=== PATIENT | female | born 1945 | race Caucasian/White ===

== ENCOUNTER → 2016-11-20 | Outpatient (CLI) | payer OTHER, BC ==
[~2016-11-20] MED LIST: ALLO100T PO; ATOR10TA88 PO; CARB25TA12 PO; CLC100 PO; FURO-85 PO; GABA800T PO; HYDR12.55 PO; LISI-725 PO; LORA-741 PO; LOVENOX INJ; MULT-506 PO; QUET400T PO; TRAM-10 PO; WARF4TAB8 PO
--- NOTE | 2016-11-20 10:08 | DIAGNOSTIC IMAGING REPORT ---
CT SCAN OF THE CHEST WITHOUT IV CONTRAST CLINICAL HISTORY: Pulmonary nodule follow-up. COMPARISON STUDY: Chest CT scans dated 07/18/2016 and 05/18/2016. TECHNIQUE: CT scan of the thorax was performed from the thoracic inlet to the upper abdomen. Images are reviewed in the axial, sagittal, and coronal planes. IV contrast was not administered for this examination. CT DOSE: 854.78 mGy.cm FINDINGS: Thyroid: Imaged portions of the thyroid gland are normal in size and attenuation. A 2.5 cm heterogeneous nodule is again noted in the right lobe. Thoracic aorta: There is mild atherosclerotic calcification of the thoracic aorta, which is normal in caliber and demonstrates standard 3-vessel arch anatomy. Heart: The heart is normal in size and without pericardial effusion. There are coronary artery calcifications. Lungs and pleural spaces: There is no lobar consolidation or pleural effusion. The trachea and central airways are clear. There are numerous pulmonary cysts measuring up to 3.8 cm. These are similar previous. Numerous pulmonary opacities are unchanged to slightly increased in size as compared to studies dating back to 05/18/2016. There is a 2.5 cm right middle lobe opacity with a stranding groundglass halo seen on image #150. At least 2 similar-appearing lesions are present at the left lung base and measure up to 2.8 cm, and a similar-appearing lesion in the left upper lobe is similar image #127 measuring 2.9 cm. Smaller groundglass lesions are present in the right upper lobe on images #101, and the right middle lobe on image #120, and in the right lower lobe on image #100. Mediastinum: There are scattered subcentimeter mediastinal lymph nodes. These are not pathologically enlarged by size criteria. Keena: Not well assessed without IV contrast. Axillae: There is no axillary lymphadenopathy. Upper abdomen: There is a large hiatal hernia with the majority of the stomach located in the thoracic cavity. Calcified gallstones are partially visualized. The liver is steatotic. The spleen is mildly enlarged measuring 13.6 cm in length. Cortical atrophy is noted in the partially visualized left kidney. Parapelvic cysts are noted. There is mild nodularity of the adrenal glands. Skeletal structures: The Skeletal structures are osteopenic. Degenerative change and mild hyperkyphosis is seen in the thoracic spine. No lytic or blastic bony lesions are seen. IMPRESSION: 1. There is no lobar consolidation or pleural effusion. 2. There are numerous bilateral pulmonary opacities with a groundglass configuration. These are similar in appearance to slightly increased in size as compared to studies dating back to 05/18/2016. An infectious/inflammatory process should have resolved or changed over this time period. Neoplasm is the diagnosis of exclusion. If not already performed, bronchoscopy is recommended for further assessment. 3. There is no mediastinal lymphadenopathy. 4. There is a 2.5 cm right sided thyroid nodule. Follow-up with a nonemergent thyroid ultrasound is recommended for further assessment. 6. Hepatic steatosis. 7. Large hiatal hernia. 8. Additional findings as above. Electronically signed by: Lenny Ramirez M.D. 11/20/2016 10:07 AM Dictated Date/Time: 11/20/2016 9:54 AM
== END | disposition home or self-care (01) ==
LOC: C.CTS 09:40
PROVIDERS: ATTEND Surgery
DX: R91.8 Other nonspecific abnormal finding of lung field (principal)

== ENCOUNTER → 2016-12-11 | Outpatient (CLI) | payer OTHER, BC ==
--- NOTE | 2016-12-15 12:31 | CODING QUERY MEDICAL NECESSITY ---
SUPPORTING DIAGNOSIS NEEDED A supporting diagnosis is required for the test/procedure performed on this patient in order for us to be reimbursed by the patient's insurance. Please provide a supporting diagnosis for the following test/procedure listed below next to the test name along with your signature. *If there is no additional diagnosis for this patient that would support the following test/procedure please document that below next to the test/procedure. Test(s)/Procedure(s) that require a supporting diagnosis: DOS 12/11 * Vitamin D DIAGNOSIS: Provider Signature: Date: Thank you Ingrid Aguilar Health Information Management Once completed, please kindly fax back to [phone] For questions please call [phone]
== END | disposition home or self-care (01) ==
LOC: C.LAB 15:16
PROVIDERS: ATTEND Psychiatry & Neurology Psychiatry
DX: F31.9 Bipolar disorder, unspecified (principal)

== ENCOUNTER → 2016-12-29 | Outpatient (CLI) | payer OTHER, BC ==
--- NOTE | 2016-12-29 12:48 | DIAGNOSTIC IMAGING REPORT ---
RIGHT LOWER EXTREMITY VENOUS DOPPLER HISTORY: RT LEG Swelling, r/o DVT Right COMPARISON STUDY: None. FINDINGS: There is normal compressibility, flow, and augmentation within the right lower extremity deep venous system. IMPRESSION: No DVT within the right lower extremity Electronically signed by: Rao Roper M.D. 12/29/2016 12:47 PM Dictated Date/Time: 12/29/2016 12:47 PM
== END | disposition home or self-care (01) ==
LOC: C.ULTRBC 12:02
PROVIDERS: ATTEND Internal Medicine
DX: M79.89 Other specified soft tissue disorders (principal); M79.604 Pain in right leg

== ENCOUNTER → 2017-05-07 | Outpatient (CLI) | payer OTHER, BC ==
[2017-05-07 09:36] LABS: BASO % 0.8 %; BASO ABS # 0.04 K/uL (0-0.2); COMPLETE YES; EOS % 4.3 %; HEMATOCRIT 41.5 % (37-47); LYMPH ABS # 1.31 K/uL (1.2-3.4); MEAN CELL VOLUME 87.4 fL (80-100); MEAN CORPUSCULAR HEMOGLOBIN 27.8 pg (25-34); MEAN CORPUSCULAR HGB CONC 31.8 g/dl (32-36); MEAN PLATELET VOLUME 9.1 fL (7.4-10.4); MONO % 11.1 %; NEUT % 56.8 %; PLATELET COUNT 257 K/uL (130-400); RED BLOOD COUNT 4.75 M/uL (4.2-5.4); WHITE BLOOD COUNT 4.85 K/uL (4.8-10.8)
[2017-05-07 10:17] LABS: CHOLESTEROL/HDL RATIO 3.6; THYROID STIMULATING HORMONE 1.5 uIu/ml (0.300-4.500)
--- NOTE | 2017-05-11 09:59 | CODING QUERY MEDICAL NECESSITY ---
CQSUPPORTING DIAGNOSIS NEEDED A supporting diagnosis is required for the test/procedure performed on this patient in order for us to be reimbursed by the patient's insurance. Please provide a supporting diagnosis for the following test/procedure listed below next to the test name along with your signature. *If there is no additional diagnosis for this patient that would support the following test/procedure please document that below next to the test/procedure. Test(s)/Procedure(s) that require a supporting diagnosis: DOS 05/07/17 BLOOD GLUCOSE TEST VITAMIN D TEST Provider Signature: Date: Thank you Mandie Mojica Health Information Management Once completed, please kindly fax back to [phone] For questions please call [phone]
== END | disposition home or self-care (01) ==
LOC: C.LAB 08:44
PROVIDERS: ATTEND Psychiatry & Neurology Psychiatry
DX: F31.9 Bipolar disorder, unspecified (principal); E55.9 Vitamin D deficiency, unspecified

== ENCOUNTER → 2017-06-04 | Outpatient (CLI) | payer OTHER, BC ==
--- NOTE | 2017-06-04 11:39 | DIAGNOSTIC IMAGING REPORT ---
(CHEST) THORAX WITHOUT CLINICAL HISTORY: 71 years-old Female presenting with multiple lung nodules, follow-up. TECHNIQUE: Multidetector CT imaging of the chest was performed without the use of intravenous contrast. IV contrast: None. A dose lowering technique was used consistent with the principles of ALARA (as low as reasonably achievable). COMPARISON: 11/20/2016. CT DOSE (mGy.cm): The estimated cumulative dose is 733.78 mGy.cm. FINDINGS: Crusher Feeder topogram: Unremarkable. On soft tissue windows, prominent heterogeneously hypodense nodule in the right lobe of the thyroid measures approximately 1.5 x 1.8 cm, grossly similar to prior. Numerous subcentimeter mediastinal lymph nodes similar in appearance to prior exam, the largest in the subcarinal region measuring 7 mm in the short axis. Atherosclerosis of aortic arch. Normal heart size. Coronary artery and aortic valve calcification. No pericardial or pleural effusion. Postsurgical changes of possible Annabelle procedure, although the gastroesophageal junction is above the diaphragm. Borderline hepatic steatosis. Calcification of the gallbladder fundus, which may demonstrate gallbladder wall thickening. On lung windows, multiple pulmonary cysts noted bilaterally of varying sizes measuring up to 4.9 cm on the right. Previously noted partially groundglass, partially solid nodule in the right middle lobe along the major fissure now measures approximately 2.7 cm in diameter, previously 2.5 cm. The solid component is not significantly changed from prior. Minimal groundglass opacity also noted more superiorly in the right middle lobe as on prior exam. More anterior right middle lobe partially groundglass and partially solid lobular consolidation is new from prior (series 4 image 149). Round predominantly groundglass nodule at the left lower lobe now measures 2.8 cm in diameter, previously 2.8 cm (series 4 image 23). Additional groundglass surrounds a pulmonary cyst slightly superior to this, unchanged from prior. Somewhat spiculated partially groundglass, partially solid region in the lingula is difficult to measure due to its irregular shape but is approximately unchanged in size from prior. Small nodularity along the right aspect of the upper trachea (series 4 image 29), similar to prior exam. On bone windows, degenerative changes of the thoracic spine. IMPRESSION: 1. Similar appearance of bilateral cystic lung disease. This appearance could be indicative of lymphocytic interstitial pneumonitis (LIP), which would be compatible with additional multifocal nodules and prominent mediastinal lymph nodes. This can be associated with autoimmune diseases, HIV AIDS, and immunodeficiency among other etiologies. 2. Multifocal pulmonary nodules may with extensive groundglass change. These could also be compatible with LIP. However, continued follow-up to confirm stability is warranted given the overlapping appearance with adenocarcinoma in situ. Follow-up per Fleischner Society 2017 recommendations below. 3. Prominent right thyroid nodule. Further assessment with ultrasound could be considered as clinically warranted. 4. Apparent gallbladder wall thickening associated with gallbladder wall calcification. Further assessment with ultrasound to be considered given the concern for porcelain gallbladder. 5. Hepatic steatosis. 6. Postsurgical changes of the gastroesophageal junction suggestive of a Annabelle procedure, although the gastroesophageal junction is above the diaphragm. Please refer to below summary of Fleischner Society 2017 recommendations for follow-up of incidental CT nodules (Kelvin Martinez et al. Guidelines for management of incidental pulmonary nodules detected on CT images: From the Fleischner Society 2017. Radiology 2017; 284: 228-243.) SOLID NODULES Single nodule; size <6 mm * Low risk patients: No routine follow-up * High risk patients: Optional CT at 12 months Single nodule; size 6-8 mm * Low risk patients: CT at 6-12 months, then consider CT at 18-24 months * High risk patients: CT at 6-12 months, then at 18-24 months Single nodule; size >8 mm * Either low or high risk patients: Considered CT at 3 months, PET/CT, or tissue sampling Multiple nodules; size <6 mm * Low risk patients: No routine follow up * High risk patients: Optional CT at 12 months Multiple nodules; size 6-8 mm * Low risk patients: CT at 3-6 months, then consider CT at 18-24 months * High risk patients: CT at 3-6 months, then at 18-24 months Multiple nodules; size >8 mm * Low risk patients: CT at 3-6 months, then consider at 18-24 months * High risk patients: CT at 3-6 months, then at 18-24 months Note: These guidelines apply to incidental nodules. These guidelines did not apply to patients younger than 35 years, immunocompromised patients, or patients with cancer. * Low risk patients: Minimal or absent history of smoking and/or other known risk factors * High risk patients: History of smoking, exposure to other carcinogens, emphysema, fibrosis, upper lobe location, family history of lung cancer, etc. * If a nodule up to 8 mm is partly solid or is ground glass further follow-up is required after 24 months to exclude possible slow growing adenocarcinoma SUBSOLID NODULES Single ground-glass nodule * Nodule size < 6 mm: No routine follow-up * Nodule size > or = 6 mm: CT at 6-12 months to confirm persistence, then CT every 2 years until 5 years Single part-solid nodule * Nodule size < 6 mm: No routine follow-up * Nodules size > or = 6 mm: CT at 3-6 months to confirm persistence. If unchanged and solid component remains < 6 mm, annual CT should be performed for 5 years Multiple nodules * Nodule size < 6 mm: CT at 3-6 months. If stable, consider CT at 2 and 4 years. * Nodules size > or = 6 mm: CT at 3-6 months. Subsequent management based on the most suspicious nodule(s) Electronically signed by: Raji Dsouza M.D. 06/04/2017 11:37 AM Dictated Date/Time: 06/04/2017 11:23 AM
== END | disposition home or self-care (01) ==
LOC: C.CTS 11:01
PROVIDERS: ATTEND Internal Medicine Pulmonary Disease
DX: R91.8 Other nonspecific abnormal finding of lung field (principal); E04.1 Nontoxic single thyroid nodule; K76.0 Fatty (change of) liver, not elsewhere classified

== ENCOUNTER 2017-07-11 05:28 | Inpatient (IN) | payer OTHER, BC ==
[2017-06-20 15:22] VITALS: BMI 36.0
--- NOTE | 2017-06-20 16:06 | PAT Medication Instructions ---
Service Date Jun 20, 2017. Current Home Medication List Allopurinol (Zyloprim), 100 MG PO QAM Atorvastatin (Lipitor), 10 MG PO QAM Carbidopa/Levodopa (Sinemet 25MG/100MG), 1 TABLET PO TID Furosemide (Lasix), 20 MG PO QAM Gabapentin (Neurontin), 800 MG PO TID Lisinopril (Zestril), 20 MG PO BID Lorazepam (Ativan), 0.5 MG PO HS PRN for Insomnia Multivitamin (Multivitamin), 1 TAB PO QAM Quetiapine Fumarate (Seroquel), 1 TAB PO HS Medication Instructions For Your Scheduled Surgery - Hold the following medications 24 hours prior to surgery: Lisinopril (Zestril), 20 MG PO BID - Hold the following medications the morning of surgery: Multivitamin (Multivitamin), 1 TAB PO QAM Furosemide (Lasix), 20 MG PO QAM - Take the following medications the morning of surgery with a sip of water: Gabapentin (Neurontin), 800 MG PO TID Carbidopa/Levodopa (Sinemet 25MG/100MG), 1 TABLET PO TID Allopurinol (Zyloprim), 100 MG PO QAM Atorvastatin (Lipitor), 10 MG PO QAM - Take the following medications as scheduled the night before surgery: Quetiapine Fumarate (Seroquel), 1 TAB PO HS (if needed) Lorazepam (Ativan), 0.5 MG PO HS PRN for Insomnia (if needed) Gabapentin (Neurontin), 800 MG PO TID Carbidopa/Levodopa (Sinemet 25MG/100MG), 1 TABLET PO TID If you have any questions please call us at [phone] or [phone] or [phone]
[2017-06-20 16:28] LABS: BASO % 0.6 %; BASO ABS # 0.03 K/uL (0-0.2); COMPLETE YES; EOS % 2.5 %; IG% 0.2 %; LYMPH % 17.4 %; LYMPH ABS # 0.89 K/uL (1.2-3.4); MEAN CELL VOLUME 92.2 fL (80-100); MEAN CORPUSCULAR HGB CONC 31.5 g/dl (32-36); MONO % 8.4 %; NEUT % 70.9 %; PLATELET COUNT 290 K/uL (130-400); RED BLOOD COUNT 4.34 M/uL (4.2-5.4); WHITE BLOOD COUNT 5.11 K/uL (4.8-10.8)
[2017-06-20 16:36] LABS: BUN/CREATININE RATIO 24.2 (10-20); CALCIUM 9.5 mg/dl (8.5-10.1); CREATININE 1.1 mg/dl (0.60-1.20); POTASSIUM 3.5 mmol/L (3.5-5.1)
[~2017-07-11] VITALS: Ht 165.1 cm; Wt 99.8 kg
[2017-07-11] VITALS (10 sets, daily range): BP systolic 113–146; BP diastolic 66–99; PULSE 76–103; TEMP 35.7–36.8; O2SAT 88–96; Ht 165.1 cm; Wt 99.8 kg
[~2017-07-11 05:28] MED LIST changes: -CLC100 PO; -HYDR12.55 PO; -LOVENOX INJ; -TRAM-10 PO; -WARF4TAB8 PO
[2017-07-11] MEDS: LACTATED RINGER'S 1000ML 1,000 ML IV SCH ×2 (06:34→11:29)
[2017-07-11] MEDS ORDERED: BUPIVACAINE LIPOSOME 1/3% 266 MG/20 ML VIAL INFIL ONE (07:00)
[2017-07-11] MEDS ORDERED: SODIUM CHLORIDE 0.9% PF 50 ML VIAL ONE (07:00)
[2017-07-11] MEDS ORDERED: MIDAZOLAM HCL 1 MG/ML 2ML VIAL ONE (07:08)
[2017-07-11] MEDS ORDERED: KETAMINE HCL INJ 50 MG/ML 10 ML VIAL ONE (07:08)
[2017-07-11] MEDS ORDERED: FENTANYL CITRATE INJ 50 MCG/1 ML 2 ML VIAL ONE ×2 (07:08→10:35)
--- NOTE | 2017-07-11 07:15 | History & Physical Bridge Note ---
H&P Re-Evaluation Bridge Note: I have examined the patient, reviewed the History & Physical and in the interval since the performance of the History & Physical I have noted the following changes of clinical significance: No changes noted
[2017-07-11] MEDS ORDERED: ONDANSETRON INJ 2 MG/ML 2 ML VIAL ONE (08:32)
[2017-07-11] MEDS ORDERED: EpHEDrine SULFATE 50MG/5ML SYR ONE (08:32)
[2017-07-11] MEDS ORDERED: PHENYLEPHRINE 100MCG/ML 5ML SYR ONE (08:32)
[2017-07-11] MEDS ORDERED: CISATRACURIUM BESYLATE IV SOLN 2 MG/ML 10 ML VIAL ONE (09:23)
[2017-07-11] MEDS ORDERED: DEXAMETHASONE SOD INJ 4 MG/ML VIAL ONE (09:23)
[2017-07-11] MEDS ORDERED: PHENYLEPHRINE HCL INJ 10 MG/ML VIAL ONE (09:24)
[2017-07-11] MEDS ORDERED: SODIUM CHLORIDE 0.9% INJ 10 ML VIAL ONE (09:28)
[2017-07-11] MEDS ORDERED: VASOPRESSIN 20 UNIT/ML VIAL ONE (09:39)
[2017-07-11] MEDS ORDERED: CEFAZOLIN SOD 1 GM VIAL ONE (10:31)
[2017-07-11] MEDS ORDERED: LARYING-O-JET KIT (LTA) ONE ×2 (10:31)
[2017-07-11] MEDS ORDERED: NEOSTIGMINE METHYLSULFATE 5 MG/5 ML SYR ONE (10:34)
[2017-07-11] MEDS ORDERED: GLYCOPYRROLATE INJ 0.2 MG/ML VIAL ONE (10:34)
[2017-07-11] MEDS ORDERED: ONDANSETRON INJ 2 MG/ML 2 ML VIAL IV PRN ×2 (10:45→11:30)
[2017-07-11] MEDS ORDERED: MoRPHine SULFATE 2 MG/ML CARP IV PRN ×2 (10:45→13:45)
[2017-07-11] MEDS ORDERED: LORAZEPAM 0.5 MG TAB PO PRN (10:45)
--- NOTE | 2017-07-11 11:13 | DIAGNOSTIC IMAGING REPORT ---
CHEST ONE VIEW PORTABLE CLINICAL HISTORY: right wedge resection COMPARISON STUDY: 09/06/2016 FINDINGS: Postsurgical changes are present on the right. There is a right-sided chest tube the tip of which projects over the right fifth posterior rib. There is right hilar enlargement. There are nonspecific bilateral pulmonary airspace opacities left greater than right. There is persistent blunting of the left lateral costophrenic angle.[ IMPRESSION: 1. No evidence of significant pneumothorax status post right lung wedge resection. A right-sided chest tube is visualized 2. Nonspecific bilateral pulmonary airspace opacities left greater than right Electronically signed by: Ubaldo Boone M.D. 07/11/2017 11:11 AM Dictated Date/Time: 07/11/2017 11:10 AM
[2017-07-11] MEDS ORDERED: ATROPINE SULFATE 0.1 MG/ML 5ML SYR IV PRN (11:30)
[2017-07-11] MEDS ORDERED: EpHEDrine SULFATE INJ 50 MG/ML AMP IV PRN (11:30)
[2017-07-11] MEDS ORDERED: HYDROmorphone INJ 1 MG/ML SYR IV PRN (11:30)
[2017-07-11] MEDS ORDERED: NALOXONE HCL 0.4 MG/1 ML VIAL/CARP IV PRN (11:30)
[2017-07-11] MEDS ORDERED: LABETALOL HCL IV 5 MG/ML 20ML IV PRN (11:30)
[2017-07-11] MEDS ORDERED: FLUMAZENIL 0.1 MG/1 ML 10 ML VIAL IV PRN (11:30)
[2017-07-11] MEDS ORDERED: PROMETHAZINE HCL INJ 12.5 MG in SODIUM CHLORIDE 0.9% 50ML 50 ML IV PRN (11:30)
[2017-07-11] MEDS ORDERED: HYDROmorphone INJ 1 MG/ML SYR ONE (11:32)
--- NOTE | 2017-07-11 12:19 | Anesthesiology Progress Note ---
Anesthesia Post Op Note Date & Time Jul 11, 2017 at 12:18 Vital Signs Pain Intensity: 4 Vital Signs Past 12 Hours Date Time Temp Pulse Resp B/P (MAP) Pulse Ox O2 Delivery O2 Flow Rate FiO2 07/11/17 11:45 36.4 76 16 125/71 94 Oxymask 4 07/11/17 11:35 72 16 133/73 94 Oxymask 10 07/11/17 11:25 36.4 72 12 132/69 92 Oxymask 10 07/11/17 11:15 65 12 128/77 92 Oxymask 10 07/11/17 11:05 82 12 142/77 93 Oxymask 10 07/11/17 10:55 58 12 125/71 92 Oxymask 15 07/11/17 10:49 36.2 61 12 130/67 92 Oxymask 15 07/11/17 06:03 36.8 97 18 127/99 92 Room Air Notes Mental Status: alert / awake / arousable, participated in evaluation Pt Amnestic to Procedure: Yes Nausea / Vomiting: adequately controlled Pain: adequately controlled Airway Patency, RR, SpO2: stable & adequate BP & HR: stable & adequate Hydration State: stable & adequate Anesthetic Complications: no major complications apparent
--- NOTE | 2017-07-11 13:10 | OPERATIVE REPORT ---
DISCHARGE DIAGNOSES: Cystic infiltrative lesions bilateral lungs. POSTOPERATIVE DIAGNOSIS: Same. PROCEDURE: 1. Robot-assisted thoracoscopic surgery with takedown of extensive adhesions. 2. Wedge resection of middle lobe and lower lobe masses. 3. Lymph node biopsy. SURGEON: Dr. Duvall. FLUORESCENT LIGHTING MODEL MAKER: Lenny Andino PA-C. ANESTHESIA: General anesthesia endotracheal intubation using a single lumen tube. SPECIFICS OF PROCEDURE: Ms. Graves is a very nice 71-year-old female that I have known for a long period of time who has had cystic lesions in both of her lungs. They are odd in appearance. They do not appear to be bullae. She has some that are completely intraparenchymal. She also has some infiltrated lesions, 1 in particular in the lateral aspect of the middle lobe. The patient has no real symptoms. On her last CT, it appeared that some of these lesions had grown. For this reason, she came back to the office and we set her up for a robot-assisted thoracoscopic wedge resections. On 07/11/2017 the patient underwent a robotic assisted thoracoscopic surgery. Upon placing the first 8 mm trocar it could be seen there were marked adhesions. I then placed the other ones and we were able to finally get a Harmonic scalpel in and then began taking down adhesions and took down all the adhesions including off the diaphragm. After doing this, we then could see the cystic mass in the medial aspect of the lower lobe which we wedged out as well as the lateral aspect. The second one was a small biopsy. Also, wedged out an area of the lower lobe. I biopsied a level 12 node in the interlobar fissure off the artery. She tolerated it well, had a very tiny air leak postoperatively. We lost very little in the way of blood. PROCEDURE: The patient brought to the operating room and laid in supine position. General anesthesia induced and endotracheal intubation performed with a single lumen tube as we were using CO2 insufflation. A 8 mm port was placed about an interspace below the scapula tip, a bit anterior and upon placing this and insufflating CO2 it could be seen that we were actually caught up in some adhesions. I then made another port more anteriorly 1 interspace above and upon entering it could be seen there was a lack of adhesions superiorly. I had to enlarge this port a bit and then placed a Harmonic scalpel and took down the adhesions until we could get another port in posteriorly. We then put a assistance port in and with all of these we were able to get many of the adhesions down. We then docked the robot. Using the bipolar dissector, we took down the rest of the adhesions of the lower lobe and middle lobe and was able to develop the fissure quite nicely, which was almost complete. We then dissected the medial aspect of the middle lobe off of the mediastinal area and there was a large cyst which was noted on CT scan. I was able to dissect this out completely and then put Endo-DANIEL stapler and fired this twice and was able to remove this in its entirety with a bag. Attention was then turned towards the medial aspect of as I was dissecting out the fissure came upon the artery with a acanthotic node which I dissected out in its entirety. This level 12 node was sent off. I then biopsied the area of infiltrate and it did appear to be abnormal lung in the lateral aspect of the middle lobe. It should also be noted that this was a very small biopsy specimen that we sent for frozen. While waiting for this we then took out another abnormality in the middle of the lower lobe on the right. A 266 mg of Exparel were mixed in 60 mL total of normal saline and injected from the 2nd to 11th rib. She did well with this. We then checked her for leakage and she had very little in the way of an air leak. A 24-Syriac chest tube was placed through the anterior thoracostomy port and directed towards the apex and sutured in place with heavy silk suture. All the ports were removed and the patient was undocked. 0 Vicryl was used to close the muscle layers of all the ports and then 4-0 Monocryl was used in running subcuticular fashion to approximate wound edges. She had very slow air leak in her chest tube which was intermittent at the completion of the case. She tolerated it well and was extubated and transported back to the post-anesthesia care unit in stable condition.
[2017-07-11 14:20] LABS: PROTHROMBIN TIME (PATIENT) 10.7 SECONDS (9.0-12.0)
[2017-07-11] MEDS: ACETAMINOPHEN IV 1,000 MG in EMPTY BAG 0 ML IV SCH ×2 (14:20→22:05)
[2017-07-11] MEDS: D5W AND 1/2NSS 1,000 ML IV SCH ×2 (14:21→22:06)
[2017-07-11] MEDS: METOCLOPRAMIDE HCL INJ 5 MG/ML 2 ML VIAL IV. SCH ×2 (14:23→22:05)
[2017-07-11] MEDS: GABAPENTIN 800 MG TAB PO SCH ×2 (14:23→20:47)
[2017-07-11] MEDS: CARBIDOPA/LEVODOPA 25/100MG TAB PO SCH ×2 (14:23→20:47)
[2017-07-11] MEDS: CEFAZOLIN IV 2,000 MG in DEXTROSE 5% 50ML 100 ML IV SCH (16:44)
[2017-07-11] MEDS: OXYCODONE HCL IR 5 MG TAB (IMMEDIATE RELEASE) PO PRN (18:22)
[2017-07-11] MEDS: DOCUSATE SODIUM 100 MG CAP PO SCH (20:47)
[2017-07-11] MEDS: LISINOPRIL 20 MG TAB PO SCH (20:48)
[2017-07-11] MEDS ORDERED: QUETIAPINE FUMARATE 200 MG TAB PO SCH (21:00)
[2017-07-12 00:09] VITALS: BP 104/60; PULSE 102; TEMP 36.3; O2SAT 92
[2017-07-12] MEDS: CEFAZOLIN IV 2,000 MG in DEXTROSE 5% 50ML 100 ML IV SCH (00:11)
[2017-07-12 04:05] VITALS: BP 109/67; PULSE 90; TEMP 36.6; O2SAT 95
[2017-07-12] MEDS: ACETAMINOPHEN IV 1,000 MG in EMPTY BAG 0 ML IV SCH (05:30)
[2017-07-12] MEDS: METOCLOPRAMIDE HCL INJ 5 MG/ML 2 ML VIAL IV. SCH (05:30)
[2017-07-12 05:45] VITALS: O2SAT 93
[2017-07-12 07:50] VITALS: BP 104/68; PULSE 94; TEMP 36.6; O2SAT 92
--- NOTE | 2017-07-12 07:56 | Discharge Instructions ---
Discharge Instructions Date of Service Jul 12, 2017. Admission Reason for Admission: Cystic-Bullous Disease Of Lung, Multiple Lung Nodu Discharge Discharge Diagnosis / Problem: Cystic-Bullous Disease Of Lung, Multiple Lung Nodules Discharge Goals Goal(s): Learn about illness Activity Recommendations Activity Limitations: as noted below Lifting Limitations: none . Instructions / Follow-Up Instructions / Follow-Up 1. You may remove dressings in 3 days and shower thereafter. No tub baths. 2. Office appointment with Dr. Duvall in 1 week. Office will call you with date and time of appointment. Go to hospital 1 hour before appointment to have chest x-ray taken. Current Hospital Diet Patient's current hospital diet: Regular Diet Discharge Diet Recommended Diet: Regular Diet Procedures Procedures Performed: Robotic assisted right thoracoscopy with wedge resection Pending Studies Studies pending at discharge: no Laboratory Results Lipid Panel Test 05/07/17 08:52 Range/Units Triglycerides Level 181 H 0-150 mg/dl Cholesterol Level 158 0-200 mg/dl HDL Cholesterol 44 mg/dl Cholesterol/HDL Ratio 3.6 LDL Cholesterol, Calculated 78 mg/dl Medical Emergencies . Who to Call and When: Medical Emergencies: If at any time you feel your situation is an emergency, please call 911 immediately. . Non-Emergent Contact Non-Emergency issues call your: Surgeon Call Non-Emergent contact if: you have a fever, your pain is not controlled, wound has increased drainage . "Provider Documentation" section prepared by Philip Andino. . VTE Core Measure Inpt VTE Proph given/why not?: Enoxaparin (Lovenox)SQ, SCD's
--- NOTE | 2017-07-12 07:58 | DIAGNOSTIC IMAGING REPORT ---
CHEST ONE VIEW PORTABLE CLINICAL HISTORY: 71 years-old Female presenting with right wedge resection . TECHNIQUE: Portable upright AP view of the chest was obtained. COMPARISON: 07/11/2017. FINDINGS: A large bore right pleural drain projects over the right mid to upper lung. Atherosclerosis of aortic arch. Cardiac silhouette normal in size. Significant interval decrease and right basilar and multifocal left lung opacities. Normal lung aeration. A trace right apical pneumothorax may be present. No large effusion. Osseous structures normal. Upper abdomen normal. IMPRESSION: 1. Possible trace right apical pneumothorax. Right pleural drain remains in good position. Improved aeration of the lungs. Electronically signed by: Raji Dsouza M.D. 07/12/2017 7:57 AM Dictated Date/Time: 07/12/2017 7:55 AM
[2017-07-12] MEDS ORDERED: TRAM-10 PO (08:11)
[2017-07-12] MEDS ORDERED: CLC100 PO (08:11)
--- NOTE | 2017-07-12 08:30 | DIAGNOSTIC IMAGING REPORT ---
CHEST ONE VIEW PORTABLE HISTORY: 71 years-old Female chest tube removal status post right wedge resection. Prior chest tube removal. COMPARISON: Portable chest radiograph 07/12/2017 TECHNIQUE: Portable upright AP view of the chest. FINDINGS: Cardiac silhouette is within normal limits. Is unchanged right hemidiaphragmatic elevation. There is atherosclerosis of the aorta. No pneumothorax. Patchy bibasilar opacities are unchanged suggesting atelectasis. There has been interval removal of the right-sided chest tube. Previously questioned small right apical pneumothorax is not identified. Bones appear grossly intact. IMPRESSION: 1. Status post right-sided chest tube removal without definite pneumothorax identified. 2. Hazy bibasilar opacities suggest atelectasis. The above report was generated using voice recognition software. It may contain grammatical, syntax or spelling errors. Electronically signed by: Miko Patel M.D. 07/12/2017 8:29 AM Dictated Date/Time: 07/12/2017 8:26 AM
[2017-07-12] MEDS: LISINOPRIL 20 MG TAB PO SCH (08:56)
[2017-07-12] MEDS: GABAPENTIN 800 MG TAB PO SCH (08:56)
[2017-07-12] MEDS: DOCUSATE SODIUM 100 MG CAP PO SCH (08:59)
[2017-07-12] MEDS: CARBIDOPA/LEVODOPA 25/100MG TAB PO SCH (08:59)
[2017-07-12] MEDS ORDERED: MULTIVITAMIN TAB PO SCH (09:00)
[2017-07-12] MEDS ORDERED: ENOXAPARIN 40 MG/0.4 ML SYR SQ SCH (09:00)
[2017-07-12] MEDS ORDERED: ATORVASTATIN 10 MG TAB PO SCH (09:00)
[2017-07-12] MEDS ORDERED: ALLOPURINOL 100 MG TAB PO SCH (09:00)
--- NOTE | 2017-07-12 09:01 | Clinical Documentation Query ---
STEVE Cano : CLINICAL DOCUMENTATION QUERY Patient is a 71 year old female who on 07/11 underwent robot-assisted thoracoscopic surgery with takedown of extensive adhesions, wedge resection of middle lobe and lower lobe masses, lymph node biopsy. Chest radiograph 07/12 demonstrated possible trace right apical pneumthorax. As appropriate, consider documentation thereof in order to capture accurate DRG assignment. Thank you. In your clinical opinion is this patient being managed for: ( ) Right apical pneumothorax, expected s/p thoracoscopy, treated with closed chest drainage (X ) Not Agree ( ) Other explanation of clinical findings (Please Explain) ( ) Unable to determine (Please Define) ( ) Need to Discuss This patient did not have a pneumothorax. Over read by radiology. The medical record reflects the following clinical findings, treatment, and risk factors. Clinical Indicators: As above Treatment: Closed chest drainage Risk Factors: Aforementioned procedures. Please clarify and document your clinical opinion in the progress notes and discharge summary. Terms such as "probable", "suspected", "likely", "questionable", "possible", or "still to be ruled out" are acceptable. IF IN AGREEMENT, YOU MUST DOCUMENT ABOVE DIAGNOSTIC STATEMENT IN DAILY PROGRESS NOTES AND DISCHARGE SUMMARY. This document is not part of the patient's record.
--- NOTE | 2017-07-12 09:24 | DISCHARGE SUMMARY ---
DISCHARGE DIAGNOSIS: Bilateral cystic infiltrative masses. HOSPITAL COURSE: Katie Graves is massively delightful 71-year-old female who was noted to have cystic lesions in both lungs for a long period of time. It appeared to have gotten a bit larger. Dr. Vargas Escobar asked me if I would evaluate her for a possible surgical biopsy. We did do a navigational bronchoscopy in the past and did not get any answer. On 07/11/2017, the patient underwent an uncomplicated robotic-assisted right thoracoscopy. She had marked adhesions and I spent a good deal of time lysing these. We then freed it up so we were able to see a nice large cystic lesion in the medial middle lobe and I wedged this out with a cyst intact. I also wedged out an infiltrative area with another cyst laterally on the middle lobe. This was a very small biopsy and I also biopsied the suspicious looking area on the lower lobe. We also removed the lymph node. The patient tolerated it very well with negligible blood loss. She really had no air leak after surgery. We put her on the floor and she did very well. She was ambulating several hours after surgery. She was on room air and tolerating a regular diet. She got up by herself and went to the bathroom and took her tube in place. I removed her chest tube on postop day #1, and her chest x-ray looked quite good. She was discharged home. We will see her back to go over pathology results in the next week or so. I told the patient I want to see the patient back within several days to go over the pathology revealed; however, the patient is being taken to [place] by her family. I have given them my cell number and told him to call me should any problems arise. She will be down there for a week or so before coming back to the office. Her incisions looked clean. Her labs look good. Frozen section was done by Dr. Raji Velasquez from pathology and it was a bit bland in appearance. He did send it for flow cytometry as sometimes lymphoma can present like this.
[2017-07-12 09:46] VITALS: BP 104/68; PULSE 94; TEMP 36.6; O2SAT 92
[2017-07-12] MEDS: OXYCODONE HCL IR 5 MG TAB (IMMEDIATE RELEASE) PO PRN (10:42)
[2017-07-12] MEDS ORDERED: ACETAMINOPHEN 325 MG TAB PO SCH (13:30)
[2017-07-16 09:38] LABS: NEO MISC SEE FLOW REPORT
[2017-07-16 09:39] LABS: NEO MISC SEE FLOW REPORT
== END 2017-07-12 10:58 | disposition home or self-care (01) | DRG 165 ==
LOC: C.ACU 05:28 → C.3E 07:00 → ENRESERV 11:39
PROVIDERS: ADMIT Surgery; ATTEND Surgery
PROC: 0BBD4ZX Excision of Right Middle Lung Lobe, Percutaneous Endoscopic Approach, Diagnostic (ICD-10-PCS; principal; 2017-07-11 07:30)
PROC: 0BNK4ZZ Release Right Lung, Percutaneous Endoscopic Approach (ICD-10-PCS; principal; 2017-07-11 07:30)
PROC: 07T74ZZ Resection of Thorax Lymphatic, Percutaneous Endoscopic Approach (ICD-10-PCS; principal; 2017-07-11 07:30)
PROC: 0BBF4ZX Excision of Right Lower Lung Lobe, Percutaneous Endoscopic Approach, Diagnostic (ICD-10-PCS; principal; 2017-07-11 07:30)
DX: R91.8 Other nonspecific abnormal finding of lung field (principal); J98.4 Other disorders of lung; K66.0 Peritoneal adhesions (postprocedural) (postinfection); Z79.899 Other long term (current) drug therapy

== ENCOUNTER → 2017-07-26 | Outpatient (CLI) | payer OTHER, BC ==
[~2017-07-26] MED LIST changes: +CLC100 PO; +TRAM-10 PO
--- NOTE | 2017-07-26 09:47 | DIAGNOSTIC IMAGING REPORT ---
CHEST 2 VIEWS ROUTINE HISTORY: R91.8 Multiple lung nodules on [id number] COMPARISON: Chest 07/12/2017. Chest CT 06/04/2017. FINDINGS: No pneumothorax. Mild diffuse interstitial thickening, unchanged. Mild elevation of the right hemidiaphragm, unchanged. Small to moderate hiatus hernia. The heart is normal in size. Bibasilar linear densities persist. Scattered cysts/blebs are noted within the lungs. The groundglass nodules seen on the prior study are not well visualized by this modality. IMPRESSION: No significant change compared to the prior study. Bibasilar linear densities are nonspecific but favor subsegmental atelectasis. The groundglass nodules seen on the prior chest CT are not well evaluated by this modality. Electronically signed by: Rao Roper M.D. 07/26/2017 9:45 AM Dictated Date/Time: 07/26/2017 9:43 AM
== END | disposition home or self-care (01) ==
LOC: C.RAD 09:14
PROVIDERS: ATTEND Surgery
DX: J98.4 Other disorders of lung (principal); R91.8 Other nonspecific abnormal finding of lung field

== ENCOUNTER 2018-06-04 16:22 | Inpatient (IN) | payer OTHER, BC ==
[~2018-06-04] VITALS: Ht 165.1 cm; Wt 110.5 kg
[~2018-06-04 16:22] MED LIST changes: +ATOR10TA82 PO; -ATOR10TA88 PO; -CARB25TA12 PO; -LORA-741 PO; -TRAM-10 PO
[2018-06-04] MEDS ORDERED: SODIUM CHLORIDE 0.9% 1000ML 1,000 ML IV STA ×2 (16:46)
--- NOTE | 2018-06-04 17:05 | DIAGNOSTIC IMAGING REPORT ---
SINGLE VIEW CHEST CLINICAL HISTORY: Generalized weakness. FINDINGS: An AP, portable, upright chest radiograph is compared to study dated 07/26/2017 and correlated with chest CT dated 06/04/2017. The examination is significantly degraded by portable technique and patient rotation. The heart is top normal for projection and there is atherosclerotic calcification of the thoracic aorta. The pulmonary vasculature is noncongested. There are bibasilar airspace opacities. No large pleural effusion or Pneumothorax is seen. The skeletal structures are osteopenic. The bony thorax is grossly intact. IMPRESSION: There are nonspecific bibasilar airspace opacities. This could represent atelectasis versus a mild infectious/inflammatory pneumonitis. Clinical correlation will be required. Electronically signed by: Lenny Ramirez M.D. 06/04/2018 5:04 PM Dictated Date/Time: 06/04/2018 5:02 PM
[2018-06-04 17:07] LABS: ISTAT CREATININE 1.9 mg/dl (0.6-1.3); ISTAT IONIZED CALCIUM 1.14 mmol/l (1.12-1.32); ISTAT POTASSIUM 4.1 mEq/L (3.3-5.0)
[2018-06-04 17:32] LABS: BASO % 0.2 %; BASO ABS # 0.01 K/uL (0-0.2); EOS % 3.2 %; EOS ABS # 0.17 K/uL (0-0.5); HEMATOCRIT 39.6 % (37-47); HEMOGLOBIN 12.5 g/dL (12.0-16.0); IG# 0.01 K/uL (0.00-0.02); LYMPH ABS # 0.85 K/uL (1.2-3.4); MEAN CELL VOLUME 85.9 fL (80-100); MEAN CORPUSCULAR HEMOGLOBIN 27.1 pg (25-34); MEAN CORPUSCULAR HGB CONC 31.6 g/dl (32-36); MEAN PLATELET VOLUME 9.4 fL (7.4-10.4); MONO % 7.7 %; MONO ABS # 0.41 K/uL (0.11-0.59); NEUT % 72.7 %; NEUT ABS # 3.86 K/uL (1.4-6.5); PLATELET COUNT 236 K/uL (130-400); RED CELL DISTRIBUTION WIDTH CV 18.5 % (11.5-14.5); WHITE BLOOD COUNT 5.31 K/uL (4.8-10.8)
[2018-06-04 17:41] LABS: PTT PATIENT 24.2 SECONDS (21.0-31.0)
[2018-06-04] MEDS ORDERED: QUET1TAB34 PO (17:45)
[2018-06-04] MEDS ORDERED: PRENTAB26 PO (17:45)
[2018-06-04] MEDS ORDERED: QUET1TAB10 PO (17:45)
[2018-06-04] MEDS ORDERED: POLY335019 PO (17:45)
[2018-06-04] MEDS ORDERED: MICO2POW TOP (17:47)
[2018-06-04 18:08] LABS: ALBUMIN 3.5 gm/dl (3.4-5.0); ALKALINE PHOSPHATASE 104 U/L (45-117); ALT/SGPT < 6 U/L (12-78); AST/SGOT 10 U/L (15-37); BLOOD UREA NITROGEN 42 mg/dl (7-18); CALCIUM 9.2 mg/dl (8.5-10.1); CARBON DIOXIDE 27 mmol/L (21-32); CREATININE 2.06 mg/dl (0.60-1.20); GLUCOSE 155 mg/dl (70-99); LIPASE 145 U/L (73-393); POTASSIUM 4.1 mmol/L (3.5-5.1); SODIUM 139 mmol/L (136-145)
[2018-06-04 19:03] LABS: CALCIUM 8.4 mg/dl (8.5-10.1); CREATININE 1.92 mg/dl (0.60-1.20); POTASSIUM 4.4 mmol/L (3.5-5.1)
[2018-06-04] MEDS ORDERED: LORA-741 PO (20:03)
[2018-06-04 20:14] VITALS: Ht 165.1 cm; Wt 110.5 kg
[2018-06-04] MEDS ORDERED: ONDANSETRON INJ 2 MG/ML 2 ML VIAL IV PRN (20:30)
[2018-06-04] MEDS ORDERED: ACETAMINOPHEN 325 MG TAB PO PRN (20:30)
--- NOTE | 2018-06-04 20:39 | History and Physical ---
History & Physical Date & Time of Service: Jun 04, 2018 at 20:39 Chief Complaint: Syncope Primary Care Physician: Gertrudis Johnson M.D. History of Present Illness Source: patient, family (daughter at bedside), clinic records, hospital records Patient is a 72-year-old female past medical history of Parkinson's disease, bipolar disorder, history of PE, HTN and CKD III who presents after a syncopal episode at home. Patient reports being in normal state of health earlier today , running errands and driving grandchildren around town. Was at home on her couch when 13-year-old grandson notes that patient's "eyes rolled back" and she became unresponsive for a few minutes before waking up. Patient denies any preceding lightheadedness, visual changes, chest pain, palpitations or shortness of breath. No head trauma or fall. Denies having syncopal events in the past and does not have any history of known arrhythmias. Admits that she has not been drinking enough water recently. Has been taking medication regularly, including 20 mg Lasix daily. Currently patient feels generally weak but otherwise asymptomatic. No headache, lightheadedness, near syncope, visual changes, chest pain, shortness of breath, abdominal pain, nausea, vomiting, dysuria, constipation or diarrhea. No lower extremity swelling. Has a history of a PE a few years ago after a prolonged hospital stay. Was initially found to be hypotensive with systolic blood pressure in the upper 60s. Was hypoxic on room air 86% (is not on home oxygen). Blood pressure improved with administration of fluids and oxygen saturation increased to 98% on 2 L nasal cannula. Past Medical/Surgical History Medical Problems: (1) ARF (acute renal failure) Status: Resolved (2) Bipolar disorder Status: Chronic (3) Gout Status: Chronic (4) History of pulmonary embolism Status: Resolved (5) HTN (hypertension) Status: Chronic (6) Idiopathic peripheral neuropathy Status: Chronic (7) Parkinsons disease Status: Chronic (8) RLS (restless legs syndrome) Status: Chronic Surgical Problems: (1) History of hernia repair Status: Chronic (2) History of partial hysterectomy Status: Chronic (3) History of uterine suspension procedure Status: Chronic (4) Status post repair of paraesophageal diaphragmatic hernia Status: Chronic Family History No pertinent family history Social History Smoking Status: Never Smoker Alcohol Use: none Drug Use: other Marital Status: Housing status: lives alone Immunizations History of Influenza Vaccine: Yes Influenza Vaccine Date: Jan 10, 2016 History of Tetanus Vaccine?: Yes History of Pneumococcal: Yes Pneumococcal Date: Jan 10, 2016 History of Hepatitis B Vaccine: No Allergies Coded Allergies: Indomethacin (Verified Allergy, Intermediate, RASH, 07/11/17) Erythromycin (Verified Allergy, Unknown, UNKNOWN, 07/11/17) Levofloxacin (Verified Adverse Reaction, Intermediate, Causes psychosis., 07/11/17) Source [facility]/PT Home Medications Scheduled Allopurinol (Zyloprim), 100 MG PO QAM Atorvastatin (Lipitor), 10 MG PO QAM Carbidopa/Levodopa (Sinemet 25MG/100MG), 1 TABLET PO TID Furosemide (Lasix), 20 MG PO QAM Gabapentin (Neurontin), 800 MG PO TID Lisinopril (Zestril), 20 MG PO BID Miconazole Nitrate (Topical) ([facility] Anti-Fungal Powder), 1 APPLN TOP PRN Multivit/Min/Iron/Fol Ac/Pren ( Vitamin), 1 TAB PO DAILY Quetiapine Fumarate (Seroquel), 200 MG PO HS Quetiapine Fumarate (Seroquel), 100 MG PO BID UD Scheduled PRN Lorazepam (Ativan), 0.5 MG PO HS PRN for Insomnia Polyethylene Glycol 3350 (Miralax), 17 GM PO DAILY PRN for Constipation Review of Systems Ten systems reviewed and negative except as noted in the HPI. Physical Exam Vital Signs Date Time Temp Pulse Resp B/P (MAP) Pulse Ox O2 Delivery O2 Flow Rate FiO2 06/04/18 20:15 78 18 98 06/04/18 20:14 Nasal Cannula 06/04/18 20:02 149/110 06/04/18 20:00 83 15 06/04/18 19:45 81 19 06/04/18 19:31 157/140 06/04/18 19:30 79 19 06/04/18 19:15 78 16 06/04/18 19:00 79 17 06/04/18 18:32 79 22 06/04/18 18:22 89 16 151/128 06/04/18 18:12 81 13 99 06/04/18 18:11 130/72 06/04/18 18:02 78 15 98 8/21/18 18:01 121/76 06/04/18 17:52 78 16 98 06/04/18 17:51 118/72 06/04/18 17:42 79 19 98 06/04/18 17:41 111/63 06/04/18 17:40 104/66 06/04/18 17:32 82 18 99 06/04/18 17:31 100/61 06/04/18 17:22 82 20 96 06/04/18 17:21 97/49 06/04/18 17:14 85/43 06/04/18 17:12 84 20 97 06/04/18 17:11 62/37 06/04/18 17:09 36.6 89 22 78/48 86 Room Air 06/04/18 17:04 90 Nasal Cannula 2.0 06/04/18 17:04 86 Room Air 06/04/18 17:02 87 22 96 06/04/18 17:01 72/44 06/04/18 16:56 90 06/04/18 16:52 90 20 92 06/04/18 16:47 86/47 06/04/18 16:46 /45 06/04/18 16:42 87 24 92 06/04/18 16:41 78/50 06/04/18 16:40 68/47 General Appearance: WD/WN, no apparent distress, + obese Head: normocephalic, atraumatic Eyes: normal inspection, PERRL, sclerae normal ENT: normal ENT inspection, hearing grossly normal, pharynx normal (dry mucous membranes ) Neck: supple, thyroid normal, trachea midline Respiratory/Chest: chest non-tender, lungs clear, normal breath sounds, no respiratory distress, no accessory muscle use Cardiovascular: regular rate, rhythm, no murmur, normal peripheral pulses Abdomen/GI: non tender, soft, no organomegaly Back: normal inspection Extremities/Musculoskelatal: normal inspection, no calf tenderness, non-tender , + pertinent finding (LLE > RLE (chronic from childhood polio) ) Neurologic/Psych: no motor/sensory deficits, alert, normal mood/affect, oriented x 3 Skin: normal color, warm/dry, no rash Diagnostics Laboratory Results Results Past 24 Hours Test 06/04/18 16:41 06/04/18 16:52 06/04/18 16:57 8/21/18 18:27 Range/Units White Blood Count 5.31 4.8-10.8 K/uL Red Blood Count 4.61 4.2-5.4 M/uL Hemoglobin 12.5 12.0-16.0 g/dL Hematocrit 39.6 37-47 % Mean Corpuscular Volume 85.9 80-100 fL Mean Corpuscular Hemoglobin 27.1 25-34 pg Mean Corpuscular Hemoglobin Concent 31.6 32-36 g/dl Platelet Count 236 130-400 K/uL Mean Platelet Volume 9.4 7.4-10.4 fL Neutrophils (%) (Auto) 72.7 % Lymphocytes (%) (Auto) 16.0 % Monocytes (%) (Auto) 7.7 % Eosinophils (%) (Auto) 3.2 % Basophils (%) (Auto) 0.2 % Neutrophils # (Auto) 3.86 1.4-6.5 K/uL Lymphocytes # (Auto) 0.85 1.2-3.4 K/uL Monocytes # (Auto) 0.41 0.11-0.59 K/uL Eosinophils # (Auto) 0.17 0-0.5 K/uL Basophils # (Auto) 0.01 0-0.2 K/uL RDW Standard Deviation 58.0 36.4-46.3 fL RDW Coefficient of Variation 18.5 11.5-14.5 % Immature Granulocyte % (Auto) 0.2 % Immature Granulocyte # (Auto) 0.01 0.00-0.02 K/uL Prothrombin Time 10.9 9.0-12.0 SECONDS Prothromb Time International Ratio 1.0 0.9-1.1 Activated Partial Thromboplast Time 24.2 21.0-31.0 SECONDS Partial Thromboplastin Ratio 0.9 Sodium Level 139 136-145 mmol/L Potassium Level 4.1 3.5-5.1 mmol/L Chloride Level 103 98-107 mmol/L Carbon Dioxide Level 27 21-32 mmol/L Anion Gap 10.0 17.0 16-25 mmol/L Blood Urea Nitrogen 42 7-18 mg/dl Creatinine 2.06 0.60-1.20 mg/dl Est Creatinine Clear Calc Drug Dose 30.7 ml/min Estimated GFR () 27.2 Estimated GFR (Non- 23.5 BUN/Creatinine Ratio 20.3 10-20 Random Glucose 155 70-99 mg/dl Calcium Level 9.2 8.5-10.1 mg/dl Magnesium Level 2.4 1.8-2.4 mg/dl Total Bilirubin 0.4 0.2-1 mg/dl Direct Bilirubin 0.2 0-0.2 mg/dl Aspartate Amino Transf (AST/SGOT) 10 15-37 U/L Alanine Aminotransferase (ALT/SGPT) < 6 12-78 U/L Alkaline Phosphatase 104 45-117 U/L Troponin I < 0.015 0-0.045 ng/ml Total Protein 9.0 6.4-8.2 gm/dl Albumin 3.5 3.4-5.0 gm/dl Lipase 145 73-393 U/L Thyroid Stimulating Hormone (TSH) 0.921 0.300-4.500 uIu/ml Bedside Hemoglobin 13.3 12.0-16.0 g/dl Bedside Hematocrit 39 37-47 % Bedside Sodium 142 135-144 mEq/L Bedside Potassium 4.1 3.3-5.0 mEq/L Bedside Chloride 102 101-112 mEq/L Bedside Total CO2 29 24-31 mEq/l Bedside Blood Urea Nitrogen 40 7-18 mg/dl Bedside Creatinine 1.9 0.6-1.3 mg/dl Bedside Glucose (other) 161 70-99 mg/dl Bedside Ionized Calcium ([place]) 1.14 1.12-1.32 mmol/l Bedside Lactic Acid Venous 2.83 0.90-1.70 mmol/L Urine Color YELLOW Urine Appearance CLEAR CLEAR Urine pH 6.0 4.5-7.5 Urine Specific [place] 1.013 1.000-1.030 Urine Protein TRACE NEG Urine Glucose (UA) NEG NEG Urine Ketones NEG NEG Urine Occult Blood NEG NEG Urine Nitrite NEG NEG Urine Bilirubin NEG NEG Urine Urobilinogen NEG NEG Urine Leukocyte Esterase NEG NEG Urine WBC (Auto) 1-5 0-5 /hpf Urine RBC (Auto) 0-4 0-4 /hpf Urine Hyaline Casts (Auto) 5-10 0-5 /lpf Urine Epithelial Cells (Auto) 10-20 0-5 /lpf Urine Bacteria (Auto) NEG NEG Test 06/04/18 18:30 06/04/18 20:35 Range/Units Sodium Level 141 136-145 mmol/L Potassium Level 4.4 3.5-5.1 mmol/L Chloride Level 108 98-107 mmol/L Carbon Dioxide Level 27 21-32 mmol/L Anion Gap 6.0 3-11 mmol/L Blood Urea Nitrogen 42 7-18 mg/dl Creatinine 1.92 0.60-1.20 mg/dl Est Creatinine Clear Calc Drug Dose 33.0 ml/min Estimated GFR () 29.6 Estimated GFR (Non- 25.6 BUN/Creatinine Ratio 21.8 10-20 Random Glucose 116 70-99 mg/dl Calcium Level 8.4 8.5-10.1 mg/dl Microbiology Results 06/04/18 Urine Culture, Received Pending Diagnostic Radiology CXR: IMPRESSION: There are nonspecific bibasilar airspace opacities. This could represent atelectasis versus a mild infectious/inflammatory pneumonitis. Clinical correlation will be required. EKG Normal sinus rhythm at 84 bpm. Possible Left atrial enlargement. Nonspecific ST abnormality No change from prior EKG Impression Assessment and Plan Patient is a 72-year-old female past medical history of Parkinson's disease, bipolar disorder, history of PE, HTN and CKD III who presents after a syncopal episode at home. Syncopal episode -No history of syncope, likely 2/2 dehydration -Hypotensive initially, elevated Cr and BUN -EKG without abnormalities -Resting echo and cardiac consult to evaluate for cardiac etiology -Trend troponin -Gentle fluids -Telemetry Acute hypoxic respiratory failure Concern for PE -Initially 86% on room air, improved to 98% on 2L NC -Does not require home O2 -History of PE -D-dimer elevated to >14,150 -Bilateral lower extremity ultrasounds pending -VQ scan ordered -IV heparin initiated -In setting of REMBERTO, will hold off on CT chest for now Acute kidney injury in setting of CKD III -Cr elevated to 2 initially, GFR of 25 -Baseline Cr ~ 1, GFR ~60 -Likely pre-renal 2/2 dehydration -Continue gentle fluids and hold Lasix -Hold lisinopril -Monitor BMP Parkinson's disease -Continue Sinemet Bipolar disorder -Continue Seroquel, Ativan PRN HTN -Holding Lisinopril and Lasix in setting of REMBERTO -Clonidine PRN for SBP >160 Gout -Continue allopurinol DVT Ppx: IV heparin Code status: FULL PCP: Main[facility] Dispo: Admitted to telemetry. Plan to return home once medically stable. Patient seen in collaboration with Dr. Bah. Please see addendum. Agree with above H and P. Briefly 72F presents with syncopal episode. Patient says she took her grandchild to hockey play and came home and resting on couch when suddenly she passed out. Grand kid nearby gave her CPR but within few moments patient woke up.[place] dizzy on going to bathroom and was brought to Er. In the Er initially SBP was in 60's which improved with fluids. Oxygen sats 86% on room air. Says not drinking much water lately. Denies chest pain. No fevers or cough. No headaches. Currently resting comfortably and hemodynamically stable. p/e Ge not in distress Cvs s1 and s2 heard no murmurs Rs cta b/l no added sounds Abd benign B Operator non focal Ext no edema a/p Syncope d dimer elevated hypotensive and hypoxic on presentation lower ext Doppler negative hx of PE after prolonged hospital stay start on iv heparin f/u echo and v/q scan monitor in tele may get ct chest after renal function improves cardio consult REMBERTO holding Lasix and lisinopril supposed to take Lasix as needed but taking daily Advanced Directives Existing Living Will: Yes Existing Power of Senior Qualitative Researcher: Yes Resuscitation Status VTE Prophylaxis Will order VTE Prophylaxis: Yes
[2018-06-04] MEDS ORDERED: CLONIDINE HCL 0.1 MG TAB PO PRN (20:45)
[2018-06-04] MEDS ORDERED: MICONAZOLE NITRATE POWDER 43 GM EXT PRN (20:45)
[2018-06-04] MEDS ORDERED: POLYETHYLENE (MIRALAX) 17 GM PACK PO PRN (21:00)
[2018-06-04 21:20] VITALS: O2SAT 98
--- NOTE | 2018-06-04 21:23 | DIAGNOSTIC IMAGING REPORT ---
ULTRASOUND BILATERAL LOWER EXTREMITY VENOUS CLINICAL HISTORY: Hypotension. History of pulmonary embolus. COMPARISON STUDY: Bilateral lower extremity venous ultrasound dated 05/17/2016. TECHNIQUE: Real-time, grayscale, and color Doppler sonography of the deep veins of the right and left lower extremity was performed from the inguinal crease to the calf. Compression and augmentation were utilized. FINDINGS: There is no sonographic evidence of deep venous thrombosis identified in the right or left lower extremity. The common femoral, superficial femoral, and popliteal veins are patent and normally compressible bilaterally. The greater saphenous vein and the profunda femoris vein at the junction with the common femoral vein are clear in both legs. The visualized calf veins are patent bilaterally. IMPRESSION: There is no sonographic evidence of deep venous thrombosis identified in the right or left lower extremity. Electronically signed by: Lenny Ramirez M.D. 06/04/2018 9:21 PM Dictated Date/Time: 06/04/2018 9:21 PM
[2018-06-04] MEDS ORDERED: CARB25TA12 PO (21:38)
[2018-06-04 21:46] VITALS: BP 153/92; PULSE 82; TEMP 36.7; O2SAT 98
[2018-06-04] MEDS ORDERED: SODIUM CHLORIDE 0.9% 1000ML 1,000 ML IV SCH (22:00)
[2018-06-04] MEDS ORDERED: HEPARIN 25,000 UNIT/500ML D5W 500 ML IV SCH (22:00)
[2018-06-04] MEDS ORDERED: HEPARIN IV BOLUS 6,000 UNIT in SYRINGE 0 ML IV ONE (22:15)
[2018-06-04 22:29] LABS: BASO % 0.3 %; BASO ABS # 0.02 K/uL (0-0.2); EOS % 0.7 %; EOS ABS # 0.05 K/uL (0-0.5); HEMATOCRIT 37.8 % (37-47); HEMOGLOBIN 12.2 g/dL (12.0-16.0); IG# 0.01 K/uL (0.00-0.02); LYMPH % 8.8 %; LYMPH ABS # 0.62 K/uL (1.2-3.4); MEAN CELL VOLUME 85.5 fL (80-100); MEAN CORPUSCULAR HEMOGLOBIN 27.6 pg (25-34); MEAN PLATELET VOLUME 9.3 fL (7.4-10.4); MONO % 5.6 %; MONO ABS # 0.39 K/uL (0.11-0.59); NEUT % 84.5 %; NEUT ABS # 5.92 K/uL (1.4-6.5); PLATELET COUNT 227 K/uL (130-400); RED CELL DISTRIBUTION WIDTH CV 18.5 % (11.5-14.5); RED CELL DISTRIBUTION WIDTH SD 58.8 fL (36.4-46.3); WHITE BLOOD COUNT 7.01 K/uL (4.8-10.8)
--- NOTE | 2018-06-04 22:29 | EMERGENCY ROOM VISIT NOTE ---
History Report prepared by Ramesh: Krupa Mosley Under the Supervision of: Dr. Leon Claudio M.D. 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 She reports she drove her granddaughter to field hockey today and when she got back home, 20 minutes later she suddenly became very dizzy and passed out. She is accompanied by her daughter who notes her son heard the patient snort when she suddenly passed out. Her daughter reports her son did not know if he pt was breathing, so he performed CPR and she woke up. Her daughter notes her son took the patient to the bathroom after her episode where she threw up once, so he called EMS and the patient was brought to the ED via EMS. Pt denies headache, fevers, chills, diaphoresis, visual changes, neck pain, chest pain, breathing difficulties, nausea, abdominal pain, back pain, melena, hematochezia, urinary symptoms, numbness, weakness, lymphadenopathy, rash, or other complaints. Source of History: patient Onset: around 1 hour seating captain Position: head, other (upper and lower extremities) Quality: other (syncope) Timing: other (sudden) Associated Symptoms: + vomiting (once) Note: Positive dizziness Review of Systems See HPI for pertinent positives and negatives. A total of ten systems were reviewed and were otherwise negative. Past Medical & Surgical Medical Problems: (1) ARF (acute renal failure) (2) Bipolar disorder (3) Gout (4) History of pulmonary embolism (5) HTN (hypertension) (6) Idiopathic peripheral neuropathy (7) Parkinsons disease (8) RLS (restless legs syndrome) Surgical Problems: (1) History of hernia repair (2) History of partial hysterectomy (3) History of uterine suspension procedure (4) Status post repair of paraesophageal diaphragmatic hernia Family History No pertinent family history Social History Smoking Status: Never Smoker Drug Use: other Housing Status: lives alone Occupation Status: retired Current/Historical Medications Scheduled Allopurinol (Zyloprim), 100 MG PO QAM Atorvastatin (Lipitor), 10 MG PO QAM Carbidopa/Levodopa (Sinemet 25MG/100MG), 1 TABLET PO TID Furosemide (Lasix), 20 MG PO QAM Gabapentin (Neurontin), 800 MG PO TID Lisinopril (Zestril), 20 MG PO BID Miconazole Nitrate (Topical) ([facility] Anti-Fungal Powder), 1 APPLN TOP PRN Multivit/Min/Iron/Fol Ac/Pren ( Vitamin), 1 TAB PO DAILY Quetiapine Fumarate (Seroquel), 200 MG PO HS Quetiapine Fumarate (Seroquel), 100 MG PO BID UD Scheduled PRN Lorazepam (Ativan), 0.5 MG PO HS PRN for Insomnia Polyethylene Glycol 3350 (Miralax), 17 GM PO DAILY PRN for Constipation Allergies Coded Allergies: Indomethacin (Verified Allergy, Intermediate, RASH, 07/11/17) Erythromycin (Verified Allergy, Unknown, UNKNOWN, 07/11/17) Levofloxacin (Verified Adverse Reaction, Intermediate, Causes psychosis., 07/11/17) Source [facility]/PT Physical Exam Vital Signs Date Time Temp Pulse Resp B/P (MAP) Pulse Ox O2 Delivery O2 Flow Rate FiO2 06/04/18 20:15 78 18 98 06/04/18 20:14 Nasal Cannula 06/04/18 20:02 149/110 06/04/18 20:00 83 15 06/04/18 19:45 81 19 06/04/18 19:31 157/140 06/04/18 19:30 79 19 06/04/18 19:15 78 16 06/04/18 19:00 79 17 06/04/18 18:32 79 22 06/04/18 18:22 89 16 151/128 06/04/18 18:12 81 13 99 06/04/18 18:11 130/72 06/04/18 18:02 78 15 98 06/04/18 18:01 121/76 06/04/18 17:52 78 16 98 06/04/18 17:51 118/72 06/04/18 17:42 79 19 98 06/04/18 17:41 111/63 06/04/18 17:40 104/66 06/04/18 17:32 82 18 99 06/04/18 17:31 100/61 06/04/18 17:22 82 20 96 06/04/18 17:21 97/49 06/04/18 17:14 85/43 06/04/18 17:12 84 20 97 06/04/18 17:11 62/37 06/04/18 17:09 36.6 89 22 78/48 86 Room Air 06/04/18 17:04 90 Nasal Cannula 2.0 06/04/18 17:04 86 Room Air 06/04/18 17:02 87 22 96 06/04/18 17:01 72/44 06/04/18 16:56 90 06/04/18 16:52 90 20 92 06/04/18 16:47 86/47 06/04/18 16:46 /45 06/04/18 16:42 87 24 92 06/04/18 16:41 78/50 06/04/18 16:40 68/47 Physical Exam GENERAL: Awake, alert, tired-appearing, in no distress HENT: Normocephalic, atraumatic. Oropharynx unremarkable. EYES: Normal conjunctiva. Sclera non-icteric. NECK: Supple. No nuchal rigidity. FROM. No masses. RESPIRATORY: Clear to auscultation. No wheezes. No rales. Normal respiratory effort. CARDIAC: Normal rate. Normal rhythm. No murmurs. No rubs. Extremities warm and well perfused. Pulses equal. No JVD. GI: Soft, non-distended. No tenderness to palpation. No rebound or guarding. No masses. RECTAL: Deferred. MUSCULOSKELETAL: Atraumatic. Chest examination reveals no tenderness. The back is symmetrical on inspection without obvious abnormality. There is no CVA tenderness to palpation. No joint edema. LOWER EXTREMITIES: Left calf is larger than the right but nontender. No edema. No discoloration. NEURO: Normal sensorium. No sensory or motor deficits noted. SKIN: No rash or jaundice noted. Medical Decision & Procedures ER Provider Diagnostic Interpretation: Radiology results as stated below per my review and radiologist interpretation: SINGLE VIEW CHEST CLINICAL HISTORY: Generalized weakness. FINDINGS: An AP, portable, upright chest radiograph is compared to study dated 07/26/2017 and correlated with chest CT dated 06/04/2017. The examination is significantly degraded by portable technique and patient rotation. The heart is top normal for projection and there is atherosclerotic calcification of the thoracic aorta. The pulmonary vasculature is noncongested. There are bibasilar airspace opacities. No large pleural effusion or Pneumothorax is seen. The skeletal structures are osteopenic. The bony thorax is grossly intact. IMPRESSION: There are nonspecific bibasilar airspace opacities. This could represent atelectasis versus a mild infectious/inflammatory pneumonitis. Clinical correlation will be required. Electronically signed by: Lenny Ramirez M.D. 06/04/2018 5:04 PM ULTRASOUND BILATERAL LOWER EXTREMITY VENOUS CLINICAL HISTORY: Hypotension. History of pulmonary embolus. COMPARISON STUDY: Bilateral lower extremity venous ultrasound dated 05/17/2016. TECHNIQUE: Real-time, grayscale, and color Doppler sonography of the deep veins of the right and left lower extremity was performed from the inguinal crease to the calf. Compression and augmentation were utilized. FINDINGS: There is no sonographic evidence of deep venous thrombosis identified in the right or left lower extremity. The common femoral, superficial femoral, and popliteal veins are patent and normally compressible bilaterally. The greater saphenous vein and the profunda femoris vein at the junction with the common femoral vein are clear in both legs. The visualized calf veins are patent bilaterally. IMPRESSION: There is no sonographic evidence of deep venous thrombosis identified in the right or left lower extremity. Electronically signed by: Lenny Ramirez M.D. 06/04/2018 9:21 PM Laboratory Results 06/04/18 18:30 Test 06/04/18 16:41 06/04/18 16:52 06/04/18 16:57 06/04/18 18:27 RDW Standard Deviation 58.0 fL (36.4-46.3) RDW Coefficient of Variation 18.5 % (11.5-14.5) White Blood Count 5.31 K/uL (4.8-10.8) Red Blood Count 4.61 M/uL (4.2-5.4) Hemoglobin 12.5 g/dL (12.0-16.0) Hematocrit 39.6 % (37-47) Mean Corpuscular Volume 85.9 fL (80-100) Mean Corpuscular Hemoglobin 27.1 pg (25-34) Mean Corpuscular Hemoglobin Concent 31.6 g/dl (32-36) Platelet Count 236 K/uL (130-400) Mean Platelet Volume 9.4 fL (7.4-10.4) Neutrophils (%) (Auto) 72.7 % Lymphocytes (%) (Auto) 16.0 % Monocytes (%) (Auto) 7.7 % Eosinophils (%) (Auto) 3.2 % Basophils (%) (Auto) 0.2 % Neutrophils # (Auto) 3.86 K/uL (1.4-6.5) Lymphocytes # (Auto) 0.85 K/uL (1.2-3.4) Monocytes # (Auto) 0.41 K/uL (0.11-0.59) Eosinophils # (Auto) 0.17 K/uL (0-0.5) Basophils # (Auto) 0.01 K/uL (0-0.2) Immature Granulocyte % (Auto) 0.2 % Immature Granulocyte # (Auto) 0.01 K/uL (0.00-0.02) D-Dimer 63119 ug/L FEU (0-500) Magnesium Level 2.4 mg/dl (1.8-2.4) Total Bilirubin 0.4 mg/dl (0.2-1) Direct Bilirubin 0.2 mg/dl (0-0.2) Aspartate Amino Transf (AST/SGOT) 10 U/L (15-37) Alanine Aminotransferase (ALT/SGPT) < 6 U/L (12-78) Alkaline Phosphatase 104 U/L (45-117) Troponin I < 0.015 ng/ml (0-0.045) Total Protein 9.0 gm/dl (6.4-8.2) Albumin 3.5 gm/dl (3.4-5.0) Lipase 145 U/L (73-393) Thyroid Stimulating Hormone (TSH) 0.921 uIu/ml (0.300-4.500) Bedside Hemoglobin 13.3 g/dl (12.0-16.0) Bedside Hematocrit 39 % (37-47) Bedside Sodium 142 mEq/L (135-144) Bedside Potassium 4.1 mEq/L (3.3-5.0) Bedside Chloride 102 mEq/L (101-112) Bedside Total CO2 29 mEq/l (24-31) Bedside Blood Urea Nitrogen 40 mg/dl (7-18) Bedside Creatinine 1.9 mg/dl (0.6-1.3) Bedside Glucose (other) 161 mg/dl (70-99) Bedside Ionized Calcium ([place]) 1.14 mmol/l (1.12-1.32) Bedside Lactic Acid Venous 2.83 mmol/L (0.90-1.70) Urine Color YELLOW Urine Appearance CLEAR (CLEAR) Urine pH 6.0 (4.5-7.5) Urine Specific [place] 1.013 (1.000-1.030) Urine Protein TRACE (NEG) Urine Glucose (UA) NEG (NEG) Urine Ketones NEG (NEG) Urine Occult Blood NEG (NEG) Urine Nitrite NEG (NEG) Urine Bilirubin NEG (NEG) Urine Urobilinogen NEG (NEG) Urine Leukocyte Esterase NEG (NEG) Urine WBC (Auto) 1-5 /hpf (0-5) Urine RBC (Auto) 0-4 /hpf (0-4) Urine Hyaline Casts (Auto) 5-10 /lpf (0-5) Urine Epithelial Cells (Auto) 10-20 /lpf (0-5) Urine Bacteria (Auto) NEG (NEG) Test 06/04/18 18:30 Anion Gap 6.0 mmol/L (3-11) Est Creatinine Clear Calc Drug Dose 33.0 ml/min Estimated GFR () 29.6 Estimated GFR (Non- 25.6 BUN/Creatinine Ratio 21.8 (10-20) Calcium Level 8.4 mg/dl (8.5-10.1) Laboratory results reviewed by me Medications Administered Medications (Trade) Dose Ordered Sig/Evelyn Route Start Time Stop Time Status Last Admin Dose Admin Sodium Chloride 1,000 ml @ 125 mls/hr Q8H STAT IV 06/04/18 16:46 06/04/18 20:36 DC 06/04/18 16:46 125 MLS/HR Sodium Chloride 1,000 ml @ 999 mls/hr Q1H1M STAT IV 06/04/18 16:46 06/04/18 17:46 DC 06/04/18 16:46 999 MLS/HR ECG Per My Interpretation Indication: syncope Rate (beats per minute): 84 Rhythm: normal sinus Findings: other (nonspecific ST, no PACs, no PVCs, no ST elevation or depression) Comparison ECG Date: pre hospital EKG Change: Pre hospital EKG shows sinus rhythm with a rate of 97, poor R wave progression, no PVCs or PACs ED Course 163: The patient was evaluated in room A3. A complete history and physical exam was performed. 1645: Ordered Sodium Chloride 1000 ml @ 999 mls/hr IV, Sodium Chloride 1000 ml @ 125 mls/hr IV 1739: I reevaluated the patient at this time. She is feeling better. 1728: I spoke to Dr. Ramirez, Radiology at this time. We discussed the patient' s imaging at this time. 1943: Discussed the patient's case with JUANIS Anaya Hospitalist. The patient will be evaluated for further treatment and disposition. Medical Decision Triage Nursing notes reviewed. The patient's presentation and history were concerning for syncope. Etiologies such as vasovagal event, infection, hypoglycemia, electrolyte abnormalities, PE , cardiac sources, intracerebral event, toxicologic, neurologic, as well as others were entertained. The patient was evaluated. She was hypotensive. She was requiring supplemental oxygen. She was given a fluid bolus. 2 IVs were established. ECG did not reveal any acute findings. History is very concerning as it sounds like her grandson did CPR for a very short time and then she started breathing again. The patient does have a history of pulmonary embolism. She is currently not feeling any chest pain or difficulty breathing. She chronically has leg swelling and asymmetry. Blood work was obtained. She had no leukocytosis. Cardiac markers negative. The patient had an unremarkable urinalysis. Her lactate was elevated slightly. Given the circumstances not unexpected. She had a chemistry panel that revealed a change in her baseline creatinine. She had previously a normal creatinine and today it was elevated at 1.9. She had a recheck of her creatinine after hydration and still elevated. The patient underwent ultrasound imaging of her bilateral lower extremities. A d-dimer was performed and this was abnormal. Given the fact that her creatinine was elevated further management for possible pulmonary embolism diagnosis would be necessary. I did discuss her case with radiology and then consulted with internal medicine. The patient was evaluated in the emergency department for further treatment. The patient had a VQ scan ordered and heparin by internal medicine. Medication Reconcilliation Current Medication List: was personally reviewed by me Blood Pressure Screening Patient's blood pressure: Elevated blood pressure Referred to Hospitalist Consults Time Called: 1940 Consulting Physician: JUANIS Anaya Hospitalist Returned Call: 1943 Discussed the patient's case with JUANIS Anayaist. The patient will be evaluated for further treatment and disposition. Impression Primary Impression: Hypotension Additional Impressions: Syncope Hypoxia Critical Care I have personally spent greater than 40 minutes of critical care time in the direct management of this patient. This includes bedside care, interpretation of diagnostic studies, and testing, discussion with consultants, patient, and family members, and other required patient management activities. This 40 minutes is in excess of all separately billable procedures. Scribe Attestation The scribe's documentation has been prepared under my direction and personally reviewed by me in its entirety. I confirm that the note above accurately reflects all work, treatment, procedures, and medical decision making performed by me. Departure Information Dispostion Being Evaluated By Hospitalist (Dr. Cory PA-C [facility] Hospitalist) Referrals Edda Manzo D.O. (PCP) Patient Instructions My [facility] Problem Qualifiers
[2018-06-04 22:31] LABS: MEAN CORPUSCULAR HGB CONC 32.3 g/dl (32-36)
[2018-06-04 22:37] LABS: PTT PATIENT 25.9 SECONDS (21.0-31.0)
[2018-06-04] MEDS: GABAPENTIN 800 MG TAB PO SCH (22:43)
[2018-06-04] MEDS: LORAZEPAM 0.5 MG TAB PO PRN (22:43)
[2018-06-04] MEDS: CARBIDOPA/LEVODOPA 25/100MG TAB PO SCH (22:44)
[2018-06-04] MEDS: QUETIAPINE FUMARATE 200 MG TAB PO SCH (22:44)
[2018-06-04 23:28] VITALS: BP 149/84; PULSE 80; TEMP 36.4; O2SAT 96
[2018-06-05] VITALS (7 sets, daily range): BP systolic 127–148; BP diastolic 74–88; PULSE 77–97; TEMP 36.5–36.9; O2SAT 90–96
[2018-06-05 04:56] LABS: HEMOGLOBIN 11.7 g/dL (12.0-16.0); MEAN CELL VOLUME 85.1 fL (80-100); MEAN CORPUSCULAR HEMOGLOBIN 27.7 pg (25-34); MEAN CORPUSCULAR HGB CONC 32.5 g/dl (32-36); MEAN PLATELET VOLUME 8.8 fL (7.4-10.4); PLATELET COUNT 188 K/uL (130-400); RED CELL DISTRIBUTION WIDTH CV 18.4 % (11.5-14.5); RED CELL DISTRIBUTION WIDTH SD 57.4 fL (36.4-46.3); WHITE BLOOD COUNT 6.18 K/uL (4.8-10.8)
[2018-06-05 05:39] LABS: BLOOD UREA NITROGEN 38 mg/dl (7-18); CALCIUM 8.3 mg/dl (8.5-10.1); CARBON DIOXIDE 26 mmol/L (21-32); CREATININE 1.51 mg/dl (0.60-1.20); GLUCOSE 92 mg/dl (70-99); POTASSIUM 3.7 mmol/L (3.5-5.1); SODIUM 143 mmol/L (136-145)
[2018-06-05] MEDS: QUETIAPINE FUMARATE 100 MG TAB PO SCH ×2 (07:32→11:53)
[2018-06-05] MEDS: CARBIDOPA/LEVODOPA 25/100MG TAB PO SCH ×3 (07:32→20:52)
[2018-06-05] MEDS: ATORVASTATIN 10 MG TAB PO SCH (07:32)
[2018-06-05] MEDS: ALLOPURINOL 100 MG TAB PO SCH (07:32)
[2018-06-05] MEDS: GABAPENTIN 800 MG TAB PO SCH ×3 (07:32→20:52)
[2018-06-05] MEDS: PRENATAL VITAMIN TAB PO SCH (07:32)
--- NOTE | 2018-06-05 08:03 | Clinical Documentation Query ---
CLINICAL DOCUMENTATION QUERY Dr. COX, BMI: A significantly high (>40) or significantly low (<19) BMI will impact the severity of illness and risk of mortality of your patient. However, the physician must document a correlating diagnosis in the medical record. In your clinical opinion does this patient have: ( x) Morbid obesity ( ) Not Agree ( ) Other explanation of clinical findings (No explanation is considered a No Response) ( ) Unable to determine ( ) Need to Discuss (Phone CDS or qliq) (No discussion is considered a No Response) Please clarify and document your clinical opinion in the progress notes and discharge summary. Terms such as "probable", "suspected", "likely", "questionable", "possible", or "still to be ruled out" are acceptable. IF IN AGREEMENT, YOU MUST DOCUMENT ABOVE DIAGNOSTIC STATEMENT IN DAILY PROGRESS NOTES AND DISCHARGE SUMMARY. This document is not part of the patient's record. Thank You, Darling Wynn RN [phone]
[2018-06-05] MEDS ORDERED: PERFLUTREN LIPID MICROSPHERE (DEFINITY) IV ONE (08:15)
--- NOTE | 2018-06-05 08:35 | ECHOCARDIOGRAM REPORT ---
*NOTICE TO RECEIVING REPUBLICAN AGENCY This information is strictly Confidential and protected under [place] law. [place] law prohibits you from making any further disclosure of this information unless further disclosure is expressly permitted by the written consent of the person to whom it pertains or is authorized by law. A general authorization for the release of medical or other information is not sufficient for this purpose. Hospital accepts no responsibility if the information is made available to any other person, INCLUDING THE PATIENT. Interpretation Summary * Name: PABLO COOPER Study Date: 06/05/2018 06:33 AM BP: 144/79 mmHg * Patient Location: C.2T\S\E216\S\1 HR: 87 * : 1945 (M/d/yyy) Gender: Female Height: 65 in * Age: 72 yrs Ethnicity: CA Weight: 246 lb * Ordering Physician: Hannah Ray * Referring Physician: Self, Referred * Performed By: Michael Casillas RCS * * Reason For Study: Syncope * BSA: 2.2 m2 * -- Conclusions -- * Normal LV chamber size with mild concentric LVH. * Normal LV systolic function, EF 60-65%. * No segmental left ventricular wall motion abnormalities are noted. * Grade I diastolic dysfunction. * Aortic valve sclerosis mild, without significant aortic valvular stenosis. Procedure Details * A complete two-dimensional transthoracic echocardiogram was performed (2D, M-mode, Doppler and color flow Doppler). * There were technical limitations due to patient'sbody habitus * Patient supine for imagining * A contrast injection of Definity was performed to improve assessment of LV function. * Contrast was injected into an intravenous site in the left arm. * One vial of Definity ultrasound contrast was diluted in normal saline to a total volume of 10 ml. A total of '1' ml of solution was administered during imaging. * Lot # [id number] of Definity utilized for procedure. * Expiration date . * The attending nurse who injected the contrast agent was Jennifer Kirkpatrick RN. Left Ventricle * The left ventricle is normal in size. * There is mild concentric left ventricular hypertrophy. * Ejection Fraction = 60-65%. * Left ventricular systolic function is normal. * No segmental left ventricular wall motion abnormalities are noted. * The left ventricular wall motion is normal. Right Ventricle * The right ventricular cavity size is normal (basal dimension <4.2 cm in right ventricular apical 4-chamber view). * The right ventricular systolic function is normal as assessed by tricuspid annular plane systolic excursion (TAPSE) (normal >1.5 cm). Atria * The left atrial size is normal. * Right atrial size is normal. * No ASD detected; PFO is not assessed. Mitral Valve * The mitral valve is normal in structure and function. Tricuspid Valve * The tricuspid valve is normal in structure and function. Aortic Valve * The aortic valve is trileaflet. * Aortic valve sclerosis mild, without significant aortic valvular stenosis. * There is no significant aortic regurgitation. Pulmonic Valve * The pulmonary valve is not well seen, but the Doppler examination is normal without significant regurgitation or stenosis. Great Vessels * The aortic root and proximal ascending aorta are normal sized. Pericardium/Pleural * There is no pericardial effusion. Left Ventricular Diastolic Function * Grade I diastolic dysfunction, (abnormal relaxation pattern). MMode 2D Measurements and Calculations IVSd 1.1 cm IVSs 1.3 cm LVIDd 5.4 cm LVIDs 3.4 cm LVPWd 1.1 cm LVPWs 1.3 cm IVS/LVPW 1.0 FS 36.5 % EDV(Teich) 140.7 ml ESV(Teich) 48.2 ml EF(Teich) 65.7 % EDV(cubed) 156.6 ml ESV(cubed) 40.1 ml EF(cubed) 74.4 % % IVS thick 16.2 % % LVPW thick 21.7 % LV mass(C)d 232.3 grams LV mass(C)dI 107.6 grams/m\S\2 LV mass(C)s 149.1 grams LV mass(C)sI 69.0 grams/m\S\2 SV(Teich) 92.5 ml SI(Teich) 42.8 ml/m\S\2 SV(cubed) 116.5 ml SI(cubed) 54.0 ml/m\S\2 Ao root diam 3.5 cm Ao root area 9.7 cm\S\2 ACS 1.7 cm LA dimension 3.7 cm asc Aorta Diam 3.1 cm LA/Ao 1.1 EDV(MOD-sp4) 98.0 ml ESV(MOD-sp4) 37.3 ml EF(MOD-sp4) 61.9 % EDV(MOD-sp2) 75.9 ml ESV(MOD-sp2) 26.3 ml EF(MOD-sp2) 65.4 % SV(MOD-sp4) 60.7 ml SI(MOD-sp4) 28.1 ml/m\S\2 SV(MOD-sp2) 49.6 ml SI(MOD-sp2) 23.0 ml/m\S\2 Doppler Measurements and Calculations MV E max dar 52.4 cm/sec MV A max dar 64.5 cm/sec MV E/A 0.81 MV P1/2t max dar 91.1 cm/sec MV P1/2t 84.7 msec MVA(P1/2t) 2.6 cm\S\2 MV dec slope 315.1 cm/sec\S\2 MV dec time 0.19 sec Ao V2 max 156.0 cm/sec Ao max PG 9.7 mmHg Ao max PG (full) 6.5 mmHg LV V1 max PG 3.2 mmHg LV V1 max 89.7 cm/sec PA V2 max 102.7 cm/sec PA max PG 4.2 mmHg PI max dar 179.8 cm/sec PI max PG 12.9 mmHg PI dec slope 180.9 cm/sec\S\2 PI P1/2t 291.1 msec TR max dar 243.7 cm/sec
--- NOTE | 2018-06-05 10:39 | Cardiology Consultation ---
Cardiology Consultation Date of Consultation: Jun 05, 2018 Requesting Physician: Hannah Ray PA-C/Margarito Bah MD Attending Transportation Maintenance Worker: Syncope (Fuentes Baird PA-C) History of Present Illness Ms. Graves is a very pleasant 72 year old female who is being seen at the request of . Hannah Ray PA-C/Margarito Bah MD. Reason for consultation syncope. Ms. Graves describes being at her daughter's house having just taken her granddaughter to field hockey. Upon her return she felt sick with dizziness and nausea. Her grandson Haroon witnessed the syncope event, patient describing her eyes rolling back in her head. CPR was performed for a brief period of time. No overt seizure type activity observed. No tongue biting. No bowel or bladder incontinence. After the event she was was escorted by her grandson Haroon to the bathroom where she vomited. EMS was then summoned and she was transported to the [facility] Emergency Room. Blood pressure on presentation was 68/47. She was mildly hypoxic. IV fluids were administered along with supplemental oxygen with improvement in blood pressure, oxygenation, and presenting symptoms. EKG on presentation revealed normal sinus rhythm at 84 bpm with possible left atrial enlargement nonspecific ST abnormality. QTc was 465 ms. Serum creatinine on presentation was 2.06 mg/dl. An elevated d-dimer and her history of PE led to initiation of IV heparin. Venous duplex showed no evidence of DVT. Contrast-enhanced CT scan was not performed due to renal dysfunction. VQ scan is pending. Lisinopril (20 mg BID ) and furosemide (20 mg/day) have been held . The patient has been admitted to telemetry where she has been maintained on continuous telemetry monitoring since admission. This morning, the patient is feeling considerably better. Her blood pressure was last obtained at 7:39 AM and was 148/88, previously 144/79 at 04:08. She denies prior cardiac history. She specifically denies history of CAD, [place], CHF, arrhythmias, heart murmur, rheumatic fever, or scarlet fever. (Fuentes Baird PA-C) Past Medical/Surgical History Problem List: History of DVT/PE Hypertension Stage III chronic kidney disease Bipolar disorder, followed by Dr. Navarrete. Mixed tremor, Parkinson's History of polio at age 5 Idiopathic peripheral polyneuropathy Restless legs syndrome Urinary stress incontinence Kidney stones Gout Hyperparathyroidism, status post parathyroidectomy History of anemia required previous transfusion of packed red blood cells attributed to chronic reflux and gastric ulcerations, status post paraesophageal diaphragmatic hernia repair Suspension of the uterus Partial hysterectomy Abdominal hernia repair Open breast biopsy 2, benign. (Fuentes Baird PA-C) Family History Father with stomach cancer at age 73. Mother following a stroke, age 80. One brother passed of unknown causes. She has one sister with bipolar disorder, without cardiac issues. (Fuentes Baird PA-C) No pertinent family history (Simon Phoenix D.Fernando.) Social History Lifelong non-smoker. No significant alcohol consumption. No illegal drug use. . Lives alone. Daughter lives 4-5 miles away. 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 She has a daughter Kim in [place] who was a general surgery PA 17 years and now working in cardiology. (Fuentes Baird PA-C) Review Of Systems General: No fevers chills or night sweats. HEENT: Glasses. Developing cataracts. No amaurosis fugax. No headache. No head trauma. Cardiovascular: No exertional chest pain. Stable exertional dyspnea. No palpitations. No orthopnea or PND. Pulmonary: No hemoptysis. Gastrointestinal: See above. Currently with loose stools. No melena or hematochezia. Skin: No rash. Musculoskeletal: Arthritic pain Neurological: No history of TIA or CVA. No history of seizure. Complete review of system is otherwise as stated above, negative, noncontributory. (Fuentes Baird PA-C) Allergies Coded Allergies: Indomethacin (Verified Allergy, Intermediate, RASH, 07/11/17) Erythromycin (Verified Allergy, Unknown, UNKNOWN, 07/11/17) Levofloxacin (Verified Adverse Reaction, Intermediate, Causes psychosis., 07/11/17) Source [facility]/PT Medications Reported Home Medications Medications Dose Route/Sig Max Daily Dose Days Date Category Dose Instructions [facility] Anti-Fungal Powder (Miconazole Nitrate (Topical)) 2 % Pow 1 Appln TOP PRN 06/04/18 Reported Miralax (Polyethylene Glycol 3350) 1 Pow Pow 17 Gm PO DAILY PRN 06/04/18 Reported Seroquel (Quetiapine Fumarate) 100 Mg Tab 100 Mg PO BID UD 06/04/18 Reported TAKE AM & LUNCH Seroquel (Quetiapine Fumarate) 200 Mg Tab 200 Mg PO HS 06/04/18 Reported Vitamin (Prenat Multivit/Analytical Engineer/Iron/Folic Ac) Tab 1 Tab PO DAILY 06/04/18 Reported Lipitor (Atorvastatin Calcium) 10 Mg Tab 10 Mg PO QAM 06/20/17 Reported Zyloprim (Allopurinol) 100 Mg Tab 100 Mg PO QAM 06/20/17 Reported Lasix (Furosemide) 20 Mg Tab 20 Mg PO QAM 06/20/17 Reported Zestril (Lisinopril) 20 Mg Tab 20 Mg PO BID 06/20/17 Reported Ativan (Lorazepam) 0.5 Mg Tab 0.5 Mg PO HS PRN 05/05/16 Reported may repeat up to three times Sinemet 25MG/100MG (Carbidopa/Levodopa) Tab 1 Tablet PO TID 02/17/13 Reported Neurontin (Gabapentin) 800 Mg Tab 800 Mg PO TID 02/17/13 Reported (Fuentes Baird PA-C) Physical Exam Vital Signs (Last 8hrs): Last 8 Hrs Date Time Temp Pulse Resp B/P (MAP) Pulse Ox O2 Delivery O2 Flow Rate FiO2 06/05/18 08:00 Room Air 2.0 Nasal Cannula 06/05/18 07:39 36.9 80 20 148/88 (108) 96 Nasal Cannula 2.0 06/05/18 04:08 36.7 87 20 144/79 (100) 90 Room Air General: Alert and Oriented x3. NAD. HEENT: Normocephalic Atraumatic. PER, EOMI, conjunctiva and sclera clear Neck: Surgical scar from what appears to be a prior parathyroidectomy. Supple. No carotid bruits. No overt jugular venous distention. Respiratory: Diminished. Decreased. No abnormal breath sounds auscultated. Cardiovascular: Regular rate and rhythm, 84 bpm. No murmur. No rub. No gallop. Abdomen: Positive bowel sounds. Soft. Nontender. No masses. No organomegaly. Extremities: No significant edema. No clubbing. No cyanosis. Stasis changes. Distal pulses 2/4 bilaterally. Neuro: No focal deficits. Psychiatric: Flat affect. (Fuentes Baird PA-C) Data Last 24 Hours Test 06/04/18 16:41 06/04/18 16:52 06/04/18 16:57 06/04/18 18:27 White Blood Count 5.31 K/uL Red Blood Count 4.61 M/uL Hemoglobin 12.5 g/dL Hematocrit 39.6 % Mean Corpuscular Volume 85.9 fL Mean Corpuscular Hemoglobin 27.1 pg Mean Corpuscular Hemoglobin Concent 31.6 g/dl Platelet Count 236 K/uL Mean Platelet Volume 9.4 fL Neutrophils (%) (Auto) 72.7 % Lymphocytes (%) (Auto) 16.0 % Monocytes (%) (Auto) 7.7 % Eosinophils (%) (Auto) 3.2 % Basophils (%) (Auto) 0.2 % Neutrophils # (Auto) 3.86 K/uL Lymphocytes # (Auto) 0.85 K/uL Monocytes # (Auto) 0.41 K/uL Eosinophils # (Auto) 0.17 K/uL Basophils # (Auto) 0.01 K/uL RDW Standard Deviation 58.0 fL RDW Coefficient of Variation 18.5 % Immature Granulocyte % (Auto) 0.2 % Immature Granulocyte # (Auto) 0.01 K/uL Prothrombin Time 10.9 SECONDS Prothromb Time International Ratio 1.0 Activated Partial Thromboplast Time 24.2 SECONDS Partial Thromboplastin Ratio 0.9 D-Dimer 14889 ug/L FEU Sodium Level 139 mmol/L Potassium Level 4.1 mmol/L Chloride Level 103 mmol/L Carbon Dioxide Level 27 mmol/L Anion Gap 10.0 mmol/L 17.0 mmol/L Blood Urea Nitrogen 42 mg/dl Creatinine 2.06 mg/dl Est Creatinine Clear Calc Drug Dose 30.7 ml/min Estimated GFR () 27.2 Estimated GFR (Non- 23.5 BUN/Creatinine Ratio 20.3 Random Glucose 155 mg/dl Calcium Level 9.2 mg/dl Magnesium Level 2.4 mg/dl Total Bilirubin 0.4 mg/dl Direct Bilirubin 0.2 mg/dl Aspartate Amino Transf (AST/SGOT) 10 U/L Alanine Aminotransferase (ALT/SGPT) < 6 U/L Alkaline Phosphatase 104 U/L Troponin I < 0.015 ng/ml Total Protein 9.0 gm/dl Albumin 3.5 gm/dl Lipase 145 U/L Thyroid Stimulating Hormone (TSH) 0.921 uIu/ml Bedside Hemoglobin 13.3 g/dl Bedside Hematocrit 39 % Bedside Sodium 142 mEq/L Bedside Potassium 4.1 mEq/L Bedside Chloride 102 mEq/L Bedside Total CO2 29 mEq/l Bedside Blood Urea Nitrogen 40 mg/dl Bedside Creatinine 1.9 mg/dl Bedside Glucose (other) 161 mg/dl Bedside Ionized Calcium ([place]) 1.14 mmol/l Bedside Lactic Acid Venous 2.83 mmol/L Urine Color YELLOW Urine Appearance CLEAR Urine pH 6.0 Urine Specific [place] 1.013 Urine Protein TRACE Urine Glucose (UA) NEG Urine Ketones NEG Urine Occult Blood NEG Urine Nitrite NEG Urine Bilirubin NEG Urine Urobilinogen NEG Urine Leukocyte Esterase NEG Urine WBC (Auto) 1-5 /hpf Urine RBC (Auto) 0-4 /hpf Urine Hyaline Casts (Auto) 5-10 /lpf Urine Epithelial Cells (Auto) 10-20 /lpf Urine Bacteria (Auto) NEG Test 06/04/18 18:30 06/04/18 19:44 06/04/18 21:03 06/04/18 22:14 Sodium Level 141 mmol/L Potassium Level 4.4 mmol/L Chloride Level 108 mmol/L Carbon Dioxide Level 27 mmol/L Anion Gap 6.0 mmol/L Blood Urea Nitrogen 42 mg/dl Creatinine 1.92 mg/dl Est Creatinine Clear Calc Drug Dose 33.0 ml/min Estimated GFR () 29.6 Estimated GFR (Non- 25.6 BUN/Creatinine Ratio 21.8 Random Glucose 116 mg/dl Calcium Level 8.4 mg/dl Bedside D-Dimer > 450 ng/mlFEU Lactic Acid Level 1.1 mmol/L White Blood Count 7.01 K/uL Red Blood Count 4.42 M/uL Hemoglobin 12.2 g/dL Hematocrit 37.8 % Mean Corpuscular Volume 85.5 fL Mean Corpuscular Hemoglobin 27.6 pg Mean Corpuscular Hemoglobin Concent 32.3 g/dl Platelet Count 227 K/uL Mean Platelet Volume 9.3 fL Neutrophils (%) (Auto) 84.5 % Lymphocytes (%) (Auto) 8.8 % Monocytes (%) (Auto) 5.6 % Eosinophils (%) (Auto) 0.7 % Basophils (%) (Auto) 0.3 % Neutrophils # (Auto) 5.92 K/uL Lymphocytes # (Auto) 0.62 K/uL Monocytes # (Auto) 0.39 K/uL Eosinophils # (Auto) 0.05 K/uL Basophils # (Auto) 0.02 K/uL RDW Standard Deviation 58.8 fL RDW Coefficient of Variation 18.5 % Immature Granulocyte % (Auto) 0.1 % Immature Granulocyte # (Auto) 0.01 K/uL Prothrombin Time 11.0 SECONDS Prothromb Time International Ratio 1.0 Activated Partial Thromboplast Time 25.9 SECONDS Partial Thromboplastin Ratio 1.0 Troponin I < 0.015 ng/ml Test 06/05/18 04:49 White Blood Count 6.18 K/uL Red Blood Count 4.23 M/uL Hemoglobin 11.7 g/dL Hematocrit 36.0 % Mean Corpuscular Volume 85.1 fL Mean Corpuscular Hemoglobin 27.7 pg Mean Corpuscular Hemoglobin Concent 32.5 g/dl RDW Standard Deviation 57.4 fL RDW Coefficient of Variation 18.4 % Platelet Count 188 K/uL Mean Platelet Volume 8.8 fL Activated Partial Thromboplast Time 71.0 SECONDS Partial Thromboplastin Ratio 2.7 Sodium Level 143 mmol/L Potassium Level 3.7 mmol/L Chloride Level 110 mmol/L Carbon Dioxide Level 26 mmol/L Anion Gap 7.0 mmol/L Blood Urea Nitrogen 38 mg/dl Creatinine 1.51 mg/dl Est Creatinine Clear Calc Drug Dose 41.5 ml/min Estimated GFR () 39.6 Estimated GFR (Non- 34.2 BUN/Creatinine Ratio 25.2 Random Glucose 92 mg/dl Calcium Level 8.3 mg/dl Troponin I < 0.015 ng/ml Chest x-ray on presentation, per radiological interpretation, revealed nonspecific bibasilar airspace opacities felt to either represent atelectasis versus mild infectious/inflammatory pneumonitis. Bilateral venous duplex showed no sonographic evidence of deep venous thrombosis in either the left or right lower extremity. Admission EKG is described above. EKG this morning is currently pending. June 05, 2018 TTE Interpretation Summary ([facility], Dr. Mckinney): Normal LV chamber size with mild concentric LVH. Normal LV systolic function, EF 60-65. No segmental left ventricular wall motion abnormalities are noted. Grade I diastolic dysfunction. Aortic valve sclerosis mild, without significant aortic valvular stenosis. Continuous telemetry monitoring reveals sinus/sinus tachycardia. No atrial or ventricular arrhythmias observed. (Fuentes Baird PA-C) Assessment & Plan 72-year-old female, without prior cardiac history, admitted following an episode of syncope described above. Workup reveals acute on chronic renal dysfunction appearing to be secondary to intravascular volume depletion, dehydration, hypotension. EKG, continuous telemetry monitoring, resting echocardiography, and cardiac enzymes are benign. Blood pressure has improved considerably following IV fluid resuscitation as well as discontinuation of both lisinopril and furosemide. Workup for possible PE continues with a VQ scan planned this morning. RECOMMENDATIONS/PLAN: Continue telemetry without interruption. Hold lisinopril and furosemide. Add Carvedilol 3.125 mg twice a day. Outpatient Zio monitor x 14 days. Further recommendations pending the above, evaluation by Dr. Phoenix, and her ongoing hospitalization. (Fuentes Baird PA-C) Cardiology attending: Pt seen and examined, agree with findings and assessment as per Fuentes Mendieta. Event likely due to hypovolemia. Will hold lisinopril and lasix. Cont to monitor on tele to r/o arrhythmias. (Simon Phoenix D.O.)
--- NOTE | 2018-06-05 11:20 | DIAGNOSTIC IMAGING REPORT ---
NUCLEAR MEDICINE PULMONARY VENTILATION AND PERFUSION STUDY CLINICAL HISTORY: Positive d-dimer, hypotension, history of pulmonary embolism. Syncope COMPARISON STUDY: Chest x-ray dated 06/04/2018 FINDINGS: The patient was ventilated utilizing 30.2 mCi of technetium 99m DTPA aerosol. The patient was perfused utilizing 6.1 mCi of technetium 99m MAA. There is minor heterogeneity in the perfusion pattern. There are no moderate or large VQ mismatches. This study is of low probability for pulmonary embolism. IMPRESSION: Low probability of pulmonary embolism. Electronically signed by: Ubaldo Boone M.D. 06/05/2018 11:19 AM Dictated Date/Time: 06/05/2018 11:17 AM
[2018-06-05 11:59] LABS: PTT PATIENT 48.8 SECONDS (21.0-31.0)
--- NOTE | 2018-06-05 14:09 | DIAGNOSTIC IMAGING REPORT ---
CT OF THE ABDOMEN AND PELVIS WITHOUT CONTRAST CLINICAL HISTORY: Acute renal failure. Evaluate for stone or hydronephrosis. COMPARISON STUDY: CT of the abdomen and pelvis May 01, 2016. TECHNIQUE: Axial images of the abdomen and pelvis were obtained without IV contrast. Images were reviewed in the axial, sagittal, and coronal planes. A dose lowering technique was utilized adhering to the principles of ALARA. FINDINGS: Visualized portions of the lower chest demonstrate multifocal groundglass opacities. A round 2.9 cm groundglass opacity within the left lower lobe shown on image 17 of 94 is similar to chest CT of June 04, 2017. A 2.8 cm right middle lobe opacity is noted. Solid component appears diminished compared to prior exams. The postoperative findings within the right middle lobe. A large hiatal hernia is noted. No pneumatosis, free air or portal venous gas is present. A few small right renal calculi measure up to 3 mm. There are no ureteral catheter. No hydronephrosis or hydroureter is noted. A few hypodense bilateral renal lesions may reflect hyperdense cysts. These are unchanged. Calcific density within the gallbladder is again noted. There is no evidence for acute cholecystitis. Unenhanced images of liver, spleen, adrenal glands and pancreas are unremarkable. There is no evidence for a bowel obstruction. There is colonic diverticulosis. There is mild wall thickening and mild pericolonic infiltration of the descending colon. This represents a nonspecific colitis. No suspicious osseous lesions are noted. There is no lymphadenopathy. IMPRESSION: 1. Mild wall thickening of the descending colon with mild pericolonic infiltration which represents a nonspecific colitis. 2. No ureteral calculi or hydronephrosis. Small right renal calculi. Moderate bilateral renal atrophy. 3. Redemonstration of several groundglass opacities within the lower lungs. These remain indeterminate. A few have slightly improved since chest CT of June 04, 2017 while others are unchanged. These may reflect a chronic infectious/inflammatory process however a neoplastic process such as adenocarcinoma is within the differential. 4. Apparent gallbladder wall calcification. This may reflect a porcelain gallbladder. No evidence for acute cholecystitis. Electronically signed by: Kenroy Alejandro M.D. 06/05/2018 2:08 PM Dictated Date/Time: 06/05/2018 1:51 PM
[2018-06-05] MEDS ORDERED: SODIUM CHLORIDE 0.9% 1000ML 1,000 ML IV SCH (14:15)
[2018-06-05] MEDS: NORMOSOL R 1,000 ML IV SCH (17:16)
--- NOTE | 2018-06-05 17:36 | Nephrology Consultation ---
Nephrology Consultation Date of Consultation: Jun 05, 2018. Attending Physician: Dr El Requesting Physician: Dr El Reason for Consultation: REMBERTO History of Present Illness 72 year old female whom I'm asked to evaluate for REMBERTO after she was admitted yesterday to evaluate syncope. She drove a grandchild to a sports scrimmage yesterday, returned home, and after about an hour at home felt poorly in a transient way then lost consciousness in her chair for a few seconds; her eyes reportedly rolled back in her head per her report of what her grandson saw. He helped her up to the bathroom and she had diarrhea, vomiting in bathroom. No GI concerns before/after this. No light headedness or feeling faint. No limb shaking. No missed meals or med changes. Her systolic blood pressure was in the 60s on presentation about 24 hrs ago; she improved to 110s after about an hour of fluids and is maintaining at about 120-130 systolic. her presenting creatinine was 2.1; she has improved to 1.5 this am. She takes lasix and lisinopril as an outpt. She was started initially on heparin GTT d/t past PE hx and some presenting labs. however dopplers BLE were negative for DVT and VQ scan w/ low probability and TTE w/o findings worrisome for HF. Cardiology is following. No arrhythmias on monitor. Pt states she feels fine now. Past Medical/Surgical History -idiopathic tremor/Parkinson's -CKD3, baseline creatinine about 1 -gout -HTN on lasix and lisinopril -DVT/PE in past -bipolar disorder -idiopathic peripheral polyneuropathy -kidney stones -HPTH, s/p parathyroidectomy -s/p abdominal hernia repair, uterine surgical suspension, partial hysterectomy Family History No pertinent family history no FH of CKD/ESRD Social History Smoking Status: Never Smoker Alcohol Use: occasionally Drug Use: none Marital Status: Housing Status: lives alone Occupation Status: retired Allergies Coded Allergies: Indomethacin (Verified Allergy, Intermediate, RASH, 07/11/17) Erythromycin (Verified Allergy, Unknown, UNKNOWN, 07/11/17) Levofloxacin (Verified Adverse Reaction, Intermediate, Causes psychosis., 07/11/17) Source [facility]/PT Medications Current Inpatient Medications Medications (Trade) Dose Ordered Sig/Evelyn Route Start Time Stop Time Status Last Admin Dose Admin Acetaminophen (Tylenol Tab) 650 mg Q4H PRN PO 06/04/18 20:30 07/04/18 20:29 Ondansetron HCl (Zofran Inj) 4 mg Q6H PRN IV 06/04/18 20:30 07/04/18 20:29 Clonidine HCl (Catapres Tab) 0.1 mg Q6 PRN PO 06/04/18 20:45 07/04/18 20:44 Allopurinol (Zyloprim Tab) 100 mg QAM PO 06/05/18 09:00 07/05/18 08:59 06/05/18 07:32 100 MG Atorvastatin Calcium (Lipitor Tab) 10 mg QAM PO 06/05/18 09:00 07/05/18 08:59 06/05/18 07:32 10 MG Carbidopa/Levodopa (Sinemet 25/ 100MG Tab) 1 tab TID PO 06/04/18 21:00 07/04/18 20:59 06/05/18 13:53 1 TAB Gabapentin (Neurontin Tab) 800 mg TID PO 06/04/18 21:00 07/04/18 20:59 06/05/18 13:53 800 MG Lorazepam (Ativan Tab) 0.5 mg HS PRN PO 06/04/18 20:45 07/04/18 20:44 06/04/18 22:43 0.5 MG Miconazole Nitrate (Desenex Powder) 1 appln DAILY PRN EXT 06/04/18 20:45 07/04/18 20:44 Prenat Multivit/ [place]/Iron/Folic Ac ( Vitamin Tab) 1 tab DAILY PO 06/05/18 09:00 07/05/18 08:59 06/05/18 07:32 1 TAB Quetiapine Fumarate (seroQUEL TAB) 100 mg 0800,1200 PO 06/05/18 08:00 07/05/18 07:59 06/05/18 11:53 100 MG Quetiapine Fumarate (seroQUEL TAB) 200 mg HS PO 06/04/18 21:00 07/04/18 20:59 06/04/18 22:44 200 MG Polyethylene (Miralax Powder Packet) 17 gm DAILY PRN PO 06/04/18 21:00 07/04/18 20:59 Carvedilol (Coreg Tab) 3.125 mg BID PO 06/05/18 21:00 07/05/18 20:59 Sodium Chloride 1,000 ml @ 100 mls/hr Q10H IV 06/05/18 14:15 07/05/18 14:14 06/05/18 14:29 100 MLS/HR Home Meds and Scripts Medications Dose Route/Sig Max Daily Dose Days Date Category Dose Instructions [facility] Anti-Fungal Powder (Miconazole Nitrate (Topical)) 2 % Pow 1 Appln TOP PRN 06/04/18 Reported Miralax (Polyethylene Glycol 3350) 1 Pow Pow 17 Gm PO DAILY PRN 06/04/18 Reported Seroquel (Quetiapine Fumarate) 100 Mg Tab 100 Mg PO BID UD 06/04/18 Reported TAKE AM & LUNCH Seroquel (Quetiapine Fumarate) 200 Mg Tab 200 Mg PO HS 06/04/18 Reported Vitamin (Prenat Multivit/Fabrication Inspector/Iron/Folic Ac) Tab 1 Tab PO DAILY 06/04/18 Reported Lipitor (Atorvastatin Calcium) 10 Mg Tab 10 Mg PO QAM 06/20/17 Reported Zyloprim (Allopurinol) 100 Mg Tab 100 Mg PO QAM 06/20/17 Reported Lasix (Furosemide) 20 Mg Tab 20 Mg PO QAM 06/20/17 Reported Zestril (Lisinopril) 20 Mg Tab 20 Mg PO BID 06/20/17 Reported Ativan (Lorazepam) 0.5 Mg Tab 0.5 Mg PO HS PRN 05/05/16 Reported may repeat up to three times Sinemet 25MG/100MG (Carbidopa/Levodopa) Tab 1 Tablet PO TID 02/17/13 Reported Neurontin (Gabapentin) 800 Mg Tab 800 Mg PO TID 02/17/13 Reported Review of Systems Constitutional: No fever, No chills, No weight loss, No weakness ENT: No see HPI, No hearing loss Respiratory: No cough, No shortness of breath Cardiac: No chest pain, No edema, No palpitations Abdomen: + see HPI, No pain, No nausea, No vomiting, No diarrhea Musculoskeletal: No joint pain, No muscle pain Female : No dysuria, No urinary frequency, No hematuria Neuro: + see HPI, No memory loss, No weakness, No balance problems Psych: No depression symptoms, No anxiety Heme: No abnormal bleeding/bruising Endo: + fatigue Skin: No rash, No itch, No new/changing skin lesions Physical Exam Date Time Temp Pulse Resp B/P (MAP) Pulse Ox O2 Delivery O2 Flow Rate FiO2 06/05/18 16:20 36.8 90 16 134/74 (94) 93 Room Air 06/05/18 11:17 36.5 77 18 127/75 (92) 95 Room Air 06/05/18 08:00 Room Air 2.0 Nasal Cannula 06/05/18 07:39 36.9 80 20 148/88 (108) 96 Nasal Cannula 2.0 06/05/18 04:08 36.7 87 20 144/79 (100) 90 Room Air 06/04/18 23:59 Room Air 06/04/18 23:28 36.4 80 20 149/84 (105) 96 Room Air 06/04/18 22:22 Room Air 06/04/18 21:46 36.7 82 18 153/92 (112) 98 Room Air 06/04/18 21:20 36.6 78 18 149/110 98 06/04/18 20:15 78 18 98 06/04/18 20:14 Nasal Cannula 06/04/18 20:02 149/110 06/04/18 20:00 83 15 06/04/18 19:45 81 19 06/04/18 19:31 157/140 06/04/18 19:30 79 19 06/04/18 19:15 78 16 06/04/18 19:00 79 17 06/04/18 18:32 79 22 06/04/18 18:22 89 16 151/128 06/04/18 18:12 81 13 99 06/04/18 18:11 130/72 06/04/18 18:02 78 15 98 06/04/18 18:01 121/76 06/04/18 17:52 78 16 98 06/04/18 17:51 118/72 06/04/18 17:42 79 19 98 06/04/18 17:41 111/63 06/04/18 17:40 104/66 06/04/18 17:32 82 18 99 06/04/18 17:31 100/61 06/04/18 17:22 82 20 96 06/04/18 17:21 97/49 06/04/18 17:14 85/43 06/04/18 17:12 84 20 97 06/04/18 17:11 62/37 06/04/18 17:09 36.6 89 22 78/48 86 Room Air 06/04/18 17:04 90 Nasal Cannula 2.0 06/04/18 17:04 86 Room Air 06/04/18 17:02 87 22 96 06/04/18 17:01 72/44 06/04/18 16:56 90 06/04/18 16:52 90 20 92 06/04/18 16:47 86/47 06/04/18 16:46 /45 06/04/18 16:42 87 24 92 06/04/18 16:41 78/50 06/04/18 16:40 68/47 24-Hour Column 06/06/18 08:00 Intake Total 500 ml Output Total 200 ml Balance 300 ml General Appearance: WD/WN, no apparent distress, + obese, + pertinent finding ( up in chair eating supper on RA) Eyes: EOMI ENT: hearing grossly normal Neck: supple Respiratory/Chest: lungs clear, normal breath sounds, no respiratory distress Cardiovascular: regular rate, rhythm, no edema Abdomen: normal bowel sounds, non tender, soft, + pertinent finding (no gallego) Extremities: no pedal edema, + pertinent finding (R leg slightly atrophied relative to L) Neurologic/Psych: no motor/sensory deficits, alert, normal mood/affect, oriented x 3 Skin: no jaundice, warm/dry, no rash Diagnostics Last 24 Hours Test 06/04/18 16:41 06/04/18 16:52 06/04/18 16:57 06/04/18 18:27 White Blood Count 5.31 K/uL Red Blood Count 4.61 M/uL Hemoglobin 12.5 g/dL Hematocrit 39.6 % Mean Corpuscular Volume 85.9 fL Mean Corpuscular Hemoglobin 27.1 pg Mean Corpuscular Hemoglobin Concent 31.6 g/dl Platelet Count 236 K/uL Mean Platelet Volume 9.4 fL Neutrophils (%) (Auto) 72.7 % Lymphocytes (%) (Auto) 16.0 % Monocytes (%) (Auto) 7.7 % Eosinophils (%) (Auto) 3.2 % Basophils (%) (Auto) 0.2 % Neutrophils # (Auto) 3.86 K/uL Lymphocytes # (Auto) 0.85 K/uL Monocytes # (Auto) 0.41 K/uL Eosinophils # (Auto) 0.17 K/uL Basophils # (Auto) 0.01 K/uL RDW Standard Deviation 58.0 fL RDW Coefficient of Variation 18.5 % Immature Granulocyte % (Auto) 0.2 % Immature Granulocyte # (Auto) 0.01 K/uL Prothrombin Time 10.9 SECONDS Prothromb Time International Ratio 1.0 Activated Partial Thromboplast Time 24.2 SECONDS Partial Thromboplastin Ratio 0.9 D-Dimer 39894 ug/L FEU Sodium Level 139 mmol/L Potassium Level 4.1 mmol/L Chloride Level 103 mmol/L Carbon Dioxide Level 27 mmol/L Anion Gap 10.0 mmol/L 17.0 mmol/L Blood Urea Nitrogen 42 mg/dl Creatinine 2.06 mg/dl Est Creatinine Clear Calc Drug Dose 30.7 ml/min Estimated GFR () 27.2 Estimated GFR (Non- 23.5 BUN/Creatinine Ratio 20.3 Random Glucose 155 mg/dl Calcium Level 9.2 mg/dl Magnesium Level 2.4 mg/dl Total Bilirubin 0.4 mg/dl Direct Bilirubin 0.2 mg/dl Aspartate Amino Transf (AST/SGOT) 10 U/L Alanine Aminotransferase (ALT/SGPT) < 6 U/L Alkaline Phosphatase 104 U/L Troponin I < 0.015 ng/ml Total Protein 9.0 gm/dl Albumin 3.5 gm/dl Lipase 145 U/L Thyroid Stimulating Hormone (TSH) 0.921 uIu/ml Bedside Hemoglobin 13.3 g/dl Bedside Hematocrit 39 % Bedside Sodium 142 mEq/L Bedside Potassium 4.1 mEq/L Bedside Chloride 102 mEq/L Bedside Total CO2 29 mEq/l Bedside Blood Urea Nitrogen 40 mg/dl Bedside Creatinine 1.9 mg/dl Bedside Glucose (other) 161 mg/dl Bedside Ionized Calcium ([place]) 1.14 mmol/l Bedside Lactic Acid Venous 2.83 mmol/L Urine Color YELLOW Urine Appearance CLEAR Urine pH 6.0 Urine Specific [place] 1.013 Urine Protein TRACE Urine Glucose (UA) NEG Urine Ketones NEG Urine Occult Blood NEG Urine Nitrite NEG Urine Bilirubin NEG Urine Urobilinogen NEG Urine Leukocyte Esterase NEG Urine WBC (Auto) 1-5 /hpf Urine RBC (Auto) 0-4 /hpf Urine Hyaline Casts (Auto) 5-10 /lpf Urine Epithelial Cells (Auto) 10-20 /lpf Urine Bacteria (Auto) NEG Test 06/04/18 18:30 06/04/18 19:44 06/04/18 21:03 06/04/18 22:14 Sodium Level 141 mmol/L Potassium Level 4.4 mmol/L Chloride Level 108 mmol/L Carbon Dioxide Level 27 mmol/L Anion Gap 6.0 mmol/L Blood Urea Nitrogen 42 mg/dl Creatinine 1.92 mg/dl Est Creatinine Clear Calc Drug Dose 33.0 ml/min Estimated GFR () 29.6 Estimated GFR (Non- 25.6 BUN/Creatinine Ratio 21.8 Random Glucose 116 mg/dl Calcium Level 8.4 mg/dl Bedside D-Dimer > 450 ng/mlFEU Lactic Acid Level 1.1 mmol/L White Blood Count 7.01 K/uL Red Blood Count 4.42 M/uL Hemoglobin 12.2 g/dL Hematocrit 37.8 % Mean Corpuscular Volume 85.5 fL Mean Corpuscular Hemoglobin 27.6 pg Mean Corpuscular Hemoglobin Concent 32.3 g/dl Platelet Count 227 K/uL Mean Platelet Volume 9.3 fL Neutrophils (%) (Auto) 84.5 % Lymphocytes (%) (Auto) 8.8 % Monocytes (%) (Auto) 5.6 % Eosinophils (%) (Auto) 0.7 % Basophils (%) (Auto) 0.3 % Neutrophils # (Auto) 5.92 K/uL Lymphocytes # (Auto) 0.62 K/uL Monocytes # (Auto) 0.39 K/uL Eosinophils # (Auto) 0.05 K/uL Basophils # (Auto) 0.02 K/uL RDW Standard Deviation 58.8 fL RDW Coefficient of Variation 18.5 % Immature Granulocyte % (Auto) 0.1 % Immature Granulocyte # (Auto) 0.01 K/uL Prothrombin Time 11.0 SECONDS Prothromb Time International Ratio 1.0 Activated Partial Thromboplast Time 25.9 SECONDS Partial Thromboplastin Ratio 1.0 Troponin I < 0.015 ng/ml Test 06/05/18 04:49 06/05/18 11:22 White Blood Count 6.18 K/uL Red Blood Count 4.23 M/uL Hemoglobin 11.7 g/dL Hematocrit 36.0 % Mean Corpuscular Volume 85.1 fL Mean Corpuscular Hemoglobin 27.7 pg Mean Corpuscular Hemoglobin Concent 32.5 g/dl RDW Standard Deviation 57.4 fL RDW Coefficient of Variation 18.4 % Platelet Count 188 K/uL Mean Platelet Volume 8.8 fL Activated Partial Thromboplast Time 71.0 SECONDS 48.8 SECONDS Partial Thromboplastin Ratio 2.7 1.9 Sodium Level 143 mmol/L Potassium Level 3.7 mmol/L Chloride Level 110 mmol/L Carbon Dioxide Level 26 mmol/L Anion Gap 7.0 mmol/L Blood Urea Nitrogen 38 mg/dl Creatinine 1.51 mg/dl Est Creatinine Clear Calc Drug Dose 41.5 ml/min Estimated GFR () 39.6 Estimated GFR (Non- 34.2 BUN/Creatinine Ratio 25.2 Random Glucose 92 mg/dl Calcium Level 8.3 mg/dl Troponin I < 0.015 ng/ml Diagnostic Radiology: ke Med Scan Low PE probability CT ab/pelv non con 1. Mild wall thickening of the descending colon with mild pericolonic infiltration which represents a nonspecific colitis. 2. No ureteral calculi or hydronephrosis. Small right renal calculi. Moderate bilateral renal atrophy. 3. Redemonstration of several groundglass opacities within the lower lungs.These remain indeterminate. A few have slightly improved since chest CT of June 04, 2017 while others are unchanged. These may reflect a chronic infectious/inflammatory process however a neoplastic process such as adenocarcinoma is within the differential. 4. Apparent gallbladder wall calcification. This may reflect a porcelain gallbladder. No evidence for acute cholecystitis. Venous dopplers > no dvt either legt CXR There are nonspecific bibasilar airspace opacities. This could represent atelectasis versus a mild infectious/inflammatory pneumonitis. TTE 06/04 * Normal LV chamber size with mild concentric LVH. * Normal LV systolic function, EF 60-65%. * No segmental left ventricular wall motion abnormalities are noted. * Grade I diastolic dysfunction. * Aortic valve sclerosis mild, without significant aortic valvular stenosis. Assessment & Plan 72 y/o F w/ ckd 3 (baseline creatinine 1.1-1.2) admitted 06/04 for evaluation of syncope after passing out at field hockey game and w/ SBP in 60-70s on presentation. her presenting creatinine was 1.9; has improved to 1.5 today. Her chemistries are acceptable except for mild hyperchloremia. Her volume status and hgb are acceptable. Her blood pressure/HR since presentation have been ok since she received initial resuscitation >> now on very low dose coreg. She has not had need for ongoing 02 therapy. her admission urine sediment had trace dipstick proteinuria. renal imaging unremarkable except for R nonobstructing stones. PE is unlikely Prerenal REMBERTO on CKD3, improving in the wake of normalized bp/ tx for presenting hypotension -monitor for oliguria -changed NS to Normosol at 100 mL /hr -ordered prot/creat for completeness -cont to hold ACEI and diuretic -cont daily bmp -no indication for acute dialysis -f/u cardiology recommendations for heart rhythm monitoring -? if head CT is warranted given presenting story Appreciate consult; will follow with you.
[2018-06-05] MEDS: CARVEDILOL 3.125 MG TAB PO SCH (20:49)
[2018-06-05] MEDS: QUETIAPINE FUMARATE 200 MG TAB PO SCH (20:52)
[2018-06-05] MEDS: LORAZEPAM 0.5 MG TAB PO PRN (20:54)
[2018-06-05] MEDS ORDERED: LORAZEPAM 1 MG TAB PO ONE (22:30)
--- NOTE | 2018-06-05 23:08 | Progress Note ---
Internal Med Progress Note Date of Service: Jun 05, 2018. Provider Documentation: SUBJECTIVE: Patient is sitting on chair, finishing dinner Denies of any dizzy spell or lightheadedness, no palpitation, no shortness of breath or chest heaviness Vitals remained stable, no arrhythmia noted on telemetry Patient is she feels fine, wondering when she can return home OBJECTIVE: Vital Signs-as noted below Exam: General-very pleasant elderly female, no apparent distress Eyes-sclera nonicteric, relatively equal reactive light extraocular muscles intact ENT-moist oral mucosa Neck-neck supple, no JVD, no thyromegaly, trachea midline Lungs-clear to auscultate, no wheezes rales or rhonchi Heart-regular S1-S2 Abdomen-soft nontender, no organomegaly, bowel sounds active Extremities-no lower extremity edema, no rash or deformed Neuro-alert awake oriented 3, no focal neurological deficit Lab data as noted below. ASSESSMENT & PLAN: SYNCOPE Presented with episode of syncope/unresponsiveness, With spontaneous recovery, no focal neurological deficit, no seizure activity - possible vasovagal syncopal episode in the setting of dehydration Further episode since hospitalization No arrhythmia noted on telemetry -Check orthostatic vitals Appreciate input from cardiology ECHO: June 05, 2018 : Normal LV chamber size with mild concentric LVH. Normal LV systolic function, EF 60-65. No segmental left ventricular wall motion abnormalities are noted. Grade I diastolic dysfunction. Aortic valve sclerosis mild, without significant aortic valvular stenosis. Cardiology recommendation : continue telemetry monitoring Hold lisinopril and furosemide Added Coreg 3.125 mg twice daily for BP control Outpatient Zio monitor for 14 days ACUTE HYPOXEMIC RESPIRATORY FAILURE Presented with syncope, hypoxic 86% in room air, improved to 90% with 2 L via nasal cannula Patient is not on home O2 Prior history of PE, not on any anticoagulation at present D-dimer is markedly elevated> 14, 150 Lower extremity Doppler, shows no evidence of bilateral lower extremity DVT CTA chest was not ordered secondary to acute kidney injury VQ scan shows low probability of PE IV heparin discontinued ACUTE KIDNEY INJURY IN SETTING OF CKD STAGE III Outpatient lab work 01/01/2018: Creatinine 1/GFR 59.8 Presented with creatinine 2.05/GFR 23.5 Possible combination of poor p.o. intake/dehydration patient reports of one episode of diarrhea/continue taking of diuretics Lasix and BEV inhibitor Creatinine improved 2.06-> 1.92-> 1.51 with IV fluids Diuretics: Lasix and inhibitor discontinued (Patient was instructed to take Lasix 20 mg daily as needed for lower extremity swelling, weight gain-she has been taking it every day) Denies of any NSAID use CT abdomen pelvis without contrast ordered to assess for any hydro- ureteronephrosis/renal stone causing obstruction leading to acute renal failure Follow BMP closely Nephrology evaluation requested PARKINSON'S DISEASE Patient is continued with Sinemet Order for PT OT evaluation BIPOLAR DISORDER Continue Seroquel, Ativan as needed HYPERTENSION Lisinopril Lasix discontinued in setting of AK I -Added Coreg 3.125 mg BID by cardiology -Monitor blood pressure HISTORY OF GOUT -No evidence of acute flare Continue allopurinol MORBID OBESITY : -BMI 40.5/weight 110.5 kg -Patient is counseled for exercise, lifestyle changes, diet modification -We will continue to follow-up with family physician at outpatient for further management CODE STATUS: Full code DVT PROPHYLAXIS Subcu heparin DISPOSITION Was living at home was independent in her ADLs PT OT evaluation requested Social service consulted for discharge planning Medicine follow-up with Dr. Gertrudis Johnson at [facility] Vital Signs: Date Time Temp Pulse Resp B/P (MAP) Pulse Ox O2 Delivery O2 Flow Rate FiO2 06/06/18 07:07 36.7 84 20 144/84 (104) 92 Nasal Cannula 2.0 06/06/18 04:23 36.4 87 20 152/83 (106) 92 Nasal Cannula 2.0 06/05/18 22:32 36.5 97 18 133/75 (94) 94 Room Air 06/05/18 20:49 Room Air 06/05/18 20:16 36.9 91 18 131/78 (95) 94 Room Air 06/05/18 16:20 36.8 90 16 134/74 (94) 93 Room Air 06/05/18 11:17 36.5 77 18 127/75 (92) 95 Room Air Lab Results: Results Past 24 Hours Test 06/05/18 11:22 06/05/18 20:57 06/06/18 05:59 Range/Units Activated Partial Thromboplast Time 48.8 21.0-31.0 SECONDS Partial Thromboplastin Ratio 1.9 Urine Random Creatinine 131.0 mg/dl Urine Random Total Protein 14.9 0-11.9 mg/dl Urine Protein/Creatinine Ratio 0.1 0-0.2 Sodium Level 140 136-145 mmol/L Potassium Level 3.7 3.5-5.1 mmol/L Chloride Level 108 98-107 mmol/L Carbon Dioxide Level 25 21-32 mmol/L Anion Gap 7.0 3-11 mmol/L Blood Urea Nitrogen 27 7-18 mg/dl Creatinine 1.25 0.60-1.20 mg/dl Est Creatinine Clear Calc Drug Dose 50.3 ml/min Estimated GFR () 49.8 Estimated GFR (Non- 42.9 BUN/Creatinine Ratio 21.7 10-20 Random Glucose 83 70-99 mg/dl Calcium Level 7.9 8.5-10.1 mg/dl
[2018-06-06] VITALS (9 sets, daily range): BP systolic 126–168; BP diastolic 76–97; PULSE 82–87; TEMP 36.3–36.8; O2SAT 92–95
[2018-06-06] MEDS: NORMOSOL R 1,000 ML IV SCH (03:01)
[2018-06-06 06:53] LABS: CALCIUM 7.9 mg/dl (8.5-10.1); CREATININE 1.25 mg/dl (0.60-1.20); POTASSIUM 3.7 mmol/L (3.5-5.1)
--- NOTE | 2018-06-06 08:27 | Nephrology Progress Note ---
Nephrology Progress Note Date of Service: Jun 06, 2018. Subjective resting in bed, ate full breakfast; no c/o of dypsnea, pain, orthostatic sx, N, pain, irwin, vision changes, anxious for d/c Objective Date Time Temp Pulse Resp B/P (MAP) Pulse Ox O2 Delivery O2 Flow Rate FiO2 06/06/18 07:07 36.7 84 20 144/84 (104) 92 Nasal Cannula 2.0 06/06/18 04:23 36.4 87 20 152/83 (106) 92 Nasal Cannula 2.0 06/05/18 22:32 36.5 97 18 133/75 (94) 94 Room Air 06/05/18 20:49 Room Air 06/05/18 20:16 36.9 91 18 131/78 (95) 94 Room Air 06/05/18 16:20 36.8 90 16 134/74 (94) 93 Room Air 06/05/18 11:17 36.5 77 18 127/75 (92) 95 Room Air 06/05/18 08:00 Room Air 2.0 Nasal Cannula Physical Exam: General Appearance: WD/WN, no apparent distress, + obese, + pertinent finding ( up in bed on RA) Eyes: EOMI ENT: hearing grossly normal Neck: supple Respiratory/Chest: lungs clear, normal breath sounds, no respiratory distress Cardiovascular: regular rate, rhythm, no edema Abdomen: normal bowel sounds, non tender, soft, + pertinent finding (no gallego) Extremities: no pedal edema, + pertinent finding (R leg slightly atrophied relative to L) Neurologic/Psych: no motor/sensory deficits, alert, normal mood/affect, oriented x 3 Skin: no jaundice, warm/dry, no rash Current Inpatient Medications Medications (Trade) Dose Ordered Sig/Evelyn Route Start Time Stop Time Status Last Admin Dose Admin Acetaminophen (Tylenol Tab) 650 mg Q4H PRN PO 06/04/18 20:30 07/04/18 20:29 Ondansetron HCl (Zofran Inj) 4 mg Q6H PRN IV 06/04/18 20:30 07/04/18 20:29 Clonidine HCl (Catapres Tab) 0.1 mg Q6 PRN PO 06/04/18 20:45 07/04/18 20:44 Allopurinol (Zyloprim Tab) 100 mg QAM PO 06/05/18 09:00 07/05/18 08:59 06/05/18 07:32 100 MG Atorvastatin Calcium (Lipitor Tab) 10 mg QAM PO 06/05/18 09:00 07/05/18 08:59 06/05/18 07:32 10 MG Carbidopa/Levodopa (Sinemet 25/ 100MG Tab) 1 tab TID PO 06/04/18 21:00 07/04/18 20:59 06/05/18 20:52 1 TAB Gabapentin (Neurontin Tab) 800 mg TID PO 06/04/18 21:00 07/04/18 20:59 06/05/18 20:52 800 MG Lorazepam (Ativan Tab) 0.5 mg HS PRN PO 06/04/18 20:45 07/04/18 20:44 06/05/18 20:54 0.5 MG Miconazole Nitrate (Desenex Powder) 1 appln DAILY PRN EXT 06/04/18 20:45 07/04/18 20:44 Prenat Multivit/ [place]/Iron/Folic Ac ( Vitamin Tab) 1 tab DAILY PO 06/05/18 09:00 07/05/18 08:59 06/05/18 07:32 1 TAB Quetiapine Fumarate (seroQUEL TAB) 100 mg 0800,1200 PO 06/05/18 08:00 07/05/18 07:59 06/05/18 11:53 100 MG Quetiapine Fumarate (seroQUEL TAB) 200 mg HS PO 06/04/18 21:00 07/04/18 20:59 06/05/18 20:52 200 MG Polyethylene (Miralax Powder Packet) 17 gm DAILY PRN PO 06/04/18 21:00 07/04/18 20:59 Carvedilol (Coreg Tab) 3.125 mg BID PO 06/05/18 21:00 07/05/18 20:59 06/05/18 20:49 3.125 MG Parenteral Electrolyte Solution 1,000 ml @ 100 mls/hr Q10H IV 06/05/18 17:00 07/05/18 16:59 06/06/18 03:01 100 MLS/HR Last 24 Hours Test 06/05/18 11:22 06/05/18 20:57 06/06/18 05:59 Activated Partial Thromboplast Time 48.8 SECONDS Partial Thromboplastin Ratio 1.9 Urine Random Creatinine 131.0 mg/dl Urine Random Total Protein 14.9 mg/dl Urine Protein/Creatinine Ratio 0.1 Sodium Level 140 mmol/L Potassium Level 3.7 mmol/L Chloride Level 108 mmol/L Carbon Dioxide Level 25 mmol/L Anion Gap 7.0 mmol/L Blood Urea Nitrogen 27 mg/dl Creatinine 1.25 mg/dl Est Creatinine Clear Calc Drug Dose 50.3 ml/min Estimated GFR () 49.8 Estimated GFR (Non- 42.9 BUN/Creatinine Ratio 21.7 Random Glucose 83 mg/dl Calcium Level 7.9 mg/dl Assessment & Plan 72 y/o F w/ ckd 3 (baseline creatinine 1.1-1.2) admitted 06/04 for evaluation of syncope after passing out at home briefly in her chair and w/ SBP in 60-70s on presentation to ER. her presenting creatinine was 1.9; has improved to 1.5 then today to 1.2. Her chemistries are acceptable except for mild hyperchloremia which is today slightly improved. Her volume status and hgb are acceptable. Her blood pressure/HR since presentation have been controlled since she received initial resuscitation >> now on very low dose coreg. She has not had need for ongoing 02 therapy until this AM. her admission urine sediment had trace dipstick proteinuria but not clinically significant on formal quantitation. renal imaging unremarkable except for R nonobstructing stones. PE is unlikely Prerenal REMBERTO on CKD3, resolving in the wake of normalized bp/ tx for presenting hypotension -?borderline oliguria -will stop normosol now >>recommend checking orthostatic vital signs prior to d/c off of ivf >>would d/c if for d/c today w/o acei, diuretic and on current coreg dose >>would recheck bmp and bp/orthostatics in one week >> pt states does not follow w/ pcp; defer to primary service if she should est at d/c w/ cardiology, w/ pcp, w/ nephro -cont daily bmp while in house -f/u cardiology recommendations for heart rhythm monitoring -? if head CT is warranted given presenting story for completeness Appreciate consult; will follow with you. Will coordinate care w/ Dr El
[2018-06-06] MEDS: GABAPENTIN 800 MG TAB PO SCH ×3 (09:06→19:52)
[2018-06-06] MEDS: ALLOPURINOL 100 MG TAB PO SCH (09:07)
[2018-06-06] MEDS: QUETIAPINE FUMARATE 100 MG TAB PO SCH ×2 (09:07→12:21)
[2018-06-06] MEDS: CARBIDOPA/LEVODOPA 25/100MG TAB PO SCH ×3 (09:07→19:52)
[2018-06-06] MEDS: ATORVASTATIN 10 MG TAB PO SCH (09:07)
[2018-06-06] MEDS: PRENATAL VITAMIN TAB PO SCH (09:07)
[2018-06-06] MEDS: CARVEDILOL 3.125 MG TAB PO SCH ×2 (09:08→19:52)
--- NOTE | 2018-06-06 09:14 | Progress Note ---
Progress Note Date of Service Jun 06, 2018. Progress Note ATTENDING ADDENDUM Report of CT abdomen pelvis without contrast 06/05/2018 evaluated: -Shows several ground glass opacities within the lower lung. These remains indeterminate. -A few have slightly improved since CT chest of June 04, 2017 while other are unchanged. -May reflect a chronic infectious/inflammatory process however a neoplastic process such as adenocarcinoma is within the differential Patient presented with hypoxic episode, with elevated d-dimer of more than 14 K Pulmonology evaluation requested Order for CT chest without contrast for better evaluation of lung parenchyma
--- NOTE | 2018-06-06 09:15 | Cardiology Follow-Up ---
Subjective General Date of Service: Jun 06, 2018. Chief Complaint: Syncope Pt evaluation today including: conversation w/ patient, conversation w/ family (Kim on 06/05/2018), physical exam, chart review, lab review, review of studies , review of inpatient medication list History of Present Illness Patient seen and examined. Notes trouble sleep initially last night, "my legs just kept jumping." No chest pain, palpitations, increased dyspnea, cough, orthopnea, PND, or edema. Anxious for discharge. EKG this morning reveals normal sinus rhythm at 80 bpm. QTc 452 ms. Telemetry: Sinus/sinus tachycardia. Currently sinus at 82 bpm. Extremely rare ectopy (3) in singles since admission. No bradycardia or pauses. Allergies Coded Allergies: Indomethacin (Verified Allergy, Intermediate, RASH, 07/11/17) Erythromycin (Verified Allergy, Unknown, UNKNOWN, 07/11/17) Levofloxacin (Verified Adverse Reaction, Intermediate, Causes psychosis., 07/11/17) Source [facility]/PT Social History Smoking Status: Never Smoker Hx Tobacco Use In Past Year?: No Hx Alcohol Use - Type And Amou: No Hx Substance Use - Type And Am: No Problem List Medical Problems: (1) Hypotension Status: Acute (2) Hypotension Status: Acute (3) Hypoxia Status: Acute (4) Syncope Status: Acute Physical Exam Vital Signs Last Vital Signs Documentation Date Time Temp Pulse Resp B/P (MAP) Pulse Ox O2 Delivery O2 Flow Rate FiO2 06/06/18 07:07 36.7 84 20 144/84 (104) 92 Nasal Cannula 2.0 Physical Exam Constitutional: Level of Distress: NAD Psychiatric: Mental Status: active & alert Orientation: to time, to place, to person Memory: recent memory normal, remote memory normal Head: normocephalic, atraumatic Eyes: Pupils: PERRLA Neck: pertinent finding (No overt JVD) Lungs: Respiratory effort: no dyspnea Auscultation: breath sounds normal, no wheezing, no rales/crackles, no rhonchi Cardiovascular: Heart Auscultation: RRR, normal S1, normal S2, no rubs, II/ SHARA Peripheral Pulses: Dorsalis Pedis Pulse: decreased on the left, decreased on the right Abdomen: Bowel Sounds: normal Extremities: no cyanosis, no edema, no clubbing Neurologic: Cranial Nerves: grossly intact Assessment and Plan Assessment and Plan 72-year-old female admitted following an witnessed episode of syncope as described in the cardiology consultation note dated 06/06/2018. Workup has revealed prerenal acute kidney injury, intravascular volume depletion, dehydration. Marked hypotension noted on presentation. EKG's, continuous telemetry monitoring, resting echocardiography, and cardiac enzymes have all been benign. Blood pressure has normalized. RECOMMENDATIONS/PLAN: No lisinopril No furosemide. Continue Carvedilol 3.125 mg twice a day. Outpatient Zio monitor x 14 days (office aware) Outpatient cardiology follow-up post Zio monitoring. Please call if any questions or concerns. Cardiology attending: Pt seen and examined, agree with findings and assessment by Fuentes Baird PA-C. Hypotension has resolved. Lisinopril and lasix will not be restarted at this time. Zio patch and follow up as an outpatient. Ok to d/c to home or to med surg from cardiac standpoint. Laboratory Results Last 24 Hours Test 06/05/18 11:22 06/05/18 20:57 06/06/18 05:59 Activated Partial Thromboplast Time 48.8 SECONDS Partial Thromboplastin Ratio 1.9 Urine Random Creatinine 131.0 mg/dl Urine Random Total Protein 14.9 mg/dl Urine Protein/Creatinine Ratio 0.1 Sodium Level 140 mmol/L Potassium Level 3.7 mmol/L Chloride Level 108 mmol/L Carbon Dioxide Level 25 mmol/L Anion Gap 7.0 mmol/L Blood Urea Nitrogen 27 mg/dl Creatinine 1.25 mg/dl Est Creatinine Clear Calc Drug Dose 50.3 ml/min Estimated GFR () 49.8 Estimated GFR (Non- 42.9 BUN/Creatinine Ratio 21.7 Random Glucose 83 mg/dl Calcium Level 7.9 mg/dl
--- NOTE | 2018-06-06 09:58 | DIAGNOSTIC IMAGING REPORT ---
CT SCAN OF THE BRAIN WITHOUT IV CONTRAST CLINICAL HISTORY: Syncope. COMPARISON STUDY: CT of the brain dated 11/02/2007. TECHNIQUE: Unenhanced axial CT scan of the brain is performed from the vertex to the skull base. A dose lowering technique was utilized adhering to the principles of ALARA. CT DOSE: 1685.98 mGy.cm FINDINGS: Brain parenchyma: There are age-related involutional changes noting mild subcortical and periventricular microangiopathic change. There is no hemorrhage, mass effect, or evidence of acute territorial ischemia by CT criteria. [place]-white matter is preserved. No extra-axial fluid collection is seen. Ventricles, sulci, cisterns: Prominent secondary to involutional change. Intracranial vasculature: There is atherosclerotic calcification of the cavernous carotid arteries. Calvarium: The skeletal structures are osteopenic. No depressed calvarial fracture is seen. Sinuses and mastoids: The visualized paranasal sinuses are clear. The mastoid air cells are well pneumatized. Orbits: The bony orbits are grossly intact. IMPRESSION: There is no hemorrhage, mass effect, or evidence of acute territorial ischemia by CT criteria. Electronically signed by: Lenny Ramirez M.D. 06/06/2018 9:56 AM Dictated Date/Time: 06/06/2018 9:54 AM
--- NOTE | 2018-06-06 10:14 | DIAGNOSTIC IMAGING REPORT ---
CT SCAN OF THE CHEST WITHOUT IV CONTRAST CLINICAL HISTORY: Syncope. Pulmonary nodule. COMPARISON STUDY: Chest CT scans dated 06/04/2017 and 05/18/2016. TECHNIQUE: CT scan of the thorax was performed from the thoracic inlet to the upper abdomen. Images are reviewed in the axial, sagittal, and coronal planes. IV contrast was not administered for this examination as per the referring clinician. A dose lowering protocol was utilized adhering to the principles of ALARA. FINDINGS: Thyroid: The right thyroid lobe appears enlarged and heterogeneous. Thoracic aorta: There is mild atherosclerotic calcification of the thoracic aorta, which is normal in caliber and demonstrates standard 3-vessel arch anatomy. Heart: The heart is top normal in size and without pericardial effusion. There are coronary artery calcifications. Lungs and pleural spaces: There is no lobar consolidation or pleural effusion. The trachea and central airways are clear. There are numerous pulmonary cysts measuring up to 4 cm. These are similar previous. Postoperative change is seen in the medial right middle lobe. Numerous groundglass pulmonary opacities are again identified. These have been present on studies dating back to 05/18/2016. A 3.3 x 2.8 cm lesion is seen in the right middle lobe on image #138. A lesion at the left lung base on image #193 measures 3.2 x 3.0 cm, a second lesion in the left lower lobe on image #182 measure 2.1 cm, and a lesion in the left upper lobe on image #102 measures 2.6 cm. Additional smaller foci of groundglass nodularity are seen in the right upper lobe on image #108, the right lower lobe on images #158 and #194, the left lower lobe in image #162. A small focal pulmonary herniation is seen at the right posterior lung base on image #189 between the 8th and 9th ribs. Mediastinum: There are scattered subcentimeter mediastinal lymph nodes. These are not pathologically enlarged by size criteria. Keena: Not well assessed without IV contrast. Axillae: There is no axillary lymphadenopathy. Upper abdomen: There is a large hiatal hernia with the majority of the stomach located in the thoracic cavity. Calcified gallstones are noted. The liver is steatotic. The spleen is enlarged measuring over 14 cm in length. Cortical atrophy is noted in the partially imaged kidneys. Parapelvic cysts are noted on the left. There is mild nodularity of the adrenal glands. Skeletal structures: The skeletal structures are osteopenic. Degenerative change and mild hyperkyphosis is seen in the thoracic spine. No lytic or blastic bony lesions are seen. IMPRESSION: 1. There is no lobar consolidation or pleural effusion. 2. There are numerous bilateral groundglass pulmonary opacities as detailed above which have been present dating back to 05/18/2016. Some of these have increased in size from 05/18/2016 and some have decreased in size. This may resent a chronic infectious/inflammatory process. Multifocal pulmonary neoplasm is not excluded. 3. There is no mediastinal lymphadenopathy. 4. Cholelithiasis. 5. Large hiatal hernia. 6. Hepatic steatosis. 7. A small focal pulmonary herniation at the right lung base is new from 06/04/2017. 8. Additional findings as above. Electronically signed by: Lenny Ramirez M.D. 06/06/2018 10:12 AM Dictated Date/Time: 06/06/2018 9:57 AM
--- NOTE | 2018-06-06 18:54 | Pulmonary Consultation ---
History General Date of Service: Jun 06, 2018. Stated Complaint: Syncope HPI The patient is a 72 year old female who presents to [facility] with complaints of Syncope. The patient's primary care provider is Gertrudis Johnson M.D.. We are consulted for transient hypoxia on arrival in the emergency department last evening. Patient was seen at bedside and examination was performed. Patient sitting comfortably with no distress. She is on room air and oxygenating in the mid 90s with SaO2. She denies any shortness of breath or cough. No chest pain or tightness. No hemoptysis. All labs and imaging were reviewed. CT scan with multiple lung nodules as well as cystic bullous disease of the lung consistent with previous imaging. The only new finding on CT scan was a small pulmonary herniation on the posterior aspect of the right lung at about rib #8. Physical examination revealed no evidence of herniation but there was evidence of previous invasive procedure with healed scars. The scars are from recent right lung biopsy by Dr. Duvall. At this point the patient has no pulmonary complaints. She is oxygenating well on room air. She was able to ambulate in the hallway with no dyspnea with exertion and no hypoxia with exertion. She denies fever, chills, sweats, rigors. She has no nausea or vomiting. She denies back pain. She has no acute pulmonary complaints. It should be noted that on 07/11/2017 the patient underwent an uncomplicated robotic assisted right thoracoscopy. A large cystic lesion in the medial middle lobe was wedged out. There was also a suspicious looking area in the lower lobe which was biopsied. The patient had marked adhesions at that time which were lysed. The procedure was performed by Dr. Duvall. Pathology from those samples showed no evidence of malignancy or monoclonal B-cell population. Please refer to the pathology report from 07/24/2017 as dictated by Raji Velasquez MD Historian: patient, other (Review of chart) Review of Systems A total of 12 systems was reviewed and is negative other than as listed above in the HPI All Other Symptoms All Other Systems: Reviewed and Negative Past Medical History Past Medical History: Medical Problems: (1) ARF (acute renal failure) (2) Bipolar disorder (3) Gout (4) History of pulmonary embolism (5) HTN (hypertension) (6) Idiopathic peripheral neuropathy (7) Parkinsons disease (8) RLS (restless legs syndrome) Surgical Problems: (1) History of hernia repair (2) History of partial hysterectomy (3) History of uterine suspension procedure (4) Status post repair of paraesophageal diaphragmatic hernia (5) uncomplicated robotic assisted thorascopic procedure 07/11/[address] Duvall Family History No pertinent family history Social History Hx Tobacco Use In Past Year?: No Smoking Status: Never Smoker Marital status: Occupational Status: retired Immunizations History of Influenza Vaccine: Yes Influenza Vaccine Date: Jan 10, 2016 History of Tetanus Vaccine?: Yes History of Pneumococcal: Yes Pneumococcal Date: Jan 10, 2016 History of Hepatitis B Vaccine: No History of MDRO History of MDRO: No Allergies Coded Allergies: Indomethacin (Verified Allergy, Intermediate, RASH, 07/11/17) Erythromycin (Verified Allergy, Unknown, UNKNOWN, 07/11/17) Levofloxacin (Verified Adverse Reaction, Intermediate, Causes psychosis., 07/11/17) Source [facility]/PT Current Medications Reported Home Medications Medications Dose Route/Sig Max Daily Dose Days Date Category Dose Instructions [facility] Anti-Fungal Powder (Miconazole Nitrate (Topical)) 2 % Pow 1 Appln TOP PRN 06/04/18 Reported Miralax (Polyethylene Glycol 3350) 1 Pow Pow 17 Gm PO DAILY PRN 06/04/18 Reported Seroquel (Quetiapine Fumarate) 100 Mg Tab 100 Mg PO BID UD 06/04/18 Reported TAKE AM & LUNCH Seroquel (Quetiapine Fumarate) 200 Mg Tab 200 Mg PO HS 06/04/18 Reported Vitamin (Prenat Multivit/Vance/Iron/Folic Ac) Tab 1 Tab PO DAILY 06/04/18 Reported Lipitor (Atorvastatin Calcium) 10 Mg Tab 10 Mg PO QAM 06/20/17 Reported Zyloprim (Allopurinol) 100 Mg Tab 100 Mg PO QAM 06/20/17 Reported Lasix (Furosemide) 20 Mg Tab 20 Mg PO QAM 06/20/17 Reported Zestril (Lisinopril) 20 Mg Tab 20 Mg PO BID 06/20/17 Reported Ativan (Lorazepam) 0.5 Mg Tab 0.5 Mg PO HS PRN 05/05/16 Reported may repeat up to three times Sinemet 25MG/100MG (Carbidopa/Levodopa) Tab 1 Tablet PO TID 02/17/13 Reported Neurontin (Gabapentin) 800 Mg Tab 800 Mg PO TID 02/17/13 Reported Physical Physical Exam Vital Signs: Date Time Temp Pulse Resp B/P (MAP) Pulse Ox O2 Delivery O2 Flow Rate FiO2 06/06/18 15:09 36.6 82 18 136/86 (103) 93 Room Air 06/06/18 13:04 84 138/84 (102) 06/06/18 13:02 84 144/85 (104) 06/06/18 13:00 36.3 85 18 126/76 (93) 92 Room Air 06/06/18 08:00 Nasal Cannula 06/06/18 07:07 36.7 84 20 144/84 (104) 92 Nasal Cannula 2.0 06/06/18 04:23 36.4 87 20 152/83 (106) 92 Nasal Cannula 2.0 06/05/18 22:32 36.5 97 18 133/75 (94) 94 Room Air 06/05/18 20:49 Room Air 06/05/18 20:16 36.9 91 18 131/78 (95) 94 Room Air Weight in Kilograms: 110.5 GENERAL : No acute distress. Pleasant 72-year-old female EYES: No icterus, gaze conjugate NOSE: No evidence of epistaxis. Patient on room air MOUTH: No lesions or candidiasis NECK: Supple. No stridor LUNGS: CTA B/L, no wheezes, rales or rhonchi. Breath sounds are clear to the bases and equal. Chest wall was examined with no evidence of pulmonary herniation is palpable. Patient has significant subcutaneous tissue but I was able to feel and differentiate intercostally from rib 6 to rib 10 around the site of the thorascopic surgery with no evidence of palpable herniation HEART: Regular, rate controlled ABDOMEN: Soft, NT, ND, BS Present EXTREMITIES: No LE edema, pedal pulses intact NEURO: [facility] Labs Results Past 24 Hours Test 06/05/18 20:57 06/06/18 05:59 Range/Units Urine Random Creatinine 131.0 mg/dl Urine Random Total Protein 14.9 0-11.9 mg/dl Urine Protein/Creatinine Ratio 0.1 0-0.2 Sodium Level 140 136-145 mmol/L Potassium Level 3.7 3.5-5.1 mmol/L Chloride Level 108 98-107 mmol/L Carbon Dioxide Level 25 21-32 mmol/L Anion Gap 7.0 3-11 mmol/L Blood Urea Nitrogen 27 7-18 mg/dl Creatinine 1.25 0.60-1.20 mg/dl Est Creatinine Clear Calc Drug Dose 50.3 ml/min Estimated GFR () 49.8 Estimated GFR (Non- 42.9 BUN/Creatinine Ratio 21.7 10-20 Random Glucose 83 70-99 mg/dl Calcium Level 7.9 8.5-10.1 mg/dl Diagnostic Radiology CT SCAN OF THE CHEST WITHOUT IV CONTRAST CLINICAL HISTORY: Syncope. Pulmonary nodule. COMPARISON STUDY: Chest CT scans dated 06/04/2017 and 05/18/2016. TECHNIQUE: CT scan of the thorax was performed from the thoracic inlet to the upper abdomen. Images are reviewed in the axial, sagittal, and coronal planes. IV contrast was not administered for this examination as per the referring clinician. A dose lowering protocol was utilized adhering to the principles of ALARA. FINDINGS: Thyroid: The right thyroid lobe appears enlarged and heterogeneous. Thoracic aorta: There is mild atherosclerotic calcification of the thoracic aorta, which is normal in caliber and demonstrates standard 3-vessel arch anatomy. Heart: The heart is top normal in size and without pericardial effusion. There are coronary artery calcifications. Lungs and pleural spaces: There is no lobar consolidation or pleural effusion. The trachea and central airways are clear. There are numerous pulmonary cysts measuring up to 4 cm. These are similar previous. Postoperative change is seen in the medial right middle lobe. Numerous groundglass pulmonary opacities are again identified. These have been present on studies dating back to 05/18/2016. A 3.3 x 2.8 cm lesion is seen in the right middle lobe on image #138. A lesion at the left lung base on image #193 measures 3.2 x 3.0 cm, a second lesion in the left lower lobe on image #182 measure 2.1 cm, and a lesion in the left upper lobe on image #102 measures 2.6 cm. Additional smaller foci of groundglass nodularity are seen in the right upper lobe on image #108, the right lower lobe on images #158 and #194, the left lower lobe in image #162. A small focal pulmonary herniation is seen at the right posterior lung base on image #189 between the 8th and 9th ribs. Mediastinum: There are scattered subcentimeter mediastinal lymph nodes. These are not pathologically enlarged by size criteria. Keena: Not well assessed without IV contrast. Axillae: There is no axillary lymphadenopathy. Upper abdomen: There is a large hiatal hernia with the majority of the stomach located in the thoracic cavity. Calcified gallstones are noted. The liver is steatotic. The spleen is enlarged measuring over 14 cm in length. Cortical atrophy is noted in the partially imaged kidneys. Parapelvic cysts are noted on the left. There is mild nodularity of the adrenal glands. Skeletal structures: The skeletal structures are osteopenic. Degenerative change and mild hyperkyphosis is seen in the thoracic spine. No lytic or blastic bony lesions are seen. IMPRESSION: 1. There is no lobar consolidation or pleural effusion. 2. There are numerous bilateral groundglass pulmonary opacities as detailed above which have been present dating back to 05/18/2016. Some of these have increased in size from 05/18/2016 and some have decreased in size. This may resent a chronic infectious/inflammatory process. Multifocal pulmonary neoplasm is not excluded. 3. There is no mediastinal lymphadenopathy. 4. Cholelithiasis. 5. Large hiatal hernia. 6. Hepatic steatosis. 7. A small focal pulmonary herniation at the right lung base is new from 06/04/2017. 8. Additional findings as above. Electronically signed by: Lenny Ramirez M.D. 06/06/2018 10:12 AM Impression Assessment and Plan TRANSIENT HYPOXIA * Patient presented with syncope and on arrival in the ED was found to have 2 separate readings of SaO2 at 86%. * Patient has been on room air since that time and is oxygenating in the mid 90s. * CT scan of the chest revealed chronic cystic disease as well as multiple lung nodules. * The only new finding on CT of the chest is a small pulmonary hematoma at the right lung base. This is nonpalpable on exam and is most likely related to wedge resection performed on 06/2017. I will ask Dr. Duvall to review the image as he was the performing surgeon at that time. * Patient follows with Dr. chavis in the outpatient office * At this time based on examination no additional intervention is required. We will continue with usual plan per Dr. chavis * Follow-up in the outpatient office with all scheduled appointments. RIGHT LOWER LOBE POSTERIOR PULMONARY HERNIATION * This is a new finding since previous CT scan May 2017. It is most likely related to the patient's thorascopic surgery performed 07/11/2017. At this point the herniation is nonpalpable on physical examination and should just be monitored. I will talk to Dr. Duvall tomorrow and have him review the CT scan but typically these are only observed casually and pose little risk for pneumothorax. No further intervention or treatment is recommended. CYSTIC DISEASE OF BILATERAL LUNGS * Old findings. Biopsy performed in 06/2017. Negative for malignancy or monoclonal B distribution * Continue outpatient following MULTIPLE PULMONARY NODULES * Chronic and unchanged from prior CT * Follow with outpatient pulmonology ELEVATED D-DIMER * VQ scan with low probability of pulmonary embolus * CTA was not performed secondary to poor renal function * Bilateral lower extremity duplex was negative for DVT bilaterally DVT PROPHYLAXIS * Lower extremity duplex of the legs was negative for DVT bilaterally * VQ scan of lungs was negative * Ambulate as tolerated * Consider chemical prophylaxis Thank you for including us in the care of this patient. At this time pulmonary service will sign off. Please feel free to reconsult with any newfound pulmonary issues or recurrent hypoxia. Please refer to Dr. Encarnacion's addendum for further recommendations.
[2018-06-06] MEDS ORDERED: CRG3125 PO ×2 (19:51→20:36)
[2018-06-06] MEDS: QUETIAPINE FUMARATE 200 MG TAB PO SCH (19:53)
--- NOTE | 2018-06-06 19:53 | Discharge Instructions ---
Discharge Instructions Date of Service Jun 06, 2018. Admission Reason for Admission: Syncope Discharge Discharge Diagnosis / Problem: SYNCOPE/ACUTE RENAL FAILIURE Discharge Goals Goal(s): Decrease discomfort, Improve function, Increase independence, Improve disease control, Diagnostic testing Activity Recommendations Activity Limitations: resume your previous activity . Instructions / Follow-Up Instructions / Follow-Up HOSPITAL FOLLOW UP : 06/11/2018 @ 1:[address] Gertrudis Johnson MD General Internal Medicine [facility] LAB WORK : BASIC METABOLIC PANEL ON 06/11/18 YOU WILL BE SCHEDULED TO HAVE 14 DAYS CARDIAC MONITORING WITH [facility] OFFICE WILL CALL WITH APPOINTMENT CARDIOLOGY FOLLOW UP WITH DR NEAL /SOUMYA HERNDON PA-C 4-6 WEEKS TO DISCUSS RESULT OF [facility] CARDIO MONITORING NEPHROLOGY FOLLOW UP WITH DR JM ARCE ON 4 MONTHS , OFFICE WILL CALL WITH APPOINTMENT DO NOT TAKE MOTRIN, ALEVE , ADVIL, NAPROXEN , IBUPROFEN WILL CAUSE WORSENING OF YOUR RENAL FUNCTION Current Hospital Diet Patient's current hospital diet: AHA Diet (Heart Healthy) Discharge Diet Recommended Diet: AHA Diet (Heart Healthy), Low Sodium Diet (2gm Na) Pending Studies Studies pending at discharge: no Medical Emergencies . Who to Call and When: Medical Emergencies: If at any time you feel your situation is an emergency, please call 911 immediately. . Non-Emergent Contact Non-Emergency issues call your: Primary Care Provider . . "Provider Documentation" section prepared by Roz El. .
--- NOTE | 2018-06-06 20:07 | Discharge Summary ---
Discharge Summary Date of Service Jun 06, 2018. Discharge Summary Admission Date: Jun 04, 2018 at 20:19 Discharge Date: Jun 06, 2018 Discharge Disposition: Home Principal Diagnosis: SYNCOPE/ACUTE RENAL FAILURE Procedures: ECHO * Normal LV chamber size with mild concentric LVH. * Normal LV systolic function, EF 60-65%. * No segmental left ventricular wall motion abnormalities are noted. * Grade I diastolic dysfunction. * Aortic valve sclerosis mild, without significant aortic valvular stenosis. CT CHEST WITHOUT CONTRAST IMPRESSION: 1. There is no lobar consolidation or pleural effusion. 2. There are numerous bilateral groundglass pulmonary opacities as detailed above which have been present dating back to 05/18/2016. Some of these have increased in size from 05/18/2016 and some have decreased in size. This may resent a chronic infectious/inflammatory process. Multifocal pulmonary neoplasm is not excluded. 3. There is no mediastinal lymphadenopathy. 4. Cholelithiasis. 5. Large hiatal hernia. 6. Hepatic steatosis. 7. A small focal pulmonary herniation at the right lung base is new from 06/04/2017. CT ABDOMEN PELVIS WITHOUT CONTRAST 1. Mild wall thickening of the descending colon with mild pericolonic infiltration which represents a nonspecific colitis. 2. No ureteral calculi or hydronephrosis. Small right renal calculi. Moderate bilateral renal atrophy. 3. Re demonstration of several ground glass opacities within the lower lungs. These remain indeterminate. A few have slightly improved since chest CT of June 04, 2017 while others are unchanged. These may reflect a chronic infectious/inflammatory process however a neoplastic process such as adenocarcinoma is within the differential. 4. Apparent gallbladder wall calcification. This may reflect a porcelain gallbladder. No evidence for acute cholecystitis. CT HEAD WITHOUT CONTRAST IMPRESSION: There is no hemorrhage, mass effect, or evidence of acute territorial ischemia by CT criteria. Consultations: PULMONOLOGY CARDIOLOGY NEPHROLOGY Medication Reconciliation New Medications: Carvedilol (Carvedilol) 3.125 Mg Tab 1 TAB PO BID for 30 Days, #60 TAB 3 Refills Continued Medications: Allopurinol (Zyloprim) 100 Mg Tab 100 MG PO QAM, TAB Atorvastatin (Lipitor) 10 Mg Tab 10 MG PO QAM, TAB Carbidopa/Levodopa (Sinemet 25MG/100MG) Tab 1 TABLET PO TID, TAB Gabapentin (Neurontin) 800 Mg Tab 800 MG PO TID, TAB Lorazepam (Ativan) 0.5 Mg Tab 0.5 MG PO HS PRN for Insomnia, TAB may repeat up to three times Miconazole Nitrate (Topical) ([facility] Anti-Fungal Powder) 2 % Pow 1 APPLN TOP PRN for UNDER BREAST/FOLDS Multivit/Min/Iron/Fol Ac/Pren ( Vitamin) Tab 1 TAB PO DAILY, TAB Polyethylene Glycol 3350 (Miralax) 1 Pow Pow 17 GM PO DAILY PRN for Constipation, #255 GM Quetiapine Fumarate (Seroquel) 200 Mg Tab 200 MG PO HS, TAB Quetiapine Fumarate (Seroquel) 100 Mg Tab 100 MG PO BID UD, TAB TAKE AM & LUNCH Discontinued Medications: Furosemide (Lasix) 20 Mg Tab 20 MG PO QAM, TAB Lisinopril (Zestril) 20 Mg Tab 20 MG PO BID, TAB Referrals At Discharge Follow up Referrals: Biomedical Service Engineer Referral - Within 6 Weeks with Simon Neal D.O. Process Artist Referral - Within 6 Months with Amparo Arce MD Physician Referral - 06/11/18 with Gertrudis Johnson M.D. Admission Information HPI (per Admitting provider): Patient is a 72-year-old female past medical history of Parkinson's disease, bipolar disorder, history of PE, HTN and CKD III who presents after a syncopal episode at home. Patient reports being in normal state of health earlier today , running errands and driving grandchildren around town. Was at home on her couch when 13-year-old grandson notes that patient's "eyes rolled back" and she became unresponsive for a few minutes before waking up. Patient denies any preceding lightheadedness, visual changes, chest pain, palpitations or shortness of breath. No head trauma or fall. Denies having syncopal events in the past and does not have any history of known arrhythmias. Admits that she has not been drinking enough water recently. Has been taking medication regularly, including 20 mg Lasix daily. Currently patient feels generally weak but otherwise asymptomatic. No headache, lightheadedness, near syncope, visual changes, chest pain, shortness of breath, abdominal pain, nausea, vomiting, dysuria, constipation or diarrhea. No lower extremity swelling. Has a history of a PE a few years ago after a prolonged hospital stay. Was initially found to be hypotensive with systolic blood pressure in the upper 60s. Was hypoxic on room air 86% (is not on home oxygen). Blood pressure improved with administration of fluids and oxygen saturation increased to 98% on 2 L nasal cannula. Physical Exam (per Admitting): General Appearance: WD/WN, no apparent distress, + obese Head: normocephalic, atraumatic Eyes: normal inspection, PERRL, sclerae normal ENT: normal ENT inspection, hearing grossly normal, pharynx normal (dry mucous membranes ) Neck: supple, thyroid normal, trachea midline Respiratory/Chest: chest non-tender, lungs clear, normal breath sounds, no respiratory distress, no accessory muscle use Cardiovascular: regular rate, rhythm, no murmur, normal peripheral pulses Abdomen/GI: non tender, soft, no organomegaly Back: normal inspection Extremities/Musculoskelatal: normal inspection, no calf tenderness, non- tender, + pertinent finding (LLE > RLE (chronic from childhood polio) ) Neurologic/Psych: no motor/sensory deficits, alert, normal mood/affect, oriented x 3 Skin: normal color, warm/dry, no rash Hospital Course No complaint of shortness of breath, Denies of any chest pain, no cough Feels fine Blood pressure been stable, no further syncopal episode Eager to be discharged home today PHYSICAL EXAM General-very pleasant elderly female, no apparent distress Eyes-sclera nonicteric, relatively equal reactive light extraocular muscles intact ENT-moist oral mucosa Neck-neck supple, no JVD, no thyromegaly, trachea midline Lungs-clear to auscultate, no wheezes rales or rhonchi Heart-regular S1-S2 Abdomen-soft nontender, no organomegaly, bowel sounds active Extremities-no lower extremity edema, no rash or deformed Neuro-alert awake oriented 3, no focal neurological deficit Date Time Temp Pulse Resp B/P (MAP) Pulse Ox O2 Delivery O2 Flow Rate FiO2 06/06/18 19:45 36.8 84 18 95 Nasal Cannula 06/06/18 19:41 36.8 84 18 168/97 (120) 95 Room Air ASSESSMENT AND PLAN ELEVATED D-DIMER * VQ scan with low probability of pulmonary embolus * CTA was not performed secondary to poor renal function * Bilateral lower extremity duplex was negative for DVT bilaterally SYNCOPE Presented with episode of syncope/unresponsiveness, With spontaneous recovery, no focal neurological deficit, no seizure activity - possible vasovagal syncopal episode in the setting of dehydration Further episode since hospitalization No arrhythmia noted on telemetry - orthostatic vitals no change Appreciate input from cardiology ECHO: June 05, 2018 : Normal LV chamber size with mild concentric LVH. Normal LV systolic function, EF 60-65. No segmental left ventricular wall motion abnormalities are noted. Grade I diastolic dysfunction. Aortic valve sclerosis mild, without significant aortic valvular stenosis. Diuretics: Lisinopril and Lasix discontinued Added Coreg 3.125 mg twice daily for BP control Outpatient Zio monitor for 14 days ACUTE HYPOXEMIC RESPIRATORY FAILURE Presented with syncope, hypoxic 86% in room air, improved to 90% with 2 L via nasal cannula Patient is not on home O2 Symptom resolved, adequate oxygenation in room air Prior history of PE, not on any anticoagulation at present D-dimer is markedly elevated> 14, 150 Lower extremity Doppler, shows no evidence of bilateral lower extremity DVT VQ scan shows low probability of PE IV heparin discontinued -Pulmonology consulted, appreciate input * Patient presented with syncope and on arrival in the ED was found to have 2 separate readings of SaO2 at 86%. * Patient has been on room air since that time and is oxygenating in the mid 90s. * CT scan of the chest revealed chronic cystic disease as well as multiple lung nodules. * The only new finding on CT of the chest is a small pulmonary hematoma at the right lung base. This is nonpalpable on exam and is most likely related to wedge resection performed on 06/2017. * Multiple pulmonary nodules, chronic and unchanged from prior CT * Patient follows with Dr. chavis in the outpatient office * Follow-up in the outpatient office with all scheduled appointments. ACUTE KIDNEY INJURY IN SETTING OF CKD STAGE III Outpatient lab work 01/01/2018: Creatinine 1/GFR 59.8 Presented with creatinine 2.05/GFR 23.5 Possible combination of poor p.o. intake/dehydration patient reports of one episode of diarrhea/continue taking of diuretics Lasix and BEV inhibitor Creatinine improved 2.06-> 1.92-> 1.51 -> 1.2 with IV fluids Diuretics: Lasix and inhibitor discontinued (Patient was instructed to take Lasix 20 mg daily as needed for lower extremity swelling, weight gain-she has been taking it every day) Denies of any NSAID use CT abdomen pelvis without contrast : Shows no evidence of renal stone, no obstruction no hydroureter nephrosis Follow BMP closely Nephrology evaluation requested, patient input Acute renal failure secondary to dehydration, while taking diuretics Renal function improved with IV hydration only Nephrology suggest patient should be off lisinopril and Lasix Repeat BMP as an outpatient Outpatient follow-up at the CKD clinic with Dr. Amparo Vences in 4 months PARKINSON'S DISEASE Patient is continued with Sinemet Order for PT OT evaluation Appreciate input, Patient is at her baseline functional status BIPOLAR DISORDER Continue Seroquel, Ativan as needed HYPERTENSION Lisinopril Lasix discontinued in setting of AK I -Added Coreg 3.125 mg BID by cardiology HISTORY OF GOUT -No evidence of acute flare Continue allopurinol MORBID OBESITY : -BMI 40.5/weight 110.5 kg -Patient is counseled for exercise, lifestyle changes, diet modification -will continue to follow-up with family physician at outpatient for further management CODE STATUS: Full code DVT PROPHYLAXIS Subcu heparin DISPOSITION Lives at home, daughter. Provides care and support Stable to be discharged home today Total time spent on discharge = 40 mins This includes examination of the patient, discharge planning, medication reconciliation, and communication with other providers. Discharge Instructions Discharge Instructions Date of Service Jun 06, 2018. Admission Reason for Admission: Syncope Discharge Discharge Diagnosis / Problem: SYNCOPE/ACUTE RENAL FAILIURE Discharge Goals Goal(s): Decrease discomfort, Improve function, Increase independence, Improve disease control, Diagnostic testing Activity Recommendations Activity Limitations: resume your previous activity . Instructions / Follow-Up Instructions / Follow-Up HOSPITAL FOLLOW UP : 06/11/2018 @ 1:[address] Gertrudis Johnson MD General Internal Medicine [facility] LAB WORK : BASIC METABOLIC PANEL ON 06/11/18 YOU WILL BE SCHEDULED TO HAVE 14 DAYS CARDIAC MONITORING WITH [facility] OFFICE WILL CALL WITH APPOINTMENT CARDIOLOGY FOLLOW UP WITH DR NEAL /SOUMYA HERNDON PA-C 4-6 WEEKS TO DISCUSS RESULT OF [facility] CARDIO MONITORING NEPHROLOGY FOLLOW UP WITH DR JM ARCE ON 4 MONTHS , OFFICE WILL CALL WITH APPOINTMENT DO NOT TAKE MOTRIN, ALEVE , ADVIL, NAPROXEN , IBUPROFEN WILL CAUSE WORSENING OF YOUR RENAL FUNCTION Current Hospital Diet Patient's current hospital diet: AHA Diet (Heart Healthy) Discharge Diet Recommended Diet: AHA Diet (Heart Healthy), Low Sodium Diet (2gm Na) Pending Studies Studies pending at discharge: no Medical Emergencies . Who to Call and When: Medical Emergencies: If at any time you feel your situation is an emergency, please call 911 immediately. . Non-Emergent Contact Non-Emergency issues call your: Primary Care Provider . . "Provider Documentation" section prepared by Roz El. .
== END 2018-06-06 20:32 | disposition home or self-care (01) | DRG 682 ==
LOC: EDBD 16:22 → C.EDA 16:23 → C.2T 20:19 → ENRESERV 20:27 → C.4E 06-06 19:26
PROVIDERS: ADMIT Internal Medicine; ATTEND Hospitalist
DX: N17.9 Acute kidney failure, unspecified (principal); J96.01 Acute respiratory failure with hypoxia; E66.01 Morbid (severe) obesity due to excess calories; Z68.41 Body mass index [BMI] 40.0-44.9, adult; R55 Syncope and collapse; M10.9 Gout, unspecified; I12.9 Hypertensive chronic kidney disease with stage 1 through stage 4 chronic kidney disease, or unspecified chronic kidney disease; N18.3 Chronic kidney disease, stage 3 (moderate); F31.9 Bipolar disorder, unspecified; G60.9 Hereditary and idiopathic neuropathy, unspecified; G20 Parkinson's disease; I95.9 Hypotension, unspecified; E86.0 Dehydration; R79.1 Abnormal coagulation profile; J98.4 Other disorders of lung; G25.81 Restless legs syndrome; Z79.899 Other long term (current) drug therapy; Z86.711 Personal history of pulmonary embolism; Z88.1 Allergy status to other antibiotic agents

== ENCOUNTER 2019-10-21 09:28 | Inpatient (IN) ==
[2019-10-21] MEDS ORDERED: QUETIAPINE FUMARATE 100 MG TABLET PO SCH ×2 (10:30→21:00)
[2019-10-21 10:56] LABS: Appearance Urine Cloudy (Clear); Bilirubin Urine Negative (Negative); Blood Urine Negative (Negative); Color Urine Yellow; Epithelial Cell Urine Auto >30 /lpf (0-5); Glucose Urine UA Negative (Negative); Ketones Urine Negative (Negative); Leukocyte Esterase Urine 1+ (Negative); Nitrite Urine Positive (Negative); Protein Urine Negative (Negative); RBC Urine Automated 0-4 /hpf (0-4); Specific Gravity Urine 1.015 (1.000-1.030); Urobilinogen Urine Negative (Negative)
[2019-10-21 11:08] LABS: Bacteria Urine Automated 2+ (Negative)
[2019-10-21 11:16] LABS: Basophils # (auto) 0.01 K/uL (0-0.2); Basophils % (auto) 0.2 %; Eosinophils # (auto) 0.18 K/uL (0-0.5); Eosinophils % (auto) 3.7 %; Hematocrit (blood only) 36.5 % (37-47); Hemoglobin 11.8 g/dL (12.0-16.0); Immature Granulocytes # (auto) 0.01 K/uL (0.00-0.02); Immature Granulocytes % (auto) 0.2 %; Lymphocytes # (auto) 0.51 K/uL (1.2-3.4); Lymphocytes % (auto) 10.6 %; Mean Corpuscular Hemoglobin 28.2 pg (25-34); Mean Corpuscular Hgb Conc 32.3 g/dL (32-36); Mean Corpuscular Volume 87.3 fL (80-100); Mean Platelet Volume 8.6 fL (7.4-10.4); Monocytes # (auto) 0.52 K/uL (0.11-0.59); Monocytes % (auto) 10.8 %; Neutrophils # (auto) 3.58 K/uL (1.4-6.5); Neutrophils % (auto) 74.5 %; Platelet Count 279 K/uL (130-400); RDW Coefficient of Variation 16.5 % (11.5-14.5); RDW Standard Deviation 52.9 fL (36.4-46.3); Red Blood Count 4.18 M/uL (4.2-5.4); White Blood Count 4.81 K/uL (4.8-10.8)
[2019-10-21 11:32] LABS: Amphetamines+Metham, Urine Neg (Neg); Barbiturates, Urine Neg (Neg); Benzodiazepine, Urine Neg (Neg); Cocaine, Urine Neg (Neg); MDMA (Ecstacy), Urine Neg (Neg); Methadone, Urine Neg (Neg); Opiate, Urine Neg (Neg); Phencyclidine, Urine Neg (Neg)
[2019-10-21 11:36] LABS: Alanine Aminotransferase 9 U/L (12-78); Albumin Level 3.4 gm/dl (3.4-5.0); Aspartate Aminotransferase 21 U/L (15-37); BUN Creatinine Ratio 17.7 (10-20); Blood Urea Nitrogen 23 mg/dl (7-18); Calcium 9.3 mg/dl (8.5-10.1); Carbon Dioxide 28 mmol/L (21-32); Chloride 102 mmol/L (98-107); Est GFR (African American) 46.8; Est GFR (Non-African American) 40.4; Glucose 81 mg/dl (70-99); Potassium 3.5 mmol/L (3.5-5.1); Sodium 136 mmol/L (136-145)
[2019-10-21] MEDS ORDERED: cephALEXin 250 MG CAP PO ONE (11:42)
[2019-10-21 11:46] LABS: Albumin Globulin Ratio 0.6 (0.9-2); Alkaline Phosphatase 94 U/L (45-117); Bilirubin,Total 0.6 mg/dl (0.2-1); Globulin 5.5 gm/dl (2.5-4.0); Total Protein 8.9 gm/dl (6.4-8.2)
[2019-10-21] MEDS: CARBIDOPA/LEVODOPA 25/100MG TAB PO SCH ×3 (11:50→21:47)
[2019-10-21] MEDS ORDERED: LORazepam 1 MG TAB SL STA ×2 (12:33→17:48)
--- NOTE | 2019-10-21 13:54 | Emergency Department Note ---
Entered by Farrah Cruz acting as a scribe for History of Present Illness General Chief complaint: Mental Health Evaluation Time Seen by Provider: 10/21/19 09:37 Source: other (psychiatric bilingual patient support caseworker) History of Present Illness Onset (ago): day(s) 4 Location: head (Lori) Severity: similar to prior episodes Pain Consistency: + other (persistent) Quality: + other (Lori) Exacerbated By: + other (not taking normal medications) Associated symptoms: + confusion and + other (Hallucinating, lori, flailing arms) The patient is a 74 year old female presenting to the Emergency Room complaining of persistent lori starting 4 days ago. The patients psychiatric bilingual patient support caseworker reports that the patient was sent from [facility] for being manic. She states that the patient hasnt been able to sit still and isnt acting like her normal self. She explains that the patient has been involuntarily flailing her hands around and that she has Parkinsons disease but that this flailing is new since she fell on 10/16/19. She notes that the patient has been confused and hallucinating, talking to people and animals that are not actually present. She adds that the patient has experienced these symptoms before as she has a history of bipolar disorder. The patients psychiatric bilingual patient support caseworker reports that the patient hasnt been taking all of her normal medications since her fall and that this could be contributing to some of her symptoms. The HPI and ROS are limited due to AMS. Home Medications Home Medications Medication Instructions Recorded Confirmed Type allopurinol 100 mg PO QAM 09/08/18 10/21/19 History atorvastatin 10 mg PO QAM 09/08/18 10/21/19 History carbidopa-levodopa 1 tab PO TID 09/08/18 10/21/19 History lorazepam 0.5 mg PO HS PRN 09/08/18 10/21/19 History quetiapine 100 mg PO BID 09/08/18 10/21/19 History quetiapine 200 mg PO HS 09/08/18 10/21/19 History furosemide 20 mg PO QAM 10/16/19 10/21/19 History gabapentin 300 mg PO TID 10/16/19 10/21/19 History potassium chloride 10 meq PO QAM 10/16/19 10/21/19 History docusate sodium 100 mg PO BID 10/21/19 10/21/19 History enoxaparin 40 mg SUBCUT HS 10/21/19 10/21/19 History gentamicin 0.3 % OPHTHALMIC (EYE) TID 10/21/19 10/21/19 History Allergies Allergy/AdvReac Type Severity Reaction Status Date / Time indomethacin Allergy Intermediate RASH Verified 10/21/19 13:44 erythromycin base Allergy Unknown UNKNOWN Verified 10/21/19 13:44 levofloxacin AdvReac Intermediate Causes Verified 10/21/19 13:44 psychosis. Past Med/Surg History Medical History Acute renal failure superimposed on chronic kidney disease (Acute) Acute respiratory failure with hypoxia (Acute) Bipolar disorder (Chronic) Chronic kidney disease Gout (Chronic) History of pulmonary embolism (Resolved) HTN (hypertension) (Chronic) Idiopathic peripheral neuropathy (Chronic) Parkinsons disease (Chronic) RLS (restless legs syndrome) (Chronic) Surgical History History of hernia repair (Chronic) History of partial hysterectomy (Chronic) History of uterine suspension procedure (Chronic) Status post repair of paraesophageal diaphragmatic hernia (Chronic) Family History Other No pertinent family history Social History Preferred Language: Czech Beliefs That Will Affect Care: None Feels Safe at Home: Yes Smoking Status: Unknown if ever smoked Review of Systems The HPI and ROS are limited due to AMS. Physical Exam Vital Signs Vital Signs - 24 hr 10/21/19 09:41 10/21/19 13:05 Temperature 36.7 C Temperature Source Oral Pulse Rate 90 Pulse Rate [Right Finger] 84 Respiratory Rate 16 26 H Respiratory Effort / Characteristics Non-Labored Spontaneous Non-Labored Respiratory Depth Normal Blood Pressure 161/86 H Blood Pressure [Right Arm] 149/93 H Blood Pressure Mean 111 Blood Pressure Mean [Right Arm] 111 Blood Pressure Position Lying Pulse Oximetry 91 94 Oxygen Delivery Method Room Air Room Air Sepsis New/Unexplained Change in Mental Status No Sepsis Action Taken by Nursing No Action Required GENERAL: Awake, alert, well-appearing, in no distress HENT: Normocephalic, atraumatic. Oropharynx unremarkable. EYES: Normal conjunctiva. Sclera non-icteric. NECK: Supple. No nuchal rigidity. FROM. No JVD. RESPIRATORY: CTAB. CARDIAC: Regular rate, normal rhythm. Extremities warm and well perfused. Pulses equal. ABDOMEN: Soft, non-distended. No tenderness to palpation. No rebound or guarding. No masses. RECTAL: Deferred. MUSCULOSKELETAL: Chest examination reveals no tenderness. The back is symmetrical on inspection without obvious abnormality. There is no CVA tenderness to palpation. No joint edema. LOWER EXTREMITIES: Calves are equal size bilaterally and non-tender. No edema. No discoloration. NEURO: Normal sensorium. No sensory or motor deficits noted. PSYCH: Patient is pleasantly confused. Flight of ideas. Pressure speech. Labile affect with agressive outburst then clam, "[place]" SKIN: No rash or jaundice noted. Course Course 1013: The patient was evaluated in room A8, and a complete history and physical examination were performed. 1314: The patients nurse reports that the patients daughter s bedside and reported that the patient recently got a head CT on 10/16/2019 and has not fallen since this scan. 1351: The psychiatric bilingual patient support caseworker reported that the patient was referred to [address] at this time. 1630: The patient was accepted to [address] [place] [address] at this time. They will be evaluate the patient for further management. Administered Medications Carbidopa/Levodopa (Sinemet 25/100 Mg) 1 tab PO TID [facility] Stop: 11/20/19 10:29 Last Admin: 10/21/19 21:47 Dose: 1 tab Documented by: [id number] Admin: 10/21/19 15:40 Dose: 1 tab Documented by: [id number] Admin: 10/21/19 11:50 Dose: 1 tab Documented by: [id number] Docusate Sodium (Colace) 100 mg PO BID [facility] Stop: 11/20/19 20:59 Last Admin: 10/21/19 21:47 Dose: Not Given Documented by: [id number] Gabapentin (Neurontin) 300 mg PO TID [facility] Stop: 11/20/19 20:59 Last Admin: 10/21/19 21:13 Dose: 300 mg Documented by: [id number] Gentamicin Sulfate (Gentak 0.3%) 1 appln OP TID [facility] Stop: 10/31/19 20:59 Last Admin: 10/21/19 21:45 Dose: Not Given Documented by: [id number] Lorazepam (Ativan) 0.5 mg PO HS PRN PRN Reason: agitation/insomnia Stop: 11/20/19 16:56 Last Admin: 10/21/19 21:17 Dose: 0.5 mg Documented by: [id number] Quetiapine Fumarate (Seroquel) 200 mg PO HS [facility] Stop: 11/20/19 20:59 Last Admin: 10/21/19 21:14 Dose: 200 mg Documented by: [id number] Discontinued Medications Cephalexin HCl (Keflex) 500 mg PO NOW ONE Stop: 10/21/19 11:43 Last Admin: 10/21/19 12:18 Dose: 500 mg Documented by: [id number] Lorazepam (Ativan) 1 mg SL NOW STA Stop: 10/21/19 12:34 Last Admin: 10/21/19 13:04 Dose: 1 mg Documented by: [id number] Lorazepam (Ativan) 1 mg SL NOW STA Stop: 10/21/19 17:49 Last Admin: 10/21/19 18:01 Dose: 1 mg Documented by: [id number] Olanzapine (Zyprexa Zydis Od) 10 mg PO NOW STA Stop: 10/21/19 15:02 Last Admin: 10/21/19 15:41 Dose: 10 mg Documented by: [id number] Olanzapine (Zyprexa Zydis Od) 5 mg PO NOW STA Stop: 10/21/19 17:49 Last Admin: 10/21/19 18:09 Dose: 5 mg Documented by: [id number] Quetiapine Fumarate (Seroquel) 100 mg PO BID [facility] Stop: 11/20/19 10:29 Last Admin: 10/21/19 11:49 Dose: 100 mg Documented by: [id number] Medical Decision Making Differential Diagnosis Differential Diagnosis includes but is not limited to dehydration, stroke, ane moses, hypoglycemia, hyponatremia, hypernatremia, urinary tract infection, pneumonia, bronchitis, sepsis, gastroenteritis, additional abdominal pathology, metabolic abnormalities and infections. Medical Records Attestation: I reviewed the patient's medical records. Home Medications Current Medication List: was personally reviewed by me Laboratory Data Attestation: I reviewed the patient's lab results. Result diagrams: 10/21/19 10:55 10/21/19 10:55 Lab Results 01/07/20 01/07/20 01/07/20 Range/Units 10:25 10:25 10:55 WBC 4.81 (4.8-10.8) K/uL RBC 4.18 L (4.2-5.4) M/uL Hgb 11.8 L (12.0-16.0) g/dL Hct 36.5 L (37-47) % MCV 87.3 (80-100) fL MCH 28.2 (25-34) pg MCHC 32.3 (32-36) g/dL RDW Std Deviation 52.9 H (36.4-46.3) fL RDW Coeff of Alex 16.5 H (11.5-14.5) % Plt Count 279 (130-400) K/uL MPV 8.6 (7.4-10.4) fL Immature Gran % (Auto) 0.2 % Neut % (Auto) 74.5 % Lymph % (Auto) 10.6 % Berrien % (Auto) 10.8 % Eos % (Auto) 3.7 % Baso % (Auto) 0.2 % Immature Gran # (Auto) 0.01 (0.00-0.02) K/uL Neut # (Auto) 3.58 (1.4-6.5) K/uL Lymph # (Auto) 0.51 L (1.2-3.4) K/uL Berrien # (Auto) 0.52 (0.11-0.59) K/uL Eos # (Auto) 0.18 (0-0.5) K/uL Baso # (Auto) 0.01 (0-0.2) K/uL Sodium (136-145) mmol/L Potassium (3.5-5.1) mmol/L Chloride (98-107) mmol/L Carbon Dioxide (21-32) mmol/L Anion Gap (3-11) BUN (7-18) mg/dl Creatinine (0.6-1.2) mg/dl Est Cr Clr Drug Dosing Est GFR ( Amer) Est GFR (Non-Af Amer) BUN/Creatinine Ratio (10-20) Glucose (70-99) mg/dl Calcium (8.5-10.1) mg/dl Total Bilirubin (0.2-1) mg/dl AST (15-37) U/L ALT (12-78) U/L Alkaline Phosphatase (45-117) U/L Total Protein (6.4-8.2) gm/dl Albumin (3.4-5.0) gm/dl Globulin (2.5-4.0) gm/dl Albumin/Globulin Ratio (0.9-2) TSH (0.300-4.500) uIu/ml Urine Color Yellow Urine Appearance Cloudy A (Clear) Urine pH 5.0 (4.5-7.5) Ur Specific Pratt 1.015 (1.000-1.030) Urine Protein Negative (Negative) Urine Glucose (UA) Negative (Negative) Urine Ketones Negative (Negative) Urine Blood Negative (Negative) Urine Nitrite Positive A (Negative) Urine Bilirubin Negative (Negative) Urine Urobilinogen Negative (Negative) Ur Leukocyte Esterase 1+ H (Negative) Urine WBC (Auto) 10-30 H (0-5) /hpf Urine RBC (Auto) 0-4 (0-4) /hpf U Hyaline Cast (Auto) 5-10 H (0-5) /lpf U Epithel Cells (Auto) >30 H (0-5) /lpf Urine Bacteria (Auto) 2+ H (Negative) Urine Yeast Not Reportable Urine Opiates Screen Neg (Neg) Ur Methadone, Qual Neg (Neg) Urine Barbiturates Neg (Neg) Ur Phencyclidine (PCP) Neg (Neg) U Amphetamin/Meth Scrn Neg (Neg) MDMA (Ecstasy) Screen Neg (Neg) U Benzodiazepines Scrn Neg (Neg) Ur Cocaine Metabolite Neg (Neg) U Marijuana (THC) Screen Neg (Neg) Ethyl Alcohol mg/dL (0-3) mg/dl 10/21/19 10/21/19 Range/Units 10:55 10:55 WBC (4.8-10.8) K/uL RBC (4.2-5.4) M/uL Hgb (12.0-16.0) g/dL Hct (37-47) % MCV (80-100) fL MCH (25-34) pg MCHC (32-36) g/dL RDW Std Deviation (36.4-46.3) fL RDW Coeff of Alex (11.5-14.5) % Plt Count (130-400) K/uL MPV (7.4-10.4) fL Immature Gran % (Auto) % Neut % (Auto) % Lymph % (Auto) % Berrien % (Auto) % Eos % (Auto) % Baso % (Auto) % Immature Gran # (Auto) (0.00-0.02) K/uL Neut # (Auto) (1.4-6.5) K/uL Lymph # (Auto) (1.2-3.4) K/uL Berrien # (Auto) (0.11-0.59) K/uL Eos # (Auto) (0-0.5) K/uL Baso # (Auto) (0-0.2) K/uL Sodium 136 (136-145) mmol/L Potassium 3.5 (3.5-5.1) mmol/L Chloride 102 (98-107) mmol/L Carbon Dioxide 28 (21-32) mmol/L Anion Gap 6.0 (3-11) BUN 23 H (7-18) mg/dl Creatinine 1.30 H (0.6-1.2) mg/dl Est Cr Clr Drug Dosing Not Reportable Est GFR ( Amer) 46.8 Est GFR (Non-Af Amer) 40.4 BUN/Creatinine Ratio 17.7 (10-20) Glucose 81 (70-99) mg/dl Calcium 9.3 (8.5-10.1) mg/dl Total Bilirubin 0.6 (0.2-1) mg/dl AST 21 (15-37) U/L ALT 9 L (12-78) U/L Alkaline Phosphatase 94 (45-117) U/L Total Protein 8.9 H (6.4-8.2) gm/dl Albumin 3.4 (3.4-5.0) gm/dl Globulin 5.5 H (2.5-4.0) gm/dl Albumin/Globulin Ratio 0.6 L (0.9-2) TSH 1.120 (0.300-4.500) uIu/ml Urine Color Urine Appearance (Clear) Urine pH (4.5-7.5) Ur Specific Pratt (1.000-1.030) Urine Protein (Negative) Urine Glucose (UA) (Negative) Urine Ketones (Negative) Urine Blood (Negative) Urine Nitrite (Negative) Urine Bilirubin (Negative) Urine Urobilinogen (Negative) Ur Leukocyte Esterase (Negative) Urine WBC (Auto) (0-5) /hpf Urine RBC (Auto) (0-4) /hpf U Hyaline Cast (Auto) (0-5) /lpf U Epithel Cells (Auto) (0-5) /lpf Urine Bacteria (Auto) (Negative) Urine Yeast Urine Opiates Screen (Neg) Ur Methadone, Qual (Neg) Urine Barbiturates (Neg) Ur Phencyclidine (PCP) (Neg) U Amphetamin/Meth Scrn (Neg) MDMA (Ecstasy) Screen (Neg) U Benzodiazepines Scrn (Neg) Ur Cocaine Metabolite (Neg) U Marijuana (THC) Screen (Neg) Ethyl Alcohol mg/dL < 3.0 (0-3) mg/dl ECG Data Attestation: I personally reviewed and interpreted this ECG as follows: Indication: + altered mental status Rate (beats per minute): 91 Rhythm: + normal sinus ECG ST segments: no ST depression and no ST elevation ECG Findings: + Other (Nonspecific ST abnormality. QT-c 464. ); no PACs and no PVCs Blood Pressure Blood Pressure Findings: Elevated blood pressure Blood Pressure Disposition: further management by hospitalist MI Evans The patient is a pleasant 74-year-old woman with a past medical history of bipolar disorder who presents emergency department from [facility], acute rehab where she has been after being admitted there on 10/16 after being seen in the emergency department for a fall with prolonged downtime with subsequent generalized weakness prescribed. The patient had a x-ray and CT imaging that were unremarkable. The patient presents for worsening mental status with lori and psychosis. On arrival the patient is in no acute distress, afebrile stable vital signs. The patient has a labile affect ranging from pleasant and colorful to agitated and aggressive. She will be redirectable. She is moving all extremities equally. Reflexes are normal. EKG unremarkable without acute ischemia. WBC and platelets within normal limits. H/H 11.8/36.5 decreased from prior ED visit but within prior range of values. Chemistry without acidosis. Creatinine 1.3 within prior range of values. Electrolytes and LFTs otherwise unremarkable. UA with positive nitrites, WBCs and 2+ bacteria, albeit with epithelial cells. However given the patient's change in mental status reasonable to treat for UTI. Patient was started on Keflex. Patient was initially ordered for a CT scan of her head however patient's daughter requested that this be deferred as she had a CT scan of her head on her last visit. Patient was medically cleared. Patient was ordered for her prescribed Sinemet and Quetiapine., Given the patient's persistent waxing and waning confusion and agitation she was given 1 mg of Ativan and 10 mg of Zyprexa with good effect. Referral was made to [facility] evaluate the patient however at this time the patient was having some recurrence of her agitation and therefore it was recommended by [facility]. to trial additional 5 mg of Zyprexa and 1 mg Ativan which was provided with good effect and subsequently admitted to [facility]. [id number] signed given patient's lori/psychosis without decision making capacity. Impression & Plan Bipolar disorder, manic, Acute UTI Discharge Plan Visit Data *Final* Discharge Date/Time: 10/21/19 19:51 Chief Complaint: Mental Health Evaluation ED Provider: Catrachito Ruelas Discharge Problem: Bipolar disorder, manic, Acute UTI Patient Disposition: Still a Patient Discharge Instructions Interventions: ED Discharge Assessment Last Done: 10/21/19 19:51 Discharge Problem: Bipolar disorder, manic Qualifiers: Current episode severity: unspecified Qualified Code(s): F31.10 - Bipolar disorder, current episode manic without psychotic features, unspecified The scribe's documentation has been prepared under my direction and personally reviewed by me in its entirety. I confirm that the note above accurately reflects all work, treatment, procedures, and medical decision making performed by me.
--- NOTE | 2019-10-21 13:59 | Electrocardiogram Report ---
Test Reason : Blood Pressure : / mmHG Vent. Rate : 091 BPM Atrial Rate : 091 BPM P-R Int : 162 ms QRS Dur : 102 ms QT Int : 378 ms P-R-T Axes : 052 047 039 degrees QTc Int : 464 ms Normal sinus rhythm Possible Left atrial enlargement Nonspecific ST abnormality Abnormal ECG When compared with ECG of 16-OCT-2019 11:38, No significant change was found Confirmed by Catrachito Dominguez ([id number]) on 10/21/2019 1:59:16 PM Referred By: [facility] Confirmed By:Catrachito Dominguez
[2019-10-21] MEDS ORDERED: OLANZAPINE ZYDIS 10 MG ORALLY DIS. TAB PO STA (15:01)
[2019-10-21] MEDS ORDERED: MAGNESIUM HYDROXIDE SUSP 30 ML UDC PO PRN (16:52)
[2019-10-21] MEDS ORDERED: SODIUM CHLORIDE 0.65% NA SOLN 45 ML (OCEAN) PRN (16:52)
[2019-10-21] MEDS ORDERED: ALUMINUM/MAGNESIUM SUSP 30 ML UDC PO PRN (16:52)
[2019-10-21] MEDS ORDERED: ACETAMINOPHEN 325 MG TAB PO PRN (16:52)
[2019-10-21] MEDS ORDERED: OLANZAPINE ZYDIS 5 MG ORALLY DIS. TAB PO STA (17:48)
[2019-10-21] MEDS ORDERED: CARBIDOPA/LEVODOPA 25/100MG TAB PO SCH (21:00)
[2019-10-21] MEDS: GABAPENTIN 300 MG CAP PO SCH (21:13)
[2019-10-21] MEDS: DOCUSATE SODIUM 100 MG CAP PO SCH ×2 (21:13→21:47)
[2019-10-21] MEDS: QUETIAPINE FUMARATE 200 MG TAB PO SCH (21:14)
[2019-10-21] MEDS: LORazepam 0.5 MG TAB PO PRN (21:17)
[2019-10-21] MEDS: GENTAMICIN SULFATE 0.3% OP OINT 3.5 GM TUBE OP SCH (21:45)
[2019-10-22] MEDS: POTASSIUM CHLORIDE 10 MEQ TABCR PO SCH (07:20)
[2019-10-22] MEDS: FUROSEMIDE 20 MG TAB PO SCH (07:20)
[2019-10-22] MEDS: ATORVASTATIN 10 MG TAB PO SCH (07:20)
[2019-10-22] MEDS: DOCUSATE SODIUM 100 MG CAP PO SCH ×2 (07:21→21:14)
[2019-10-22] MEDS: GABAPENTIN 300 MG CAP PO SCH ×3 (07:21→21:17)
[2019-10-22] MEDS: ENOXAPARIN INJ 40 MG/0.4 ML SYR SQ SCH ×2 (07:21→07:50)
[2019-10-22] MEDS: allopurinoL 100 MG TAB PO SCH (07:22)
[2019-10-22] MEDS: CARBIDOPA/LEVODOPA 25/100MG TAB PO SCH ×3 (07:22→21:15)
[2019-10-22] MEDS: QUETIAPINE FUMARATE 100 MG TABLET PO SCH ×2 (07:22→14:43)
[2019-10-22] MEDS: GENTAMICIN SULFATE 0.3% OP OINT 3.5 GM TUBE OP SCH ×3 (07:24→21:22)
[2019-10-22 07:28] LABS: INR 1.1 (0.9-1.1); Prothrombin Time 10.9 Seconds (9.0-12.0)
[2019-10-22] MEDS ORDERED: cephALEXin 500 MG CAP PO STA (07:32)
[2019-10-22] MEDS: cephALEXin 500 MG CAP PO SCH ×2 (09:47→21:15)
--- NOTE | 2019-10-22 11:20 | History & Physical ---
Date of Service October 22, 2019 Impression / Recommendations Impression 74-year-old female with a history of multiple medical problems and bipolar disorder type I who presented with confusion, hallucinations, and agitation worsening over the past few days at [facility], where she was referred 5 days ago after presenting to the ER status post a fall at home with inability to get up for many hours. She was diagnosed with a UTI in the ER as well, and started on Keflex. She is delirious, and has had similar episodes in the past. She was last on our unit 4 years ago, and was on similar medications for her bipolar disorder at that time. We will continue her medications for now, coordinate with her outpatient psychiatrist, and involve her daughter for collateral and support. She will need close monitoring of her multiple medical conditions, and when she is able to participate, we will get a physical therapy evaluation to determine if she needs to return to rehab. Inpatient treatment is medically necessary due to the severity of her symptoms and inability to provide for her own basic needs without the care and assistance of others. She is on a 302 commitment as she lacked capacity to sign in voluntarily, and we will continue to gather information toward the need for ongoing involuntary treatment. (1) Bipolar disorder: 10/22 -likely also an element of delirium, with recent fall, inpatient rehab and [facility], and acute on chronic kidney dysfunction. Per review of records, this presentation is consistent with past presentations under similar circumstances. -Continue inpatient treatment on an involuntary commitment, and assess the need for extension of involuntary commitment. -Continue medically necessary private room due to recent agitation/confusion. -Get collateral information from daughter Juana who was present in the ER. -Coordinate care with outpatient psychiatrist, Dr. Navarrete. -Continue quetiapine 100 mg twice daily at 0900 and 1300, and 200 mg at bedtime. It appears likely that her recent symptoms are due to the change in her routine (admitted to [facility] Status post fall) and medical decompensation with UTI and kidney dysfunction. -Monitoring on an atypical antipsychotic: FLP from 06/2019 was within normal limits. Hemoglobin A1c was 5.7%, with estimated average glucose of 117. Fasting glucose 95. Active/Remission status: currently active Current bipolar episode type: manic Current episode severity: severe Psychotic features: with psychotic features Qualified Code(s): F31.2 - Bipolar disorder, current episode manic severe with psychotic features Present on Admission?: Yes (2) Acute UTI: 10/22 -continue Keflex as started in the ER, and follow-up on sensitivities when completed. Present on Admission?: Yes (3) Fall: Fall 5 days ago at home, sent to [facility] for physical rehab. Get PT consult once she is able to participate, and assess needs for ongoing PT. -One-to-one in the interim due to high fall risk and need for staff support when ambulating. Encounter type: initial encounter Qualified Code(s): W19.XXXA - Unspecified fall, initial encounter Present on Admission?: Yes (4) Parkinson's disease: 10/22 -continue home dose of Sinemet and monitor abnormal movements. Consider neurology consult if these do not improve. Present on Admission?: Yes (5) HTN (hypertension): 10/22 -continue home dose of furosemide. BP was elevated in the ER, but has now normalized. -Ensure follow-up with PCP. Present on Admission?: Yes (6) Idiopathic peripheral neuropathy: 10/22 -continue home dose of gabapentin 300 mg 3 times daily. Present on Admission?: Yes (7) History of pulmonary embolism: Continue Lovenox. Present on Admission?: Yes (8) RLS (restless legs syndrome): 10/22 -continue home dose of lorazepam 0.5 mg at bedtime as needed. Present on Admission?: Yes (9) Gout: Continue home dose of allopurinol. Present on Admission?: Yes Inventory Assets Strengths: Supportive family, able to live alone when stable Needs: Treatment of comorbid medical conditions, mood stabilization. Risk Factors Assessment Male: No : Yes Do You Have Access To A Gun?: No Health Problems: Yes Mental Health Diagnoses: Yes Substance Use Disorders: No Previous Psychiatric Hospitalization: Yes Smoker: No Protective Factors Assessment [employer] Beliefs: Yes : No Responsible for Young Children: No Employed: No Stable Relationships: Yes Supportive Family: Yes Good Rapport with Provider: Yes Psychiatric History Identifying Data PABLO COOPER is a 74-year-old F who currently lives in [place], has a history of bipolar disorder, Parkinson's disease, chronic kidney disease, hypertension, peripheral neuropathy, and restless leg syndrome and was admitted on 10/21/19 16:52 on a 302 involuntary commitment for lori. Chief Complaint "I take a lot of pills in the morning". History of Present Illness Patient presented to the ER yesterday, 10/21/2019, on referral from [facility] where she had been for inpatient PT after a fall 5 days prior. She was seen in the ER 10/16/2019 after falling at home, was unable to get up and was lying on the floor for 13 hours before she could call for help. She reported losing her balance while coming out of her bathroom, and landing on her hip. She had a hip x-ray which was negative for fracture or dislocation, and a head CT which showed no acute intracranial abnormalities but patchy white matter hypodensities suggesting chronic bibasilar vascular disease, cerebral vascular calcifications, and mild encephalomalacia of the periventricular left frontal lobe. Chest x-ray showed cardiomegaly, hiatal hernia, and calcified plaque in the thoracic aortic arch. She reported a history of polio primarily affecting the right side which limited her abilities to compensate. She was referred for inpatient physical therapy/rehabilitation for strengthening prior to returning home. Her daughter and outpatient field case manager were present in the ER, and reported that for the past 4 days the patient had been unable to sit still, flailing her hands and arms, confused, hallucinating, talking to people and animals that are not present. They also stated she had not been taking her normal medications since her fall, although it was not specified what had been changed or held. EKG was normal sinus rhythm, rate 91, QTc 464. Admission labs notable for RBC 4.18, hemoglobin 11.8, hematocrit 36.5%, and RDW 52.9. PT and INR were normal. CMP notable for BUN 23 and creatinine 1.30 (improved from 1.48 on 10/16/2019). TSH 1.120, toxicology screen negative. UA was cloudy, + nitrite, 1+ leukocyte esterase, 10-20 WBCs, > 30 epithelial cells, and 2+ bacteria. Culture preliminary results: E. coli, sensitivities pending. She was started on cephalexin 500 mg twice daily. She was labile and confused in the ER, unable to give informed consent for inpatient psychiatric treatment. She became agitated and aggressive to the extent that she required lorazepam 1 mg x2 and olanzapine 10 mg and then 5 mg. She was admitted on a 302 involuntary commitment. Per records, she was progressing well physically at [facility], was walking without difficulty, and the night prior to presentation she became restless, anxious, and was hallucinating. Her symptoms worsened and she became agitated, was yelling at staff, and could not be redirected. She was confused and nonsensical. In the ER, she had moments of lucidity, but quickly became confused again, was experiencing visual hallucinations and stating that a cat named Ronnie was in the bed with her. Her daughter stated that she does not typically have the jerking motions of her extremities and that her Parkinson's has been well managed, that she has had these types of movements in the past when manic. She stated that the patient lives independently in an apartment in [place], and manages well on her own. 2 of her daughters live in [place] and see her daily. On my assessment, she was seen in her room, where she is seated by the window, shuffling a stack of newspaper ads. She is a very limited historian, answers most questions with unrelated information. She cannot recount the events that led up to her hospitalization, stating "it was my fault," "you know what a med minder is?" "Trying not to confuse you." She believes she came to the hospital from home, and cannot describe the events of the past week, does not seem to recall that she was at a rehab facility. When asked why she was hospitalized, she says "I don't have enough to get to the bathroom... I still don't have a problem." She is oriented to herself and the season, but not to the year, month, date, date, or place. Although initially alert, as interview progressed, she quickly became somnolent. Past Psychiatric History Current Psychiatric Diagnosis: Bipolar Disorder type I Outpatient Services: Psychiatrist: Dr. Navarrete Previous Psych Admissions: [facility] 2016 -had been admitted medically for work- up of bloody stool and weakness, and was transferred to the [facility] for psychosis and confusion, diagnosed with bipolar disorder type I mixed with psychosis, rule out delirium due to multiple etiologies. She was on quetiapine and Lorazepam at the time. She was on an involuntary commitment, and had to be transferred back to the hospitalist service for IV hydration. She was then transferred back to the [facility] for several more days before she was discharged. Remote history of hospitalization in [place]. Do You Have Access To A Gun?: No History of Previous Suicide Attempt: No (No history of suicide attempt per records) Past Medication Trials: Include but not limited to: Lamotrigine Depakote Allergies Allergy/AdvReac Type Severity Reaction Status Date / Time indomethacin Allergy Intermediate RASH Verified 10/21/19 13:44 erythromycin base Allergy Unknown UNKNOWN Verified 10/21/19 13:44 levofloxacin AdvReac Intermediate Causes Verified 10/21/19 13:44 psychosis. Home Medications Home Medications Medication Instructions Recorded Confirmed Type allopurinol 100 mg PO QAM 09/08/18 10/21/19 History atorvastatin 10 mg PO QAM 09/08/18 10/21/19 History carbidopa-levodopa 1 tab PO TID 09/08/18 10/21/19 History lorazepam 0.5 mg PO HS PRN 09/08/18 10/21/19 History quetiapine 100 mg PO BID 09/08/18 10/21/19 History quetiapine 200 mg PO HS 09/08/18 10/21/19 History furosemide 20 mg PO QAM 10/16/19 10/21/19 History gabapentin 300 mg PO TID 10/16/19 10/21/19 History potassium chloride 10 meq PO QAM 10/16/19 10/21/19 History docusate sodium 100 mg PO BID 10/21/19 10/21/19 History enoxaparin 40 mg SUBCUT HS 10/21/19 10/21/19 History gentamicin 0.3 % OPHTHALMIC (EYE) TID 10/21/19 10/21/19 History Family History Family Mental Health History Comment: Per records, grandfather attempted suicide x 2. Alcohol History Hx of Alcohol Use Over the Past 12 Months: No Smoking Use Have You Smoked or Used Tobacco Products in the Last 30 Days: No Smoking Status: Unknown if ever smoked Substance History Hx of Prescription Med Misuse Over the Past 12 Months: No Hx of Over the Counter Med Misuse Over the Past 12 Months: No Hx of Inhalent Misuse Over the Past 12 Months: No Hx of Organic Substance Use Over the Past 12 Months: No Hx of Illegal Substances/Street Drug Use Over Past 12 Months: No Problems as a Result of Past Substance Use: None Identified No history of substance abuse per records. Personal History Living Arrangements: Apartment Living Arrangements Comments: Alone in [place]. 2 adult daughters live locally and see her daily. 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) Marital Status: Number Of Children: 4 Beliefs That Will Affect Care: None Current Legal Problems: No Hx Legal Problems: No Hx Traumatic Life Events: No Patient History Medical History Acute renal failure superimposed on chronic kidney disease (Acute) Acute respiratory failure with hypoxia (Acute) Bipolar disorder (Chronic) Chronic kidney disease Gout (Chronic) History of pulmonary embolism (Resolved) HTN (hypertension) (Chronic) Idiopathic peripheral neuropathy (Chronic) Parkinsons disease (Chronic) RLS (restless legs syndrome) (Chronic) Surgical History History of hernia repair (Chronic) History of partial hysterectomy (Chronic) History of uterine suspension procedure (Chronic) Status post repair of paraesophageal diaphragmatic hernia (Chronic) Family History Other No pertinent family history Social History Preferred Language: Luxembourgish Beliefs That Will Affect Care: None Feels Safe at Home: Yes Smoking Status: Unknown if ever smoked Review of Systems Review of Systems: Unobtainable due to reduced consciousness Physical Exam Vital Signs (Past 24 Hours): Last Vital Signs Temp 35.9 C L 10/22/19 07:04 Pulse 97 H 10/22/19 07:05 Resp 20 10/22/19 07:04 BP 113/78 10/22/19 07:05 Pulse Ox 97 10/21/19 19:51 Exam Statement: A physical exam was performed in the ER prior to admission to the unit by Dr. Adam doty. I accept that physical as correct/medical clearance for the inpatient physical exam. Results & Data Laboratory Results Laboratory Results - last 24 hr 10/21/19 10/21/19 10/21/19 10:25 10:25 10:55 WBC 4.81 RBC 4.18 L Hgb 11.8 L Hct 36.5 L MCV 87.3 MCH 28.2 MCHC 32.3 RDW Std Deviation 52.9 H RDW Coeff of Alex 16.5 H Plt Count 279 MPV 8.6 Immature Gran % (Auto) 0.2 Neut % (Auto) 74.5 Lymph % (Auto) 10.6 [place] % (Auto) 10.8 Eos % (Auto) 3.7 Baso % (Auto) 0.2 Immature Gran # (Auto) 0.01 Neut # (Auto) 3.58 Lymph # (Auto) 0.51 L [place] # (Auto) 0.52 Eos # (Auto) 0.18 Baso # (Auto) 0.01 PT INR Sodium Potassium Chloride Carbon Dioxide Anion Gap BUN Creatinine Est Cr Clr Drug Dosing Est GFR ( Amer) Est GFR (Non-Af Amer) BUN/Creatinine Ratio Glucose Calcium Total Bilirubin AST ALT Alkaline Phosphatase Total Protein Albumin Globulin Albumin/Globulin Ratio TSH Urine Color Yellow Urine Appearance Cloudy A Urine pH 5.0 Ur Specific [place] 1.015 Urine Protein Negative Urine Glucose (UA) Negative Urine Ketones Negative Urine Blood Negative Urine Nitrite Positive A Urine Bilirubin Negative Urine Urobilinogen Negative Ur Leukocyte Esterase 1+ H Urine WBC (Auto) 10-30 H Urine RBC (Auto) 0-4 U Hyaline Cast (Auto) 5-10 H U Epithel Cells (Auto) >30 H Urine Bacteria (Auto) 2+ H Urine Yeast Not Reportable Urine Opiates Screen Neg Ur Methadone, Qual Neg Urine Barbiturates Neg Ur Phencyclidine (PCP) Neg U Amphetamin/Meth Scrn Neg MDMA (Ecstasy) Screen Neg U Benzodiazepines Scrn Neg Ur Cocaine Metabolite Neg U Marijuana (THC) Screen Neg Ethyl Alcohol mg/dL 10/21/19 10/21/19 10/22/19 10:55 10:55 07:08 WBC RBC Hgb Hct MCV MCH MCHC RDW Std Deviation RDW Coeff of Alex Plt Count MPV Immature Gran % (Auto) Neut % (Auto) Lymph % (Auto) [place] % (Auto) Eos % (Auto) Baso % (Auto) Immature Gran # (Auto) Neut # (Auto) Lymph # (Auto) [place] # (Auto) Eos # (Auto) Baso # (Auto) PT 10.9 INR 1.1 Sodium 136 Potassium 3.5 Chloride 102 Carbon Dioxide 28 Anion Gap 6.0 BUN 23 H Creatinine 1.30 H Est Cr Clr Drug Dosing Not Reportable Est GFR ( Amer) 46.8 Est GFR (Non-Af Amer) 40.4 BUN/Creatinine Ratio 17.7 Glucose 81 Calcium 9.3 Total Bilirubin 0.6 AST 21 ALT 9 L Alkaline Phosphatase 94 Total Protein 8.9 H Albumin 3.4 Globulin 5.5 H Albumin/Globulin Ratio 0.6 L TSH 1.120 Urine Color Urine Appearance Urine pH Ur Specific [place] Urine Protein Urine Glucose (UA) Urine Ketones Urine Blood Urine Nitrite Urine Bilirubin Urine Urobilinogen Ur Leukocyte Esterase Urine WBC (Auto) Urine RBC (Auto) U Hyaline Cast (Auto) U Epithel Cells (Auto) Urine Bacteria (Auto) Urine Yeast Urine Opiates Screen Ur Methadone, Qual Urine Barbiturates Ur Phencyclidine (PCP) U Amphetamin/Meth Scrn MDMA (Ecstasy) Screen U Benzodiazepines Scrn Ur Cocaine Metabolite U Marijuana (THC) Screen Ethyl Alcohol mg/dL < 3.0 Current Inpatient Medications Current Inpatient Medications: Current Inpatient Medications Acetaminophen (Tylenol) 650 mg PO Q4H PRN PRN Reason: Headache or Minor Fever Stop: 11/20/19 16:51 Al Hydrox/Mg Hydrox/Simethicone (Maalox) 30 ml PO Q4H PRN PRN Reason: GI Upset Stop: 11/20/19 16:51 Allopurinol ([facility]yloprim) [facility] [place] Stop: 11/21/19 08:59 Last Admin: 10/22/19 07:22 Dose: 100 mg Documented by: Atorvastatin Calcium (Lipitor) 10 mg PO QAM [facility] Stop: 11/21/19 08:59 Last Admin: 10/22/19 07:20 Dose: 10 mg Documented by: Carbidopa/Levodopa (Sinemet 25/100 Mg) 1 tab PO TID [facility] Stop: 11/20/19 10:29 Last Admin: 10/22/19 07:22 Dose: 1 tab Documented by: Cephalexin HCl (Keflex) 500 mg PO BID [facility]; Protocol Stop: 10/27/19 09:59 Last Admin: 10/22/19 09:47 Dose: Not Given Documented by: Docusate Sodium (Colace) 100 mg PO BID [facility] Stop: 11/20/19 20:59 Last Admin: 10/22/19 07:21 Dose: 100 mg Documented by: Enoxaparin Sodium (Lovenox) 40 mg SQ DAILY [facility] Stop: 11/21/19 08:59 Last Admin: 10/22/19 07:50 Dose: 40 mg Documented by: Furosemide (Lasix) 20 mg PO QAM [facility] Stop: 11/21/19 08:59 Last Admin: 10/22/19 07:20 Dose: 20 mg Documented by: Gabapentin (Neurontin) 300 mg PO TID [facility] Stop: 11/20/19 20:59 Last Admin: 10/22/19 07:21 Dose: 300 mg Documented by: Gentamicin Sulfate (Gentak 0.3%) 1 appln OP TID [facility] Stop: 10/31/19 20:59 Last Admin: 10/22/19 07:24 Dose: Not Given Documented by: Hydroxyzine HCl (Vistaril) 50 mg PO HSZ PRN PRN Reason: Insomnia Stop: 11/20/19 16:51 Hydroxyzine HCl (Vistaril) 25 mg PO Q4H PRN PRN Reason: Anxiety Stop: 11/20/19 16:51 Lorazepam (Ativan) 0.5 mg PO HS PRN PRN Reason: agitation/insomnia Stop: 11/20/19 16:56 Last Admin: 10/21/19 21:17 Dose: 0.5 mg Documented by: Magnesium Hydroxide (Milk Of Magnesia) 30 ml PO DAILY PRN PRN Reason: Constipation Stop: 11/20/19 16:51 Olanzapine (Zyprexa Zydis Od) 5 mg PO Q6H PRN PRN Reason: Agitation Stop: 11/20/19 16:59 Potassium Chloride (Klor-Con M10) 10 meq PO QAM [facility] Stop: 11/21/19 08:59 Last Admin: 10/22/19 07:20 Dose: 10 meq Documented by: Quetiapine Fumarate (Seroquel) 200 mg PO HS [facility] Stop: 11/20/19 20:59 Last Admin: 10/21/19 21:14 Dose: 200 mg Documented by: Quetiapine Fumarate (Seroquel) 100 mg PO BID@0900,1300 [facility] Stop: 11/20/19 10:29 Last Admin: 10/22/19 07:22 Dose: 100 mg Documented by: Sodium Chloride ([place] Nasal) 1 - 2 sprays NA PRN PRN PRN Reason: Nasal Dryness/Congestion Stop: 11/20/19 16:51
[2019-10-22] MEDS: QUETIAPINE FUMARATE 200 MG TAB PO SCH (21:16)
[2019-10-23] MEDS: DOCUSATE SODIUM 100 MG CAP PO SCH ×2 (07:46→21:01)
[2019-10-23] MEDS: GENTAMICIN SULFATE 0.3% OP OINT 3.5 GM TUBE OP SCH ×3 (07:46→21:04)
[2019-10-23] MEDS: POTASSIUM CHLORIDE 10 MEQ TABCR PO SCH (07:46)
[2019-10-23] MEDS: cephALEXin 500 MG CAP PO SCH ×2 (07:46→21:01)
[2019-10-23] MEDS: ATORVASTATIN 10 MG TAB PO SCH (07:47)
[2019-10-23] MEDS: ENOXAPARIN INJ 40 MG/0.4 ML SYR SQ SCH (07:47)
[2019-10-23] MEDS: FUROSEMIDE 20 MG TAB PO SCH (07:47)
[2019-10-23] MEDS: GABAPENTIN 300 MG CAP PO SCH ×3 (07:48→21:03)
[2019-10-23] MEDS: CARBIDOPA/LEVODOPA 25/100MG TAB PO SCH ×3 (07:48→21:01)
[2019-10-23] MEDS: allopurinoL 100 MG TAB PO SCH (07:48)
[2019-10-23] MEDS: QUETIAPINE FUMARATE 100 MG TABLET PO SCH ×2 (07:48→13:24)
--- NOTE | 2019-10-23 07:58 | Psychiatric Progress Note ---
Date of Service October 23, 2019 Impression / Recommendations Impression 74-year-old female with a history of multiple medical problems and bipolar disorder type I who presented with confusion, hallucinations, and agitation worsening over the past few days at [facility], where she was referred 5 days ago after presenting to the ER status post a fall at home with inability to get up for many hours. She was diagnosed with a UTI in the ER as well, and started on Keflex. She is delirious, and has had similar episodes in the past. She was last on our unit 4 years ago, and was on similar medications for her bipolar disorder at that time. We will continue her medications for now, coordinate with her outpatient psychiatrist, and involve her daughter for collateral and support. She will need close monitoring of her multiple medical conditions, and when she is able to participate, we will get a physical therapy evaluation to determine if she needs to return to rehab. Inpatient treatment is medically necessary due to the severity of her symptoms and inability to provide for her own basic needs without the care and assistance of others. She is on a 302 commitment as she lacked capacity to sign in voluntarily at the time of presentation. Her mental status is improving. (1) Bipolar disorder: 10/22 -likely also an element of delirium, with recent fall, inpatient rehab and [facility], and acute on chronic kidney dysfunction. Per review of records, this presentation is consistent with past presentations under similar circumstances. -Continue inpatient treatment on an involuntary commitment, and assess the need for extension of involuntary commitment. -Continue medically necessary private room due to recent agitation/confusion. -Get collateral information from daughter Juana who was present in the ER. -Coordinate care with outpatient psychiatrist, Dr. Navarrete. -Continue quetiapine 100 mg twice daily at 0900 and 1300, and 200 mg at bedtime. It appears likely that her recent symptoms are due to the change in her routine (admitted to [facility] Status post fall) and medical decompensation with UTI and kidney dysfunction. -Monitoring on an atypical antipsychotic: FLP from 06/2019 was within normal limi ts. Hemoglobin A1c was 5.7%, with estimated average glucose of 117. Fasting glucose 95. 10/23 -Reviewed case with outpatient psychiatrist Dr. Navarrete. He agreed with continuing her current medications, and providing consistency and structure on the unit, which typically help. -Continue MNPR as required O2 overnight for desaturation. -Patient still lacks capacity to agree to voluntary treatment, and is not yet stable for discharge, so will schedule a 303 hearing for tomorrow. Present on Admission?: Yes (2) Acute UTI: 10/22 -continue Keflex as started in the ER, and follow-up on sensitivities when completed. Present on Admission?: Yes (3) Fall: Fall 5 days ago at home, sent to [facility] for physical rehab. Get PT consult once she is able to participate, and assess needs for ongoing PT. -One-to-one in the interim due to high fall risk and need for staff support when ambulating. 10/23 - Walking with walker, will order PT consult for treatment here and recommendations for return to [facility] or outpatient PT. Can d/c 1:1. Present on Admission?: Yes (4) Parkinson's disease: 10/22 -continue home dose of Sinemet and monitor abnormal movements. Consider neurology consult if these do not improve. Present on Admission?: Yes (5) HTN (hypertension): 10/22 -continue home dose of furosemide. BP was elevated in the ER, but has now normalized. -Ensure follow-up with PCP. Present on Admission?: Yes (6) Idiopathic peripheral neuropathy: 10/22 -continue home dose of gabapentin 300 mg 3 times daily. Present on Admission?: Yes (7) History of pulmonary embolism: Continue Lovenox. Present on Admission?: Yes (8) RLS (restless legs syndrome): 10/22 -continue home dose of lorazepam 0.5 mg at bedtime as needed. Present on Admission?: Yes (9) Gout: Continue home dose of allopurinol. Present on Admission?: Yes Inventory Assets Strengths: Supportive family, able to live alone when stable Needs: Treatment of comorbid medical conditions, mood stabilization. Risk Factors Assessment Male: No : Yes Do You Have Access To A Gun?: No Health Problems: Yes Mental Health Diagnoses: Yes Substance Use Disorders: No Previous Psychiatric Hospitalization: Yes Smoker: No Protective Factors Assessment Islam Beliefs: Yes : No Responsible for Young Children: No Employed: No Stable Relationships: Yes Supportive Family: Yes Good Rapport with Provider: Yes Interval History Identifying Information PABLO COOPER is a 74-year-old F who currently lives in [place], has a history of bipolar disorder, Parkinson's disease, chronic kidney disease, hypertension, peripheral neuropathy, and restless leg syndrome and was admitted on 10/21/19 16:52 on a 302 involuntary commitment for lori. Chief Complaint "Are you Dr. Navarrete's nurse?" Review of Systems Sleep Information Total Hours of Sleep: 6.5 Sleep Comments: pt given vistaril per rn. pt on 1:1 staff coverage. pt on q-15 minute checks Meal Information Percent Meal Consumed - Breakfast: 0 Percent Meal Consumed - Lunch: 0 Percent Meal Consumed - Dinner: 100 Nutrition Comment: pt asleep Subjective Subjective Patient was seen & assessed and interval progress reviewed with nursing and social work. Staff reports she has been walking with her walker, has been calmer and receptive to staff directions and assistance. She has been able to use the toilet and clean herself appropriately. She continues to have periods of confusion, but mental status is improving. She is taking medications and eating and drinking without difficulty. Overnight, she had a pulse oximetry of 86, and got 2 L O2. This morning, she was able to shower with staff assistance. On my assessment, she was seen in her room, where she was seated on the bed just having returned from the shower. She stated her mood was "good," and that it felt good to take a shower and put on clean clothes. She is unable to recall the events of yesterday, and is confused about when and why she came to the hospital. At times she answers questions appropriately, but other times answers with unrelated information. When asked about her daughters, she starts talking about getting on a plane to see her daughter in [place]. She states sleep is improving, although she woke up overnight, she did get some good rest. She believes her daughter visited her in the middle of the night and woke her up. She is willing to work with a physical therapist. When asked if she has any questions about treatment, she begins talking about her ex-, whom she believes has been arrested and put in long term. She wants to know what is going to happen to him. Spoke with Dr. Navarrete, her outpatient psychiatrist, who reported that the patient is a very poor historian, and her daughter usually needs to provide history. He has concerns about her driving, and has recommended that she complete the DriveABLE test at [facility] prior to resuming driving. She does not have adequate supervision at home, and often has periods of confusion. Her daughter sets up her medications, but it is unclear if the patient takes them. She drinks a large amount of Mountain Dew daily. She has very little reserve, and quickly becomes manic or delirious if she does not get enough sleep or has any medical decompensation. She has been prescribed lorazepam 0.25 mg at bedtime as needed to take for sleep for this reason. Physical Exam Psychiatric Orientation: alert, oriented to person and cooperative (But a poor historian); + not oriented to place and + not oriented to time Apperance: appropriately dressed Obese, good hygiene, just showered and put on clean clothes. Eye Contact: + fair eye contact Motor Behavior: no abnormal motor movements Walks slowly with a walker Speech spontaneous, normal volume, slightly slowed Affect: + blunted affect "Good." Thought Process: + tangential thought process and + incoherent thought process At times answers with related information, but often answers nonsensically. Suicidal Thoughts: denies suicidal thoughts Homicidal Thoughts: denies homicidal thoughts Hallucinations: no auditory hallucinations and no visual hallucinations Cognition: + recent memory not intact and + attention not intact Insight: + impaired insight Judgement: + impaired judgement Vital Signs (Past 24 Hours) Last Vital Signs Temp 37 C 10/23/19 06:49 Pulse 97 H 10/23/19 06:50 Resp 20 10/23/19 06:49 BP 114/70 10/23/19 06:50 Pulse Ox 97 10/21/19 19:51 Results & Data Current Inpatient Medications Current Inpatient Medications: Current Inpatient Medications Acetaminophen (Tylenol) 650 mg PO Q4H PRN PRN Reason: Headache or Minor Fever Stop: 11/20/19 16:51 Al Hydrox/Mg Hydrox/Simethicone (Maalox) 30 ml PO Q4H PRN PRN Reason: GI Upset Stop: 11/20/19 16:51 Allopurinol (Zyloprim) 100 mg PO QAM [facility] Stop: 11/21/19 08:59 Last Admin: 10/22/19 07:22 Dose: 100 mg Documented by: Atorvastatin Calcium (Lipitor) 10 mg PO QAM [facility] Stop: 11/21/19 08:59 Last Admin: 10/22/19 07:20 Dose: 10 mg Documented by: Carbidopa/Levodopa (Sinemet 25/100 Mg) 1 tab PO TID [facility] Stop: 11/20/19 10:29 Last Admin: 10/22/19 21:15 Dose: 1 tab Documented by: Cephalexin HCl (Keflex) 500 mg PO BID [facility]; Protocol Stop: 10/27/19 09:59 Last Admin: 10/22/19 21:15 Dose: 500 mg Documented by: Docusate Sodium (Colace) 100 mg PO BID [facility] Stop: 11/20/19 20:59 Last Admin: 10/22/19 21:14 Dose: 100 mg Documented by: Enoxaparin Sodium (Lovenox) 40 mg SQ DAILY [facility] Stop: 11/21/19 08:59 Last Admin: 10/22/19 07:50 Dose: 40 mg Documented by: Furosemide (Lasix) 20 mg PO QAM [facility] Stop: 11/21/19 08:59 Last Admin: 10/22/19 07:20 Dose: 20 mg Documented by: Gabapentin (Neurontin) 300 mg PO TID [facility] Stop: 11/20/19 20:59 Last Admin: 10/22/19 21:17 Dose: 300 mg Documented by: Gentamicin Sulfate (Gentak 0.3%) 1 appln OP TID [facility] Stop: 10/31/19 20:59 Last Admin: 10/22/19 21:22 Dose: Not Given Documented by: Hydroxyzine HCl (Vistaril) 50 mg PO HSZ PRN PRN Reason: Insomnia Stop: 11/20/19 16:51 Hydroxyzine HCl (Vistaril) 25 mg PO Q4H PRN PRN Reason: Anxiety Stop: 11/20/19 16:51 Lorazepam (Ativan) 0.5 mg PO HS PRN PRN Reason: agitation/insomnia Stop: 11/20/19 16:56 Last Admin: 10/21/19 21:17 Dose: 0.5 mg Documented by: Magnesium Hydroxide (Milk Of Magnesia) 30 ml PO DAILY PRN PRN Reason: Constipation Stop: 11/20/19 16:51 Olanzapine (Zyprexa Zydis Od) 5 mg PO Q6H PRN PRN Reason: Agitation Stop: 11/20/19 16:59 Potassium Chloride (Klor-Con M10) [facility] [place] Stop: 11/21/19 08:59 Last Admin: 10/22/19 07:20 Dose: 10 meq Documented by: Quetiapine Fumarate (Seroquel) 200 mg PO HS [facility] Stop: 11/20/19 20:59 Last Admin: 10/22/19 21:16 Dose: 200 mg Documented by: Quetiapine Fumarate (Seroquel) 100 mg PO BID@0900,1300 [facility] Stop: 11/20/19 10:29 Last Admin: 10/22/19 14:43 Dose: 100 mg Documented by: Sodium Chloride ([place] Nasal) 1 - 2 sprays NA PRN PRN PRN Reason: Nasal Dryness/Congestion Stop: 11/20/19 16:51 Mental Health & Subst Abuse Tx Psychiatrist Name of Psychiatrist: Dr. Navarrete Psychiatrist's Date of Appointment with Psychiatrist: 11/04/19 Time of Appointment with Psychiatrist: 10am Therapist Name of Therapist: None Routing Machine Operator Name of Routing Machine Operator: None Post Discharge Appointments Primary Care Physician Name Of Family Doctor: Dr. Ventura Sood) Primary Care Date of Appointment with PCP: 11/06/19 Time of Appointment with PCP: 3:25 Neurologist Name of Neurologist: Ragini Hernandez Neurologist's (1) Bipolar disorder Active/Remission status: currently active Current bipolar episode type: manic Current episode severity: severe Psychotic features: with psychotic features Qualified Code(s): F31.2 - Bipolar disorder, current episode manic severe with psychotic features (2) Fall Encounter type: initial encounter Qualified Code(s): W19.XXXA - Unspecified fall, initial encounter
[2019-10-23 09:26] LABS: Est GFR (African American) 42.4; Est GFR (Non-African American) 36.6
[2019-10-23] MEDS: QUETIAPINE FUMARATE 200 MG TAB PO SCH (21:02)
[2019-10-24] MEDS: cephALEXin 500 MG CAP PO SCH ×2 (08:44→20:54)
[2019-10-24] MEDS: QUETIAPINE FUMARATE 100 MG TABLET PO SCH ×2 (08:45→12:52)
[2019-10-24] MEDS: GABAPENTIN 300 MG CAP PO SCH ×3 (08:45→20:55)
[2019-10-24] MEDS: CARBIDOPA/LEVODOPA 25/100MG TAB PO SCH ×3 (08:47→20:55)
[2019-10-24] MEDS: allopurinoL 100 MG TAB PO SCH (08:49)
[2019-10-24] MEDS: FUROSEMIDE 20 MG TAB PO SCH (08:49)
[2019-10-24] MEDS: DOCUSATE SODIUM 100 MG CAP PO SCH ×2 (08:50→20:54)
[2019-10-24] MEDS: ATORVASTATIN 10 MG TAB PO SCH (08:51)
[2019-10-24] MEDS: ENOXAPARIN INJ 40 MG/0.4 ML SYR SQ SCH (08:52)
[2019-10-24] MEDS: POTASSIUM CHLORIDE 10 MEQ TABCR PO SCH (08:59)
[2019-10-24] MEDS: GENTAMICIN SULFATE 0.3% OP OINT 3.5 GM TUBE OP SCH ×3 (11:14→20:57)
--- NOTE | 2019-10-24 16:07 | Psychiatric Progress Note ---
Date of Service October 24, 2019 Impression / Recommendations Impression 74-year-old female with a history of multiple medical problems and bipolar disorder type I who presented with confusion, hallucinations, and agitation worsening over the past few days at [facility], where she was referred 5 days ago after presenting to the ER status post a fall at home with inability to get up for many hours. She was diagnosed with a UTI in the ER as well, and started on Keflex. She is delirious, and has had similar episodes in the past. She was last on our unit 4 years ago, and was on similar medications for her bipolar disorder at that time. We will continue her medications for now, coordinate with her outpatient psychiatrist, and involve her daughter for collateral and support. She will need close monitoring of her multiple medical conditions, and when she is able to participate, we will get a physical therapy evaluation to determine if she needs to return to rehab. Inpatient treatment is medically necessary due to the severity of her symptoms and inability to provide for her own basic needs without the care and assistance of others. She is on a 302 commitment as she lacked capacity to sign in voluntarily at the time of presentation. In the past 2 days, and particularly in the past day and a half the patient's condition has improved considerably. She continues to demonstrate mild flight of ideas and some degree of pressured speech. Also, her mood remains somewhat inappropriately elevated. However, she is now fully reality based, much more organized in her thinking, and is clearly improving in response to treatment. (1) Bipolar disorder: 10/22 -likely also an element of delirium, with recent fall, inpatient rehab and [facility], and acute on chronic kidney dysfunction. Per review of records, this presentation is consistent with past presentations under similar circumstances. -Continue inpatient treatment on an involuntary commitment, and assess the need for extension of involuntary commitment. -Continue medically necessary private room due to recent agitation/confusion. -Get collateral information from daughter Juana who was present in the ER. -Coordinate care with outpatient psychiatrist, Dr. Navarrete. -Continue quetiapine 100 mg twice daily at 0900 and 1300, and 200 mg at bedtime. It appears likely that her recent symptoms are due to the change in her routine (admitted to [facility] Status post fall) and medical decompensation with UTI and kidney dysfunction. -Monitoring on an atypical antipsychotic: FLP from 06/2019 was within normal limits. Hemoglobin A1c was 5.7%, with estimated average glucose of 117. Fasting glucose 95. 10/23 -Reviewed case with outpatient psychiatrist Dr. Navarrete. He agreed with continuing her current medications, and providing consistency and structure on the unit, which typically help. -Continue MNPR as required O2 overnight for desaturation. -Patient still lacks capacity to agree to voluntary treatment, and is not yet stable for discharge, so will schedule a 303 hearing for tomorrow. 10/24 -Our ongoing concern is the fact that the patient has a history of decompensating fairly rapidly when sleep deprived, and she slept only a couple h ours last night because she was very anxious about her upcoming hearing. We are also concerned because the patient continues to show certain features consistent with hypomania. For that reason, we are recommending further stabilization on an inpatient basis before transitioning the patient to the community for continued treatment on an outpatient basis. -The patient is continuing to tolerate quetiapine at the current dose of 100 mg twice a day and 200 mg at bedtime. She reports that she is not noticing any side effects and feels "much better." (2) Acute UTI: 10/22 -continue Keflex as started in the ER, and follow-up on sensitivities when completed. 10/24 -The patient's urine culture grew E. coli, and alpha streptococcus, not enterococcus -Patient reports that she is not continuing to experience pain on urination or urinary frequency. (3) Fall: Fall 5 days ago at home, sent to [facility] for physical rehab. Get PT consult once she is able to participate, and assess needs for ongoing PT. -One-to-one in the interim due to high fall risk and need for staff support when ambulating. 10/23 - Walking with walker, will order PT consult for treatment here and recommendations for return to [facility] or outpatient PT. Can d/c 1:1. 10/24 -Patient was seen by physical therapy. The current plan is for the patient to return to [facility] upon discharge. (4) Parkinson's disease: 10/22 -continue home dose of Sinemet and monitor abnormal movements. Consider neurology consult if these do not improve. 10/24 -We discussed with the patient the fact that antiparkinsonian medications may possibly contribute to an exacerbation of psychotic symptoms as well as perceptual disturbances in persons who have Parkinson's disease,, and we have also advised the patient that antipsychotic medication such as quetiapine may adversely influence her movement disorder. The patient tells us that she has not noticed any worsening in her ability to ambulate, and also reports that she has not experienced any perceptual disturbances. Her mental status examination reveals that her current thought content appears to be devoid of any delusional material. (5) HTN (hypertension): 10/22 -continue home dose of furosemide. BP was elevated in the ER, but has now normalized. -Ensure follow-up with PCP. (6) Idiopathic peripheral neuropathy: 10/22 -continue home dose of gabapentin 300 mg 3 times daily. (7) History of pulmonary embolism: Continue Lovenox. (8) RLS (restless legs syndrome): 10/22 -continue home dose of lorazepam 0.5 mg at bedtime as needed. (9) Gout: Continue home dose of allopurinol. Inventory Assets Strengths: Supportive family, able to live alone when stable Needs: Treatment of comorbid medical conditions, mood stabilization. Risk Factors Assessment Male: No : Yes Do You Have Access To A Gun?: No Health Problems: Yes Mental Health Diagnoses: Yes Substance Use Disorders: No Previous Psychiatric Hospitalization: Yes Smoker: No Protective Factors Assessment Orthodox Beliefs: Yes : No Responsible for Young Children: No Employed: No Stable Relationships: Yes Supportive Family: Yes Good Rapport with Provider: Yes Interval History Identifying Information PABLO COOPER is a 74-year-old F who currently lives in [place], has a history of bipolar disorder, Parkinson's disease, chronic kidney disease, hypertension, peripheral neuropathy, and restless leg syndrome and was admitted on 10/21/19 16:52 on a 302 involuntary commitment for lori. Chief Complaint " I got Parkinson's disease and bipolar disorder!". Review of Systems Sleep Information Total Hours of Sleep: 2.75 Sleep Comments: pt given vistaril per rn. pt on 1:1 staff coverage. pt on q-15 minute checks Meal Information Percent Meal Consumed - Breakfast: 100 Percent Meal Consumed - Lunch: 75 Percent Meal Consumed - Dinner: 100 Nutrition Comment: pt asleep Subjective Subjective Patient was seen & assessed and interval progress reviewed with treatment team. I met individually with the patient, and later with her family at the patient's request, in order to assess the patient's current mental status, evaluate her response to treatment, make any necessary changes in the patient's treatment regimen and coordination with the patient, and address issues and concerns that may arise. Staff reports are that the patient's condition has improved considerably. Our finding today is that her thought processes have become much tighter and although there is some mild flight of ideas, this has continued to improve. Also, the patient's speech is still mildly pressured, and her mood may be described as somewhat inappropriately elevated. The patient's daughter tells us that she can see that the patient's condition has improved quite a bit, especially in the last 2 days, but also agrees with our recommendation that she continue hospitalization for, probably, another 3 to 5 days. Somewhat unusually, the patient fully agreed that she is not quite ready to be discharged and was also agreeable with the plan to remain in the hospital for at least another 3 to 5 days. However, she said that she would prefer not to sign a voluntary agreement, even though she was very anxious about having a 303 hearing this morning. The reason she gave was "my daughter will be coming for the hearing, and I do not want her to waste her time by coming here for nothing." Both the patient and her family report that her tendency is to become manic if she sleeps poorly. They indicate, initially, it is not that she becomes manic and stop sleeping but, instead, has poor sleep for some reason or another (for example environmental stimulation and consistent with sleep, or burdensome psyc hosocial stressors) and poor sleep is very quickly followed by the precipitation of a hypomanic or manic episode. Our current concern is that the patient still exhibits hypomanic symptoms and, in addition, she slept poorly last evening. The patient explains that she was "nervous" about her upcoming hearing. The patient also tells us that she has been concerned because she is unable to reach her bedside call schuster, and we have discussed ways of addressing this concern and arrived in a solution. The patient was retained at her 303 hearing this morning by the cloth shearing supervisor. Physical Exam Psychiatric Orientation: alert, oriented x 3 and cooperative Apperance: appropriately dressed, appropriately groomed and appeared stated age Eye Contact: good eye contact Motor Behavior: steady gait and station The patient's speech is voluminous and mildly pressured. This represents a significant improvement. Somewhat inappropriately elevated. "Great." Mild flight of ideas is not evidenced. Thought Content: reality based without delusions Suicidal Thoughts: denies suicidal thoughts Homicidal Thoughts: denies homicidal thoughts Hallucinations: no auditory hallucinations Cognition: recent memory grossly intact, remote memory grossly intact and language grossly intact The patient remains easily distracted. Estimated Intelligence: average estimated intelligence Insight: + fair insight Judgement: + fair judgement Vital Signs (Past 24 Hours) Last Vital Signs Temp 36.6 C 10/24/19 06:48 Pulse 97 H 10/24/19 06:48 Resp 20 10/24/19 06:48 BP 141/79 H 10/24/19 06:48 Pulse Ox 97 10/21/19 19:51 Results & Data Current Inpatient Medications Current Inpatient Medications: Current Inpatient Medications Acetaminophen (Tylenol) 650 mg PO Q4H PRN PRN Reason: Headache or Minor Fever Stop: 11/20/19 16:51 Al Hydrox/Mg Hydrox/Simethicone (Maalox) 30 ml PO Q4H PRN PRN Reason: GI Upset Stop: 11/20/19 16:51 Allopurinol (Zyloprim) 100 mg PO QAM [facility] Stop: 11/21/19 08:59 Last Admin: 10/24/19 08:49 Dose: 100 mg Documented by: Atorvastatin Calcium (Lipitor) 10 mg PO QAM [facility] Stop: 11/21/19 08:59 Last Admin: 10/24/19 08:51 Dose: 10 mg Documented by: Carbidopa/Levodopa (Sinemet 25/100 Mg) 1 tab PO TID [facility] Stop: 11/20/19 10:29 Last Admin: 10/24/19 14:27 Dose: 1 tab Documented by: Cephalexin HCl (Keflex) 500 mg PO BID [facility]; Protocol Stop: 10/27/19 09:59 Last Admin: 10/24/19 08:44 Dose: 500 mg Documented by: Docusate Sodium (Colace) 100 mg PO BID [facility] Stop: 11/20/19 20:59 Last Admin: 10/24/19 08:50 Dose: 100 mg Documented by: Enoxaparin Sodium (Lovenox) 40 mg SQ DAILY [facility] Stop: 11/21/19 08:59 Last Admin: 10/24/19 08:52 Dose: 40 mg Documented by: Furosemide (Lasix) 20 mg PO QAM [facility] Stop: 11/21/19 08:59 Last Admin: 10/24/19 08:49 Dose: 20 mg Documented by: Gabapentin (Neurontin) 300 mg PO TID [facility] Stop: 11/20/19 20:59 Last Admin: 10/24/19 14:27 Dose: 300 mg Documented by: Gentamicin Sulfate (Gentak 0.3%) 1 appln OP TID [facility] Stop: 10/31/19 20:59 Last Admin: 10/24/19 14:27 Dose: Not Given Documented by: Hydroxyzine HCl (Vistaril) 50 mg PO HSZ PRN PRN Reason: Insomnia Stop: 11/20/19 16:51 Last Admin: 10/24/19 02:07 Dose: 50 mg Documented by: Hydroxyzine HCl (Vistaril) 25 mg PO Q4H PRN PRN Reason: Anxiety Stop: 11/20/19 16:51 Lorazepam (Ativan) 0.5 mg PO HS PRN PRN Reason: agitation/insomnia Stop: 11/20/19 16:56 Last Admin: 10/21/19 21:17 Dose: 0.5 mg Documented by: Magnesium Hydroxide (Milk Of Magnesia) 30 ml PO DAILY PRN PRN Reason: Constipation Stop: 11/20/19 16:51 Olanzapine (Zyprexa Zydis Od) 5 mg PO Q6H PRN PRN Reason: Agitation Stop: 11/20/19 16:59 Potassium Chloride (Klor-Con M10) 10 meq PO QAM [facility] Stop: 11/21/19 08:59 Last Admin: 10/24/19 08:59 Dose: 10 meq Documented by: Quetiapine Fumarate (Seroquel) 200 mg PO HS [facility] Stop: 11/20/19 20:59 Last Admin: 10/23/19 21:02 Dose: 200 mg Documented by: Quetiapine Fumarate (Seroquel) 100 mg PO BID@0900,1300 [facility] Stop: 11/20/19 10:29 Last Admin: 10/24/19 12:52 Dose: 100 mg Documented by: Sodium Chloride (Bowman Nasal) 1 - 2 sprays NA PRN PRN PRN Reason: Nasal Dryness/Congestion Stop: 11/20/19 16:51 Mental Health & Subst Abuse Tx Psychiatrist Name of Psychiatrist: Dr. Navarrete Psychiatrist's Date of Appointment with Psychiatrist: 11/04/19 Time of Appointment with Psychiatrist: 10am Psychiatric Appointment Comment: [address] [place] [address] Therapist Name of Therapist: None In Service Education Teacher Name of In Service Education Teacher: None Post Discharge Appointments Primary Care Physician Name Of Family Doctor: Dr. Whitehead ([facility]) Primary Care Date of Appointment with PCP: 11/06/19 Time of Appointment with PCP: 3:25 Provider Appointment Comment: [address] [facility] [id number] Neurologist Name of Neurologist: Ragini Hernandez Neurologist's Neurology Appointment Comment: As needed Contact Information Discharge Discharge Address: [address] [place] [phone] (daughter's address) (1) Bipolar disorder Active/Remission status: currently active Current bipolar episode type: manic Current episode severity: severe Psychotic features: with psychotic features Qualified Code(s): F31.2 - Bipolar disorder, current episode manic severe with psychotic features (2) Fall Encounter type: initial encounter Qualified Code(s): W19.XXXA - Unspecified fall, initial encounter
[2019-10-24] MEDS: QUETIAPINE FUMARATE 200 MG TAB PO SCH (20:56)
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
[2019-10-25] MEDS: GENTAMICIN SULFATE 0.3% OP OINT 3.5 GM TUBE OP SCH ×3 (07:48→21:28)
[2019-10-25] MEDS: cephALEXin 500 MG CAP PO SCH ×2 (07:48→21:22)
[2019-10-25] MEDS: DOCUSATE SODIUM 100 MG CAP PO SCH ×2 (07:48→21:22)
[2019-10-25] MEDS: ATORVASTATIN 10 MG TAB PO SCH (07:49)
[2019-10-25] MEDS: POTASSIUM CHLORIDE 10 MEQ TABCR PO SCH (07:49)
[2019-10-25] MEDS: FUROSEMIDE 20 MG TAB PO SCH (07:49)
[2019-10-25] MEDS: CARBIDOPA/LEVODOPA 25/100MG TAB PO SCH ×3 (07:50→21:22)
[2019-10-25] MEDS: allopurinoL 100 MG TAB PO SCH (07:50)
[2019-10-25] MEDS: GABAPENTIN 300 MG CAP PO SCH ×3 (07:50→21:22)
[2019-10-25] MEDS: QUETIAPINE FUMARATE 100 MG TABLET PO SCH ×2 (07:50→14:06)
[2019-10-25] MEDS: QUETIAPINE FUMARATE 200 MG TAB PO SCH (21:22)
[2019-10-26 07:33] LABS: Creatinine Clr Calc Pharmacy 52.8 ml/min; Est GFR (Non-African American) 48.4
[2019-10-26] MEDS: DOCUSATE SODIUM 100 MG CAP PO SCH ×2 (07:41→21:08)
[2019-10-26] MEDS: cephALEXin 500 MG CAP PO SCH ×2 (07:41→21:08)
[2019-10-26] MEDS: GENTAMICIN SULFATE 0.3% OP OINT 3.5 GM TUBE OP SCH ×3 (07:41→21:13)
[2019-10-26] MEDS: FUROSEMIDE 20 MG TAB PO SCH (07:42)
[2019-10-26] MEDS: ATORVASTATIN 10 MG TAB PO SCH (07:42)
[2019-10-26] MEDS: POTASSIUM CHLORIDE 10 MEQ TABCR PO SCH (07:42)
[2019-10-26] MEDS: QUETIAPINE FUMARATE 100 MG TABLET PO SCH ×2 (07:43→13:37)
[2019-10-26] MEDS: CARBIDOPA/LEVODOPA 25/100MG TAB PO SCH ×3 (07:43→21:08)
[2019-10-26] MEDS: allopurinoL 100 MG TAB PO SCH (07:43)
[2019-10-26] MEDS: GABAPENTIN 300 MG CAP PO SCH ×3 (07:43→21:08)
[2019-10-26] MEDS ORDERED: QUETIAPINE FUMARATE 100 MG TABLET PO PRN (13:53)
--- NOTE | 2019-10-26 13:56 | Psychiatric Progress Note ---
Date of Service October 26, 2019 Impression / Recommendations Impression 74-year-old female with a history of multiple medical problems and bipolar disorder type I who presented with confusion, hallucinations, and agitation worsening over several days prior to presentation while she was at [facility], where she was receiving rehab after a fall at home with inability to get up for many hours. She was diagnosed with a UTI in the ER as well, and started on Keflex. She was last on our unit 4 years ago, and was on similar medications for her bipolar disorder at that time. Her home medications have been continued, while treating UTI and continuing PT. Care has been coordinated w/ her outpatient psychiatrist, and daughter came in for a family meeting. She is on a 303 as of 10/24/19. She is still displaying manic symptoms and cognitive impairment. Inpatient treatment is medically necessary due to the severity of her symptoms and inability to provide for her own basic needs without the care and assistance of others. She lives independently, and is not able to provide for her own basic needs at this point without significant staff support and assistance. (1) Bipolar disorder: 10/22 -likely also an element of delirium, with recent fall, inpatient rehab and [facility], and acute on chronic kidney dysfunction. Per review of records, this presentation is consistent with past presentations under similar circumstances. -Continue inpatient treatment on an involuntary commitment, and assess the need for extension of involuntary commitment. -Continue medically necessary private room due to recent agitation/confusion. -Get collateral information from daughter Juana who was present in the ER. -Coordinate care with outpatient psychiatrist, Dr. Navarrete. -Continue quetiapine 100 mg twice daily at 0900 and 1300, and 200 mg at bedtime. It appears likely that her recent symptoms are due to the change in her routine (admitted to [facility] Status post fall) and medical decompensation with UTI and kidney dysfunction. -Monitoring on an atypical antipsychotic: FLP from 06/2019 was within normal limits. Hemoglobin A1c was 5.7%, with estimated average glucose of 117. Fasting glucose 95. 10/23 -Reviewed case with outpatient psychiatrist Dr. Navarrete. He agreed with continuing her current medications, and providing consistency and structure on the unit, which typically help. -Continue MNPR as required O2 overnight for desaturation. -Patient still lacks capacity to agree to voluntary treatment, and is not yet stable for discharge, so will schedule a 303 hearing for tomorrow. 10/24 -Our ongoing concern is the fact that the patient has a history of decompensating fairly rapidly when sleep deprived, and she slept only a couple hours last night because she was very anxious about her upcoming hearing. We are also concerned because the patient continues to show certain features consistent with hypomania. For that reason, we are recommending further stabilization on an inpatient basis before transitioning the patient to the community for continued treatment on an outpatient basis. -The patient is continuing to tolerate quetiapine at the current dose of 100 mg twice a day and 200 mg at bedtime. She reports that she is not noticing any side effects and feels "much better." 10/25 -on a 303 involuntary commitment. Continue home medications. -Family meeting held with daughter. The patient will stay with her temporarily at discharge. 10/26 -sleep erratic, only 4 hours last night. Will order quetiapine 100 mg at bedtime as needed for insomnia. -Globally cognitively impaired; 10/13 on the MoCA, missing 3 for visuospatial/executive, 4 for attention, 2 for language, 2 for abstraction, 4 for delayed recall, and 3 for orientation. We will continue to monitor. (2) Acute UTI: 10/22 -continue Keflex as started in the ER, and follow-up on sensitivities when completed. 10/24 -The patient's urine culture grew E. coli, and alpha streptococcus, not enterococcus -Patient reports that she is not continuing to experience pain on urination or urinary frequency. (3) Fall: Fall 5 days ago at home, sent to [facility] for physical rehab. Get PT consult once she is able to participate, and assess needs for ongoing PT. -One-to-one in the interim due to high fall risk and need for staff support when ambulating. 10/23 - Walking with walker, will order PT consult for treatment here and recommendations for return to [facility] or outpatient PT. Can d/c 1:1. 10/24 -Patient was seen by physical therapy. The current plan is for the patient to return to [facility] upon discharge. (4) Parkinson's disease: 10/22 -continue home dose of Sinemet and monitor abnormal movements. Consider neurology consult if these do not improve. 10/24 -We discussed with the patient the fact that antiparkinsonian medications may possibly contribute to an exacerbation of psychotic symptoms as well as perceptual disturbances in persons who have Parkinson's disease,, and we have also advised the patient that antipsychotic medication such as quetiapine may adversely influence her movement disorder. The patient tells us that she has not noticed any worsening in her ability to ambulate, and also reports that she has not experienced any perceptual disturbances. Her mental status examination reveals that her current thought content appears to be devoid of any delusional material. (5) HTN (hypertension): 10/22 -continue home dose of furosemide. BP was elevated in the ER, but has now normalized. -Ensure follow-up with PCP. (6) Idiopathic peripheral neuropathy: 10/22 -continue home dose of gabapentin 300 mg 3 times daily. (7) History of pulmonary embolism: Continue Lovenox. (8) RLS (restless legs syndrome): 10/22 -continue home dose of lorazepam 0.5 mg at bedtime as needed. (9) Gout: Continue home dose of allopurinol. Inventory Assets Strengths: Supportive family, able to live alone when stable Needs: Treatment of comorbid medical conditions, mood stabilization. Risk Factors Assessment Male: No : Yes Do You Have Access To A Gun?: No Health Problems: Yes Mental Health Diagnoses: Yes Substance Use Disorders: No Previous Psychiatric Hospitalization: Yes Smoker: No Protective Factors Assessment Baptism Beliefs: Yes : No Responsible for Young Children: No Employed: No Stable Relationships: Yes Supportive Family: Yes Good Rapport with Provider: Yes Interval History Identifying Information PABLO COOPER is a 74-year-old F who currently lives in [place], has a history of bipolar disorder, Parkinson's disease, chronic kidney disease, hypertension, peripheral neuropathy, and restless leg syndrome and was admitted on 10/21/19 16:52 on a 302 involuntary commitment for lori. Chief Complaint " That young man saved my life". Review of Systems Sleep Information Total Hours of Sleep: 4 Sleep Comments: awake at 0015, 0345, 0545 to use the bathroom. Meal Information Percent Meal Consumed - Breakfast: 100 Percent Meal Consumed - Lunch: 100 Percent Meal Consumed - Dinner: 50 Nutrition Comment: pt asleep Subjective Subjective Patient was seen & assessed and interval progress reviewed with nursing. Staff report she showered with assistance, remains disorganized and pressured, jumping quickly from topic to topic. She is eating well, and talking fondly about her family. She was fixated and perseverating on not sleeping 2 nights ago due to comments a nurse made to her that she was very upset about. On my assessment today, she endorses racing thoughts and says her daughter just visited and noticed that she was "more hyper." She is very concerned that she will have to stay longer than 4 more days, believing that she has already been given a specific discharge date. She jumps from story to story, talking about an incident where she choked on some food and another patient gave her an empty cup to spit into, stating that he "saved my life." She repeats phrases, such as stating "bipolar is hereditary, Parkinson's is not." She states her mood is "a whole 10 today," and talks about rings she would like to buy. She had a difficult time completing the MoCA, stating she was worried about making a mistake and that it would mean she would have to stay in the hospital longer. Physical Exam Psychiatric Orientation: alert, oriented to person, oriented to place and cooperative; + not oriented to time Apperance: appropriately dressed, appropriately groomed and appeared stated age Eye Contact: good eye contact Motor Behavior: no abnormal motor movements Hyperverbal, mildly pressured speech Expansive affect. "A whole 10." Thought Process: + flight of ideas and + looseness of associations "When I was hospitalized before I was strapped down, do not want to make a mistake, that young boy saved me, here to give me your hands..." Thought Content: + preoccupation Suicidal Thoughts: denies suicidal thoughts Homicidal Thoughts: denies homicidal thoughts Hallucinations: no auditory hallucinations Cognition: language grossly intact; + recent memory not intact and + attention not intact Scored 12/30 on the MoCA Insight: + impaired insight Judgement: + impaired judgement Vital Signs (Past 24 Hours) Last Vital Signs Temp 36.7 C 10/26/19 06:50 Pulse 99 H 10/26/19 06:51 Resp 18 10/26/19 06:50 BP 146/85 H 10/26/19 06:51 Pulse Ox 93 10/26/19 06:50 Results & Data Laboratory Results Laboratory Results - last 24 hr 10/26/19 06:49 Creatinine 1.12 Est Cr Clr Drug Dosing 52.8 Est GFR ( Amer) 56.0 Est GFR (Non-Af Amer) 48.4 Current Inpatient Medications Current Inpatient Medications: Current Inpatient Medications Acetaminophen (Tylenol) 650 mg PO Q4H PRN PRN Reason: Headache or Minor Fever Stop: 11/20/19 16:51 Al Hydrox/Mg Hydrox/Simethicone (Maalox) 30 ml PO Q4H PRN PRN Reason: GI Upset Stop: 11/20/19 16:51 Allopurinol (Zyloprim) 100 mg PO [facility] Stop: 11/21/19 08:59 Last Admin: 10/26/19 07:43 Dose: 100 mg Documented by: Atorvastatin Calcium (Lipitor) 10 mg PO [facility] Stop: 11/21/19 08:59 Last Admin: 10/26/19 07:42 Dose: 10 mg Documented by: Carbidopa/Levodopa (Sinemet 25/100 Mg) 1 tab PO TID [facility] Stop: 11/20/19 10:29 Last Admin: 10/26/19 13:37 Dose: 1 tab Documented by: Cephalexin HCl (Keflex) 500 mg PO BID [facility]; Protocol Stop: 10/27/19 09:59 Last Admin: 10/26/19 07:41 Dose: 500 mg Documented by: Docusate Sodium (Colace) 100 mg PO BID [facility] Stop: 11/20/19 20:59 Last Admin: 10/26/19 07:41 Dose: 100 mg Documented by: Furosemide (Lasix) 20 mg PO QAM [facility] Stop: 11/21/19 08:59 Last Admin: 10/26/19 07:42 Dose: 20 mg Documented by: Gabapentin (Neurontin) 300 mg PO TID [facility] Stop: 11/20/19 20:59 Last Admin: 10/26/19 13:37 Dose: 300 mg Documented by: Gentamicin Sulfate (Gentak 0.3%) 1 appln OP TID [facility] Stop: 10/31/19 20:59 Last Admin: 10/26/19 13:40 Dose: Not Given Documented by: Hydroxyzine HCl (Vistaril) 50 mg PO HSZ PRN PRN Reason: Insomnia Stop: 11/20/19 16:51 Last Admin: 10/24/19 02:07 Dose: 50 mg Documented by: Hydroxyzine HCl (Vistaril) 25 mg PO Q4H PRN PRN Reason: Anxiety Stop: 11/20/19 16:51 Lorazepam (Ativan) 0.5 mg PO HS PRN PRN Reason: agitation/insomnia Stop: 11/20/19 16:56 Last Admin: 10/21/19 21:17 Dose: 0.5 mg Documented by: Magnesium Hydroxide (Milk Of Magnesia) 30 ml PO DAILY PRN PRN Reason: Constipation Stop: 11/20/19 16:51 Olanzapine (Zyprexa Zydis Od) 5 mg PO Q6H PRN PRN Reason: Agitation Stop: 11/20/19 16:59 Potassium Chloride (Klor-Con M10) 10 meq PO QAM [facility] Stop: 11/21/19 08:59 Last Admin: 10/26/19 07:42 Dose: 10 meq Documented by: Quetiapine Fumarate (Seroquel) 200 mg PO HS [facility] Stop: 11/20/19 20:59 Last Admin: 10/25/19 21:22 Dose: 200 mg Documented by: Quetiapine Fumarate (Seroquel) 100 mg PO BID@0900,1300 [facility] Stop: 11/20/19 10:29 Last Admin: 10/26/19 13:37 Dose: 100 mg Documented by: Sodium Chloride (Niota Nasal) 1 - 2 sprays NA PRN PRN PRN Reason: Nasal Dryness/Congestion Stop: 11/20/19 16:51 Mental Health & Subst Abuse Tx Psychiatrist Name of Psychiatrist: Dr. Navarrete Psychiatrist's Date of Appointment with Psychiatrist: 11/04/19 Time of Appointment with Psychiatrist: 10am Psychiatric Appointment Comment: [address] [facility] [id number] Therapist Name of Therapist: None Speech And Language Tutor Name of Speech And Language Tutor: None Post Discharge Appointments Primary Care Physician Name Of Family Doctor: Dr. Whitehead (Ragini) Primary Care Date of Appointment with PCP: 11/06/19 Time of Appointment with PCP: 3:25 Provider Appointment Comment: [address] [facility] [id number] Neurologist Name of Neurologist: Ragini Hernandez Neurologist's Neurology Appointment Comment: As needed Contact Information Discharge Discharge Address: [address] [place] [address], [place] [address] (daughter's address) (1) Bipolar disorder Active/Remission status: currently active Current bipolar episode type: manic Current episode severity: severe Psychotic features: with psychotic features Qualified Code(s): F31.2 - Bipolar disorder, current episode manic severe with psychotic features (2) Fall Encounter type: initial encounter Qualified Code(s): W19.XXXA - Unspecified fall, initial encounter
[2019-10-26] MEDS: ENOXAPARIN INJ 40 MG/0.4 ML SYR SQ SCH (16:10)
[2019-10-26] MEDS: QUETIAPINE FUMARATE 200 MG TAB PO SCH (21:09)
[2019-10-27] MEDS: LORazepam 0.5 MG TAB PO PRN (03:44)
[2019-10-27] MEDS: FUROSEMIDE 20 MG TAB PO SCH (08:13)
[2019-10-27] MEDS: cephALEXin 500 MG CAP PO SCH (08:13)
[2019-10-27] MEDS: DOCUSATE SODIUM 100 MG CAP PO SCH ×2 (08:13→20:20)
[2019-10-27] MEDS: POTASSIUM CHLORIDE 10 MEQ TABCR PO SCH (08:13)
[2019-10-27] MEDS: CARBIDOPA/LEVODOPA 25/100MG TAB PO SCH ×3 (08:14→20:20)
[2019-10-27] MEDS: GABAPENTIN 300 MG CAP PO SCH ×3 (08:14→20:20)
[2019-10-27] MEDS: ATORVASTATIN 10 MG TAB PO SCH (08:14)
[2019-10-27] MEDS: QUETIAPINE FUMARATE 100 MG TABLET PO SCH ×2 (08:14→13:19)
[2019-10-27] MEDS: allopurinoL 100 MG TAB PO SCH (08:14)
[2019-10-27] MEDS: GENTAMICIN SULFATE 0.3% OP OINT 3.5 GM TUBE OP SCH ×3 (08:20→20:22)
--- NOTE | 2019-10-27 12:55 | Psychiatric Progress Note ---
Date of Service October 27, 2019 Impression / Recommendations Impression 74-year-old female with a history of multiple medical problems and bipolar disorder type I who presented with confusion, hallucinations, and agitation worsening over several days prior to presentation while she was at [facility], where she was receiving rehab after a fall at home with inability to get up for many hours. She was diagnosed with a UTI in the ER as well, and started on Keflex. She was last on our unit 4 years ago, and was on similar medications for her bipolar disorder at that time. Her home medications have been continued, while treating UTI and continuing PT. Care has been coordinated w/ her outpatient psychiatrist, and daughter came in for a family meeting. She is on a 303 as of 10/24/19. Manic symptoms are seemingly worsened over the past few days. Sleep has been worsening as well. Inpatient treatment remains medically necessary due to the severity of her symptoms and inability to provide for her own basic needs without the care and assistance of others. She lives inde pendently, and is not able to provide for her own basic needs at this point without significant staff support and assistance. (1) Bipolar disorder: 10/22 -likely also an element of delirium, with recent fall, inpatient rehab and [facility], and acute on chronic kidney dysfunction. Per review of records, this presentation is consistent with past presentations under similar circumstances. -Continue inpatient treatment on an involuntary commitment, and assess the need for extension of involuntary commitment. -Continue medically necessary private room due to recent agitation/confusion. -Get collateral information from daughter Juana who was present in the ER. -Coordinate care with outpatient psychiatrist, Dr. Navarrete. -Continue quetiapine 100 mg twice daily at 0900 and 1300, and 200 mg at bedtime. It appears likely that her recent symptoms are due to the change in her routine (admitted to [facility] Status post fall) and medical decompensation with UTI and kidney dysfunction. -Monitoring on an atypical antipsychotic: FLP from 06/2019 was within normal limits. Hemoglobin A1c was 5.7%, with estimated average glucose of 117. Fasti ng glucose 95. 10/23 -Reviewed case with outpatient psychiatrist Dr. Navarrete. He agreed with continuing her current medications, and providing consistency and structure on the unit, which typically help. -Continue MNPR as required O2 overnight for desaturation. -Patient still lacks capacity to agree to voluntary treatment, and is not yet stable for discharge, so will schedule a 303 hearing for tomorrow. 10/24 -Our ongoing concern is the fact that the patient has a history of decompensating fairly rapidly when sleep deprived, and she slept only a couple hours last night because she was very anxious about her upcoming hearing. We are also concerned because the patient continues to show certain features consistent with hypomania. For that reason, we are recommending further stabilization on an inpatient basis before transitioning the patient to the community for continued treatment on an outpatient basis. -The patient is continuing to tolerate quetiapine at the current dose of 100 mg twice a day and 200 mg at bedtime. She reports that she is not noticing any side effects and feels "much better." 10/25 -on a 303 involuntary commitment. Continue home medications. -Family meeting held with daughter. The patient will stay with her temporarily at discharge. 10/26 -sleep erratic, only 4 hours last night. Will order quetiapine 100 mg at bedtime as needed for insomnia. -Globally cognitively impaired; 10/13 on the MoCA, missing 3 for visuospatial/executive, 4 for attention, 2 for language, 2 for abstraction, 4 for delayed recall, and 3 for orientation. We will continue to monitor. 10/27 - HS dose of quetiapine increased to 300mg - total of 100mg/100mg/300mg daily - Pt demonstrating increased symptoms of lori, and sleep remains poor - therefore increasing risk of mood instability and overall concern for safety if discharged - Treatment team discussed recommendation that patient not drive - daughters requesting to restrict driving access on their own rather than have condition reported to [employer] - will continue to discuss with family as condition improves. Ideally, patient will have repeat MoCA prior to discharge - Continue MNPR due to concern for mood instability with interrupted sleep and worsening symptoms of lori (2) Acute UTI: 10/22 -continue Keflex as started in the ER, and follow-up on sensitivities when completed. 10/24 -The patient's urine culture grew E. coli, and alpha streptococcus, not enterococcus -Patient reports that she is not continuing to experience pain on urination or urinary frequency. 10/27 - Last dose of Keflex given this morning (3) Fall: Fall 5 days ago at home, sent to [facility] for physical rehab. Get PT consult once she is able to participate, and assess needs for ongoing PT. -One-to-one in the interim due to high fall risk and need for staff support when ambulating. 10/23 - Walking with walker, will order PT consult for treatment here and recommendations for return to [facility] or outpatient PT. Can d/c 1:1. 10/24 -Patient was seen by physical therapy. The current plan is for the patient to return to [facility] upon discharge. (4) Parkinson's disease: 10/22 -continue home dose of Sinemet and monitor abnormal movements. Consider neurology consult if these do not improve. 10/24 -We discussed with the patient the fact that antiparkinsonian medications may possibly contribute to an exacerbation of psychotic symptoms as well as perceptual disturbances in persons who have Parkinson's disease,, and we have also advised the patient that antipsychotic medication such as quetiapine may adversely influence her movement disorder. The patient tells us that she has not noticed any worsening in her ability to ambulate, and also reports that she has not experienced any perceptual disturbances. Her mental status examination reveals that her current thought content appears to be devoid of any delusional material. (5) HTN (hypertension): 10/22 -continue home dose of furosemide. BP was elevated in the ER, but has now normalized. -Ensure follow-up with PCP. (6) Idiopathic peripheral neuropathy: 10/22 -continue home dose of gabapentin 300 mg 3 times daily. (7) History of pulmonary embolism: Continue Lovenox. (8) RLS (restless legs syndrome): 10/22 -continue home dose of lorazepam 0.5 mg at bedtime as needed. (9) Gout: Continue home dose of allopurinol. Inventory Assets Strengths: Supportive family, able to live alone when stable Needs: Treatment of comorbid medical conditions, mood stabilization. Risk Factors Assessment Male: No : Yes Do You Have Access To A Gun?: No Health Problems: Yes Mental Health Diagnoses: Yes Substance Use Disorders: No Previous Psychiatric Hospitalization: Yes Smoker: No Protective Factors Assessment Yarsanism Beliefs: Yes : No Responsible for Young Children: No Employed: No Stable Relationships: Yes Supportive Family: Yes Good Rapport with Provider: Yes Interval History Identifying Information PABLO COOPER is a 74-year-old F who currently lives in [place], has a history of bipolar disorder, Parkinson's disease, chronic kidney disease, hypertension, peripheral neuropathy, and restless leg syndrome and was admitted on 10/21/19 16:52 on a 302 involuntary commitment for lori. 303 granted on 10/24/2019. Chief Complaint "Now, what do you want me to do?" Review of Systems Notes Constitutional: reports poor sleep last evening Cardiovascular: denied Respiratory: denied Gastrointestinal: denied Neurological: denied Psychiatric: denies symptoms other than stated above Total of at least 10 systems reviewed, pertinent positives as above and in HPI. Sleep Information Total Hours of Sleep: 2.75 Sleep Comments: awake at 0015, 0345, 0545 to use the bathroom. Meal Information Percent Meal Consumed - Breakfast: 100 Percent Meal Consumed - Lunch: 100 Percent Meal Consumed - Dinner: 70 Nutrition Comment: pt asleep Subjective Subjective Patient was seen & assessed and interval progress reviewed with treatment team. Staff report the patient's sleep has been getting worse, getting less than 3 hours of sleep last night. Pt has reportedly been more expansive and disorganized, demonstrating flight of ideas. Daughter's also reporting concern during visits that mood is appearing more manic. Pt was seen today to assess progress since admission. Pt is cooperative with interview, but has difficulty remaining on one topic. She admits she did not sleep well last evening and at one point verbalizes concern about her daughters finding out. She then contradicts herself but stating that "between the four of them, my kids have enough money to get me out of here if I'm not sleeping well." Pt shares pieces of several, unrelated stories concerning her daughters and grandchildren. She becomes abruptly tearful when she shares specific details about her granddaughter's leukemia diagnosis. Pt states multiple times during our interaction that "I just want to do the right thing." Pt's room was moved to accommodate a more acute patient in the intensive treatment area - but is very happy about this move as "now I can keep the room dark and can get up to use the bathroom without disturbing anyone. Pt states that she feels this room change will not only help her sleep, but will directly help her return home. Pt is now asking that her daughters be informed of the room change. She is also very insistent that the male patient who "saved my life last night" be informed of her room change - so much so that she requests this provider bring the individual into her room to show him. This provider explained why this would not be appropriate, and informed her that her name is on the outside of the door should anyone need to find it. She remained highly focused on this peer knowing about her room change for the remainder of our encounter. Pt denies safety concerns on the unit, and denies other needs from staff at this time. Physical Exam Psychiatric Orientation: alert, oriented to person, oriented to place and cooperative Apperance: appropriately dressed, appropriately groomed and appeared stated age Eye Contact: good eye contact Motor Behavior: steady gait and station (cautious ambulation with assistance from walker) and no abnormal motor movements Speech: + pressured speech (hyperverbal, expansive) Affect: + labile affect (suddently tearful at times) Thought Process: + tangential thought process and + flight of ideas Thought Content: + preoccupation (with sleep and peer whom she believes "saved my life") Suicidal Thoughts: denies suicidal thoughts Homicidal Thoughts: denies homicidal thoughts Hallucinations: no auditory hallucinations Cognition: + remote memory not intact and + attention not intact Insight: + impaired insight Judgement: + impaired judgement Vital Signs (Past 24 Hours) Last Vital Signs Temp 36.8 C 10/27/19 06:00 Pulse 87 10/27/19 06:00 Resp 18 10/27/19 06:00 BP 128/83 10/27/19 06:00 Pulse Ox 95 10/27/19 06:00 Results & Data Current Inpatient Medications Current Inpatient Medications: Current Inpatient Medications Acetaminophen (Tylenol) 650 mg PO Q4H PRN PRN Reason: Headache or Minor Fever Stop: 11/20/19 16:51 Al Hydrox/Mg Hydrox/Simethicone (Maalox) 30 ml PO Q4H PRN PRN Reason: GI Upset Stop: 11/20/19 16:51 Allopurinol (Zyloprim) 100 mg PO QAM G[facility]O Stop: 11/21/19 08:59 Last Admin: 10/27/19 08:14 Dose: 100 mg Documented by: Atorvastatin Calcium (Lipitor) 10 mg PO QAM GALLO Stop: 11/21/19 08:59 Last Admin: 10/27/19 08:14 Dose: 10 mg Documented by: Carbidopa/Levodopa (Sinemet 25/100 Mg) 1 tab PO TID GALLO Stop: 11/20/19 10:29 Last Admin: 10/27/19 08:14 Dose: 1 tab Documented by: Docusate Sodium (Colace) 100 mg PO BID [facility] Stop: 11/20/19 20:59 Last Admin: 10/27/19 08:13 Dose: 100 mg Documented by: Furosemide (Lasix) 20 mg PO QAM [facility] Stop: 11/21/19 08:59 Last Admin: 10/27/19 08:13 Dose: 20 mg Documented by: Gabapentin (Neurontin) 300 mg PO TID [facility] Stop: 11/20/19 20:59 Last Admin: 10/27/19 08:14 Dose: 300 mg Documented by: Gentamicin Sulfate (Gentak 0.3%) 1 appln OP TID [facility] Stop: 10/31/19 20:59 Last Admin: 10/27/19 08:20 Dose: Not Given Documented by: Hydroxyzine HCl (Vistaril) 50 mg PO HSZ PRN PRN Reason: Insomnia Stop: 11/20/19 16:51 Last Admin: 10/24/19 02:07 Dose: 50 mg Documented by: Hydroxyzine HCl (Vistaril) 25 mg PO Q4H PRN PRN Reason: Anxiety Stop: 11/20/19 16:51 Lorazepam (Ativan) 0.5 mg PO HS PRN PRN Reason: agitation/insomnia Stop: 11/20/19 16:56 Last Admin: 10/27/19 03:44 Dose: 0.5 mg Documented by: Magnesium Hydroxide (Milk Of Magnesia) 30 ml PO DAILY PRN PRN Reason: Constipation Stop: 11/20/19 16:51 Olanzapine (Zyprexa Zydis Od) 5 mg PO Q6H PRN PRN Reason: Agitation Stop: 11/20/19 16:59 Potassium Chloride (Klor-Con M10) 10 meq PO QAM [facility] Stop: 11/21/19 08:59 Last Admin: 10/27/19 08:13 Dose: 10 meq Documented by: Quetiapine Fumarate (Seroquel) 100 mg PO BID@0900,1300 [facility] Stop: 11/20/19 10:29 Last Admin: 10/27/19 08:14 Dose: 100 mg Documented by: Quetiapine Fumarate (Seroquel) 100 mg PO HS PRN PRN Reason: insomnia Stop: 11/25/19 21:59 Quetiapine Fumarate (Seroquel) 300 mg PO HS [facility] Stop: 11/26/19 21:59 Sodium Chloride ([place] Nasal) 1 - 2 sprays NA PRN PRN PRN Reason: Nasal Dryness/Congestion Stop: 11/20/19 16:51 Mental Health & Subst Abuse Tx Psychiatrist Name of Psychiatrist: Dr. Navarrete Psychiatrist's Date of Appointment with Psychiatrist: 11/04/19 Time of Appointment with Psychiatrist: 10am Psychiatric Appointment Comment: [address] [facility] [address] Therapist Name of Therapist: None Clam Dredger Name of Clam Dredger: None Post Discharge Appointments Primary Care Physician Name Of Family Doctor: Dr. Whitehead ([facility]) Primary Care Date of Appointment with PCP: 11/06/19 Time of Appointment with PCP: 3:25 Provider Appointment Comment: [address] [facility] [id number] Neurologist Name of Neurologist: Ragini Hernandez Neurologist's Neurology Appointment Comment: As needed Contact Information Discharge Discharge Address[facility] [place] [address] (daughter's address) (1) Bipolar disorder Active/Remission status: currently active Current bipolar episode type: manic Current episode severity: severe Psychotic features: with psychotic features Qualified Code(s): F31.2 - Bipolar disorder, current episode manic severe with psychotic features (2) Fall Encounter type: initial encounter Qualified Code(s): W19.XXXA - Unspecified fall, initial encounter
[2019-10-27] MEDS: QUETIAPINE FUMARATE 300 MG TABLET PO SCH (20:21)
[2019-10-28] MEDS: LORazepam 0.5 MG TAB PO PRN (00:30)
[2019-10-28] MEDS: DOCUSATE SODIUM 100 MG CAP PO SCH ×2 (07:24→21:02)
[2019-10-28] MEDS: FUROSEMIDE 20 MG TAB PO SCH (07:25)
[2019-10-28] MEDS: GENTAMICIN SULFATE 0.3% OP OINT 3.5 GM TUBE OP SCH ×3 (07:25→21:53)
[2019-10-28] MEDS: ATORVASTATIN 10 MG TAB PO SCH (07:25)
[2019-10-28] MEDS: POTASSIUM CHLORIDE 10 MEQ TABCR PO SCH (07:25)
[2019-10-28] MEDS: GABAPENTIN 300 MG CAP PO SCH ×3 (07:26→21:03)
[2019-10-28] MEDS: QUETIAPINE FUMARATE 100 MG TABLET PO SCH ×2 (07:26→13:58)
[2019-10-28] MEDS: allopurinoL 100 MG TAB PO SCH (07:27)
[2019-10-28] MEDS: CARBIDOPA/LEVODOPA 25/100MG TAB PO SCH ×3 (07:27→21:03)
--- NOTE | 2019-10-28 08:52 | Psychiatric Progress Note ---
Date of Service October 28, 2019 Impression / Recommendations Impression 74-year-old female with a history of multiple medical problems and bipolar disorder type I who presented with confusion, hallucinations, and agitation worsening over several days prior to presentation while she was at [facility], where she was receiving rehab after a fall at home with inability to get up for many hours. She was diagnosed with a UTI in the ER as well, and started on Keflex. She was last on our unit 4 years ago, and was on similar medications for her bipolar disorder at that time. Her home medications have been continued, while treating UTI and continuing PT. Care has been coordinated w/ her outpatient psychiatrist, and daughter came in for a family meeting. She is on a 303 as of 10/24/19. Manic symptoms are seemingly worsened over the past few days. Sleep has been worsening significantly as well. Inpatient treatment remains medically necessary due to the severity of her symptoms and inability to provide for her own basic needs without the care and assistance of others. She lives independently, and is not able to provide for her own basic needs at this point without significant staff support and assistance. (1) Bipolar disorder: 10/22 -likely also an element of delirium, with recent fall, inpatient rehab and [facility], and acute on chronic kidney dysfunction. Per review of records, this presentation is consistent with past presentations under similar circumstances. -Continue inpatient treatment on an involuntary commitment, and assess the need for extension of involuntary commitment. -Continue medically necessary private room due to recent agitation/confusion. -Get collateral information from daughter Juana who was present in the ER. -Coordinate care with outpatient psychiatrist, Dr. Navarrete. -Continue quetiapine 100 mg twice daily at 0900 and 1300, and 200 mg at bedtime. It appears likely that her recent symptoms are due to the change in her routine (admitted to [facility] Status post fall) and medical decompensation with UTI and kidney dysfunction. -Monitoring on an atypical antipsychotic: FLP from 06/2019 was within normal limits. Hemoglobin A1c was 5.7%, with estimated average glucose of 117. Fasting glucose 95. 10/23 -Reviewed case with outpatient psychiatrist Dr. Navarrete. He agreed with continuing her current medications, and providing consistency and structure on the unit, which typically help. -Continue MNPR as required O2 overnight for desaturation. -Patient still lacks capacity to agree to voluntary treatment, and is not yet stable for discharge, so will schedule a 303 hearing for tomorrow. 10/24 -Our ongoing concern is the fact that the patient has a history of decompensating fairly rapidly when sleep deprived, and she slept only a couple hours last night because she was very anxious about her upcoming hearing. We are also concerned because the patient continues to show certain features consistent with hypomania. For that reason, we are recommending further s tabilization on an inpatient basis before transitioning the patient to the community for continued treatment on an outpatient basis. -The patient is continuing to tolerate quetiapine at the current dose of 100 mg twice a day and 200 mg at bedtime. She reports that she is not noticing any side effects and feels "much better." 10/25 -on a 303 involuntary commitment. Continue home medications. -Family meeting held with daughter. The patient will stay with her temporarily at discharge. 10/26 -sleep erratic, only 4 hours last night. Will order quetiapine 100 mg at bedtime as needed for insomnia. -Globally cognitively impaired; 10/13 on the MoCA, missing 3 for visuospatial/executive, 4 for attention, 2 for language, 2 for abstraction, 4 for delayed recall, and 3 for orientation. We will continue to monitor. 10/27 - HS dose of quetiapine increased to 300mg - total of 100mg/100mg/300mg daily - Pt demonstrating increased symptoms of lori, and sleep remains poor - therefore increasing risk of mood instability and overall concern for safety if discharged - Treatment team discussed recommendation that patient not drive - daughters requesting to restrict driving access on their own rather than have condition reported to [facility] - will continue to discuss with family as condition improves. Ideally, patient will have repeat MoCA prior to discharge - Continue MNPR due to concern for mood instability with interrupted sleep and worsening symptoms of lori 10/28 - Pt demonstrating worsening of manic symptoms and only slept 15 minutes last evening despite multiple prn sleep aids being provided - She was ordered 1 dose of lorazepam 1mg which can be utilized this evening to encourage sleep - fall-risk remains a concern and will be continuously evaluated as benzodiazepines are not an ideal long-term medication for this particular patient - Will order low-dose valproic acid 250mg to begin this evening, hopeful the medication may continue to target manic symptoms without as significant interactions with Parkinson's disease process - Continue current dosage of quetiapine at this time - Continue MNPR given poor sleep and mood inistability (2) Acute UTI: 10/22 -continue Keflex as started in the ER, and follow-up on sensitivities when completed. 10/24 -The patient's urine culture grew E. coli, and alpha streptococcus, not enterococcus -Patient reports that she is not continuing to experience pain on urination or urinary frequency. 10/27 - Last dose of Keflex given this morning (3) Fall: Fall 5 days ago at home, sent to [facility] for physical rehab. Get PT consult once she is able to participate, and assess needs for ongoing PT. -One-to-one in the interim due to high fall risk and need for staff support when ambulating. 10/23 - Walking with walker, will order PT consult for treatment here and recommendations for return to [facility] or outpatient PT. Can d/c 1:1. 10/24 -Patient was seen by physical therapy. The current plan is for the patient to return to [facility] upon discharge. 10/28 - Attempts are being made to balance fall-risk with increased sleep concerns - Pt only slept 15 minutes last evening despite multiple prn sleep aids - Will order one time dose of lorazepam to be given this evening to encourage sleep; as there is evidence patient's worsening lori is correlated with recent poor sleep - It remains recommendation that long-term benzodiazepines be avoided given contraindication in the geriatric population with concern for fall-risk, respiratory depression, and increased confusion (4) Parkinson's disease: 10/22 -continue home dose of Sinemet and monitor abnormal movements. Consider neurology consult if these do not improve. 10/24 -We discussed with the patient the fact that antiparkinsonian medications may possibly contribute to an exacerbation of psychotic symptoms as well as perceptual disturbances in persons who have Parkinson's disease,, and we have also advised the patient that antipsychotic medication such as quetiapine may adversely influence her movement disorder. The patient tells us that she has not noticed any worsening in her ability to ambulate, and also reports that she has not experienced any perceptual disturbances. Her mental status examination reveals that her current thought content appears to be devoid of any delusional material. 10/28 - Pt continues to demonstrate manic behaviors, worsening of symptoms correlated to poor sleep for the past several nights - As we are being cautious about utilization of atypical antipsychotic medications in the setting of Parkinson's disease - will plan to initiate low- dose valproic acid to begin this evening - Pt ordered 250mg of valproic acid to begin this evening, with titration as indicated - Continuing quetiapine at this time (5) HTN (hypertension): 10/22 -continue home dose of furosemide. BP was elevated in the ER, but has now normalized. -Ensure follow-up with PCP. (6) Idiopathic peripheral neuropathy: 10/22 -continue home dose of gabapentin 300 mg 3 times daily. (7) History of pulmonary embolism: Continue Lovenox. (8) RLS (restless legs syndrome): 10/22 -continue home dose of lorazepam 0.5 mg at bedtime as needed. (9) Gout: Continue home dose of allopurinol. Inventory Assets Strengths: Supportive family, able to live alone when stable Needs: Treatment of comorbid medical conditions, mood stabilization. Risk Factors Assessment Male: No : Yes Do You Have Access To A Gun?: No Health Problems: Yes Mental Health Diagnoses: Yes Substance Use Disorders: No Previous Psychiatric Hospitalization: Yes Smoker: No Protective Factors Assessment Anabaptism Beliefs: Yes : No Responsible for Young Children: No Employed: No Stable Relationships: Yes Supportive Family: Yes Good Rapport with Provider: Yes Interval History Identifying Information PABLO COOPER is a 74-year-old F who currently lives in [place], has a history of bipolar disorder, Parkinson's disease, chronic kidney disease, hypertension, peripheral neuropathy, and restless leg syndrome and was admitted on 10/21/19 16:52 on a 302 involuntary commitment for lori. 303 granted on 10/24/2019. Chief Complaint "I'm a tough old lady. I know when medications are affecting me." Review of Systems Notes Constitutional: reports poor sleep last evening Cardiovascular: denied Respiratory: denied Gastrointestinal: denied Neurological: denied Psychiatric: denies symptoms other than stated above Total of at least 10 systems reviewed, pertinent positives as above and in HPI. Sleep Information Total Hours of Sleep: 0.25 Sleep Comments: awake at 0015, 0345, 0545 to use the bathroom. Meal Information Percent Meal Consumed - Breakfast: 100 Percent Meal Consumed - Lunch: 100 Percent Meal Consumed - Dinner: 70 Nutrition Comment: pt asleep Subjective Subjective Patient was seen & assessed and interval progress reviewed with nursing and social work. Staff reports the patient only slept for 15 minutes last evening. She continued to demonstrate disorganized thought process and was difficult to redirect last evening. Patient did receive several as needed sleep medications, with no benefit in encouraging rest. Patient was seen today to assess progress since admission. She provided verbal consent for Stephanie Rod PA-C to observe today's encounter. Patient states that she is very concerned about her poor sleep last evening. She does inform this provider "I am a tough old lady. I know when my meds are affecting me." She was then unable to explain how this statement related to her sleep. Patient is seemingly preoccupied with various events that occurred during her hospitalization. Today she is significantly focused on being asked her willingness to remain in treatment until her symptoms improve. Patient states "I signed that paper, if I was not supposed to sign the paper all he had to do was tell me. I kept apologizing to everyone for signing the paper." Patient continue to share multiple stories unrelated to her current treatment, and was inappropriately tearful for some of this conversation. This provider attempted multiple times to redirect the topic to our most recent concerns for her sleep. Patient was asked what staff could do to encourage a more restful sleep, to which she states "they kept giving me medications, medication after medication. I was just so upset, if someone had just told me I was not supposed to sign off paper." It was difficult to get any additional meaningful information from the patient. Patient does state "I promise I will sleep tonight, I already told him that I would." She does deny acute needs or concerns at this time. Physical Exam Psychiatric Orientation: alert Apperance: appropriately dressed, + disheveled and appeared stated age Eye Contact: good eye contact Motor Behavior: steady gait and station (cautious but stable ambulation with assistance from walker) and + tremor (fine tremor observed in hands bilaterally) Speech: + abnormal rate/rhythm/volume of speech (rapid and pressured speech ) Affect: + labile affect (at times overly energized, but then was abruptly tearful) Thought Process: + tangential thought process (and disorganized) and + perseveration; + thought process not linear or logical Thought Content: + preoccupation (with poor sleep and other unrelated topics); + delusional Pt has been highly focused on her perception of various statements made to her by staff. She continues to report the same statements during her interview - today focused on "I didn't know I shouldn't have signed that paper, if they had told me I wouldn't have done it. I only want to do the right thing." Hallucinations: no auditory hallucinations Cognition: language grossly intact; + attention not intact Insight: + impaired insight Judgement: + impaired judgement Vital Signs (Past 24 Hours) Last Vital Signs Temp 36.6 C 10/28/19 06:28 Pulse 97 H 10/28/19 06:34 Resp 18 10/28/19 06:28 BP 110/70 10/28/19 06:34 Pulse Ox 95 10/27/19 06:00 Results & Data Current Inpatient Medications Current Inpatient Medications: Current Inpatient Medications Acetaminophen (Tylenol) 650 mg PO Q4H PRN PRN Reason: Headache or Minor Fever Stop: 11/20/19 16:51 Al Hydrox/Mg Hydrox/Simethicone (Maalox) 30 ml PO Q4H PRN PRN Reason: GI Upset Stop: 11/20/19 16:51 Allopurinol (Zyloprim) 100 mg PO QAM [facility] Stop: 11/21/19 08:59 Last Admin: 10/28/19 07:27 Dose: 100 mg Documented by: Atorvastatin Calcium (Lipitor) 10 mg PO QAM [facility] Stop: 11/21/19 08:59 Last Admin: 10/28/19 07:25 Dose: 10 mg Documented by: Carbidopa/Levodopa (Sinemet 25/100 Mg) 1 tab PO TID [facility] Stop: 11/20/19 10:29 Last Admin: 10/28/19 07:27 Dose: 1 tab Documented by: Docusate Sodium (Colace) 100 mg PO BID [facility] Stop: 11/20/19 20:59 Last Admin: 10/28/19 07:24 Dose: 100 mg Documented by: Furosemide (Lasix) 20 mg PO QAM [facility] Stop: 11/21/19 08:59 Last Admin: 10/28/19 07:25 Dose: 20 mg Documented by: Gabapentin (Neurontin) 300 mg PO TID [facility] Stop: 11/20/19 20:59 Last Admin: 10/28/19 07:26 Dose: 300 mg Documented by: Gentamicin Sulfate (Gentak 0.3%) 1 appln OP TID [facility] Stop: 10/31/19 20:59 Last Admin: 10/28/19 07:25 Dose: Not Given Documented by: Hydroxyzine HCl (Vistaril) 50 mg PO HSZ PRN PRN Reason: Insomnia Stop: 11/20/19 16:51 Last Admin: 10/27/19 23:28 Dose: 50 mg Documented by: Hydroxyzine HCl (Vistaril) 25 mg PO Q4H PRN PRN Reason: Anxiety Stop: 11/20/19 16:51 Lorazepam (Ativan) 0.5 mg PO HS PRN PRN Reason: agitation/insomnia Stop: 11/20/19 16:56 Last Admin: 10/28/19 00:30 Dose: 0.5 mg Documented by: Magnesium Hydroxide (Milk Of Magnesia) 30 ml PO DAILY PRN PRN Reason: Constipation Stop: 11/20/19 16:51 Olanzapine (Zyprexa Zydis Od) 5 mg PO Q6H PRN PRN Reason: Agitation Stop: 11/20/19 16:59 Potassium Chloride (Klor-Con M10) 10 meq PO QAM [facility] Stop: 11/21/19 08:59 Last Admin: 10/28/19 07:25 Dose: 10 meq Documented by: Quetiapine Fumarate (Seroquel) 100 mg PO BID@0900,1300 [facility] Stop: 11/20/19 10:29 Last Admin: 10/28/19 07:26 Dose: 100 mg Documented by: Quetiapine Fumarate (Seroquel) 100 mg PO HS PRN PRN Reason: insomnia Stop: 11/25/19 21:59 Last Admin: 10/27/19 21:25 Dose: 100 mg Documented by: Quetiapine Fumarate (Seroquel) 300 mg PO HS [facility] Stop: 11/26/19 21:59 Last Admin: 10/27/19 20:21 Dose: 300 mg Documented by: Sodium Chloride ([facility] Nasal) 1 - 2 sprays NA PRN PRN PRN Reason: Nasal Dryness/Congestion Stop: 11/20/19 16:51 Mental Health & Subst Abuse Tx Psychiatrist Name of Psychiatrist: Dr. Navarrete Psychiatrist's Date of Appointment with Psychiatrist: 11/04/19 Time of Appointment with Psychiatrist: 10am Psychiatric Appointment Comment: [address] [place] [address] Therapist Name of Therapist: None Retail Department Supervisor Name of Retail Department Supervisor: None Post Discharge Appointments Primary Care Physician Name Of Family Doctor: Dr. Whitehead ([facility]) Primary Care Date of Appointment with PCP: 11/06/19 Time of Appointment with PCP: 3:25 Provider Appointment Comment: [address], [place] [address] Neurologist Name of Neurologist: Dr. Reilly, [facility] Neurologist's Neurology Appointment Comment: As needed Contact Information Discharge Discharge Address: [address], [place] [address] (daughter's address) (1) Bipolar disorder Active/Remission status: currently active Current bipolar episode type: manic Current episode severity: severe Psychotic features: with psychotic features Qualified Code(s): F31.2 - Bipolar disorder, current episode manic severe with psychotic features (2) Fall Encounter type: initial encounter Qualified Code(s): W19.XXXA - Unspecified fall, initial encounter
[2019-10-28] MEDS ORDERED: LORazepam 1 MG TAB PO ONE (21:00)
[2019-10-28] MEDS: QUETIAPINE FUMARATE 300 MG TABLET PO SCH (21:04)
[2019-10-28] MEDS ORDERED: DIVALPROEX EXTENDED RELEASE 250 MG TABCR PO SCH (22:00)
[2019-10-29] MEDS: LORazepam 0.5 MG TAB PO PRN ×2 (03:27→20:08)
[2019-10-29 08:06] LABS: Creatinine Clr Calc Pharmacy 48.9 ml/min
[2019-10-29] MEDS: GENTAMICIN SULFATE 0.3% OP OINT 3.5 GM TUBE OP SCH ×3 (08:23→20:14)
[2019-10-29] MEDS: POTASSIUM CHLORIDE 10 MEQ TABCR PO SCH (08:32)
[2019-10-29] MEDS: DOCUSATE SODIUM 100 MG CAP PO SCH ×2 (08:32→20:02)
[2019-10-29] MEDS: FUROSEMIDE 20 MG TAB PO SCH (08:32)
[2019-10-29] MEDS: ATORVASTATIN 10 MG TAB PO SCH (08:32)
[2019-10-29] MEDS: GABAPENTIN 300 MG CAP PO SCH ×3 (08:33→20:02)
[2019-10-29] MEDS: QUETIAPINE FUMARATE 100 MG TABLET PO SCH ×2 (08:33→13:22)
[2019-10-29] MEDS: CARBIDOPA/LEVODOPA 25/100MG TAB PO SCH ×3 (08:33→20:02)
[2019-10-29] MEDS: allopurinoL 100 MG TAB PO SCH (08:33)
--- NOTE | 2019-10-29 10:19 | Psychiatric Progress Note ---
Date of Service October 29, 2019 Impression / Recommendations Impression 74-year-old female with a history of multiple medical problems and bipolar disorder type I who presented with confusion, hallucinations, and agitation worsening over several days prior to presentation while she was at [facility], where she was receiving rehab after a fall at home with inability to get up for many hours. She was diagnosed with a UTI in the ER as well, and started on Keflex. She was last on our unit 4 years ago, and was on similar medications for her bipolar disorder at that time. Her home medications have been continued, while treating UTI and continuing PT. Care has been coordinated w/ her outpatient psychiatrist, and daughter came in for a family meeting. She is on a 303 as of 10/24/19. Manic symptoms are seemingly worsened over the past few days. Sleep has been worsening significantly as well. Inpatient treatment remains medically necessary due to the severity of her symptoms and inability to provide for her own basic needs without the care and assistance of others. She lives independently, and is not able to provide for her own basic needs at this point without significant staff support and assistance. (1) Bipolar disorder: 10/22 -likely also an element of delirium, with recent fall, inpatient rehab and [facility], and acute on chronic kidney dysfunction. Per review of records, this presentation is consistent with past presentations under similar circumstances. -Continue inpatient treatment on an involuntary commitment, and assess the need for extension of involuntary commitment. -Continue medically necessary private room due to recent agitation/confusion. -Get collateral information from daughter Juana who was present in the ER. -Coordinate care with outpatient psychiatrist, Dr. Navarrete. -Continue quetiapine 100 mg twice daily at 0900 and 1300, and 200 mg at bedtime. It appears likely that her recent symptoms are due to the change in her routine (admitted to [facility] Status post fall) and medical decompensation with UTI and kidney dysfunction. -Monitoring on an atypical antipsychotic: FLP from 06/2019 was within normal limits. Hemoglobin A1c was 5.7%, with estimated average glucose of 117. Fasting glucose 95. 10/23 -Reviewed case with outpatient psychiatrist Dr. Navarrete. He agreed with continuing her current medications, and providing consistency and structure on the unit, which typically help. -Continue MNPR as required O2 overnight for desaturation. -Patient still lacks capacity to agree to voluntary treatment, and is not yet stable for discharge, so will schedule a 303 hearing for tomorrow. 10/24 -Our ongoing concern is the fact that the patient has a history of decompensating fairly rapidly when sleep deprived, and she slept only a couple hours last night because she was very anxious about her upcoming hearing. We are also concerned because the patient continues to show certain features consistent with hypomania. For that reason, we are recommending further s tabilization on an inpatient basis before transitioning the patient to the community for continued treatment on an outpatient basis. -The patient is continuing to tolerate quetiapine at the current dose of 100 mg twice a day and 200 mg at bedtime. She reports that she is not noticing any side effects and feels "much better." 10/25 -on a 303 involuntary commitment. Continue home medications. -Family meeting held with daughter. The patient will stay with her temporarily at discharge. 10/26 -sleep erratic, only 4 hours last night. Will order quetiapine 100 mg at bedtime as needed for insomnia. -Globally cognitively impaired; 10/13 on the MoCA, missing 3 for visuospatial/executive, 4 for attention, 2 for language, 2 for abstraction, 4 for delayed recall, and 3 for orientation. We will continue to monitor. 10/27 - HS dose of quetiapine increased to 300mg - total of 100mg/100mg/300mg daily - Pt demonstrating increased symptoms of lori, and sleep remains poor - therefore increasing risk of mood instability and overall concern for safety if discharged - Treatment team discussed recommendation that patient not drive - daughters requesting to restrict driving access on their own rather than have condition reported to [facility] - will continue to discuss with family as condition improves. Ideally, patient will have repeat MoCA prior to discharge - Continue MNPR due to concern for mood instability with interrupted sleep and worsening symptoms of lori 10/28 - Pt demonstrating worsening of manic symptoms and only slept 15 minutes last evening despite multiple prn sleep aids being provided - She was ordered 1 dose of lorazepam 1mg which can be utilized this evening to encourage sleep - fall-risk remains a concern and will be continuously evaluated as benzodiazepines are not an ideal long-term medication for this particular patient - Will order low-dose valproic acid 250mg to begin this evening, hopeful the medication may continue to target manic symptoms without as significant interactions with Parkinson's disease process - Continue current dosage of quetiapine at this time - Continue MNPR given poor sleep and mood instability 10/29 - Mildly improved sleep last evening - will titrate valproic acid to 500mg this evening - Will initially continue prn order of 0.5mg of lorazepam for this evening - as not ideal to rely on for long-term treatment - Fluid restriction in the late evening to be initiated - as nursing reports patient is often awoken by need to use the restroom and then is unable to return to sleep - Continue MNPR (2) Acute UTI: 10/22 -continue Keflex as started in the ER, and follow-up on sensitivities when completed. 10/24 -The patient's urine culture grew E. coli, and alpha streptococcus, not en terococcus -Patient reports that she is not continuing to experience pain on urination or urinary frequency. 10/27 - Last dose of Keflex given this morning (3) Fall: Fall 5 days ago at home, sent to [facility] for physical rehab. Get PT consult once she is able to participate, and assess needs for ongoing PT. -One-to-one in the interim due to high fall risk and need for staff support when ambulating. 10/23 - Walking with walker, will order PT consult for treatment here and recommendations for return to [facility] or outpatient PT. Can d/c 1:1. 10/24 -Patient was seen by physical therapy. The current plan is for the patient to return to [facility] upon discharge. 10/28 - Attempts are being made to balance fall-risk with increased sleep concerns - Pt only slept 15 minutes last evening despite multiple prn sleep aids - Will order one time dose of lorazepam to be given this evening to encourage sleep; as there is evidence patient's worsening lori is correlated with recent poor sleep - It remains recommendation that long-term benzodiazepines be avoided given contraindication in the geriatric population with concern for fall-risk, respiratory depression, and increased confusion (4) Parkinson's disease: 10/22 -continue home dose of Sinemet and monitor abnormal movements. Co nsider neurology consult if these do not improve. 10/24 -We discussed with the patient the fact that antiparkinsonian medications may possibly contribute to an exacerbation of psychotic symptoms as well as perceptual disturbances in persons who have Parkinson's disease,, and we have also advised the patient that antipsychotic medication such as quetiapine may adversely influence her movement disorder. The patient tells us that she has not noticed any worsening in her ability to ambulate, and also reports that she has not experienced any perceptual disturbances. Her mental status examination reveals that her current thought content appears to be devoid of any delusional material. 10/28 - Pt continues to demonstrate manic behaviors, worsening of symptoms correlated to poor sleep for the past several nights - As we are being cautious about utilization of atypical antipsychotic medications in the setting of Parkinson's disease - will plan to initiate low- dose valproic acid to begin this evening - Pt ordered 250mg of valproic acid to begin this evening, with titration as indicated - Continuing quetiapine at this time (5) HTN (hypertension): 10/22 -continue home dose of furosemide. BP was elevated in the ER, but has now normalized. -Ensure follow-up with PCP. (6) Idiopathic peripheral neuropathy: 10/22 -continue home dose of gabapentin 300 mg 3 times daily. (7) History of pulmonary embolism: Continue Lovenox. (8) RLS (restless legs syndrome): 10/22 -continue home dose of lorazepam 0.5 mg at bedtime as needed. (9) Gout: Continue home dose of allopurinol. Inventory Assets Strengths: Supportive family, able to live alone when stable Needs: Treatment of comorbid medical conditions, mood stabilization. Risk Factors Assessment Male: No : Yes Do You Have Access To A Gun?: No Health Problems: Yes Mental Health Diagnoses: Yes Substance Use Disorders: No Previous Psychiatric Hospitalization: Yes Smoker: No Protective Factors Assessment Muslim Beliefs: Yes : No Responsible for Young Children: No Employed: No Stable Relationships: Yes Supportive Family: Yes Good Rapport with Provider: Yes Interval History Identifying Information PABLO COOPER is a 74-year-old F who currently lives in [place], has a history of bipolar disorder, Parkinson's disease, chronic kidney disease, hypertension, peripheral neuropathy, and restless leg syndrome and was admitted on 10/21/19 16:52 on a 302 involuntary commitment for lori. 303 granted on 10/24/2019. Chief Complaint "I am so afraid, I apologized to the man. You look beautiful by the way. But when are my needs going to matter." Review of Systems Notes Constitutional: denied Cardiovascular: denied Respiratory: denied Gastrointestinal: denied Neurological: denied Psychiatric: denies symptoms other than stated above Total of at least 10 systems reviewed, pertinent positives as above and in HPI. Sleep Information Total Hours of Sleep: 2.5 Sleep Comments: pt given ativan per rn. pt required assistance with gate walking(using a walker) to the bathroom. pt needed reassurance and verbal cues to decrease anxiety and to continue to focus on the "here and now". pt on q-15 minute checks Meal Information Percent Meal Consumed - Breakfast: 20 Percent Meal Consumed - Lunch: 100 Percent Meal Consumed - Dinner: 100 Nutrition Comment: pt asleep Subjective Subjective Patient was seen & assessed and interval progress reviewed with treatment team. Staff report the patient slept for 2.5 hours last evening. She has been increasingly irritable with staff and more intrusive with other patient's on the unit. It is reported she continues to be hyperverbal and unable to self- regulate behavior and emotional response. Pt is seen today to assess progress since admission. She provides verbal consent for Stephanie Rod PA-C to observe today's encounter. Pt states that she is "so afraid. I apologized to the man." She remains highly focused on "signing that piece of paper." She is also preoccupied with various distorted perceptions of past conversations. She is very frustrated about her license being revoked (something that has not truly occurred at this time), signing the form "that said I would stay here until I'm better" (which she actually refused to do prior to 303 hearing), concern surrounding "pink tea" that "disappeared from the fridge last night", and frequently retells the same stories despite this provider's attempts to kindly redirect conversation. Pt verbalizes multiple frustrations, and continues to state "when are my needs going to matter?" She also frequently states "I don't want anyone fired." When asked how staff could best assist her through this stressful and overwhelming time, she states "I need strength, I need understanding, but most of all I need prayer." Pt was agreeable with titration of her valproic acid this evening and was encouraged to focus on calming activities in order to encourage sleep this evening. She is aware of plan to restrict fluid intake during the later evening as to prevent frequent nighttime trips to the bathroom - which have been reported to interfere with sleep. She denies other needs or concerns today. Physical Exam Psychiatric Orientation: alert and oriented to person Apperance: appropriately dressed (casually in polo shirt and jeans) and + disheveled (hair appearing mildly unkempt) Eye Contact: good eye contact Motor Behavior: steady gait and station (cautious but stable ambulation with assistance from walker) and + tremor (observed in hands bilaterally) Speech: + pressured speech (hyperverbal) Affect: + tearful affect, + labile affect (frequently, abruptly, and inappropriately tearful at times during encounter) and + irritable affect Mood: + irritable mood (verbalizing numerous illogical frustrations) Thought Process: + tangential thought process (disorganized, expansive) and + perseveration; + thought process not linear or logical and + thought process not clear or coherent Thought Content: + preoccupation (regarding numerous illogical frustrations); no delusions Suicidal Thoughts: denies suicidal thoughts and denies suicidal intent Insight: + impaired insight Judgement: + impaired judgement Vital Signs (Past 24 Hours) Last Vital Signs Temp 36.8 C 10/29/19 06:59 Pulse 108 H 10/29/19 06:59 Resp 20 10/29/19 06:59 BP 136/83 10/29/19 06:59 Pulse Ox 95 10/27/19 06:00 Results & Data Laboratory Results Laboratory Results - last 24 hr 10/29/19 07:12 Creatinine 1.21 H Est Cr Clr Drug Dosing 48.9 Est GFR ( Amer) 51.0 Est GFR (Non-Af Amer) 44.0 Current Inpatient Medications Current Inpatient Medications: Current Inpatient Medications Acetaminophen (Tylenol) 650 mg PO Q4H PRN PRN Reason: Headache or Minor Fever Stop: 11/20/19 16:51 Al Hydrox/Mg Hydrox/Simethicone (Maalox) 30 ml PO Q4H PRN PRN Reason: GI Upset Stop: 11/20/19 16:51 Allopurinol (Zyloprim) 100 mg PO QAM [facility] Stop: 11/21/19 08:59 Last Admin: 10/29/19 08:33 Dose: 100 mg Documented by: Atorvastatin Calcium (Lipitor) 10 mg PO QAM [facility] Stop: 11/21/19 08:59 Last Admin: 10/29/19 08:32 Dose: 10 mg Documented by: Carbidopa/Levodopa (Sinemet 25/100 Mg) 1 tab PO TID [facility] Stop: 11/20/19 10:29 Last Admin: 10/29/19 08:33 Dose: 1 tab Documented by: Divalproex Sodium (Depakote Extended Release) 250 mg PO HS [facility] Stop: 11/27/19 21:59 Last Admin: 10/28/19 21:03 Dose: 250 mg Documented by: Docusate Sodium (Colace) 100 mg PO BID [facility] Stop: 11/20/19 20:59 Last Admin: 10/29/19 08:32 Dose: 100 mg Documented by: Furosemide (Lasix) 20 mg PO QAM [facility] Stop: 11/21/19 08:59 Last Admin: 10/29/19 08:32 Dose: 20 mg Documented by: Gabapentin (Neurontin) 300 mg PO TID [facility] Stop: 11/20/19 20:59 Last Admin: 10/29/19 08:33 Dose: 300 mg Documented by: Gentamicin Sulfate (Gentak 0.3%) 1 appln OP TID [facility] Stop: 10/31/19 20:59 Last Admin: 10/29/19 08:23 Dose: Not Given Documented by: Hydroxyzine HCl (Vistaril) 50 mg PO HSZ PRN PRN Reason: Insomnia Stop: 11/20/19 16:51 Last Admin: 10/27/19 23:28 Dose: 50 mg Documented by: Hydroxyzine HCl (Vistaril) 25 mg PO Q4H PRN PRN Reason: Anxiety Stop: 11/20/19 16:51 Lorazepam (Ativan) 0.5 mg PO HS PRN PRN Reason: agitation/insomnia Stop: 11/20/19 16:56 Last Admin: 10/29/19 03:27 Dose: 0.5 mg Documented by: Magnesium Hydroxide (Milk Of Magnesia) 30 ml PO DAILY PRN PRN Reason: Constipation Stop: 11/20/19 16:51 Olanzapine (Zyprexa Zydis Od) 5 mg PO Q6H PRN PRN Reason: Agitation Stop: 11/20/19 16:59 Potassium Chloride (Klor-Con M10) 10 meq PO QAM [facility] Stop: 11/21/19 08:59 Last Admin: 10/29/19 08:32 Dose: 10 meq Documented by: Quetiapine Fumarate (Seroquel) 100 mg PO BID@0900,1300 [facility] Stop: 11/20/19 10:29 Last Admin: 10/29/19 08:33 Dose: 100 mg Documented by: Quetiapine Fumarate (Seroquel) 100 mg PO HS PRN PRN Reason: insomnia Stop: 11/25/19 21:59 Last Admin: 10/27/19 21:25 Dose: 100 mg Documented by: Quetiapine Fumarate (Seroquel) 300 mg PO HS [facility] Stop: 11/26/19 21:59 Last Admin: 10/28/19 21:04 Dose: 300 mg Documented by: Sodium Chloride ([place] Nasal) 1 - 2 sprays NA PRN PRN PRN Reason: Nasal Dryness/Congestion Stop: 11/20/19 16:51 Mental Health & Subst Abuse Tx Psychiatrist Name of Psychiatrist: Dr. Navarrete Psychiatrist's Date of Appointment with Psychiatrist: 11/04/19 Time of Appointment with Psychiatrist: 10am Psychiatric Appointment Comment: [address] [facility] [id number] Therapist Name of Therapist: None Certified Master Locksmith Name of Certified Master Locksmith: None Post Discharge Appointments Primary Care Physician Name Of Family Doctor: Dr. Whitehead ([facility]) Primary Care Date of Appointment with PCP: 11/06/19 Time of Appointment with PCP: 3:25 Provider Appointment Comment: [address] [facility] [id number] Neurologist Name of Neurologist: Ragini Hernandez Neurologist's Neurology Appointment Comment: As needed Contact Information Discharge Discharge Address: [address] [place] [phone] (daughter's address) (1) Bipolar disorder Active/Remission status: currently active Current bipolar episode type: manic Current episode severity: severe Psychotic features: with psychotic features Qualified Code(s): F31.2 - Bipolar disorder, current episode manic severe with psychotic features (2) Fall Encounter type: initial encounter Qualified Code(s): W19.XXXA - Unspecified fall, initial encounter
[2019-10-29] MEDS: QUETIAPINE FUMARATE 300 MG TABLET PO SCH (20:03)
[2019-10-29] MEDS: DIVALPROEX EXTENDED RELEASE 500 MG TAB PO SCH (20:03)
[2019-10-30] MEDS: LORazepam 0.5 MG TAB PO PRN (00:52)
[2019-10-30] MEDS: DOCUSATE SODIUM 100 MG CAP PO SCH ×2 (08:52→20:33)
[2019-10-30] MEDS: ATORVASTATIN 10 MG TAB PO SCH (08:52)
[2019-10-30] MEDS: GABAPENTIN 300 MG CAP PO SCH ×3 (08:52→20:34)
[2019-10-30] MEDS: POTASSIUM CHLORIDE 10 MEQ TABCR PO SCH (08:53)
[2019-10-30] MEDS: allopurinoL 100 MG TAB PO SCH (08:53)
[2019-10-30] MEDS: QUETIAPINE FUMARATE 100 MG TABLET PO SCH ×2 (08:53→13:06)
[2019-10-30] MEDS: CARBIDOPA/LEVODOPA 25/100MG TAB PO SCH ×3 (08:53→20:34)
[2019-10-30] MEDS: FUROSEMIDE 20 MG TAB PO SCH (08:53)
[2019-10-30] MEDS: GENTAMICIN SULFATE 0.3% OP OINT 3.5 GM TUBE OP SCH ×3 (08:54→20:40)
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
[2019-10-30] MEDS ORDERED: LORazepam 0.5 MG TAB PO PRN (10:44)
[2019-10-30] MEDS: OLANZAPINE ZYDIS 5 MG ORALLY DIS. TAB PO PRN (19:19)
[2019-10-30] MEDS: LORazepam 0.5 MG TAB PO SCH (20:34)
[2019-10-30] MEDS: DIVALPROEX EXTENDED RELEASE 500 MG TAB PO SCH (20:34)
[2019-10-30] MEDS: QUETIAPINE FUMARATE 300 MG TABLET PO SCH (20:34)
[2019-10-31] MEDS: CARBIDOPA/LEVODOPA 25/100MG TAB PO SCH ×3 (07:40→20:22)
[2019-10-31] MEDS: allopurinoL 100 MG TAB PO SCH (07:40)
[2019-10-31] MEDS: GABAPENTIN 300 MG CAP PO SCH ×3 (07:40→20:22)
[2019-10-31] MEDS: OLANZAPINE ZYDIS 5 MG ORALLY DIS. TAB PO PRN (07:41)
[2019-10-31] MEDS: POTASSIUM CHLORIDE 10 MEQ TABCR PO SCH (07:41)
[2019-10-31] MEDS: QUETIAPINE FUMARATE 100 MG TABLET PO SCH (07:41)
[2019-10-31] MEDS: FUROSEMIDE 20 MG TAB PO SCH (07:41)
[2019-10-31] MEDS: DOCUSATE SODIUM 100 MG CAP PO SCH ×2 (07:41→20:21)
[2019-10-31] MEDS: ATORVASTATIN 10 MG TAB PO SCH (07:41)
[2019-10-31] MEDS: GENTAMICIN SULFATE 0.3% OP OINT 3.5 GM TUBE OP SCH (07:42)
--- NOTE | 2019-10-31 07:57 | Communication Note ---
Date of Service: October 30, 2019 Spoke with patient's outpatient psychiatrist, Dr. Navarrete, over the phone. Updated provider with patient's status thus far, explaining increased manic behavior, poor sleep, and more recent onset of delusional thinking. History was obtained regarding past medication trials and response to medications. Pt was previously on valproic acid, with no noted adverse effects - prior dose of 1000mg qHS, in combination with risperidone 0.5mg qHS. Could consider further titration of valproic acid as tolerated. Dr. Navarrete does admit that it is a long and difficult process to get patient's sleep and mood in order once she has not been sleeping well. He suggests titration of quetiapine, as long as patient will tolerate. He also recommends resuming benzodiazepines (lorazepam or clonazepam) at bedtime in order to encourage sleep. Home dosing of lorazepam was generally 0.25 - 0.5mg as needed for sleep. If unable to sleep with this dosing, daughter was instructed to give 1mg in the evening with repeat dose in 1 hour if ineffective. Daughter generally supervised in these situations for fall risk.
[2019-10-31] MEDS ORDERED: TEMAZEPAM 15 MG CAPSULE PO PRN (10:40)
[2019-10-31] MEDS ORDERED: LORazepam 0.5 MG TAB PO STA (10:50)
[2019-10-31] MEDS: risperiDONE 1 MG TABLET PO SCH (11:26)
[2019-10-31] MEDS ORDERED: LORazepam 1 MG TAB PO STA (13:10)
--- NOTE | 2019-10-31 14:26 | Psychiatric Progress Note ---
Date of Service October 31, 2019 Impression / Recommendations Impression 74-year-old female with a history of multiple medical problems and bipolar disorder type I who presented with confusion, hallucinations, and agitation worsening over several days prior to presentation while she was at [facility], where she was receiving rehab after a fall at home with inability to get up for many hours. She was diagnosed with a UTI in the ER as well, and completed a course of Keflex. She was last on our unit 4 years ago, and was on similar medications for her bipolar disorder at that time. Her home medications were initially continued, while treating UTI and continuing PT, but manic and psychotic symptoms worsened, so have increased quetiapine and added low dose Depakote for mood stabilization. Care has been coordinated w/ her outpatient psychiatrist, and daughter has been involved in treatment and visiting regularly. She is on a 303 as of 10/24/19. Sleep is suboptimal, and will schedule lorazepam at HS as has been beneficial. Inpatient treatment remains medically necessary due to the severity of her symptoms and inability to provide for her own basic needs without the care and assistance of others. Has previously noted, the patient's family has advised us that the patient tends to become manic when she has not slept, and they are of the impression that decreased sleep for her is not, at first, a symptom of lori but, instead, the trigger which subsequently precipitates lori. Within this context, our primary goal at this point is to help the patient sleep. She continues to have limited sleep. She was able to sleep for about an hour this afternoon after receiving a dose of lorazepam, but her sleep has been poor for at least a week. The patient's diagnosis of Parkinson's disease complicates treatment interventions in this case. The presence of visual hallucinations might best be explained by psychosis related to Parkinson's disease and treatment with levodopa. At the same time, the patient's ability to ambulate is somewhat more labored at this point and we are attending her closely in order to prevent falls. We are also noticing that increases in the dose of quetiapine seems to possibly be having an idiosyncratic response to quetiapine, within the context of her Parkinson's disease. We had started the patient on Depakote 2 days ago, and today we are titrating her dose to 1000 mg at bedtime, and by giving her an extra dose of Depakote 250 mg this morning. We also offering the patient a trial of risperidone which may be better tolerated in persons with Parkinson's disease. We will begin add risperidone 1 mg in the morning and 2 mg at bedtime and titrate as indicated. We are offering the patient additional as needed dosages of lorazepam, due to her agitation. Temazepam 15 mg has been ordered for sleep. The expectation is that this will be a short-term intervention, and the patient will be closely observed because of the increased risk of falls and potential for worsening confusion. Our goal is to help the patient had several consecutive with an expectation that this, and of itself, will substantially improve the patient's psychiatric condition. (1) Acute UTI: 10/22 -continue Keflex as started in the ER, and follow-up on sensitivities when completed. 10/24 -The patient's urine culture grew E. coli, and alpha streptococcus, not enterococcus -Patient reports that she is not continuing to experience pain on urination or urinary frequency. 10/27 - Last dose of Keflex given this morning (2) HTN (hypertension): 10/22 -continue home dose of furosemide. BP was elevated in the ER, but has now normalized. -Ensure follow-up with PCP. (3) Idiopathic peripheral neuropathy: 10/22 -continue home dose of gabapentin 300 mg 3 times daily. 10/31 -The patient continues to report symptoms of peripheral neuropathy, but also tells us that it is "okay." (4) History of pulmonary embolism: Continue Lovenox. (5) RLS (restless legs syndrome): 10/22 -continue home dose of lorazepam 0.5 mg at bedtime as needed. 10/31 -Standing dose of lorazepam at bedtime was not helpful. Tonight, we will offer the patient a trial of temazepam 15 mg for sleep. (6) Gout: Continue home dose of allopurinol. (7) Bipolar disorder: 10/22 -likely also an element of delirium, with recent fall, inpatient rehab and [facility], and acute on chronic kidney dysfunction. Per review of records, this presentation is consistent with past presentations under similar circumstances. -Continue inpatient treatment on an involuntary commitment, and assess the need for extension of involuntary commitment. -Continue medically necessary private room due to recent agitation/confusion. -Get collateral information from daughter Juana who was present in the ER. -Coordinate care with outpatient psychiatrist, Dr. Navarrete. -Continue quetiapine 100 mg twice daily at 0900 and 1300, and 200 mg at bedtime. It appears likely that her recent symptoms are due to the change in her routine (admitted to [facility] Status post fall) and medical decompensation with UTI and kidney dysfunction. -Monitoring on an atypical antipsychotic: FLP from 06/2019 was within normal limits. Hemoglobin A1c was 5.7%, with estimated average glucose of 117. Fasting glucose 95. 10/23 -Reviewed case with outpatient psychiatrist Dr. Navarrete. He agreed with continuing her current medications, and providing consistency and structure on the unit, which typically help. -Continue MNPR as required O2 overnight for desaturation. -Patient still lacks capacity to agree to voluntary treatment, and is not yet stable for discharge, so will schedule a 303 hearing for tomorrow. 10/24 -Our ongoing concern is the fact that the patient has a history of decompensating fairly rapidly when sleep deprived, and she slept only a couple hours last night because she was very anxious about her upcoming hearing. We are also concerned because the patient continues to show certain features consistent with hypomania. For that reason, we are recommending further stabilization on an inpatient basis before transitioning the patient to the community for continued treatment on an outpatient basis. -The patient is continuing to tolerate quetiapine at the current dose of 100 mg twice a day and 200 mg at bedtime. She reports that she is not noticing any side effects and feels "much better." 10/25 -on a 303 involuntary commitment. Continue home medications. -Family meeting held with daughter. The patient will stay with her temporarily at discharge. 10/26 -sleep erratic, only 4 hours last night. Will order quetiapine 100 mg at bedtime as needed for insomnia. -Globally cognitively impaired; 10/13 on the MoCA, missing 3 for visuospatial/executive, 4 for attention, 2 for language, 2 for abstraction, 4 for delayed recall, and 3 for orientation. We will continue to monitor. 10/27 - HS dose of quetiapine increased to 300mg - total of 100mg/100mg/300mg daily - Pt demonstrating increased symptoms of lori, and sleep remains poor - therefore increasing risk of mood instability and overall concern for safety if discharged - Treatment team discussed recommendation that patient not drive - daughters requesting to restrict driving access on their own rather than have condition reported to [facility] - will continue to discuss with family as condition improves. Ideally, patient will have repeat MoCA prior to discharge - Continue MNPR due to concern for mood instability with interrupted sleep and worsening symptoms of lori 10/28 - Pt demonstrating worsening of manic symptoms and only slept 15 minutes last evening despite multiple prn sleep aids being provided - She was ordered 1 dose of lorazepam 1mg which can be utilized this evening to encourage sleep - fall-risk remains a concern and will be continuously evaluated as benzodiazepines are not an ideal long-term medication for this particular patient - Will order low-dose valproic acid 250mg to begin this evening, hopeful the medication may continue to target manic symptoms without as significant interactions with Parkinson's disease process - Continue current dosage of quetiapine at this time - Continue MNPR given poor sleep and mood instability 10/29 - Mildly improved sleep last evening - will titrate valproic acid to 500mg this evening - Will initially continue prn order of 0.5mg of lorazepam for this evening - as not ideal to rely on for long-term treatment - Fluid restriction in the late evening to be initiated - as nursing reports patient is often awoken by need to use the restroom and then is unable to return to sleep - Continue MNPR 10/30 - Continue current medication, and order lorazepam 0.5mg HS scheduled, with additional prn if needed for sleep. - Encourage patient to be awake during the day and asleep at night. 10/31 -As above, the patient psychiatric condition and, more specifically, her symptoms of lori are not improving, and there is some indication that, perhaps, she is having an idiosyncratic reaction to quetiapine. The context, of course, is that the patient is taking levodopa and has Parkinson's disease. Accordingly, we will hold quetiapine at this time in favor of risperidone which may be better tolerated at 1 mg in the morning and 2 mg at bedtime, with a plan to titrate as indicated. -In addition to working to allow the patient to have improved, sustained sleep, we are in the process of titrating Depakote. Hopefully, her manic symptoms will be favorably affected as we continue to titrate Depakote to a fully therapeutic level. A valproic acid level will be measured on 11/02/2019 (8) Fall: Fall 5 days ago at home, sent to [facility] for physical rehab. Get PT consult once she is able to participate, and assess needs for ongoing PT. -One-to-one in the interim due to high fall risk and need for staff support when ambulating. 10/23 - Walking with walker, will order PT consult for treatment here and recommendations for return to [facility] or outpatient PT. Can d/c 1:1. 10/24 - Patient was seen by physical therapy. The current plan is for the patient to return to [facility] upon discharge. 10/28 - Attempts are being made to balance fall-risk with increased sleep concerns - Pt only slept 15 minutes last evening despite multiple prn sleep aids - Will order one time dose of lorazepam to be given this evening to encourage sleep; as there is evidence patient's worsening lori is correlated with recent poor sleep - It remains recommendation that long-term benzodiazepines be avoided given contraindication in the geriatric population with concern for fall-risk, respiratory depression, and increased confusion 10/30 - Request PT eval/treatment while here. 10/31 -We are currently observing the patient closely. The plan is to move her into the close observation room near the nursing station. However, because of the patient's difficulty sleeping and the fact that that room tends to be fairly bright, we are considering moving the patient, temporarily, to the quiet room. This will allow us full observation of the patient and a more restful setting. (9) Parkinson's disease: 10/22 -continue home dose of Sinemet and monitor abnormal movements. Consider neurology consult if these do not improve. 10/24 -We discussed with the patient the fact that antiparkinsonian medications may possibly contribute to an exacerbation of psychotic symptoms as well as perceptual disturbances in persons who have Parkinson's disease,, and we have also advised the patient that antipsychotic medication such as quetiapine may adversely influence her movement disorder. The patient tells us that she has not noticed any worsening in her ability to ambulate, and also reports that she has not experienced any perceptual disturbances. Her mental status examination reveals that her current thought content appears to be devoid of any delusional material. 10/28 - Pt continues to demonstrate manic behaviors, worsening of symptoms correlated to poor sleep for the past several nights - As we are being cautious about utilization of atypical antipsychotic medications in the setting of Parkinson's disease - will plan to initiate low- dose valproic acid to begin this evening - Pt ordered 250mg of valproic acid to begin this evening, with titration as indicated - Continuing quetiapine at this time 10/31 -Hopefully, titration of valproic acid as a mood stabilizer will address the patient's symptoms of lori without exacerbating her Parkinsonism, and will allow us to limit the use of antipsychotic medications. Inventory Assets Strengths: Supportive family, able to live alone when stable Needs: Treatment of comorbid medical conditions, mood stabilization. Risk Factors Assessment Male: No : Yes Do You Have Access To A Gun?: No Health Problems: Yes Mental Health Diagnoses: Yes Substance Use Disorders: No Previous Psychiatric Hospitalization: Yes Smoker: No Protective Factors Assessment Presybeterian Beliefs: Yes : No Responsible for Young Children: No Employed: No Stable Relationships: Yes Supportive Family: Yes Good Rapport with Provider: Yes Interval History Identifying Information PABLO COOPER is a 74-year-old F who currently lives in [place], has a history of bipolar disorder, Parkinson's disease, chronic kidney disease, hypertension, peripheral neuropathy, and restless leg syndrome and was admitted on 10/21/19 16:52 on a 302 involuntary commitment for lori. 303 granted on 10/24/2019. Chief Complaint " I love you to the iverson and back." Review of Systems Sleep Information Total Hours of Sleep: 0.5 Sleep Comments: Patient awake at 0030, 0200, 0430 to use the restroom. When awake patient refused need for any more sleep saying "check my chart, I went to bed early last night". Agreeable to medication at 0052 then refused any further meds. Meal Information Percent Meal Consumed - Breakfast: 90 Percent Meal Consumed - Lunch: 100 Percent Meal Consumed - Dinner: 80 Nutrition Comment: pt asleep Subjective Subjective Patient was seen & assessed and interval progress reviewed with treatment team. I met with the patient individually on several occasions today in order to assess her mental status, evaluate her response to treatment, coordinate any changes necessary with the patient, and address questions issues and concerns that may arise. Reports from nursing staff on that the patient continues to not sleep, except for relatively brief periods. She appears to be responding to internal stimuli, both auditory and visual, and she freely acknowledges during the interviews that she is hearing various voices that the interviewer is unable to hear. The patient is also able to describe what she is hearing. The voices appear to be primarily stream of consciousness voices, but also are persecutory in nature and seem to warn her of impending dangers. The patient also describes seeing various persons who are known to her, but are not part of the patient population nor staff, a circumstance that we assume supports are observation that she is experiencing visual hallucinations as well. In addition to poor sleep, the patient is demonstrating flight of ideas and, without external structure, talks nearly nonstop. Also, she voices a number of [place] delusions. For example, she tells us that the "nice nurses" have been allowing her to use a sound machine that plays the sound of the chirping crickets, but that some nefarious person or entity has taken over the sound machine and is using it to voice threats directed towards her "so I cannot sleep." Physical Exam Psychiatric Orientation: alert and oriented x 3 The patient is cooperative sometimes, and highly uncooperative at others. Apperance: + disheveled and appeared stated age Eye Contact: + fair eye contact Motor Behavior: + psychomotor agitation On several occasions, the patient spontaneously jumped to her feet and shouted at the interviewer. Speech: + pressured speech Affect: + labile affect Patient laughed 1 minute, cries the next, and sometimes shouts out in anger. Mood: + angry mood Thought Process: + flight of ideas Thought Content: + delusions Suicidal Thoughts: denies suicidal thoughts Homicidal Thoughts: denies homicidal thoughts Hallucinations: + auditory hallucinations and + visual hallucinations; no tactile hallucinations and no gustatory hallucinations The patient is fully oriented to person, place, time and situation. She also is able to recall the events from my most recent previous contact with her 7 days ago. The patient tells me her correct psychiatric diagnosis. However, formal testing of the patient's cognitive functioning today is not possible because of the degree of her disorganization. Estimated Intelligence: + above average estimated intelligence Insight: + impaired insight Judgement: + severely impaired judgement Vital Signs (Past 24 Hours) Last Vital Signs Temp 36.9 C 10/31/19 06:20 Pulse 93 H 10/31/19 06:21 Resp 18 10/31/19 06:20 BP 142/85 H 10/31/19 06:21 Pulse Ox 93 10/30/19 06:44 Results & Data Current Inpatient Medications Current Inpatient Medications: Current Inpatient Medications Acetaminophen (Tylenol) 650 mg PO Q4H PRN PRN Reason: Headache or Minor Fever Stop: 11/20/19 16:51 Al Hydrox/Mg Hydrox/Simethicone (Maalox) 30 ml PO Q4H PRN PRN Reason: GI Upset Stop: 11/20/19 16:51 [facility]oprim) [facility] Stop: 11/21/19 08:59 Last Admin: 10/31/19 07:40 Dose: 100 mg Documented by: Atorvastatin Calcium (Lipitor) 10 [facility] Stop: 11/21/19 08:59 Last Admin: 10/31/19 07:41 Dose: 10 mg Documented by: Carbidopa/Levodopa (Sinemet 25/100 Mg) 1 tab PO TID [facility] Stop: 11/20/19 10:29 Last Admin: 10/31/19 13:37 Dose: 1 tab Documented by: Divalproex Sodium (Depakote Extended Release) 1,000 mg PO [facility] Stop: 11/30/19 21:59 Docusate Sodium (Colace) 100 mg PO BID [facility] Stop: 11/20/19 20:59 Last Admin: 10/31/19 07:41 Dose: 100 mg Documented by: Furosemide (Lasix) 20 [facility] Stop: 11/21/19 08:59 Last Admin: 10/31/19 07:41 Dose: 20 mg Documented by: Gabapentin (Neurontin) 300 mg PO TID [facility] Stop: 11/20/19 20:59 Last Admin: 10/31/19 13:36 Dose: 300 mg Documented by: Hydroxyzine HCl (Vistaril) 50 mg PO HSZ PRN PRN Reason: Insomnia Stop: 11/20/19 16:51 Last Admin: 10/27/19 23:28 Dose: 50 mg Documented by: Hydroxyzine HCl (Vistaril) 25 mg PO Q4H PRN PRN Reason: Anxiety Stop: 11/20/19 16:51 Lorazepam (Ativan) 0.5 mg PO HS [facility] Stop: 11/29/19 21:59 Last Admin: 10/30/19 20:34 Dose: 0.5 mg Documented by: Lorazepam (Ativan) 0.5 mg PO HS PRN PRN Reason: Insomnia Stop: 11/29/19 10:43 Last Admin: 10/31/19 01:15 Dose: 0.5 mg Documented by: Magnesium Hydroxide (Milk Of Magnesia) 30 ml PO DAILY PRN PRN Reason: Constipation Stop: 11/20/19 16:51 Olanzapine (Zyprexa Zydis Od) 5 mg PO Q6H PRN PRN Reason: Agitation Stop: 11/20/19 16:59 Last Admin: 10/31/19 07:41 Dose: 5 mg Documented by: Potassium Chloride (Klor-Con M10) 10 meq PO QAM [facility] Stop: 11/21/19 08:59 Last Admin: 10/31/19 07:41 Dose: 10 meq Documented by: Risperidone (Risperdal) 1 mg PO QAM GALLO Stop: 11/30/19 10:59 Last Admin: 10/31/19 11:26 Dose: 1 mg Documented by: Risperidone (Risperdal) 2 mg PO HS [facility] Stop: 11/30/19 21:59 Sodium Chloride ([place] Nasal) 1 - 2 sprays NA PRN PRN PRN Reason: Nasal Dryness/Congestion Stop: 11/20/19 16:51 Temazepam (Restoril) 15 mg PO HSZ PRN PRN Reason: Insomnia Stop: 11/30/19 10:39 Mental Health & Subst Abuse Tx Psychiatrist Name of Psychiatrist: Dr. Navarrete Psychiatrist's Date of Appointment with Psychiatrist: 11/04/19 Time of Appointment with Psychiatrist: 10am Psychiatric Appointment Comment: [address] [facility] [id number] Therapist Name of Therapist: None Rn Complex Care Name of Rn Complex Care: None Post Discharge Appointments Primary Care Physician Name Of Family Doctor: Dr. Whitehead (Ragini) Primary Care Date of Appointment with PCP: 11/06/19 Time of Appointment with PCP: 3:25 Provider Appointment Comment: [address] [facility] [place] [address] Neurologist Name of Neurologist: Ragini Hernandez Neurologist's Neurology Appointment Comment: As needed Contact Information Discharge Discharge Address: [address] [place] [address], [place] [address] (daughter's address) (1) Bipolar disorder Active/Remission status: currently active Current bipolar episode type: manic Current episode severity: severe Psychotic features: with psychotic features Qualified Code(s): F31.2 - Bipolar disorder, current episode manic severe with psychotic features (2) Fall Encounter type: initial encounter Qualified Code(s): W19.XXXA - Unspecified fall, initial encounter
[2019-10-31] MEDS: DIVALPROEX EXTENDED RELEASE 500 MG TAB PO SCH (20:25)
[2019-10-31] MEDS: risperiDONE 2 MG TABLET PO SCH (20:25)
[2019-10-31] MEDS: LORazepam 0.5 MG TAB PO SCH (20:31)
[2019-11-01] MEDS: allopurinoL 100 MG TAB PO SCH (07:53)
[2019-11-01] MEDS: CARBIDOPA/LEVODOPA 25/100MG TAB PO SCH ×3 (07:53→21:03)
[2019-11-01] MEDS: ATORVASTATIN 10 MG TAB PO SCH (07:53)
[2019-11-01] MEDS: FUROSEMIDE 20 MG TAB PO SCH (07:53)
[2019-11-01] MEDS: GABAPENTIN 300 MG CAP PO SCH ×3 (07:53→21:03)
[2019-11-01] MEDS: DOCUSATE SODIUM 100 MG CAP PO SCH ×2 (07:53→21:04)
[2019-11-01] MEDS: risperiDONE 1 MG TABLET PO SCH (07:54)
[2019-11-01] MEDS: POTASSIUM CHLORIDE 10 MEQ TABCR PO SCH (07:54)
[2019-11-01 08:04] LABS: Creatinine Clr Calc Pharmacy 49.7 ml/min; Est GFR (African American) 52.1; Est GFR (Non-African American) 44.9
--- NOTE | 2019-11-01 09:40 | Psychiatric Progress Note ---
Date of Service November 01, 2019 Impression / Recommendations Impression 74-year-old female with a history of multiple medical problems and bipolar disorder type I who presented with confusion, hallucinations, and agitation worsening over several days prior to presentation while she was at [facility], where she was receiving rehab after a fall at home with inability to get up for many hours. She was diagnosed with a UTI in the ER as well, and completed a course of Keflex. She was last on our unit 4 years ago, and was on similar medications for her bipolar disorder at that time. Her home medications were initially continued, while treating UTI and continuing PT, but manic and psychotic symptoms worsened, so have increased quetiapine and added low dose Depakote for mood stabilization. Care has been coordinated w/ her outpatient psychiatrist, and daughter has been involved in treatment and visiting regularly. She is on a 303 as of 10/24/19. Sleep is suboptimal, and will schedule lorazepam at HS as has been beneficial. Inpatient treatment remains medically necessary due to the severity of her symptoms and inability to provide for her own basic needs without the care and assistance of others. The patient's diagnosis of Parkinson's disease complicates treatment interventions in this case. The presence of visual hallucinations might best be explained by psychosis related to Parkinson's disease and treatment with levodopa. At the same time, the patient's ability to ambulate is somewhat more labored at this point and we are attending her closely in order to prevent falls. We are also noticing that increases in the dose of quetiapine seems to possibly be having an idiosyncratic response to quetiapine, within the context of her Parkinson's disease. We had started the patient on Depakote, and titrated 10/31 to 1000 mg at bedtime and Risperdal replaced Seroquel. (1) Acute UTI: 10/22 -continue Keflex as started in the ER, and follow-up on sensitivities when completed. 10/24 -The patient's urine culture grew E. coli, and alpha streptococcus, not enterococcus -Patient reports that she is not continuing to experience pain on urination or urinary frequency. 10/27 - Last dose of Keflex given this morning (2) HTN (hypertension): 10/22 -continue home dose of furosemide. BP was elevated in the ER, but has now normalized. -Ensure follow-up with PCP. (3) Idiopathic peripheral neuropathy: 10/22 -continue home dose of gabapentin 300 mg 3 times daily. 10/31 -The patient continues to report symptoms of peripheral neuropathy, but also tells us that it is "okay." (4) History of pulmonary embolism: Continue Lovenox. (5) RLS (restless legs syndrome): 10/22 -continue home dose of lorazepam 0.5 mg at bedtime as needed. 10/31 -Standing dose of lorazepam at bedtime was not helpful. Tonight, we will offer the patient a trial of temazepam 15 mg for sleep. (6) Gout: Continue home dose of allopurinol. (7) Bipolar disorder: 10/22 -likely also an element of delirium, with recent fall, inpatient rehab and [facility], and acute on chronic kidney dysfunction. Per review of records, this presentation is consistent with past presentations under similar circumstances. -Continue inpatient treatment on an involuntary commitment, and assess the need for extension of involuntary commitment. -Continue medically necessary private room due to recent agitation/confusion. -Get collateral information from daughter Juana who was present in the ER. -Coordinate care with outpatient psychiatrist, Dr. Navarrete. -Continue quetiapine 100 mg twice daily at 0900 and 1300, and 200 mg at bedtime. It appears likely that her recent symptoms are due to the change in her routine (admitted to [facility] Status post fall) and medical decompensation with UTI and kidney dysfunction. -Monitoring on an atypical antipsychotic: FLP from 06/2019 was within normal limits. Hemoglobin A1c was 5.7%, with estimated average glucose of 117. Fasting glucose 95. 10/23 -Reviewed case with outpatient psychiatrist Dr. Navarrete. He agreed with continuing her current medications, and providing consistency and structure on the unit, which typically help. -Continue MNPR as required O2 overnight for desaturation. -Patient still lacks capacity to agree to voluntary treatment, and is not yet stable for discharge, so will schedule a 303 hearing for tomorrow. 10/24 -Our ongoing concern is the fact that the patient has a history of decompensating fairly rapidly when sleep deprived, and she slept only a couple hours last night because she was very anxious about her upcoming hearing. We are also concerned because the patient continues to show certain features consistent with hypomania. For that reason, we are recommending further stabilization on an inpatient basis before transitioning the patient to the community for continued treatment on an outpatient basis. -The patient is continuing to tolerate quetiapine at the current dose of 100 mg twice a day and 200 mg at bedtime. She reports that she is not noticing any side effects and feels "much better." 10/25 -on a 303 involuntary commitment. Continue home medications. -Family meeting held with daughter. The patient will stay with her temporarily at discharge. 10/26 -sleep erratic, only 4 hours last night. Will order quetiapine 100 mg at bedtime as needed for insomnia. -Globally cognitively impaired; 10/13 on the MoCA, missing 3 for visuospatial/executive, 4 for attention, 2 for language, 2 for abstraction, 4 for delayed recall, and 3 for orientation. We will continue to monitor. 10/27 - HS dose of quetiapine increased to 300mg - total of 100mg/100mg/300mg daily - Pt demonstrating increased symptoms of lori, and sleep remains poor - therefore increasing risk of mood instability and overall concern for safety if discharged - Treatment team discussed recommendation that patient not drive - daughters requesting to restrict driving access on their own rather than [facility] - will continue to discuss with family as condition improves. Ideally, patient will have repeat MoCA prior to discharge - Continue MNPR due to concern for mood instability with interrupted sleep and worsening symptoms of lori 10/28 - Pt demonstrating worsening of manic symptoms and only slept 15 minutes last evening despite multiple prn sleep aids being provided - She was ordered 1 dose of lorazepam 1mg which can be utilized this evening to encourage sleep - fall-risk remains a concern and will be continuously evaluated as benzodiazepines are not an ideal long-term medication for this pa rticular patient - Will order low-dose valproic acid 250mg to begin this evening, hopeful the medication may continue to target manic symptoms without as significant interactions with Parkinson's disease process - Continue current dosage of quetiapine at this time - Continue MNPR given poor sleep and mood instability 10/29 - Mildly improved sleep last evening - will titrate valproic acid to 500mg this evening - Will initially continue prn order of 0.5mg of lorazepam for this evening - as not ideal to rely on for long-term treatment - Fluid restriction in the late evening to be initiated - as nursing reports patient is often awoken by need to use the restroom and then is unable to return to sleep - Continue MNPR 10/30 - Continue current medication, and order lorazepam 0.5mg HS scheduled, with additional prn if needed for sleep. - Encourage patient to be awake during the day and asleep at night. 10/31 -As above, the patient psychiatric condition and, more specifically, her sym ptoms of lori are not improving, and there is some indication that, perhaps, she is having an idiosyncratic reaction to quetiapine. The context, of course, is that the patient is taking levodopa and has Parkinson's disease. Accordingly, we will hold quetiapine at this time in favor of risperidone which may be better tolerated at 1 mg in the morning and 2 mg at bedtime, with a plan to titrate as indicated. -In addition to working to allow the patient to have improved, sustained sleep, we are in the process of titrating Depakote. Hopefully, her manic symptoms will be favorably affected as we continue to titrate Depakote to a fully therapeutic level. A valproic acid level will be measured on 11/02/201911/01 --improved today, Restoril effective, will add standing with additional prn (8) Fall: Fall 5 days ago at home, sent to [facility] for physical rehab. Get PT consult once she is able to participate, and assess needs for ongoing PT. -One-to-one in the interim due to high fall risk and need for staff support when ambulating. 10/23 - Walking with walker, will order PT consult for treatment here and recommendations for return to [facility] or outpatient PT. Can d/c 1:1. 10/24 - Patient was seen by physical therapy. The current plan is for the patient to return to [facility] upon discharge. 10/28 - Attempts are being made to balance fall-risk with increased sleep concerns - Pt only slept 15 minutes last evening despite multiple prn sleep aids - Will order one time dose of lorazepam to be given this evening to encourage sleep; as there is evidence patient's worsening lori is correlated with recent poor sleep - It remains recommendation that long-term benzodiazepines be avoided given contraindication in the geriatric population with concern for fall-risk, respiratory depression, and increased confusion 10/30 - Request PT eval/treatment while here. 10/31 -We are currently observing the patient closely. The plan is to move her into the close observation room near the nursing station. However, because of the patient's difficulty sleeping and the fact that that room tends to be fairly bright, we are considering moving the patient, temporarily, to the quiet room. This will allow us full observation of the patient and a more restful setting. (9) Parkinson's disease: 10/22 -continue home dose of Sinemet and monitor abnormal movements. Consider neurology consult if these do not improve. 10/24 -We discussed with the patient the fact that antiparkinsonian medications may possibly contribute to an exacerbation of psychotic symptoms as well as perceptual disturbances in persons who have Parkinson's disease,, and we have also advised the patient that antipsychotic medication such as quetiapine may adversely influence her movement disorder. The patient tells us that she has not noticed any worsening in her ability to ambulate, and also reports that she has not experienced any perceptual disturbances. Her mental status examination reveals that her current thought content appears to be devoid of any delusional material. 10/28 - Pt continues to demonstrate manic behaviors, worsening of symptoms correlated to poor sleep for the past several nights - As we are being cautious about utilization of atypical antipsychotic medications in the setting of Parkinson's disease - will plan to initiate low- dose valproic acid to begin this evening - Pt ordered 250mg of valproic acid to begin this evening, with titration as indicated - Continuing quetiapine at this time 10/31 -Hopefully, titration of valproic acid as a mood stabilizer will address the patient's symptoms of lori without exacerbating her Parkinsonism, and will allow us to limit the use of antipsychotic medications. Inventory Assets Strengths: Supportive family, able to live alone when stable Needs: Treatment of comorbid medical conditions, mood stabilization. Risk Factors Assessment Male: No : Yes Do You Have Access To A Gun?: No Health Problems: Yes Mental Health Diagnoses: Yes Substance Use Disorders: No Previous Psychiatric Hospitalization: Yes Smoker: No Protective Factors Assessment Rastafari Beliefs: Yes : No Responsible for Young Children: No Employed: No Stable Relationships: Yes Supportive Family: Yes Good Rapport with Provider: Yes Interval History Identifying Information PABLO COOPER is a 74-year-old F who currently lives in [place], has a history of bipolar disorder, Parkinson's disease, chronic kidney disease, hypertension, peripheral neuropathy, and restless leg syndrome and was admitted on 10/21/19 16:52 on a 302 involuntary commitment for lroi. 303 granted on 10/24/2019. Chief Complaint "I slept a bit, don't have as many problems today". Review of Systems Sleep Information Total Hours of Sleep: 4 Sleep Comments: Patient awake at 0030, 0200, 0430 to use the restroom. When awake patient refused need for any more sleep saying "check my chart, I went to bed early last night". Agreeable to medication at 0052 then refused any further meds. Meal Information Percent Meal Consumed - Breakfast: 90 Percent Meal Consumed - Lunch: 100 Percent Meal Consumed - Dinner: 75 Nutrition Comment: pt asleep Subjective Subjective Patient was seen & assessed and interval progress reviewed with nursing and social work. multiple med changes yesterday per Dr. Mckinnon. Appears bright and more organized this am per staff. Slept 4 hours (which had been more like 0- 30min spurts). She is ambulating with walker. No hallucinations yet today. examined bilateral pedal edema, non tender, no redness. Patient reports decreased today as kept elevated so likely dependent, will reassess later in day. Physical Exam Psychiatric Orientation: alert, oriented to person, oriented to place and oriented to time Apperance: appropriately dressed and appropriately groomed Eye Contact: good eye contact Motor Behavior: + tremor Speech: normal rate/rhythm/volume of speech Affect: euthymic affect Mood: + anxious mood Thought Process: + concrete thought process Thought Content: reality based without delusions Suicidal Thoughts: denies suicidal thoughts Homicidal Thoughts: denies homicidal thoughts Hallucinations: no auditory hallucinations and no visual hallucinations Insight: + limited insight Judgement: + limited judgement Vital Signs (Past 24 Hours) Last Vital Signs Temp 36.7 C 11/01/19 06:39 Pulse 106 H 11/01/19 06:39 Resp 20 11/01/19 06:39 BP 127/74 11/01/19 06:39 Pulse Ox 93 10/30/19 06:44 Results & Data Laboratory Results Laboratory Results - last 24 hr 11/01/19 07:20 Creatinine 1.19 Est Cr Clr Drug Dosing 49.7 Est GFR ( Amer) 52.1 Est GFR (Non-Af Amer) 44.9 Current Inpatient Medications Current Inpatient Medications: Current Inpatient Medications Acetaminophen (Tylenol) 650 mg PO Q4H PRN PRN Reason: Headache or Minor Fever Stop: 11/20/19 16:51 Al Hydrox/Mg Hydrox/Simethicone (Maalox) 30 ml PO Q4H PRN PRN Reason: GI Upset Stop: 11/20/19 16:51 Allopurinol (Zyloprim) 100 mg PO QAM [facility] Stop: 11/21/19 08:59 Last Admin: 11/01/19 07:53 Dose: 100 mg Documented by: Atorvastatin Calcium (Lipitor) 10 mg PO QAM [facility] Stop: 11/21/19 08:59 Last Admin: 11/01/19 07:53 Dose: 10 mg Documented by: Carbidopa/Levodopa (Sinemet 25/100 Mg) 1 tab PO TID [facility] Stop: 11/20/19 10:29 Last Admin: 11/01/19 07:53 Dose: 1 tab Documented by: Divalproex Sodium (Depakote Extended Release) 1,000 mg PO [facility] Stop: 11/30/19 21:59 Last Admin: 10/31/19 20:25 Dose: 1,000 mg Documented by: Docusate Sodium (Colace) 100 mg PO BID [facility] Stop: 11/20/19 20:59 Last Admin: 11/01/19 07:53 Dose: 100 mg Documented by: Furosemide (Lasix) 20 mg PO [facility] Stop: 11/21/19 08:59 Last Admin: 11/01/19 07:53 Dose: 20 mg Documented by: Gabapentin (Neurontin) 300 mg PO TID [facility] Stop: 11/20/19 20:59 Last Admin: 11/01/19 07:53 Dose: 300 mg Documented by: Hydroxyzine HCl (Vistaril) 50 mg PO HSZ PRN PRN Reason: Insomnia Stop: 11/20/19 16:51 Last Admin: 10/27/19 23:28 Dose: 50 mg Documented by: Hydroxyzine HCl (Vistaril) 25 mg PO Q4H PRN PRN Reason: Anxiety Stop: 11/20/19 16:51 Lorazepam (Ativan) 0.5 mg PO HS [facility] Stop: 11/29/19 21:59 Last Admin: 10/31/19 20:31 Dose: 0.5 mg Documented by: Lorazepam (Ativan) 0.5 mg PO HS PRN PRN Reason: Insomnia Stop: 11/29/19 10:43 Last Admin: 10/31/19 01:15 Dose: 0.5 mg Documented by: Magnesium Hydroxide (Milk Of Magnesia) 30 ml PO DAILY PRN PRN Reason: Constipation Stop: 11/20/19 16:51 Olanzapine (Zyprexa Zydis Od) 5 mg PO Q6H PRN PRN Reason: Agitation Stop: 11/20/19 16:59 Last Admin: 10/31/19 07:41 Dose: 5 mg Documented by: Potassium Chloride (Klor-Con M10) 10 meq PO QAM [facility] Stop: 11/21/19 08:59 Last Admin: 11/01/19 07:54 Dose: 10 meq Documented by: Risperidone (Risperdal) 1 mg PO QAM [facility] Stop: 11/30/19 10:59 Last Admin: 11/01/19 07:54 Dose: 1 mg Documented by: Risperidone (Risperdal) 2 mg PO HS [facility] Stop: 11/30/19 21:59 Last Admin: 10/31/19 20:25 Dose: 2 mg Documented by: Sodium Chloride (Edgar Nasal) 1 - 2 sprays NA PRN PRN PRN Reason: Nasal Dryness/Congestion Stop: 11/20/19 16:51 Temazepam (Restoril) 15 mg PO HSZ PRN PRN Reason: Insomnia Stop: 11/30/19 10:39 Last Admin: 10/31/19 20:32 Dose: 15 mg Documented by: Mental Health & Subst Abuse Tx Psychiatrist Name of Psychiatrist: Dr. Navarrete Psychiatrist's Date of Appointment with Psychiatrist: 11/04/19 Time of Appointment with Psychiatrist: 10am Psychiatric Appointment Comment: [address] [facility] [place] [address] Therapist Name of Therapist: None Water Conservationist Name of Water Conservationist: None Post Discharge Appointments Primary Care Physician Name Of Family Doctor: Dr. Whitehead (Ragini) Primary Care Date of Appointment with PCP: 11/06/19 Time of Appointment with PCP: 3:25 Provider Appointment Comment: [address] [facility] [place] [address] Neurologist Name of Neurologist: Ragini Hernandez Neurologist's Neurology Appointment Comment: As needed Contact Information Discharge Discharge [address] [place] [address] (daughter's address) (1) Bipolar disorder Active/Remission status: currently active Current bipolar episode type: manic Current episode severity: severe Psychotic features: with psychotic features Qualified Code(s): F31.2 - Bipolar disorder, current episode manic severe with psychotic features (2) Fall Encounter type: initial encounter Qualified Code(s): W19.XXXA - Unspecified fall, initial encounter
[2019-11-01] MEDS ORDERED: TEMAZEPAM 15 MG CAPSULE PO PRN (11:06)
[2019-11-01] MEDS: risperiDONE 2 MG TABLET PO SCH (21:01)
[2019-11-01] MEDS: TEMAZEPAM 15 MG CAPSULE PO SCH (21:02)
[2019-11-01] MEDS: DIVALPROEX EXTENDED RELEASE 500 MG TAB PO SCH (21:02)
[2019-11-01] MEDS: LORazepam 0.5 MG TAB PO SCH (21:03)
[2019-11-02] MEDS: POTASSIUM CHLORIDE 10 MEQ TABCR PO SCH (07:56)
[2019-11-02] MEDS: GABAPENTIN 300 MG CAP PO SCH ×3 (07:56→20:09)
[2019-11-02] MEDS: FUROSEMIDE 20 MG TAB PO SCH (07:56)
[2019-11-02] MEDS: DOCUSATE SODIUM 100 MG CAP PO SCH ×2 (07:57→20:09)
[2019-11-02] MEDS: risperiDONE 1 MG TABLET PO SCH (07:57)
[2019-11-02] MEDS: CARBIDOPA/LEVODOPA 25/100MG TAB PO SCH ×3 (07:57→20:09)
[2019-11-02] MEDS: allopurinoL 100 MG TAB PO SCH (07:57)
[2019-11-02] MEDS: ATORVASTATIN 10 MG TAB PO SCH (07:57)
--- NOTE | 2019-11-02 10:34 | Psychiatric Progress Note ---
Date of Service November 02, 2019 Impression / Recommendations Impression 74-year-old female with a history of multiple medical problems and bipolar disorder type I who presented with confusion, hallucinations, and agitation worsening over several days prior to presentation while she was at [facility], where she was receiving rehab after a fall at home with inability to get up for many hours. She was diagnosed with a UTI in the ER as well, and completed a course of Keflex. She was last on our unit 4 years ago, and was on similar medications for her bipolar disorder at that time. Her home medications were initially continued, while treating UTI and continuing PT, but manic and psychotic symptoms worsened, so have increased quetiapine and added low dose Depakote for mood stabilization. Care has been coordinated w/ her outpatient psychiatrist, and daughter has been involved in treatment and visiting regularly. She is on a 303 as of 10/24/19. Sleep is suboptimal, and will schedule lorazepam at HS as has been beneficial. Inpatient treatment remains medically necessary due to the severity of her symptoms and inability to provide for her own basic needs without the care and assistance of others. The patient's diagnosis of Parkinson's disease complicates treatment interventions in this case. The presence of visual hallucinations might best be explained by psychosis related to Parkinson's disease and treatment with levodopa. At the same time, the patient's ability to ambulate is somewhat more labored at this point and we are attending her closely in order to prevent falls. We are also noticing that increases in the dose of quetiapine seems to possibly be having an idiosyncratic response to quetiapine, within the context of her Parkinson's disease. We had started the patient on Depakote, and titrated 10/31 to 1000 mg at bedtime and Risperdal replaced Seroquel. ---sleep remains poor, mood tending toward expansive. (1) Acute UTI: 10/22 -continue Keflex as started in the ER, and follow-up on sensitivities when completed. 10/24 -The patient's urine culture grew E. coli, and alpha streptococcus, not enterococcus -Patient reports that she is not continuing to experience pain on urination or urinary frequency. 10/27 - Last dose of Keflex given this morning (2) HTN (hypertension): 10/22 -continue home dose of furosemide. BP was elevated in the ER, but has now normalized. -Ensure follow-up with PCP. (3) Idiopathic peripheral neuropathy: 10/22 -continue home dose of gabapentin 300 mg 3 times daily. 10/31 -The patient continues to report symptoms of peripheral neuropathy, but also tells us that it is "okay." (4) History of pulmonary embolism: 11/02--hospitalist consult to clarify anticoagulation needs and examine leg (5) RLS (restless legs syndrome): 10/22 -continue home dose of lorazepam 0.5 mg at bedtime as needed. 10/31 -Standing dose of lorazepam at bedtime was not helpful. Tonight, we will offer the patient a trial of temazepam 15 mg for sleep. 11/02 --encourage up to 30 mg temazepam for sleep. (6) Gout: Continue home dose of allopurinol. (7) Bipolar disorder: 10/22 -likely also an element of delirium, with recent fall, inpatient rehab and [facility], and acute on chronic kidney dysfunction. Per review of records, this presentation is consistent with past presentations under similar circumstances. -Continue inpatient treatment on an involuntary commitment, and assess the need for extension of involuntary commitment. -Continue medically necessary private room due to recent agitation/confusion. -Get collateral information from daughter Juana who was present in the ER. -Coordinate care with outpatient psychiatrist, Dr. Navarrete. -Continue quetiapine 100 mg twice daily at 0900 and 1300, and 200 mg at bedtime. It appears likely that her recent symptoms are due to the change in her routine (admitted to [facility] post fall) and medical decompensation with UTI and kidney dysfunction. -Monitoring on an atypical antipsychotic: FLP from 06/2019 was within normal limits. Hemoglobin A1c was 5.7%, with estimated average glucose of 117. Fasting glucose 95. 10/23 -Reviewed case with outpatient psychiatrist Dr. Navarrete. He agreed with continuing her current medications, and providing consistency and structure on the unit, which typically help. -Continue MNPR as required O2 overnight for desaturation. -Patient still lacks capacity to agree to voluntary treatment, and is not yet stable for discharge, so will schedule a 303 hearing for tomorrow. 10/24 -Our ongoing concern is the fact that the patient has a history of decompensating fairly rapidly when sleep deprived, and she slept only a couple hours last night because she was very anxious about her upcoming hearing. We are also concerned because the patient continues to show certain features consistent with hypomania. For that reason, we are recommending further stabilization on an inpatient basis before transitioning the patient to the community for continued treatment on an outpatient basis. -The patient is continuing to tolerate quetiapine at the current dose of 100 mg twice a day and 200 mg at bedtime. She reports that she is not noticing any side effects and feels "much better." 10/25 -on a 303 involuntary commitment. Continue home medications. -Family meeting held with daughter. The patient will stay with her temporarily at discharge. 10/26 -sleep erratic, only 4 hours last night. Will order quetiapine 100 mg at bedtime as needed for insomnia. -Globally cognitively impaired; 10/13 on the MoCA, missing 3 for visuospatial /executive, 4 for attention, 2 for language, 2 for abstraction, 4 for delayed recall, and 3 for orientation. We will continue to monitor. 10/27 - HS dose of quetiapine increased to 300mg - total of 100mg/100mg/300mg daily - Pt demonstrating increased symptoms of lori, and sleep remains poor - therefore increasing risk of mood instability and overall concern for safety if discharged - Treatment team discussed recommendation that patient not drive - daughters requesting to restrict driving access on their own rather than have condition reported to [employer] - will continue to discuss with family as condition improves. Ideally, patient will have repeat MoCA prior to discharge - Continue MNPR due to concern for mood instability with interrupted sleep and worsening symptoms of lori 10/28 - Pt demonstrating worsening of manic symptoms and only slept 15 minutes last evening despite multiple prn sleep aids being provided - She was ordered 1 dose of lorazepam 1mg which can be utilized this evening to encourage sleep - fall-risk remains a concern and will be continuously evaluated as benzodiazepines are not an ideal long-term medication for this particular patient - Will order low-dose valproic acid 250mg to begin this evening, hopeful the medication may continue to target manic symptoms without as significant interactions with Parkinson's disease process - Continue current dosage of quetiapine at this time - Continue MNPR given poor sleep and mood instability 10/29 - Mildly improved sleep last evening - will titrate valproic acid to 500mg this evening - Will initially continue prn order of 0.5mg of lorazepam for this evening - as not ideal to rely on for long-term treatment - Fluid restriction in the late evening to be initiated - as nursing reports patient is often awoken by need to use the restroom and then is unable to return to sleep - Continue MNPR 10/30 - Continue current medication, and order lorazepam 0.5mg HS scheduled, with additional prn if needed for sleep. - Encourage patient to be awake during the day and asleep at night. 10/31 -As above, the patient psychiatric condition and, more specifically, her symptoms of lori are not improving, and there is some indication that, perhaps, she is having an idiosyncratic reaction to quetiapine. The context, of course, is that the patient is taking levodopa and has Parkinson's disease. Accordingly, we will hold quetiapine at this time in favor of risperidone which may be better tolerated at 1 mg in the morning and 2 mg at bedtime, with a plan to titrate as indicated. -In addition to working to allow the patient to have improved, sustained sleep, we are in the process of titrating Depakote. Hopefully, her manic symptoms will be favorably affected as we continue to titrate Depakote to a ful ly therapeutic level. A valproic acid level will be measured on 11/02/201911/01 --improved today, Restoril effective, will add standing with additional prn 11/02--depakote level 61, add additional 250 mg Depakote. (8) Fall: Fall 5 days ago at home, sent to [facility] for physical rehab. Get PT consult once she is able to participate, and assess needs for ongoing PT. -One-to-one in the interim due to high fall risk and need for staff support when ambulating. 10/23 - Walking with walker, will order PT consult for treatment here and recommendations for return to [facility] or outpatient PT. Can d/c 1:1. 10/24 - Patient was seen by physical therapy. The current plan is for the patient to return to [facility] upon discharge. 10/28 - Attempts are being made to balance fall-risk with increased sleep concerns - Pt only slept 15 minutes last evening despite multiple prn sleep aids - Will order one time dose of lorazepam to be given this evening to encourage sleep; as there is evidence patient's worsening lori is correlated with recent poor sleep - It remains recommendation that long-term benzodiazepines be avoided given contraindication in the geriatric population with concern for fall-risk, respiratory depression, and increased confusion 10/30 - Request PT eval/treatment while here. 10/31 -We are currently observing the patient closely. The plan is to move her into the close observation room near the nursing station. However, because of the patient's difficulty sleeping and the fact that that room tends to be fairly bright, we are considering moving the patient, temporarily, to the quiet room. This will allow us full observation of the patient and a more restful setting. (9) Parkinson's disease: 10/22 -continue home dose of Sinemet and monitor abnormal movements. Consider neurology consult if these do not improve. 10/24 -We discussed with the patient the fact that antiparkinsonian medications may possibly contribute to an exacerbation of psychotic symptoms as well as perceptual disturbances in persons who have Parkinson's disease,, and we have also advised the patient that antipsychotic medication such as quetiapine may adversely influence her movement disorder. The patient tells us that she has not noticed any worsening in her ability to ambulate, and also reports that she has not experienced any perceptual disturbances. Her mental status examination reveals that her current thought content appears to be devoid of any delusional material. 10/28 - Pt continues to demonstrate manic behaviors, worsening of symptoms correlated to poor sleep for the past several nights - As we are being cautious about utilization of atypical antipsychotic medi cations in the setting of Parkinson's disease - will plan to initiate low-dose valproic acid to begin this evening - Pt ordered 250mg of valproic acid to begin this evening, with titration as indicated - Continuing quetiapine at this time 10/31 -Hopefully, titration of valproic acid as a mood stabilizer will address the patient's symptoms of lori without exacerbating her Parkinsonism, and will allow us to limit the use of antipsychotic medications. Inventory Assets Strengths: Supportive family, able to live alone when stable Needs: Treatment of comorbid medical conditions, mood stabilization. Risk Factors Assessment Male: No : Yes Do You Have Access To A Gun?: No Health Problems: Yes Mental Health Diagnoses: Yes Substance Use Disorders: No Previous Psychiatric Hospitalization: Yes Smoker: No Protective Factors Assessment Quaker Beliefs: Yes : No Responsible for Young Children: No Employed: No Stable Relationships: Yes Supportive Family: Yes Good Rapport with Provider: Yes Interval History Identifying Information PABLO COOPER is a 74-year-old F who currently lives in [place], has a history of bipolar disorder, Parkinson's disease, chronic kidney disease, hypertension, peripheral neuropathy, and restless leg syndrome and was admitted on 10/21/19 16:52 on a 302 involuntary commitment for lori. 303 granted on 10/24/2019. Chief Complaint talking to self alot Review of Systems Sleep Information Total Hours of Sleep: 1 Sleep Comments: Patient awake at 0030, 0200, 0430 to use the restroom. When awake patient refused need for any more sleep saying "check my chart, I went to bed early last night". Agreeable to medication at 0052 then refused any further meds. Meal Information Percent Meal Consumed - Breakfast: 90 Percent Meal Consumed - Lunch: 50 Percent Meal Consumed - Dinner: 10 Nutrition Comment: pt asleep Subjective Subjective Patient was seen & assessed and interval progress reviewed with nursing. patient c/o lower leg pain this am, hx of DVT/PE. Low dose lovenox stopped 10/24/18. On exam right foot/ankle minimum dependent edema, symmetric. Staff reported positive shaina's sign, patient only tender for me when i press on her bunion. Case discussed with [facility] hospitalist to clarify need for anticoagulation. Sleep poorly despite Restoril but didn't take the 2nd prn dose. Physical Exam Psychiatric Orientation: alert and oriented x 3 Apperance: appropriately groomed Eye Contact: + fair eye contact Motor Behavior: + tremor fast at times but not pressured. Affect: euthymic affect a bit expansive, referring to staff as her honey bunny Thought Process: + tangential thought process Thought Content: + preoccupation Suicidal Thoughts: denies suicidal thoughts Homicidal Thoughts: denies homicidal thoughts Hallucinations: no auditory hallucinations and no visual hallucinations Cognition: attention grossly intact Estimated Intelligence: consistent with education level Insight: + limited insight Judgement: + limited judgement Vital Signs (Past 24 Hours) Last Vital Signs Temp 36.6 C 11/02/19 06:44 Pulse 87 11/02/19 06:44 Resp 20 11/02/19 06:44 BP 138/82 11/02/19 06:44 Pulse Ox 93 10/30/19 06:44 Results & Data Laboratory Results Laboratory Results - last 24 hr 11/02/19 08:18 Valproic Acid 61 Current Inpatient Medications Current Inpatient Medications: Current Inpatient Medications Acetaminophen (Tylenol) 650 mg PO Q4H PRN PRN Reason: Headache or Minor Fever Stop: 11/20/19 16:51 Al Hydrox/Mg Hydrox/Simethicone (Maalox) 30 ml PO Q4H PRN PRN Reason: GI Upset Stop: 11/20/19 16:51 [facility]oprim) [facility] Stop: 11/21/19 08:59 Last Admin: 11/02/19 07:57 Dose: 100 mg Documented by: Atorvastatin Calcium (Lipitor) 10 [facility] Stop: 11/21/19 08:59 Last Admin: 11/02/19 07:57 Dose: 10 mg Documented by: Carbidopa/Levodopa (Sinemet 25/100 Mg) 1 tab PO TID [facility] Stop: 11/20/19 10:29 Last Admin: 11/02/19 07:57 Dose: 1 tab Documented by: Divalproex Sodium (Depakote Extended Release) 1,[address] [facility] Stop: 11/30/19 21:59 Last Admin: 11/01/19 21:02 Dose: 1,000 mg Documented by: Docusate Sodium (Colace) 100 mg PO BID [facility] Stop: 11/20/19 20:59 Last Admin: 11/02/19 07:57 Dose: 100 mg Documented by: Furosemide (Lasix) 20 mg PO [facility] Stop: 11/21/19 08:59 Last Admin: 11/02/19 07:56 Dose: 20 mg Documented by: Gabapentin (Neurontin) 300 mg PO TID [facility] Stop: 11/20/19 20:59 Last Admin: 11/02/19 07:56 Dose: 300 mg Documented by: Hydroxyzine HCl (Vistaril) 50 mg PO HSZ PRN PRN Reason: Insomnia Stop: 11/20/19 16:51 Last Admin: 10/27/19 23:28 Dose: 50 mg Documented by: Hydroxyzine HCl (Vistaril) 25 mg PO Q4H PRN PRN Reason: Anxiety Stop: 11/20/19 16:51 Lorazepam (Ativan) 0.5 mg PO HS [facility] Stop: 11/29/19 21:59 Last Admin: 11/01/19 21:03 Dose: 0.5 mg Documented by: Lorazepam (Ativan) 0.5 mg PO HS PRN PRN Reason: Insomnia Stop: 11/29/19 10:43 Last Admin: 10/31/19 01:15 Dose: 0.5 mg Documented by: Magnesium Hydroxide (Milk Of Magnesia) 30 ml PO DAILY PRN PRN Reason: Constipation Stop: 11/20/19 16:51 Olanzapine (Zyprexa Zydis Od) 5 mg PO Q6H PRN PRN Reason: Agitation Stop: 11/20/19 16:59 Last Admin: 10/31/19 07:41 Dose: 5 mg Documented by: Potassium Chloride (Klor-Con M10) 10 meq PO QAM G[facility]O Stop: 11/21/19 08:59 Last Admin: 11/02/19 07:56 Dose: 10 meq Documented by: Risperidone (Risperdal) 1 mg PO QAM GALLO Stop: 11/30/19 10:59 Last Admin: 11/02/19 07:57 Dose: 1 mg Documented by: Risperidone (Risperdal) 2 mg PO HS GALLO Stop: 11/30/19 21:59 Last Admin: 11/01/19 21:01 Dose: 2 mg Documented by: Sodium Chloride (Cayey Nasal) 1 - 2 sprays NA PRN PRN PRN Reason: Nasal Dryness/Congestion Stop: 11/20/19 16:51 Temazepam (Restoril) 15 mg PO HSZ GALLO Stop: 12/01/19 21:59 Last Admin: 11/01/19 21:02 Dose: 15 mg Documented by: Temazepam (Restoril) 15 mg PO HSZ PRN PRN Reason: Insomnia Stop: 12/01/19 11:05 Mental Health & Subst Abuse Tx Psychiatrist Name of Psychiatrist: Dr. Navarrete Psychiatrist's Date of Appointment with Psychiatrist: 11/04/19 Time of Appointment with Psychiatrist: 10am Psychiatric Appointment Comment: [address] [facility] [place] [address] Therapist Name of Therapist: None Advertising Sales Representative Name of Advertising Sales Representative: None Post Discharge Appointments Primary Care Physician Name Of Family Doctor: Dr. Whitehead ([facility]) Primary Care Date of Appointment with PCP: 11/06/19 Time of Appointment with PCP: 3:25 Provider Appointment Comment: [address] [facility] [place] [address] Neurologist Name of Neurologist: Ragini Hernandez Neurologist's Neurology Appointment Comment: As needed Contact Information Discharge Discharge Address: [address], [place] [address] (daughter's address) (1) Bipolar disorder Active/Remission status: currently active Current bipolar episode type: manic Current episode severity: severe Psychotic features: with psychotic features Qualified Code(s): F31.2 - Bipolar disorder, current episode manic severe with psychotic features (2) Fall Encounter type: initial encounter Qualified Code(s): W19.XXXA - Unspecified fall, initial encounter
--- NOTE | 2019-11-02 11:13 | Hospitalist Consultation ---
Date of Consultation November 02, 2019 Assessment & Plan (1) Leg edema: (2) Chronic diastolic CHF (congestive heart failure): (3) History of DVT (deep vein thrombosis): 74-year-old female who was admitted to the inpatient psychiatric unit for management of manic episode and bipolar disorder. Hospitalist was consulted for evaluation of lower extremity edema. After review of outpatient records, patient has history of DVT and completed 6 months of Coumadin therapy in 2017. Patient presented to ED on 10/16 after a fall. Work-up was negative for acute fractures and patient was discharged to [facility] for rehab. While there, patient was placed on prophylactic dose Lovenox for DVT prophylaxis. BLLE venous doppler was obtained today and negative for DVT. Suspect that patient's lower extremity edema is secondary to venous stasis. Also seems to be a chronic issue per review of outpatient records. No signs of decompensated heart failure. Recommend continuing patient's home dose of furosemide, compression stockings, elevate legs, low-salt diet. Will sign off. Please call with any further concerns. Supervising Physician Co-Signing Physician Notes Attending Addendum:date of service 11/02/19 delayed entry care coordinated , records reviewed with FRANK Nayak 11/02/19 please refer to her notes for full details, I agree with her notes patient seen and examined 11/03/19 as patient was already sleeping on 11/02/19 and staffing associate requested that she continues to rest as she has been having poor sleep, records reviewed by myself as well on exam, patient seen resting in chair, in good spirits, pleasant states she feels fine overall denies dyspnea, chest pain, leg pain no other symptoms VS noted and reviewed oriented x 3, not in distress, speaks in sentences with no effort nor accessory muscle use normal rate, regular rhythm, no murmurs clear breath sounds bilaterally non distended, soft, nontender right lower ext: no leg edema left lower ext: mild lower leg edema, no tenderness no neuro deficits Crea 1. Doppler US LE: no DVT ASSESSMENT AND PLAN CHRONIC LEG EDEMA HISTORY OF CHRONIC DIASTOLIC CHF no other overt signs of acute CHF exacerbation no DVT on Doppler US recommend Michael Hose, elevate legs, continue usual Lasix 20mg po daily if without improvement, recommend to increase Lasix gradually and repeat echo other diagnoses and plan of care as per FRANK Barrios MD History of Present Illness Reason for Consultation: Leg edema Requesting Physician: Dr. Weiner Attending Physician: Dr. Barrios History of Present Illness 74-year-old female who is currently admitted to the inpatient psychiatric unit for management of manic bipolar disorder. Patient was seen in the ED on 10/16 after having a fall at home and lying on the floor for prolonged period of time. Work-up was negative for acute fracture and patient was discharged to [facility] for rehab. She was also diagnosed with an E. coli UTI and has since completed a course of Keflex. [facility] patient had increased agitation, hallucinations, and poor sleep schedule. Patient then presented back to the ED on 10/22 and was admitted to the inpatient psychiatric unit. Hospitalist was consulted for evaluation of lower extremity edema. History is difficult to obtain from the patient regarding this. Seems like she has been having increased pain and swelling over the past couple of days. Patient typically takes furosemide 20 mg daily for chronic diastolic CHF and venous stasis. Patient denies chest pain or shortness of breath. No abdominal pain, nausea, vomiting, diarrhea. Denies fevers and chills. No urinary symptoms. Allergies Allergy/AdvReac Type Severity Reaction Status Date / Time indomethacin Allergy Intermediate RASH Verified 10/21/19 13:44 erythromycin base Allergy Unknown UNKNOWN Verified 10/21/19 13:44 levofloxacin AdvReac Intermediate Causes Verified 10/21/19 13:44 psychosis. Home Medications Home Medications Medication Instructions Recorded Confirmed Type allopurinol 100 mg PO QAM 09/08/18 10/21/19 History atorvastatin 10 mg PO QAM 09/08/18 10/21/19 History carbidopa-levodopa 1 tab PO TID 09/08/18 10/21/19 History lorazepam 0.5 mg PO HS PRN 09/08/18 10/21/19 History quetiapine 100 mg PO BID 09/08/18 10/21/19 History quetiapine 200 mg PO HS 09/08/18 10/21/19 History furosemide 20 mg PO QAM 10/16/19 10/21/19 History gabapentin 300 mg PO TID 10/16/19 10/21/19 History potassium chloride 10 meq PO QAM 10/16/19 10/21/19 History docusate sodium 100 mg PO BID 01/07/20 01/07/20 History gentamicin 0.3 % OPHTHALMIC (EYE) TID 10/21/19 10/21/19 History Patient History Medical History Bipolar disorder Chronic diastolic CHF (congestive heart failure) CKD (chronic kidney disease), stage III Gout (Chronic) History of DVT (deep vein thrombosis) History of pulmonary embolism (Resolved) HTN (hypertension) (Chronic) Hyperlipidemia Idiopathic peripheral neuropathy (Chronic) Parkinsons disease RLS (restless legs syndrome) (Chronic) Surgical History History of hernia repair (Chronic) History of partial hysterectomy (Chronic) History of uterine suspension procedure (Chronic) Status post repair of paraesophageal diaphragmatic hernia (Chronic) Family History Father Stomach cancer Social History (Updated 11/02/19 @ 11:55 by FRANK Subramanian) Preferred Language: Malay Beliefs That Will Affect Care: None Feels Safe at Home: Yes Smoking Status: Never smoker Hx Alcohol Use: No Review of Systems Review of Systems: ROS per HPI, all other systems reviewed and negative Physical Exam Constitutional: WD/WN, vitals as above Eyes: PERRL, conjunctivae normal, anicteric sclerae ENMT: external ear and nose normal, oropharynx normal Respiratory: normal respiratory effort, lungs clear to auscultation Cardiovascular: Rate/Rhythm: regular rate and regular rhythm Vessels: normal peripheral pulses Extremities: + edema (+1-2 pitting edema BLE) Gastrointestinal (Abdomen): normal bowel sounds, soft, nontender, no hepatosplenomegaly Musculoskeletal: no cyanosis or clubbing, extremities motor strength 5/5 Skin: no rashes, warm and dry Chronic venous changes and redness noted to BLE Neurologic: PERRL, EOMI, accommodation nl, no face palsy, no dysarthria Psychiatric: A+Ox3, euthymic affect Thought Process: + tangential thought process Results & Data Vital Signs (Past 12 Hours) Vital Signs Temp Pulse Resp BP 11/02/19 06:44 36.6 C 87 20 138/82 Diagnostic Findings VENOUS DOPPLER BLE IMPRESSION: 1. No evidence of deep venous thrombosis. 2. Subcutaneous edema in the right leg.
--- NOTE | 2019-11-02 12:21 | Ultrasound Report ---
US venous doppler LE CLINICAL HISTORY: 74 years-old Female presenting with edema. TECHNIQUE: Real-time grayscale and color and spectral Doppler ultrasound imaging of the veins of the bilateral lower extremities was performed. Compression and augmentation were also utilized. COMPARISON: 04/01/2019. FINDINGS: RIGHT: Common femoral vein: Patent. Greater saphenous vein (superficial): Patent. Deep femoral vein: Patent. Femoral vein: Patent. Popliteal vein: Patent. Calf veins: Patent. LEFT: Common femoral vein: Patent. Greater saphenous vein (superficial): Patent. Deep femoral vein: Patent. Femoral vein: Patent. Popliteal vein: Patent. Calf veins: Patent. Other: Subcutaneous edema in the right popliteal fossa. IMPRESSION: 1. No evidence of deep venous thrombosis. 2. Subcutaneous edema in the right leg. ACT 112: Negative or not required by law. Electronically signed by: Raji Dsouza M.D. 11/02/2019 12:19 PM
[2019-11-02] MEDS: risperiDONE 2 MG TABLET PO SCH (20:10)
[2019-11-02] MEDS: DIVALPROEX EXTENDED RELEASE 250 MG TABCR PO SCH (20:11)
[2019-11-02] MEDS: LORazepam 0.5 MG TAB PO SCH (20:14)
[2019-11-02] MEDS: TEMAZEPAM 15 MG CAPSULE PO SCH (20:15)
[2019-11-03] MEDS: DOCUSATE SODIUM 100 MG CAP PO SCH ×2 (09:26→20:20)
[2019-11-03] MEDS: POTASSIUM CHLORIDE 10 MEQ TABCR PO SCH (09:26)
[2019-11-03] MEDS: ATORVASTATIN 10 MG TAB PO SCH (09:27)
[2019-11-03] MEDS: FUROSEMIDE 20 MG TAB PO SCH (09:27)
[2019-11-03] MEDS: GABAPENTIN 300 MG CAP PO SCH ×3 (09:27→20:21)
[2019-11-03] MEDS: CARBIDOPA/LEVODOPA 25/100MG TAB PO SCH ×3 (09:28→20:21)
[2019-11-03] MEDS: risperiDONE 1 MG TABLET PO SCH (09:28)
[2019-11-03] MEDS: allopurinoL 100 MG TAB PO SCH (09:28)
--- NOTE | 2019-11-03 11:22 | Psychiatric Progress Note ---
Date of Service November 03, 2019 Impression / Recommendations Impression 74-year-old female with a history of multiple medical problems and bipolar disorder type I who presented with confusion, hallucinations, and agitation worsening over several days prior to presentation while she was at , where she was receiving rehab after a fall at home with inability to get up for many hours. She was diagnosed with a UTI in the ER as well, and completed a course of Keflex. She was last on our unit 4 years ago, and was on similar medications for her bipolar disorder at that time. Her home medications were initially continued, while treating UTI and continuing PT, but manic and psychotic symptoms worsened, so have increased quetiapine and added low dose Depakote for mood stabilization. Care has been coordinated w/ her outpatient psychiatrist, and daughter has been involved in treatment and visiting regularly. She is on a 303 as of 10/24/19. Sleep is suboptimal, and will schedule lorazepam at HS as has been beneficial. Inpatient treatment remains medically necessary due to the severity of her symptoms and inability to provide for her own basic needs without the care and assistance of others. The patient's diagnosis of Parkinson's disease complicates treatment interventions in this case. The presence of visual hallucinations might best be explained by psychosis related to Parkinson's disease and treatment with levodopa. At the same time, the patient's ability to ambulate is somewhat more labored at this point and we are attending her closely in order to prevent falls. We are also noticing that increases in the dose of quetiapine seems to possibly be having an idiosyncratic response to quetiapine, within the context of her Parkinson's disease. We had started the patient on Depakote, and titrated 10/31 to 1000 mg at bedtime and Risperdal replaced Seroquel. ---sleep remains poor, mood tending toward expansive. (1) Bipolar disorder: 10/22 -likely also an element of delirium, with recent fall, inpatient rehab and , and acute on chronic kidney dysfunction. Per review of records, this presentation is consistent with past presentations under similar circumstances. -Continue inpatient treatment on an involuntary commitment, and assess the need for extension of involuntary commitment. -Continue medically necessary private room due to recent agitation/confusion. -Get collateral information from daughter Juana who was present in the ER. -Coordinate care with outpatient psychiatrist, Dr. Navarrete. -Continue quetiapine 100 mg twice daily at 0900 and 1300, and 200 mg at bedtime. It appears likely that her recent symptoms are due to the change in her routine (admitted to [facility] post fall) and medical decompensation with UTI and kidney dysfunction. -Monitoring on an atypical antipsychotic: FLP from 06/2019 was within normal limits. Hemoglobin A1c was 5.7%, with estimated average glucose of 117. Fasting glucose 95. 10/23 -Reviewed case with outpatient psychiatrist Dr. Navarrete. He agreed with continuing her current medications, and providing consistency and structure on the unit, which typically help. -Continue MNPR as required O2 overnight for desaturation. -Patient still lacks capacity to agree to voluntary treatment, and is not yet stable for discharge, so will schedule a 303 hearing for tomorrow. 10/24 -Our ongoing concern is the fact that the patient has a history of decompensating fairly rapidly when sleep deprived, and she slept only a couple hours last night because she was very anxious about her upcoming hearing. We are also concerned because the patient continues to show certain features consistent with hypomania. For that reason, we are recommending further stabilization on an inpatient basis before transitioning the patient to the [facility] for continued treatment on an outpatient basis. -The patient is continuing to tolerate quetiapine at the current dose of 100 mg twice a day and 200 mg at bedtime. She reports that she is not noticing any side effects and feels "much better." 10/25 -on a 303 involuntary commitment. Continue home medications. -Family meeting held with daughter. The patient will stay with her temporarily at discharge. 10/26 -sleep erratic, only 4 hours last night. Will order quetiapine 100 mg at bedtime as needed for insomnia. -Globally cognitively impaired; 10/13 on the MoCA, missing 3 for visuospa tial/executive, 4 for attention, 2 for language, 2 for abstraction, 4 for delayed recall, and 3 for orientation. We will continue to monitor. 10/27 - HS dose of quetiapine increased to 300mg - total of 100mg/100mg/300mg daily - Pt demonstrating increased symptoms of lori, and sleep remains poor - therefore increasing risk of mood instability and overall concern for safety if discharged - Treatment team discussed recommendation that patient not drive - daughters requesting to restrict driving access on their own rather than have condition reported to [facility] - will continue to discuss with family as condition improves. Ideally, patient will have repeat MoCA prior to discharge - Continue MNPR due to concern for mood instability with interrupted sleep and worsening symptoms of lori 10/28 - Pt demonstrating worsening of manic symptoms and only slept 15 minutes last evening despite multiple prn sleep aids being provided - She was ordered 1 dose of lorazepam 1mg which can be utilized this evening to encourage sleep - fall-risk remains a concern and will be continuously evaluated as benzodiazepines are not an ideal long-term medication for this particular patient - Will order low-dose valproic acid 250mg to begin this evening, hopeful the medication may continue to target manic symptoms without as significant interactions with Parkinson's disease process - Continue current dosage of quetiapine at this time - Continue MNPR given poor sleep and mood instability 10/29 - Mildly improved sleep last evening - will titrate valproic acid to 500mg this evening - Will initially continue prn order of 0.5mg of lorazepam for this evening - as not ideal to rely on for long-term treatment - Fluid restriction in the late evening to be initiated - as nursing reports patient is often awoken by need to use the restroom and then is unable to return to sleep - Continue MNPR 10/30 - Continue current medication, and order lorazepam 0.5mg HS scheduled, with additional prn if needed for sleep. - Encourage patient to be awake during the day and asleep at night. 10/31 -As above, the patient psychiatric condition and, more specifically, her symptoms of lori are not improving, and there is some indication that, perhaps, she is having an idiosyncratic reaction to quetiapine. The context, of course, is that the patient is taking levodopa and has Parkinson's disease. Accordin gly, we will hold quetiapine at this time in favor of risperidone which may be better tolerated at 1 mg in the morning and 2 mg at bedtime, with a plan to titrate as indicated. -In addition to working to allow the patient to have improved, sustained sleep, we are in the process of titrating Depakote. Hopefully, her manic symptoms will be favorably affected as we continue to titrate Depakote to a fully therapeutic level. A valproic acid level will be measured on 11/02/201911/01 --improved today, Restoril effective, will add standing with additional prn 11/02--depakote level 61, add additional 250 mg Depakote. 11/03 -patient slept well last night with temazepam 30 mg, and tolerated it well; will schedule for now, with a plan to use short-term to stabilize sleep and then taper off. -Continue risperidone 1 mg every morning and 2 mg at bedtime. Continue Depakote 1250 mg at bedtime, and recheck a trough on or after 11/07/2019. - Present on Admission?: Yes (2) Parkinson's disease: 10/22 -continue home dose of Sinemet and monitor abnormal movements. Consider neurology consult if these do not improve. 10/24 -We discussed with the patient the fact that antiparkinsonian medications may possibly contribute to an exacerbation of psychotic symptoms as well as perceptual disturbances in persons who have Parkinson's disease,, and we have also advised the patient that antipsychotic medication such as quetiapine may adversely influence her movement disorder. The patient tells us that she has not noticed any worsening in her ability to ambulate, and also reports that she has not experienced any perceptual disturbances. Her mental status examination reveals that her current thought content appears to be devoid of any delusional material. 10/28 - Pt continues to demonstrate manic behaviors, worsening of symptoms correlated to poor sleep for the past several nights - As we are being cautious about utilization of atypical antipsychotic medications in the setting of Parkinson's disease - will plan to initiate low- dose valproic acid to begin this evening - Pt ordered 250mg of valproic acid to begin this evening, with titration as indicated - Continuing quetiapine at this time 10/31 -Hopefully, titration of valproic acid as a mood stabilizer will address the patient's symptoms of lori without exacerbating her Parkinsonism, and will allow us to limit the use of antipsychotic medications. Present on Admission?: Yes (3) History of pulmonary embolism: 11/02--hospitalist consult to clarify anticoagulation needs and examine leg 11/03 -appreciate hospitalist team's recommendations; bilateral lower extremity Doppler negative for DVT. Furosemide was continued, compression stockings and bilateral lower extremity elevation to reduce dependent edema. Present on Admission?: Yes (4) Acute UTI: 10/22 -continue Keflex as started in the ER, and follow-up on sensitivities when completed. 10/24 -The patient's urine culture grew E. coli, and alpha streptococcus, not enterococcus -Patient reports that she is not continuing to experience pain on urination or urinary frequency. 10/27 - Last dose of Keflex given this morning (5) HTN (hypertension): 10/22 -continue home dose of furosemide. BP was elevated in the ER, but has now normalized. -Ensure follow-up with PCP. Present on Admission?: Yes (6) Idiopathic peripheral neuropathy: 10/22 -continue home dose of gabapentin 300 mg 3 times daily. 10/31 -The patient continues to report symptoms of peripheral neuropathy, but also tells us that it is "okay." (7) RLS (restless legs syndrome): 10/22 -continue home dose of lorazepam 0.5 mg at bedtime as needed. 10/31 -Standing dose of lorazepam at bedtime was not helpful. Tonight, we will offer the patient a trial of temazepam 15 mg for sleep. 11/02 --encourage up to 30 mg temazepam for sleep. (8) Fall: Fall 5 days ago at home, sent to [facility] for physical rehab. Get PT consult once she is able to participate, and assess needs for ongoing PT. -One-to-one in the interim due to high fall risk and need for staff support when ambulating. 10/23 - Walking with walker, will order PT consult for treatment here and recommendations for return to or outpatient PT. Can d/c 1:1. 10/24 - Patient was seen by physical therapy. The current plan is for the patient to return to [facility] upon discharge. 10/28 - Attempts are being made to balance fall-risk with increased sleep concerns - Pt only slept 15 minutes last evening despite multiple prn sleep aids - Will order one time dose of lorazepam to be given this evening to encourage sleep; as there is evidence patient's worsening lori is correlated with recent poor sleep - It remains recommendation that long-term benzodiazepines be avoided given contraindication in the geriatric population with concern for fall-risk, respiratory depression, and increased confusion 10/30 - Request PT eval/treatment while here. 10/31 -We are currently observing the patient closely. The plan is to move her into the close observation room near the nursing station. However, because of the patient's difficulty sleeping and the fact that that room tends to be fairly bright, we are considering moving the patient, temporarily, to the quiet room. This will allow us full observation of the patient and a more restful setting. (9) Gout: Continue home dose of allopurinol. Inventory Assets Strengths: Supportive family, able to live alone when stable Needs: Treatment of comorbid medical conditions, mood stabilization. Risk Factors Assessment Male: No : Yes Do You Have Access To A Gun?: No Health Problems: Yes Mental Health Diagnoses: Yes Substance Use Disorders: No Previous Psychiatric Hospitalization: Yes Smoker: No Protective Factors Assessment Judaism Beliefs: Yes : No Responsible for Young Children: No Employed: No Stable Relationships: Yes Supportive Family: Yes Good Rapport with Provider: Yes Interval History Identifying Information PABLO COOPER is a 74-year-old F who currently lives in [place], has a history of bipolar disorder, Parkinson's disease, chronic kidney disease, hypertension, peripheral neuropathy, and restless leg syndrome and was admitted on 10/21/19 16:52 on a 302 involuntary commitment for lori. 303 granted on 10/24/2019. Chief Complaint "Better if I had that sweater on". Review of Systems Sleep Information Total Hours of Sleep: 7.25 Meal Information Percent Meal Consumed - Breakfast: 50 Percent Meal Consumed - Lunch: 40 Percent Meal Consumed - Dinner: 100 Nutrition Comment: pt asleep Subjective Subjective Patient was seen & assessed and interval progress reviewed with treatment team. Staff reports she was excused from groups yesterday as she was disorganized, delusional, hyperverbal, and at times agitated. She reported auditory hallucinations of a male voice coming from her sound machine, and visual hallucinations of bugs on her floor. She was seen by FRANK Subramanian, for swollen and painful lower extremity, bilateral lower extremity venous Doppler was negative for DVT, and swelling was thought to be secondary to venous stasis. She did not have any signs of decompensated heart failure, and per outpatient records has chronic problems with dependent edema. Her home dose of furosemide was continued, diet was changed to low-salt, she was given compression stockings, and lower extremity elevation recommended. She received temazepam 15 mg X2 doses last night, and slept over 7 hours. On my assessment today, she reports she had a difficult weekend as "my bipolar was out of control, could not focus." She feels better today, less labile/overwhelmed, and denies hallucinations. She reports good sleep last night and good appetite. Denies SI, HI, and paranoia. Physical Exam Psychiatric Orientation: alert and cooperative Apperance: appropriately dressed, appropriately groomed and appeared stated age Seated in no acute distress, with compression stockings on and both feet propped up on cushions. Eye Contact: good eye contact Motor Behavior: no abnormal motor movements Speech: normal rate/rhythm/volume of speech Mildly hyperverbal, but speech normal rate, not pressured Affect: + blunted affect "A little better." Initially goal-directed, but as interview progressed, associations became looser, at times difficult to follow her train of thought. Thought Content: reality based without delusions Suicidal Thoughts: denies suicidal thoughts Homicidal Thoughts: denies homicidal thoughts Hallucinations: no auditory hallucinations and no visual hallucinations Insight: + fair insight Judgement: + fair judgement Vital Signs (Past 24 Hours) Last Vital Signs Temp 36.8 C 11/03/19 07:06 Pulse 103 H 11/03/19 07:07 Resp 20 11/03/19 07:06 BP 145/81 H 11/03/19 07:07 Pulse Ox 93 10/30/19 06:44 Results & Data Current Inpatient Medications Current Inpatient Medications: Current Inpatient Medications Acetaminophen (Tylenol) 650 mg PO Q4H PRN PRN Reason: Headache or Minor Fever Stop: 11/20/19 16:51 Al Hydrox/Mg Hydrox/Simethicone (Maalox) 30 ml PO Q4H PRN PRN Reason: GI Upset Stop: 11/20/19 16:51 Allopurinol (Zyloprim) 100 mg PO QAM [facility] Stop: 11/21/19 08:59 Last Admin: 11/03/19 09:28 Dose: 100 mg Documented by: Atorvastatin Calcium (Lipitor) 10 mg PO QAM [facility] Stop: 11/21/19 08:59 Last Admin: 11/03/19 09:27 Dose: 10 mg Documented by: Carbidopa/Levodopa (Sinemet 25/100 Mg) 1 tab PO TID [facility] Stop: 11/20/19 10:29 Last Admin: 11/03/19 09:28 Dose: 1 tab Documented by: Divalproex Sodium (Depakote Extended Release) 1,250 mg PO HS [facility] Stop: 12/02/19 21:59 Last Admin: 11/02/19 20:11 Dose: 1,250 mg Documented by: Docusate Sodium (Colace) 100 mg PO BID [facility] Stop: 11/20/19 20:59 Last Admin: 11/03/19 09:26 Dose: 100 mg Documented by: Furosemide (Lasix) 20 mg PO QAM [facility] Stop: 11/21/19 08:59 Last Admin: 11/03/19 09:27 Dose: 20 mg Documented by: Gabapentin (Neurontin) 300 mg PO TID [facility] Stop: 11/20/19 20:59 Last Admin: 11/03/19 09:27 Dose: 300 mg Documented by: Hydroxyzine HCl (Vistaril) 50 mg PO HSZ PRN PRN Reason: Insomnia Stop: 11/20/19 16:51 Last Admin: 10/27/19 23:28 Dose: 50 mg Documented by: Hydroxyzine HCl (Vistaril) 25 mg PO Q4H PRN PRN Reason: Anxiety Stop: 11/20/19 16:51 Lorazepam (Ativan) 0.5 mg PO HS [facility] Stop: 11/29/19 21:59 Last Admin: 11/02/19 20:14 Dose: 0.5 mg Documented by: Lorazepam (Ativan) 0.5 mg PO HS PRN PRN Reason: Insomnia Stop: 11/29/19 10:43 Last Admin: 10/31/19 01:15 Dose: 0.5 mg Documented by: Magnesium Hydroxide (Milk Of Magnesia) 30 ml PO DAILY PRN PRN Reason: Constipation Stop: 11/20/19 16:51 Olanzapine (Zyprexa Zydis Od) 5 mg PO Q6H PRN PRN Reason: Agitation Stop: 11/20/19 16:59 Last Admin: 10/31/19 07:41 Dose: 5 mg Documented by: Potassium Chloride (Klor-Con M10) 10 meq PO QAM [facility] Stop: 11/21/19 08:59 Last Admin: 11/03/19 09:26 Dose: 10 meq Documented by: Risperidone (Risperdal) 1 mg PO QAM [facility] Stop: 11/30/19 10:59 Last Admin: 11/03/19 09:28 Dose: 1 mg Documented by: Risperidone (Risperdal) 2 mg PO HS [facility] Stop: 11/30/19 21:59 Last Admin: 11/02/19 20:10 Dose: 2 mg Documented by: Sodium Chloride ([place]on Nasal) 1 - 2 sprays NA PRN PRN PRN Reason: Nasal Dryness/Congestion Stop: 11/20/19 16:51 Temazepam (Restoril) 15 mg PO HSZ PRN PRN Reason: Insomnia Stop: 12/01/19 11:05 Last Admin: 11/02/19 20:15 Dose: 15 mg Documented by: Temazepam (Restoril) 30 mg PO HSZ [facility] Stop: 12/03/19 21:59 Mental Health & Subst Abuse Tx Psychiatrist Name of Psychiatrist: Dr. Navarrete Psychiatrist's Date of Appointment with Psychiatrist: 11/04/19 Time of Appointment with Psychiatrist: 3:20pm Psychiatric Appointment Comment: [address] [facility] [id number] Therapist Name of Therapist: None Sole Painter Name of Sole Painter: None Post Discharge Appointments Primary Care Physician Name Of Family Doctor: Dr. Ventura Sood) Primary Care Date of Appointment with PCP: 11/06/19 Time of Appointment with PCP: daughter is calling to schedule & will let us know Provider Appointment Comment: [address] [facility] [id number] Neurologist Name of Neurologist: Ragini Hernandez Neurologist's Neurology Appointment Comment: As needed Contact Information Discharge Discharge Address: [address] [place] [address], [place] [address] (daughter's address) (1) Bipolar disorder Active/Remission status: currently active Current bipolar episode type: manic Current episode severity: severe Psychotic features: with psychotic features Qualified Code(s): F31.2 - Bipolar disorder, current episode manic severe with psychotic features (2) Fall Encounter type: initial encounter Qualified Code(s): W19.XXXA - Unspecified fall, initial encounter
[2019-11-03] MEDS: DIVALPROEX EXTENDED RELEASE 250 MG TABCR PO SCH (20:21)
[2019-11-03] MEDS: LORazepam 0.5 MG TAB PO SCH (20:21)
[2019-11-03] MEDS: risperiDONE 2 MG TABLET PO SCH (20:22)
[2019-11-03] MEDS: TEMAZEPAM 15 MG CAPSULE PO SCH (21:09)
[2019-11-03] MEDS ORDERED: TEMAZEPAM 15 MG CAPSULE PO SCH (22:00)
[2019-11-04 08:02] LABS: Creatinine Clr Calc Pharmacy 55.6 ml/min; Est GFR (African American) 59.9; Est GFR (Non-African American) 51.7
[2019-11-04] MEDS: POTASSIUM CHLORIDE 10 MEQ TABCR PO SCH (08:45)
[2019-11-04] MEDS: ATORVASTATIN 10 MG TAB PO SCH (08:45)
[2019-11-04] MEDS: FUROSEMIDE 20 MG TAB PO SCH (08:45)
[2019-11-04] MEDS: DOCUSATE SODIUM 100 MG CAP PO SCH ×2 (08:45→19:54)
[2019-11-04] MEDS: CARBIDOPA/LEVODOPA 25/100MG TAB PO SCH ×3 (08:46→19:55)
[2019-11-04] MEDS: GABAPENTIN 300 MG CAP PO SCH ×3 (08:46→19:55)
[2019-11-04] MEDS: allopurinoL 100 MG TAB PO SCH (08:46)
[2019-11-04] MEDS: risperiDONE 1 MG TABLET PO SCH (08:46)
--- NOTE | 2019-11-04 08:52 | Psychiatric Progress Note ---
Date of Service November 04, 2019 Impression / Recommendations Impression 74-year-old female with a history of multiple medical problems and bipolar disorder type I who presented with confusion, hallucinations, and agitation worsening over several days prior to presentation while she was at [facility], where she was receiving rehab after a fall at home with inability to get up for many hours. She was diagnosed with a UTI in the ER as well, and completed a course of Keflex. She was last on our unit 4 years ago, and was on similar medications for her bipolar disorder at that time. Her home medications were initially continued, while treating UTI and continuing PT, but manic and psychotic symptoms worsened, so have increased quetiapine and added low dose Depakote for mood stabilization. Care has been coordinated w/ her outpatient psychiatrist, and daughter has been involved in treatment and visiting regularly. She is on a 303 as of 10/24/19. Sleep is suboptimal, and will schedule lorazepam at HS as has been beneficial. Inpatient treatment remains medically necessary due to the severity of her symptoms and inability to provide for her own basic needs without the care and assistance of others. The patient's diagnosis of Parkinson's disease complicates treatment interventions in this case. The presence of visual hallucinations might best be explained by psychosis related to Parkinson's disease and treatment with levodopa. At the same time, the patient's ability to ambulate is somewhat more labored at this point and we are attending her closely in order to prevent falls. We are also noticing that increases in the dose of quetiapine seems to possibly be having an idiosyncratic response to quetiapine, within the context of her Parkinson's disease. We had started the patient on Depakote, and titrated 10/31 to 1000 mg at bedtime and Risperdal replaced Seroquel. ---sleep remains poor, mood tending toward expansive. (1) History of pulmonary embolism: 11/02--hospitalist consult to clarify anticoagulation needs and examine leg 11/03 -appreciate hospitalist team's recommendations; bilateral lower extremity Doppler negative for DVT. Furosemide was continued, compression stockings and bilateral lower extremity elevation to reduce dependent edema. (2) HTN (hypertension): 10/22 -continue home dose of furosemide. BP was elevated in the ER, but has now normalized. -Ensure follow-up with PCP. (3) Idiopathic peripheral neuropathy: 10/22 -continue home dose of gabapentin 300 mg 3 times daily. 10/31 -The patient continues to report symptoms of peripheral neuropathy, but also tells us that it is "okay." (4) RLS (restless legs syndrome): 10/22 -continue home dose of lorazepam 0.5 mg at bedtime as needed. 10/31 -Standing dose of lorazepam at bedtime was not helpful. Tonight, we will offer the patient a trial of temazepam 15 mg for sleep. 11/02 --encourage up to 30 mg temazepam for sleep. (5) Gout: Continue home dose of allopurinol. Inventory Assets Strengths: Supportive family, able to live alone when stable Needs: Treatment of comorbid medical conditions, mood stabilization. Risk Factors Assessment Male: No : Yes Do You Have Access To A Gun?: No Health Problems: Yes Mental Health Diagnoses: Yes Substance Use Disorders: No Previous Psychiatric Hospitalization: Yes Smoker: No Protective Factors Assessment [employer] Beliefs: Yes : No Responsible for Young Children: No Employed: No Stable Relationships: Yes Supportive Family: Yes Good Rapport with Provider: Yes Interval History Identifying Information PABLO COOPER is a 74-year-old F who currently lives in [place], has a history of bipolar disorder, Parkinson's disease, chronic kidney disease, hypertension, peripheral neuropathy, and restless leg syndrome and was admitted on 10/21/19 16:52 on a 302 involuntary commitment for lori. 303 granted on 10/24/2019. Chief Complaint "[]". Review of Systems Sleep Information Total Hours of Sleep: 4.5 Sleep Comments: pt appeared to sleep 2.25 hrs during evening shift. pt appeared to sleep on 2.25 hrs during the night. Gait walking slow with staff assist x2 at times to the bathroom and to return to bed. pt on q-15 minute checks Meal Information Percent Meal Consumed - Breakfast: 50 Percent Meal Consumed - Lunch: 100 Percent Meal Consumed - Dinner: 100 Nutrition Comment: pt asleep Subjective Subjective Patient was seen & assessed and interval progress reviewed with [treatment team] [nursing and social work] Physical Exam Vital Signs (Past 24 Hours) Last Vital Signs Temp 36.6 C 11/04/19 07:01 Pulse 103 H 11/04/19 07:02 Resp 20 11/04/19 07:01 BP 116/74 11/04/19 07:02 Pulse Ox 93 10/30/19 06:44 Results & Data Laboratory Results Laboratory Results - last 24 hr 11/04/19 07:12 Creatinine 1.06 Est Cr Clr Drug Dosing 55.6 Est GFR ( Amer) 59.9 Est GFR (Non-Af Amer) 51.7 Current Inpatient Medications Current Inpatient Medications: Current Inpatient Medications Acetaminophen (Tylenol) 650 mg PO Q4H PRN PRN Reason: Headache or Minor Fever Stop: 11/20/19 16:51 Al Hydrox/Mg Hydrox/Simethicone (Maalox) 30 ml PO Q4H PRN PRN Reason: GI Upset Stop: 11/20/19 16:51 Allopurinol (Zyloprim) 100 mg PO [facility] Stop: 11/21/19 08:59 Last Admin: 11/04/19 08:46 Dose: 100 mg Documented by: Atorvastatin Calcium (Lipitor) 10 mg PO [facility] Stop: 11/21/19 08:59 Last Admin: 11/04/19 08:45 Dose: 10 mg Documented by: Carbidopa/Levodopa (Sinemet 25/100 Mg) 1 tab PO TID [facility] Stop: 11/20/19 10:29 Last Admin: 11/04/19 08:46 Dose: 1 tab Documented by: Divalproex Sodium (Depakote Extended Release) 1,250 mg PO [facility] Stop: 12/02/19 21:59 Last Admin: 11/03/19 20:21 Dose: 1,250 mg Documented by: Docusate Sodium (Colace) 100 mg PO BID [facility] Stop: 11/20/19 20:59 Last Admin: 11/04/19 08:45 Dose: 100 mg Documented by: [facility]: 11/21/19 08:59 Last Admin: 11/04/19 08:45 Dose: 20 mg Documented by: Gabapentin (Neurontin) 300 mg PO TID [facility] Stop: 11/20/19 20:59 Last Admin: 11/04/19 08:46 Dose: 300 mg Documented by: Hydroxyzine HCl (Vistaril) 50 mg PO HSZ PRN PRN Reason: Insomnia Stop: 11/20/19 16:51 Last Admin: 10/27/19 23:28 Dose: 50 mg Documented by: Hydroxyzine HCl (Vistaril) 25 mg PO Q4H PRN PRN Reason: Anxiety Stop: 11/20/19 16:51 Lorazepam (Ativan) 0.5 mg PO HS [facility] Stop: 11/29/19 21:59 Last Admin: 11/03/19 20:21 Dose: 0.5 mg Documented by: Lorazepam (Ativan) 0.5 mg PO HS PRN PRN Reason: Insomnia Stop: 11/29/19 10:43 Last Admin: 10/31/19 01:15 Dose: 0.5 mg Documented by: Magnesium Hydroxide (Milk Of Magnesia) 30 ml PO DAILY PRN PRN Reason: Constipation Stop: 11/20/19 16:51 Olanzapine (Zyprexa Zydis Od) 5 mg PO Q6H PRN PRN Reason: Agitation Stop: 11/20/19 16:59 Last Admin: 10/31/19 07:41 Dose: 5 mg Documented by: Potassium Chloride (Klor-Con M10) 10 meq PO QAM [facility] Stop: 11/21/19 08:59 Last Admin: 11/04/19 08:45 Dose: 10 meq Documented by: Risperidone (Risperdal) 1 mg PO QAM [facility] Stop: 11/30/19 10:59 Last Admin: 11/04/19 08:46 Dose: 1 mg Documented by: Risperidone (Risperdal) 2 mg PO HS [facility] Stop: 11/30/19 21:59 Last Admin: 11/03/19 20:22 Dose: 2 mg Documented by: Sodium Chloride ([place] Nasal) 1 - 2 sprays NA PRN PRN PRN Reason: Nasal Dryness/Congestion Stop: 11/20/19 16:51 Temazepam (Restoril) 30 mg PO DAILY@2100 [facility] Stop: 12/03/19 20:59 Last Admin: 11/03/19 21:09 Dose: 30 mg Documented by: Mental Health & Subst Abuse Tx Psychiatrist Name of Psychiatrist: Dr. Navarrete Psychiatrist's Date of Appointment with Psychiatrist: 11/12/19 Time of Appointment with Psychiatrist: 3:20pm Psychiatric Appointment Comment: [address] [facility] [id number] Therapist Name of Therapist: None System Software Developer Name of System Software Developer: None Post Discharge Appointments Primary Care Physician Name Of Family Doctor: Dr. Whitehead ([facility]) Primary Care Date of Appointment with PCP: 11/06/19 Time of Appointment with PCP: daughter is calling to schedule & will let us know Provider Appointment Comment: [address], [facility] [address] Neurologist Name of Neurologist: Ragini Hernandez Neurologist's Neurology Appointment Comment: As needed Contact Information Discharge Discharge Address: [facility], [place] [address] (daughter's address)
--- NOTE | 2019-11-04 10:53 | Psychiatric Progress Note ---
Date of Service November 04, 2019 Impression / Recommendations Impression 74-year-old female with a history of multiple medical problems and bipolar disorder type I who presented with confusion, hallucinations, and agitation worsening over several days prior to presentation while she was at [facility], where she was receiving rehab after a fall at home with inability to get up for many hours. She was diagnosed with a UTI in the ER as well, and completed a course of Keflex. She was last on our unit 4 years ago, and was on similar medications for her bipolar disorder at that time. Her home medications were initially continued, while treating UTI and continuing PT, but manic and psychotic symptoms worsened, so have increased quetiapine and added low dose Depakote for mood stabilization. Care has been coordinated w/ her outpatient psychiatrist, and daughter has been involved in treatment and visiting regularly. She is on a 303 as of 10/24/19. Sleep is suboptimal, and will schedule lorazepam at HS as has been beneficial. Inpatient treatment remains medically necessary due to the severity of her symptoms and inability to provide for her own basic needs without the care and assistance of others. The patient's diagnosis of Parkinson's disease complicates treatment interventions in this case. The presence of visual hallucinations might best be explained by psychosis related to Parkinson's disease and treatment with levodopa. Rather significant medication changes made over the last week to target increased manic behaviors with increase in delusional thought process. Seroquel was replaced with risperidone, and Depakote was titrated to a dose of 1250mg qHS. Pt is appearing far less manic, though sleep continues to be a significant concern. Pt was started on an ideally short course of temazepam to assist with stabilizing sleep - ideally will be tapered and discontinued before discharge. Hospitalist consultation requested for signs of dependent edema. Frequent elevation of legs, low-salt diet, compression stockings, and continuation of furosemide were recommended. She continues to be on close monitoring due to fall risk. She continues to demonstrate thoughts process and behaviors that are not conducive to community re-entry at this time. She is at high risk for destabilization if discharged prematurely without demonstrated consistency of mood symptoms and sleep schedule. (1) Bipolar disorder: 10/22 -likely also an element of delirium, with recent fall, inpatient rehab and [facility], and acute on chronic kidney dysfunction. Per review of records, this presentation is consistent with past presentations under similar circumstances. -Continue inpatient treatment on an involuntary commitment, and assess the need for extension of involuntary commitment. -Continue medically necessary private room due to recent agitation/confusion. -Get collateral information from daughter Juana who was present in the ER. -Coordinate care with outpatient psychiatrist, Dr. Navarrete. -Continue quetiapine 100 mg twice daily at 0900 and 1300, and 200 mg at bedtime. It appears likely that her recent symptoms are due to the change in her routine (admitted to [facility] post fall) and medical decompensation with UTI and kidney dysfunction. -Monitoring on an atypical antipsychotic: FLP from 06/2019 was within normal limits. Hemoglobin A1c was 5.7%, with estimated average glucose of 117. Fasting glucose 95. 10/23 -Reviewed case with outpatient psychiatrist Dr. Navarrete. He agreed with continuing her current medications, and providing consistency and structure on the unit, which typically help. -Continue MNPR as required O2 overnight for desaturation. -Patient still lacks capacity to agree to voluntary treatment, and is not yet stable for discharge, so will schedule a 303 hearing for tomorrow. 10/24 -Our ongoing concern is the fact that the patient has a history of decompensating fairly rapidly when sleep deprived, and she slept only a couple hours last night because she was very anxious about her upcoming hearing. We are also concerned because the patient continues to show certain features consistent with hypomania. For that reason, we are recommending further stab ilization on an inpatient basis before transitioning the patient to the community for continued treatment on an outpatient basis. -The patient is continuing to tolerate quetiapine at the current dose of 100 mg twice a day and 200 mg at bedtime. She reports that she is not noticing any side effects and feels "much better." 10/25 -on a 303 involuntary commitment. Continue home medications. -Family meeting held with daughter. The patient will stay with her temporarily at discharge. 10/26 -sleep erratic, only 4 hours last night. Will order quetiapine 100 mg at bedtime as needed for insomnia. -Globally cognitively impaired; 10/13 on the MoCA, missing 3 for visuospatial/executive, 4 for attention, 2 for language, 2 for abstraction, 4 for delayed recall, and 3 for orientation. We will continue to monitor. 10/27 - HS dose of quetiapine increased to 300mg - total of 100mg/100mg/300mg daily - Pt demonstrating increased symptoms of lori, and sleep remains poor - therefore increasing risk of mood instability and overall concern for safety if discharged - Treatment team discussed recommendation that patient not drive - daughters requesting to restrict driving access on their own rather than have condition reported to [facility] - will continue to discuss with family as condition improves. Ideally, patient will have repeat MoCA prior to discharge - Continue MNPR due to concern for mood instability with interrupted sleep and worsening symptoms of lori 10/28 - Pt demonstrating worsening of manic symptoms and only slept 15 minutes last evening despite multiple prn sleep aids being provided - She was ordered 1 dose of lorazepam 1mg which can be utilized this evening to encourage sleep - fall-risk remains a concern and will be continuously evaluated as benzodiazepines are not an ideal long-term medication for this particular patient - Will order low-dose valproic acid 250mg to begin this evening, hopeful the medication may continue to target manic symptoms without as significant interactions with Parkinson's disease process - Continue current dosage of quetiapine at this time - Continue MNPR given poor sleep and mood instability 10/29 - Mildly improved sleep last evening - will titrate valproic acid to 500mg this evening - Will initially continue prn order of 0.5mg of lorazepam for this evening - as not ideal to rely on for long-term treatment - Fluid restriction in the late evening to be initiated - as nursing reports patient is often awoken by need to use the restroom and then is unable to return to sleep - Continue MNPR 10/30 - Continue current medication, and order lorazepam 0.5mg HS scheduled, with additional prn if needed for sleep. - Encourage patient to be awake during the day and asleep at night. 10/31 -As above, the patient psychiatric condition and, more specifically, her symptoms of lori are not improving, and there is some indication that, perhaps, she is having an idiosyncratic reaction to quetiapine. The context, of course, is that the patient is taking levodopa and has Parkinson's disease. Accordingly, we will hold quetiapine at this time in favor of risperidone which may be better tolerated at 1 mg in the morning and 2 mg at bedtime, with a plan to titrate as indicated. -In addition to working to allow the patient to have improved, sustained sleep, we are in the process of titrating Depakote. Hopefully, her manic sym ptoms will be favorably affected as we continue to titrate Depakote to a fully therapeutic level. A valproic acid level will be measured on 11/02/201911/01 --improved today, Restoril effective, will add standing with additional prn 11/02--depakote level 61, add additional 250 mg Depakote. 11/03 -patient slept well last night with temazepam 30 mg, and tolerated it well; will schedule for now, with a plan to use short-term to stabilize sleep and then taper off. -Continue risperidone 1 mg every morning and 2 mg at bedtime. Continue Depakote 1250 mg at bedtime, and recheck a trough on or after 11/07/2019. 11/04 - Continue current medication regimen - sleep was less ideal last evening; however, still improved when compared to several days ago (2) Parkinsons disease: 10/22 -continue home dose of Sinemet and monitor abnormal movements. Consider neurology consult if these do not improve. 10/24 -We discussed with the patient the fact that antiparkinsonian medications may possibly contribute to an exacerbation of psychotic symptoms as well as perceptual disturbances in persons who have Parkinson's disease,, and we have also advised the patient that antipsychotic medication such as quetiapine may adversely influence her movement disorder. The patient tells us that she has not noticed any worsening in her ability to ambulate, and also reports that she has not experienced any perceptual disturbances. Her mental status examination reveals that her current thought content appears to be devoid of any delusional material. 10/28 - Pt continues to demonstrate manic behaviors, worsening of symptoms correlated to poor sleep for the past several nights - As we are being cautious about utilization of atypical antipsychotic medications in the setting of Parkinson's disease - will plan to initiate low- dose valproic acid to begin this evening - Pt ordered 250mg of valproic acid to begin this evening, with titration as indicated - Continuing quetiapine at this time 10/31 -Hopefully, titration of valproic acid as a mood stabilizer will address the patient's symptoms of lori without exacerbating her Parkinsonism, and will allow us to limit the use of antipsychotic medications. (3) History of pulmonary embolism: 11/02--hospitalist consult to clarify anticoagulation needs and examine leg 11/03 -appreciate hospitalist team's recommendations; bilateral lower extremity Doppler negative for DVT. Furosemide was continued, compression stockings and bilateral lower extremity elevation to reduce dependent edema. (4) Acute UTI: 10/22 -continue Keflex as started in the ER, and follow-up on sensitivities when completed. 10/24 -The patient's urine culture grew E. coli, and alpha streptococcus, not enterococcus -Patient reports that she is not continuing to experience pain on urination or urinary frequency. 10/27 - Last dose of Keflex given this morning 11/04 - Repeat UA ordered for today (5) HTN (hypertension): 10/22 -continue home dose of furosemide. BP was elevated in the ER, but has now normalized. -Ensure follow-up with PCP. (6) Idiopathic peripheral neuropathy: 10/22 -continue home dose of gabapentin 300 mg 3 times daily. 10/31 -The patient continues to report symptoms of peripheral neuropathy, but also tells us that it is "okay." (7) RLS (restless legs syndrome): 10/22 -continue home dose of lorazepam 0.5 mg at bedtime as needed. 10/31 -Standing dose of lorazepam at bedtime was not helpful. Tonight, we will offer the patient a trial of temazepam 15 mg for sleep. 11/02 --encourage up to 30 mg temazepam for sleep. (8) Gout: Continue home dose of allopurinol. Risk Factors Assessment Male: No : Yes Do You Have Access To A Gun?: No Health Problems: Yes Mental Health Diagnoses: Yes Substance Use Disorders: No Previous Psychiatric Hospitalization: Yes Smoker: No Protective Factors Assessment Orthodoxy Beliefs: Yes : No Responsible for Young Children: No Employed: No Stable Relationships: Yes Supportive Family: Yes Good Rapport with Provider: Yes Interval History Identifying Information PABLO COOPER is a 74-year-old F who currently lives in [place], has a history of bipolar disorder, Parkinson's disease, chronic kidney disease, hypertension, peripheral neuropathy, and restless leg syndrome and was admitted on 10/21/19 16:52 on a 302 involuntary commitment for lori. 303 granted on 10/24/2019. Chief Complaint "My sleep was not good last night. At one point they said 'we have these pills for you', but I said I didn't want to take them. But my daughters told me I need to be taking my pills." Review of Systems Notes Constitutional: poor sleep last evening Cardiovascular: denied Respiratory: denied Gastrointestinal: denied Neurological: denied Psychiatric: denies symptoms other than stated above Total of at least 10 systems reviewed, pertinent positives as above and in HPI. Sleep Information Total Hours of Sleep: 4.5 Sleep Comments: pt appeared to sleep 2.25 hrs during evening shift. pt appeared to sleep on 2.25 hrs during the night. Gait walking slow with staff assist x2 at times to the bathroom and to return to bed. pt on q-15 minute checks Meal Information Percent Meal Consumed - Breakfast: 100 Percent Meal Consumed - Lunch: 100 Percent Meal Consumed - Dinner: 100 Nutrition Comment: pt asleep Subjective Subjective Patient was seen & assessed and interval progress reviewed with nursing and so cial work. Staff report the patient had rather limited sleep last evening compared to the night before. 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 Sleep continues to be interrupted by patient's need to use the restroom. Patient was seen today to assess progress since admission. She admits that her sleep was less restful last evening, and that she is rather tired from having poor sleep over the course of several days. She does admit that although she is not always interested in taking the medications ordered for her, that she understands she needs medications in order to feel better. Patient remained preoccupied with specific events that have occurred over the past few days. Today, she repeats the story multiple times having to do with how she uses the toilet. Patient continues to mention the need for a "bungee cord" to pull "my polio leg" up, as she continues to have difficulty with ambulation. Patient was agreeable with providing staff with a urine sample, and explanation was provided as to rechecking for the presence of bacteria. Patient also states that she is interested in having a shower today, and is hopeful staff will assist her in this. Patient does not verbalize any safety concerns, suicidal ideation, or homicidal ideation. She denies other needs or concerns at this time. Physical Exam Psychiatric Orientation: alert Apperance: appropriately dressed (Still wearing pajamas), + disheveled (Hair is unkempt) and appeared stated age Eye Contact: good eye contact Motor Behavior: + tremor (More prominent tremor in hands bilaterally) Slow and cautious ambulation with assistance from a walker Speech: normal rate/rhythm/volume of speech Rambling for most of conversation; however, speech is not rapid or pressured Affect: + blunted affect (Appearing more subdued) Thought Process: + thought process not clear or coherent (Somewhat disorganized) Thought Content: + preoccupation and reality based without delusions (No obvious delusional thought content verbalized) While patient is not verbalizing any delusional thought content, the topic she discusses during interview are not necessarily clear. She seems preoccupied at this time with how she best utilizes the toilet, repeating the story multiple times during our conversation. Cognition: language grossly intact; + attention not intact Insight: + impaired insight Judgement: + impaired judgement Vital Signs (Past 24 Hours) Last Vital Signs Temp 36.6 C 11/04/19 07:01 Pulse 103 H 11/04/19 07:02 Resp 20 11/04/19 07:01 BP 116/74 11/04/19 07:02 Pulse Ox 93 10/30/19 06:44 Results & Data Laboratory Results Laboratory Results - last 24 hr 11/04/19 07:12 Creatinine 1.06 Est Cr Clr Drug Dosing 55.6 Est GFR ( Amer) 59.9 Est GFR (Non-Af Amer) 51.7 Current Inpatient Medications Current Inpatient Medications: Current Inpatient Medications Acetaminophen (Tylenol) 650 mg PO Q4H PRN PRN Reason: Headache or Minor Fever Stop: 11/20/19 16:51 Al Hydrox/Mg Hydrox/Simethicone (Maalox) 30 ml PO Q4H PRN PRN Reason: GI Upset Stop: 11/20/19 16:51 Allopurinol (Zyloprim) 100 mg PO QAM [facility] Stop: 11/21/19 08:59 Last Admin: 11/04/19 08:46 Dose: 100 mg Documented by: Atorvastatin Calcium (Lipitor) 10 mg PO QAM [facility] Stop: 11/21/19 08:59 Last Admin: 11/04/19 08:45 Dose: 10 mg Documented by: Carbidopa/Levodopa (Sinemet 25/100 Mg) 1 tab PO TID [facility] Stop: 11/20/19 10:29 Last Admin: 11/04/19 08:46 Dose: 1 tab Documented by: Divalproex Sodium (Depakote Extended Release) 1,250 mg PO [facility] Stop: 12/02/19 21:59 Last Admin: 11/03/19 20:21 Dose: 1,250 mg Documented by: Docusate Sodium (Colace) 100 mg PO BID [facility] Stop: 11/20/19 20:59 Last Admin: 11/04/19 08:45 Dose: 100 mg Documented by: Furosemide (Lasix) 20 mg PO QAM [facility] Stop: 11/21/19 08:59 Last Admin: 11/04/19 08:45 Dose: 20 mg Documented by: Gabapentin (Neurontin) 300 mg PO TID [facility] Stop: 11/20/19 20:59 Last Admin: 11/04/19 08:46 Dose: 300 mg Documented by: Hydroxyzine HCl (Vistaril) 50 mg PO HSZ PRN PRN Reason: Insomnia Stop: 11/20/19 16:51 Last Admin: 10/27/19 23:28 Dose: 50 mg Documented by: Hydroxyzine HCl (Vistaril) 25 mg PO Q4H PRN PRN Reason: Anxiety Stop: 11/20/19 16:51 Lorazepam (Ativan) 0.5 mg PO HS [facility] Stop: 11/29/19 21:59 Last Admin: 11/03/19 20:21 Dose: 0.5 mg Documented by: Lorazepam (Ativan) 0.5 mg PO HS PRN PRN Reason: Insomnia Stop: 11/29/19 10:43 Last Admin: 10/31/19 01:15 Dose: 0.5 mg Documented by: Magnesium Hydroxide (Milk Of Magnesia) 30 ml PO DAILY PRN PRN Reason: Constipation Stop: 11/20/19 16:51 Olanzapine (Zyprexa Zydis Od) 5 mg PO Q6H PRN PRN Reason: Agitation Stop: 11/20/19 16:59 Last Admin: 10/31/19 07:41 Dose: 5 mg Documented by: Potassium Chloride (Klor-Con M10) 10 meq PO QAM [facility] Stop: 11/21/19 08:59 Last Admin: 11/04/19 08:45 Dose: 10 meq Documented by: Risperidone (Risperdal) 1 mg PO QAM [facility] Stop: 11/30/19 10:59 Last Admin: 11/04/19 08:46 Dose: 1 mg Documented by: Risperidone (Risperdal) 2 mg PO HS [facility] Stop: 11/30/19 21:59 Last Admin: 11/03/19 20:22 Dose: 2 mg Documented by: Sodium Chloride ([place] Nasal) 1 - 2 sprays NA PRN PRN PRN Reason: Nasal Dryness/Congestion Stop: 11/20/19 16:51 Temazepam (Restoril) 30 mg PO DAILY@2100 [facility] Stop: 12/03/19 20:59 Last Admin: 11/03/19 21:09 Dose: 30 mg Documented by: Mental Health & Subst Abuse Tx Psychiatrist Name of Psychiatrist: Dr. Navarrete Psychiatrist's Date of Appointment with Psychiatrist: 11/12/19 Time of Appointment with Psychiatrist: 3:20pm Psychiatric Appointment Comment: [address] [facility] [id number] Therapist Name of Therapist: None Maintenance Team Leader Name of Maintenance Team Leader: None Post Discharge Appointments Primary Care Physician Name Of Family Doctor: Dr. Whitehead (Ragini) Primary Care Date of Appointment with PCP: 11/06/19 Time of Appointment with PCP: daughter is calling to schedule & will let us know Provider Appointment Comment: [address] [facility] [id number] Neurologist Name of Neurologist: Ragini Hernandez Neurologist's Neurology Appointment Comment: As needed Contact Information Discharge Discharge Address: [address] [place] [address], [place] [address] (daughter's address) (1) Bipolar disorder Active/Remission status: currently active Current bipolar episode type: manic Current episode severity: severe Psychotic features: with psychotic features Qualified Code(s): F31.2 - Bipolar disorder, current episode manic severe with psychotic features
[2019-11-04 13:48] LABS: Appearance Urine Cloudy (Clear); Bacteria Urine Automated 1+ (Negative); Bilirubin Urine Negative (Negative); Blood Urine Negative (Negative); Color Urine Yellow; Glucose Urine UA Negative (Negative); Ketones Urine Negative (Negative); Leukocyte Esterase Urine 2+ (Negative); Nitrite Urine Positive (Negative); Protein Urine Negative (Negative); RBC Urine Automated 0-4 /hpf (0-4); Specific Gravity Urine 1.009 (1.000-1.030); Urobilinogen Urine Negative (Negative); WBC Urine Automated >30 /hpf (0-5); pH Urine 5.5 (4.5-7.5)
[2019-11-04] MEDS: DIVALPROEX EXTENDED RELEASE 250 MG TABCR PO SCH (19:55)
[2019-11-04] MEDS: risperiDONE 2 MG TABLET PO SCH (19:55)
[2019-11-04] MEDS: LORazepam 0.5 MG TAB PO SCH (19:58)
[2019-11-04] MEDS: TEMAZEPAM 15 MG CAPSULE PO SCH (19:58)
[2019-11-05] MEDS: risperiDONE 1 MG TABLET PO SCH (08:30)
[2019-11-05] MEDS: POTASSIUM CHLORIDE 10 MEQ TABCR PO SCH (08:30)
[2019-11-05] MEDS: FUROSEMIDE 20 MG TAB PO SCH (08:30)
[2019-11-05] MEDS: GABAPENTIN 300 MG CAP PO SCH ×3 (08:30→20:13)
[2019-11-05] MEDS: allopurinoL 100 MG TAB PO SCH (08:30)
[2019-11-05] MEDS: ATORVASTATIN 10 MG TAB PO SCH (08:30)
[2019-11-05] MEDS: CARBIDOPA/LEVODOPA 25/100MG TAB PO SCH ×3 (08:30→20:13)
[2019-11-05] MEDS: DOCUSATE SODIUM 100 MG CAP PO SCH ×2 (08:30→20:13)
--- NOTE | 2019-11-05 10:06 | Psychiatric Progress Note ---
Date of Service November 05, 2019 Impression / Recommendations Impression 74-year-old female with a history of multiple medical problems and bipolar disorder type I who presented with confusion, hallucinations, and agitation worsening over several days prior to presentation while she was at [facility], where she was receiving rehab after a fall at home with inability to get up for many hours. She was diagnosed with a UTI in the ER as well, and completed a course of Keflex. She was last on our unit 4 years ago, and was on similar medications for her bipolar disorder at that time. Her home medications were initially continued, while treating UTI and continuing PT, but manic and psychotic symptoms worsened, so have increased quetiapine and added low dose Depakote for mood stabilization. Care has been coordinated w/ her outpatient psychiatrist, and daughter has been involved in treatment and visiting regularly. She is on a 303 as of 10/24/19. Sleep is suboptimal, and will schedule lorazepam at HS as has been beneficial. Inpatient treatment remains medically necessary due to the severity of her symptoms and inability to provide for her own basic needs without the care and assistance of others. The patient's diagnosis of Parkinson's disease complicates treatment interventions in this case. The presence of visual hallucinations might best be explained by psychosis related to Parkinson's disease and treatment with levodopa. Rather significant medication changes made over the last week to target increased manic behaviors with increase in delusional thought process. Seroquel was replaced with risperidone, and Depakote was titrated to a dose of 1250mg qHS. Pt is appearing far less manic, though sleep continues to be a significant concern. Pt was started on an ideally short course of temazepam to assist with stabilizing sleep - ideally will be tapered and discontinued before discharge. Hospitalist consultation requested for signs of dependent edema. Frequent elevation of legs, low-salt diet, compression stockings, and continuation of furosemide were recommended. She continues to be on close monitoring due to fall risk. She continues to demonstrate thoughts process and behaviors that are not conducive to community re-entry at this time. She is at high risk for destabilization if discharged prematurely without demonstrated consistency of mood symptoms and sleep schedule. (1) Bipolar disorder: 10/22 -likely also an element of delirium, with recent fall, inpatient rehab and [facility], and acute on chronic kidney dysfunction. Per review of records, this presentation is consistent with past presentations under similar circumstances. -Continue inpatient treatment on an involuntary commitment, and assess the need for extension of involuntary commitment. -Continue medically necessary private room due to recent agitation/confusion. -Get collateral information from daughter Juana who was present in the ER. -Coordinate care with outpatient psychiatrist, Dr. Navarrete. -Continue quetiapine 100 mg twice daily at 0900 and 1300, and 200 mg at bedtime. It appears likely that her recent symptoms are due to the change in her routine (admitted to [facility] post fall) and medical decompensation with UTI and kidney dysfunction. -Monitoring on an atypical antipsychotic: FLP from 06/2019 was within normal limits. Hemoglobin A1c was 5.7%, with estimated average glucose of 117. Fasting glucose 95. 10/23 -Reviewed case with outpatient psychiatrist Dr. Navarrete. He agreed with continuing her current medications, and providing consistency and structure on the unit, which typically help. -Continue MNPR as required O2 overnight for desaturation. -Patient still lacks capacity to agree to voluntary treatment, and is not yet stable for discharge, so will schedule a 303 hearing for tomorrow. 10/24 -Our ongoing concern is the fact that the patient has a history of decompensating fairly rapidly when sleep deprived, and she slept only a couple hours last night because she was very anxious about her upcoming hearing. We are also concerned because the patient continues to show certain features consistent with hypomania. For that reason, we are recommending further stab ilization on an inpatient basis before transitioning the patient to the community for continued treatment on an outpatient basis. -The patient is continuing to tolerate quetiapine at the current dose of 100 mg twice a day and 200 mg at bedtime. She reports that she is not noticing any side effects and feels "much better." 10/25 -on a 303 involuntary commitment. Continue home medications. -Family meeting held with daughter. The patient will stay with her temporarily at discharge. 10/26 -sleep erratic, only 4 hours last night. Will order quetiapine 100 mg at bedtime as needed for insomnia. -Globally cognitively impaired; 10/13 on the MoCA, missing 3 for visuospatial/executive, 4 for attention, 2 for language, 2 for abstraction, 4 for delayed recall, and 3 for orientation. We will continue to monitor. 10/27 - HS dose of quetiapine increased to 300mg - total of 100mg/100mg/300mg daily - Pt demonstrating increased symptoms of lori, and sleep remains poor - therefore increasing risk of mood instability and overall concern for safety if discharged - Treatment team discussed recommendation that patient not drive - daughters requesting to restrict driving access on their own rather than have condition reported to [facility] - will continue to discuss with family as condition improves. Ideally, patient will have repeat MoCA prior to discharge - Continue MNPR due to concern for mood instability with interrupted sleep and worsening symptoms of lori 10/28 - Pt demonstrating worsening of manic symptoms and only slept 15 minutes last evening despite multiple prn sleep aids being provided - She was ordered 1 dose of lorazepam 1mg which can be utilized this evening to encourage sleep - fall-risk remains a concern and will be continuously evaluated as benzodiazepines are not an ideal long-term medication for this particular patient - Will order low-dose valproic acid 250mg to begin this evening, hopeful the medication may continue to target manic symptoms without as significant interactions with Parkinson's disease process - Continue current dosage of quetiapine at this time - Continue MNPR given poor sleep and mood instability 10/29 - Mildly improved sleep last evening - will titrate valproic acid to 500mg this evening - Will initially continue prn order of 0.5mg of lorazepam for this evening - as not ideal to rely on for long-term treatment - Fluid restriction in the late evening to be initiated - as nursing reports patient is often awoken by need to use the restroom and then is unable to return to sleep - Continue MNPR 10/30 - Continue current medication, and order lorazepam 0.5mg HS scheduled, with additional prn if needed for sleep. - Encourage patient to be awake during the day and asleep at night. 10/31 -As above, the patient psychiatric condition and, more specifically, her symptoms of lori are not improving, and there is some indication that, perhaps, she is having an idiosyncratic reaction to quetiapine. The context, of course, is that the patient is taking levodopa and has Parkinson's disease. Accordingly, we will hold quetiapine at this time in favor of risperidone which may be better tolerated at 1 mg in the morning and 2 mg at bedtime, with a plan to titrate as indicated. -In addition to working to allow the patient to have improved, sustained sleep, we are in the process of titrating Depakote. Hopefully, her manic sym ptoms will be favorably affected as we continue to titrate Depakote to a fully therapeutic level. A valproic acid level will be measured on 11/02/201911/01 --improved today, Restoril effective, will add standing with additional prn 11/02--depakote level 61, add additional 250 mg Depakote. 11/03 -patient slept well last night with temazepam 30 mg, and tolerated it well; will schedule for now, with a plan to use short-term to stabilize sleep and then taper off. -Continue risperidone 1 mg every morning and 2 mg at bedtime. Continue Depakote 1250 mg at bedtime, and recheck a trough on or after 11/07/2019. 11/04 - Continue current medication regimen - sleep was less ideal last evening; however, still improved when compared to several days ago 11/05 - Continue current medication regimen - patient continuing to appear more subdued, but sleep is gradually improving (2) Parkinsons disease: 10/22 -continue home dose of Sinemet and monitor abnormal movements. Consider neurology consult if these do not improve. 10/24 -We discussed with the patient the fact that antiparkinsonian medications may possibly contribute to an exacerbation of psychotic symptoms as well as perceptual disturbances in persons who have Parkinson's disease,, and we have also advised the patient that antipsychotic medication such as quetiapine may adversely influence her movement disorder. The patient tells us that she has not noticed any worsening in her ability to ambulate, and also reports that she has not experienced any perceptual disturbances. Her mental status examination reveals that her current thought content appears to be devoid of any delusional material. 10/28 - Pt continues to demonstrate manic behaviors, worsening of symptoms correlated to poor sleep for the past several nights - As we are being cautious about utilization of atypical antipsychotic medications in the setting of Parkinson's disease - will plan to initiate low- dose valproic acid to begin this evening - Pt ordered 250mg of valproic acid to begin this evening, with titration as indicated - Continuing quetiapine at this time 10/31 -Hopefully, titration of valproic acid as a mood stabilizer will address the patient's symptoms of lori without exacerbating her Parkinsonism, and will allow us to limit the use of antipsychotic medications. (3) History of pulmonary embolism: 11/02--hospitalist consult to clarify anticoagulation needs and examine leg 11/03 -appreciate hospitalist team's recommendations; bilateral lower extremity Doppler negative for DVT. Furosemide was continued, compression stockings and bilateral lower extremity elevation to reduce dependent edema. (4) Acute UTI: 10/22 -continue Keflex as started in the ER, and follow-up on sensitivities when completed. 10/24 -The patient's urine culture grew E. coli, and alpha streptococcus, not enterococcus -Patient reports that she is not continuing to experience pain on urination or urinary frequency. 10/27 - Last dose of Keflex given this morning 11/04 - Repeat UA ordered for today 11/05 - Will request hospitalist input regarding repeat UA - showing ongoing bacterial contamination - Pt is denying UTI symptomatology; not appearing delirious - Given recurrent UTIs and repeated antibiotic treatment, will ask hospitali st team to guide treatment recommendations (5) HTN (hypertension): 10/22 -continue home dose of furosemide. BP was elevated in the ER, but has now normalized. -Ensure follow-up with PCP. (6) Idiopathic peripheral neuropathy: 10/22 -continue home dose of gabapentin 300 mg 3 times daily. 10/31 -The patient continues to report symptoms of peripheral neuropathy, but also tells us that it is "okay." (7) RLS (restless legs syndrome): 10/22 -continue home dose of lorazepam 0.5 mg at bedtime as needed. 10/31 -Standing dose of lorazepam at bedtime was not helpful. Tonight, we will offer the patient a trial of temazepam 15 mg for sleep. 11/02 --encourage up to 30 mg temazepam for sleep. (8) Gout: Continue home dose of allopurinol. Risk Factors Assessment Male: No : Yes Do You Have Access To A Gun?: No Health Problems: Yes Mental Health Diagnoses: Yes Substance Use Disorders: No Previous Psychiatric Hospitalization: Yes Smoker: No Protective Factors Assessment Pent[employer]ism Beliefs: Yes : No Responsible for Young Children: No Employed: No Stable Relationships: Yes Supportive Family: Yes Good Rapport with Provider: Yes Interval History Identifying Information PABLO COOPER is a 74-year-old F who currently lives in [place], has a history of bipolar disorder, Parkinson's disease, chronic kidney disease, hypertension, peripheral neuropathy, and restless leg syndrome and was admitted on 10/21/19 16:52 on a 302 involuntary commitment for lori. 303 granted on 10/24/2019. Chief Complaint "Ok, each day I'm getting a little better." Review of Systems Notes Constitutional: denied Cardiovascular: denied Respiratory: denied Gastrointestinal: denied Neurological: denied Psychiatric: denies symptoms other than stated above Total of at least 10 systems reviewed, pertinent positives as above and in HPI. Sleep Information Total Hours of Sleep: 4.75 Sleep Comments: pt appeared to sleep one hr during evening shift. pt given restoril per rn. pt on q-15 minute checks. pt continue to be slow and verbal encouragement to focus on a given task. pt requested to void x2 with no results. Meal Information Percent Meal Consumed - Breakfast: 100 Percent Meal Consumed - Lunch: 100 Percent Meal Consumed - Dinner: 100 Nutrition Comment: pt asleep Subjective Subjective Patient was seen & assessed and interval progress reviewed with treatment team. Staff report the patient slept 4-3/4 hours last evening. She has been compliant with recommendations for elevation, and has been more appropriate in interactions with peers. Patient continues to appear more subdued on the unit, but continues to deny depressive symptoms or suicidal thoughts. Patient was seen today to assess progress since admission. She gives verbal consent for Stephanie Rod PA-C to observe today's encounter. Patient informs this provider "I am doing okay, each day and getting a little better." She states that ambulation is not difficult for her, "I am just slow as molasses." Patient denies any physical concerns related to ongoing monitoring of dependent edema. Patient continues to report the same stories repeatedly during our interactions. Today she mentions multiple times about her radio batteries dying while she was sleeping last evening. Patient denies concerns related to her mood at this time. She denies significant side effects that she believes to be related to medication adjustments. Patient denies suicidal and homicidal ideations. She also denies the presence of auditory or visual hallucinations at this time. Patient denies additional needs or concerns from staff. Physical Exam Psychiatric Orientation: alert and oriented to person Apperance: appropriately dressed (wearing pajamas, sweater is inside-out), + disheveled (mildly unkempt) and appeared stated age Eye Contact: good eye contact Motor Behavior: steady gait and station (slow, cautious ambulation with assistance from walker) and + tremor (in hands bilaterally) Speech: normal rate/rhythm/volume of speech Affect: + flat affect Mood: no depressed mood ("each day I'm getting a little better") Thought Process: + circumstantial thought process; + thought process not clear or coherent (mildly less disorganized) Thought Content: no hopelessness and no worthlessness Suicidal Thoughts: denies suicidal thoughts Homicidal Thoughts: denies homicidal thoughts Hallucinations: no auditory hallucinations and no visual hallucinations Cognition: language grossly intact; + attention not intact Insight: + impaired insight Judgement: + impaired judgement Vital Signs (Past 24 Hours) Last Vital Signs Temp 36.5 C 11/05/19 07:04 Pulse 90 11/05/19 07:05 Resp 20 11/05/19 07:04 BP 164/98 H 11/05/19 07:05 Pulse Ox 93 10/30/19 06:44 Results & Data Laboratory Results Laboratory Results - last 24 hr 11/04/19 13:30 Urine Color Yellow Urine Appearance Cloudy A Urine pH 5.5 Ur Specific [place] 1.009 Urine Protein Negative Urine Glucose (UA) Negative Urine Ketones Negative Urine Blood Negative Urine Nitrite Positive A Urine Bilirubin Negative Urine Urobilinogen Negative Ur Leukocyte Esterase 2+ H Urine WBC (Auto) >30 H Urine RBC (Auto) 0-4 U Hyaline Cast (Auto) 1-5 U Epithel Cells (Auto) 5-10 H Urine Bacteria (Auto) 1+ H Current Inpatient Medications Current Inpatient Medications: Current Inpatient Medications Acetaminophen (Tylenol) 650 mg PO Q4H PRN PRN Reason: Headache or Minor Fever Stop: 11/20/19 16:51 Last Admin: 11/05/19 00:20 Dose: 650 mg Documented by: Al Hydrox/Mg Hydrox/Simethicone (Maalox) 30 ml PO Q4H PRN PRN Reason: GI Upset Stop: 11/20/19 16:51 Allop[facility]oprim) [facility] [place] Stop: 11/21/19 08:59 Last Admin: 11/05/19 08:30 Dose: 100 mg Documented by: Atorvastatin Calcium (Lipitor) 10 mg PO QAM [facility] Stop: 11/21/19 08:59 Last Admin: 11/05/19 08:30 Dose: 10 mg Documented by: Carbidopa/Levodopa (Sinemet 25/100 Mg) 1 tab PO TID [facility] Stop: 11/20/19 10:29 Last Admin: 11/05/19 08:30 Dose: 1 tab Documented by: Divalproex Sodium (Depakote Extended Release) 1,250 mg PO HS [facility] Stop: 12/02/19 21:59 Last Admin: 11/04/19 19:55 Dose: 1,250 mg Documented by: Docusate Sodium (Colace) 100 mg PO BID [facility] Stop: 11/20/19 20:59 Last Admin: 11/05/19 08:30 Dose: 100 mg Documented by: Furosemide (Lasix) 20 mg PO QAM [facility] Stop: 11/21/19 08:59 Last Admin: 11/05/19 08:30 Dose: 20 mg Documented by: Gabapentin (Neurontin) 300 mg PO TID [facility] Stop: 11/20/19 20:59 Last Admin: 11/05/19 08:30 Dose: 300 mg Documented by: Hydroxyzine HCl (Vistaril) 50 mg PO HSZ PRN PRN Reason: Insomnia Stop: 11/20/19 16:51 Last Admin: 10/27/19 23:28 Dose: 50 mg Documented by: Hydroxyzine HCl (Vistaril) 25 mg PO Q4H PRN PRN Reason: Anxiety Stop: 11/20/19 16:51 Lorazepam (Ativan) 0.5 mg PO HS [facility] Stop: 11/29/19 21:59 Last Admin: 11/04/19 19:58 Dose: 0.5 mg Documented by: Lorazepam (Ativan) 0.5 mg PO HS PRN PRN Reason: Insomnia Stop: 11/29/19 10:43 Last Admin: 10/31/19 01:15 Dose: 0.5 mg Documented by: Magnesium Hydroxide (Milk Of Magnesia) 30 ml PO DAILY PRN PRN Reason: Constipation Stop: 11/20/19 16:51 Olanzapine (Zyprexa Zydis Od) 5 mg PO Q6H PRN PRN Reason: Agitation Stop: 11/20/19 16:59 Last Admin: 10/31/19 07:41 Dose: 5 mg Documented by: Potassium Chloride (Klor-Con M10) 10 meq PO QAM [facility] Stop: 11/21/19 08:59 Last Admin: 11/05/19 08:30 Dose: 10 meq Documented by: Risperidone (Risperdal) 1 mg PO QAM [facility] Stop: 11/30/19 10:59 Last Admin: 11/05/19 08:30 Dose: 1 mg Documented by: Risperidone (Risperdal) 2 mg PO HS [facility] Stop: 11/30/19 21:59 Last Admin: 11/04/19 19:55 Dose: 2 mg Documented by: Sodium Chloride ([place] Nasal) 1 - 2 sprays NA PRN PRN PRN Reason: Nasal Dryness/Congestion Stop: 11/20/19 16:51 Temazepam (Restoril) 30 mg PO DAILY@2100 [facility] Stop: 12/03/19 20:59 Last Admin: 11/04/19 19:58 Dose: 30 mg Documented by: Mental Health & Subst Abuse Tx Psychiatrist Name of Psychiatrist: Dr. Navarrete Psychiatrist's Date of Appointment with Psychiatrist: 11/12/19 Time of Appointment with Psychiatrist: 3:20pm Psychiatric Appointment Comment: [address] [facility] [id number] Therapist Name of Therapist: None Tap Builder Name of Tap Builder: None Post Discharge Appointments Primary Care Physician Name Of Family Doctor: Dr. Whitehead (Ragini) Primary Care Date of Appointment with PCP: 11/06/19 Time of Appointment with PCP: daughter is calling to schedule & will let us know Provider Appointment Comment: [address] [facility] [id number] Neurologist Name of Neurologist: Ragini Hernandez Neurologist's Neurology Appointment Comment: As needed Contact Information Discharge Discharge Address: [address] [place] [address] [place] [address] (daughter's address) (1) Bipolar disorder Active/Remission status: currently active Current bipolar episode type: manic Current episode severity: severe Psychotic features: with psychotic features Qualified Code(s): F31.2 - Bipolar disorder, current episode manic severe with psychotic features
[2019-11-05] MEDS: risperiDONE 2 MG TABLET PO SCH (20:13)
[2019-11-05] MEDS: DIVALPROEX EXTENDED RELEASE 250 MG TABCR PO SCH (20:13)
[2019-11-05] MEDS: TEMAZEPAM 15 MG CAPSULE PO SCH (20:15)
[2019-11-05] MEDS: LORazepam 0.5 MG TAB PO SCH (20:15)
[2019-11-06] MEDS: DOCUSATE SODIUM 100 MG CAP PO SCH ×2 (08:41→20:15)
[2019-11-06] MEDS: POTASSIUM CHLORIDE 10 MEQ TABCR PO SCH (08:41)
[2019-11-06] MEDS: GABAPENTIN 300 MG CAP PO SCH ×3 (08:42→20:16)
[2019-11-06] MEDS: CARBIDOPA/LEVODOPA 25/100MG TAB PO SCH ×3 (08:42→20:16)
[2019-11-06] MEDS: ATORVASTATIN 10 MG TAB PO SCH (08:42)
[2019-11-06] MEDS: risperiDONE 1 MG TABLET PO SCH (08:42)
[2019-11-06] MEDS: FUROSEMIDE 20 MG TAB PO SCH (08:42)
[2019-11-06] MEDS: allopurinoL 100 MG TAB PO SCH (08:42)
[2019-11-06 10:03] LABS: Basophils # (auto) 0.01 K/uL (0-0.2); Basophils % (auto) 0.2 %; Eosinophils # (auto) 0.13 K/uL (0-0.5); Eosinophils % (auto) 2.3 %; Hematocrit (blood only) 36.1 % (37-47); Hemoglobin 11.5 g/dL (12.0-16.0); Immature Granulocytes # (auto) 0.01 K/uL (0.00-0.02); Immature Granulocytes % (auto) 0.2 %; Mean Corpuscular Hemoglobin 27.6 pg (25-34); Mean Corpuscular Hgb Conc 31.9 g/dL (32-36); Mean Corpuscular Volume 86.8 fL (80-100); Mean Platelet Volume 8.9 fL (7.4-10.4); Monocytes # (auto) 0.51 K/uL (0.11-0.59); Monocytes % (auto) 9.1 %; Neutrophils # (auto) 4.42 K/uL (1.4-6.5); Neutrophils % (auto) 79.2 %; Platelet Count 309 K/uL (130-400); RDW Coefficient of Variation 16.4 % (11.5-14.5); RDW Standard Deviation 52.2 fL (36.4-46.3); Red Blood Count 4.16 M/uL (4.2-5.4); White Blood Count 5.58 K/uL (4.8-10.8)
--- NOTE | 2019-11-06 10:35 | Psychiatric Progress Note ---
Date of Service November 06, 2019 Impression / Recommendations Impression 74-year-old female with a history of multiple medical problems and bipolar disorder type I who presented with confusion, hallucinations, and agitation worsening over several days prior to presentation while she was at [facility], where she was receiving rehab after a fall at home with inability to get up for many hours. She was diagnosed with a UTI in the ER as well, and completed a course of Keflex. She was last on our unit 4 years ago, and was on similar medications for her bipolar disorder at that time. Her home medications were initially continued, while treating UTI and continuing PT, but manic and psychotic symptoms worsened, so have increased quetiapine and added low dose Depakote for mood stabilization. Care has been coordinated w/ her outpatient psychiatrist, and daughter has been involved in treatment and visiting regularly. She is on a 303 as of 10/24/19. Sleep is suboptimal, and will schedule lorazepam at HS as has been beneficial. Inpatient treatment remains medically necessary due to the severity of her symptoms and inability to provide for her own basic needs without the care and assistance of others. The patient's diagnosis of Parkinson's disease complicates treatment interventions in this case. The presence of visual hallucinations might best be explained by psychosis related to Parkinson's disease and treatment with levodopa. Rather significant medication changes made over the last week to target increased manic behaviors with increase in delusional thought process. Seroquel was replaced with risperidone, and Depakote was titrated to a dose of 1250mg qHS. Pt is appearing far less manic, though sleep continues to be a significant concern. Pt was started on an ideally short course of temazepam to assist with stabilizing sleep - ideally will be tapered and discontinued before discharge. Hospitalist consultation requested for signs of dependent edema. Frequent elevation of legs, low-salt diet, compression stockings, and continuation of furosemide were recommended. She continues to be on close monitoring due to fall risk. She continues to demonstrate thoughts process and behaviors that are not conducive to community re-entry at this time. She is at high risk for destabilization if discharged prematurely without demonstrated consistency of mood symptoms and sleep schedule. (1) Bipolar disorder: 10/22 -likely also an element of delirium, with recent fall, inpatient rehab and [facility], and acute on chronic kidney dysfunction. Per review of records, this presentation is consistent with past presentations under similar circumstances. -Continue inpatient treatment on an involuntary commitment, and assess the need for extension of involuntary commitment. -Continue medically necessary private room due to recent agitation/confusion. -Get collateral information from daughter Juana who was present in the ER. -Coordinate care with outpatient psychiatrist, Dr. Navarrete. -Continue quetiapine 100 mg twice daily at 0900 and 1300, and 200 mg at bedtime. It appears likely that her recent symptoms are due to the change in her routine (admitted to [facility] post fall) and medical decompensation with UTI and kidney dysfunction. -Monitoring on an atypical antipsychotic: FLP from 06/2019 was within normal limits. Hemoglobin A1c was 5.7%, with estimated average glucose of 117. Fasting glucose 95. 10/23 -Reviewed case with outpatient psychiatrist Dr. Navarrete. He agreed with continuing her current medications, and providing consistency and structure on the unit, which typically help. -Continue MNPR as required O2 overnight for desaturation. -Patient still lacks capacity to agree to voluntary treatment, and is not yet stable for discharge, so will schedule a 303 hearing for tomorrow. 10/24 -Our ongoing concern is the fact that the patient has a history of decompensating fairly rapidly when sleep deprived, and she slept only a couple hours last night because she was very anxious about her upcoming hearing. We are also concerned because the patient continues to show certain features consistent with hypomania. For that reason, we are recommending further stab ilization on an inpatient basis before transitioning the patient to the community for continued treatment on an outpatient basis. -The patient is continuing to tolerate quetiapine at the current dose of 100 mg twice a day and 200 mg at bedtime. She reports that she is not noticing any side effects and feels "much better." 10/25 -on a 303 involuntary commitment. Continue home medications. -Family meeting held with daughter. The patient will stay with her temporarily at discharge. 10/26 -sleep erratic, only 4 hours last night. Will order quetiapine 100 mg at bedtime as needed for insomnia. -Globally cognitively impaired; 10/13 on the MoCA, missing 3 for visuospatial/executive, 4 for attention, 2 for language, 2 for abstraction, 4 for delayed recall, and 3 for orientation. We will continue to monitor. 10/27 - HS dose of quetiapine increased to 300mg - total of 100mg/100mg/300mg daily - Pt demonstrating increased symptoms of lori, and sleep remains poor - therefore increasing risk of mood instability and overall concern for safety if discharged - Treatment team discussed recommendation that patient not drive - daughters requesting to restrict driving access on their own rather than have condition reported to [facility] - will continue to discuss with family as condition improves. Ideally, patient will have repeat MoCA prior to discharge - Continue MNPR due to concern for mood instability with interrupted sleep and worsening symptoms of lori 10/28 - Pt demonstrating worsening of manic symptoms and only slept 15 minutes last evening despite multiple prn sleep aids being provided - She was ordered 1 dose of lorazepam 1mg which can be utilized this evening to encourage sleep - fall-risk remains a concern and will be continuously evaluated as benzodiazepines are not an ideal long-term medication for this particular patient - Will order low-dose valproic acid 250mg to begin this evening, hopeful the medication may continue to target manic symptoms without as significant interactions with Parkinson's disease process - Continue current dosage of quetiapine at this time - Continue MNPR given poor sleep and mood instability 10/29 - Mildly improved sleep last evening - will titrate valproic acid to 500mg this evening - Will initially continue prn order of 0.5mg of lorazepam for this evening - as not ideal to rely on for long-term treatment - Fluid restriction in the late evening to be initiated - as nursing reports patient is often awoken by need to use the restroom and then is unable to return to sleep - Continue MNPR 10/30 - Continue current medication, and order lorazepam 0.5mg HS scheduled, with additional prn if needed for sleep. - Encourage patient to be awake during the day and asleep at night. 10/31 -As above, the patient psychiatric condition and, more specifically, her symptoms of lori are not improving, and there is some indication that, perhaps, she is having an idiosyncratic reaction to quetiapine. The context, of course, is that the patient is taking levodopa and has Parkinson's disease. Accordingly, we will hold quetiapine at this time in favor of risperidone which may be better tolerated at 1 mg in the morning and 2 mg at bedtime, with a plan to titrate as indicated. -In addition to working to allow the patient to have improved, sustained sleep, we are in the process of titrating Depakote. Hopefully, her manic sym ptoms will be favorably affected as we continue to titrate Depakote to a fully therapeutic level. A valproic acid level will be measured on 11/02/201911/01 --improved today, Restoril effective, will add standing with additional prn 11/02--depakote level 61, add additional 250 mg Depakote. 11/03 -patient slept well last night with temazepam 30 mg, and tolerated it well; will schedule for now, with a plan to use short-term to stabilize sleep and then taper off. -Continue risperidone 1 mg every morning and 2 mg at bedtime. Continue Depakote 1250 mg at bedtime, and recheck a trough on or after 11/07/2019. 11/04 - Continue current medication regimen - sleep was less ideal last evening; however, still improved when compared to several days ago 11/05 - Continue current medication regimen - patient continuing to appear more subdued, but sleep is gradually improving 11/06 - Poor sleep again last evening - patient appearing more subdued, but concern for motor and cognitive slowing - will reduce scheduled HS dose of Restoril to 15mg, and offer repeat 15mg as back-up in attempt to reduce sedating medications - concern remains that patient is not sleeping despite multiple psychotropic medications with sedating properties - Consider need for additional medication adjustments if sleep continues to be poor - Depakote level repeated this morning - results are still pending (2) Parkinsons disease: 10/22 -continue home dose of Sinemet and monitor abnormal movements. Consider neurology consult if these do not improve. 10/24 -We discussed with the patient the fact that antiparkinsonian medications may possibly contribute to an exacerbation of psychotic symptoms as well as perceptual disturbances in persons who have Parkinson's disease,, and we have also advised the patient that antipsychotic medication such as quetiapine may adversely influence her movement disorder. The patient tells us that she has not noticed any worsening in her ability to ambulate, and also reports that she has not experienced any perceptual disturbances. Her mental status examination reveals that her current thought content appears to be devoid of any delusional material. 10/28 - Pt continues to demonstrate manic behaviors, worsening of symptoms correlated to poor sleep for the past several nights - As we are being cautious about utilization of atypical antipsychotic medications in the setting of Parkinson's disease - will plan to initiate low- dose valproic acid to begin this evening - Pt ordered 250mg of valproic acid to begin this evening, with titration as indicated - Continuing quetiapine at this time 10/31 -Hopefully, titration of valproic acid as a mood stabilizer will address the patient's symptoms of lori without exacerbating her Parkinsonism, and will allow us to limit the use of antipsychotic medications. (3) History of pulmonary embolism: 11/02--hospitalist consult to clarify anticoagulation needs and examine leg 11/03 -appreciate hospitalist team's recommendations; bilateral lower extremity Doppler negative for DVT. Furosemide was continued, compression stockings and bilateral lower extremity elevation to reduce dependent edema. (4) Acute UTI: 10/22 -continue Keflex as started in the ER, and follow-up on sensitivities when completed. 10/24 -The patient's urine culture grew E. coli, and alpha streptococcus, not enterococcus -Patient reports that she is not continuing to experience pain on urination or urinary frequency. 10/27 - Last dose of Keflex given this morning 11/04 - Repeat UA ordered for today 11/05 - Will request hospitalist input regarding repeat UA - showing ongoing bacterial contamination - Pt is denying UTI symptomatology; not appearing delirious - Given recurrent UTIs and repeated antibiotic treatment, will ask hospitalist team to guide treatment recommendations 11/06 - Appreciate hospitalist recommendations regarding repeat UA also demonstrating E. coli growth; patient continuing to deny UTI symptoms - Nursing did report concern about possible urinary retention/hesitancy - Hospitalists recommended initiation of Macrobid 100mg BID x 5 days; with close outpatient follow-up after discharge to ensure resolution - Hospitalists have signed off on this concern, but are available for additional issues should they arise (5) HTN (hypertension): 10/22 -continue home dose of furosemide. BP was elevated in the ER, but has now normalized. -Ensure follow-up with PCP. (6) Idiopathic peripheral neuropathy: 10/22 -continue home dose of gabapentin 300 mg 3 times daily. 10/31 -The patient continues to report symptoms of peripheral neuropathy, but also tells us that it is "okay." (7) RLS (restless legs syndrome): 10/22 -continue home dose of lorazepam 0.5 mg at bedtime as needed. 10/31 -Standing dose of lorazepam at bedtime was not helpful. Tonight, we will offer the patient a trial of temazepam 15 mg for sleep. 11/02 --encourage up to 30 mg temazepam for sleep. (8) Gout: Continue home dose of allopurinol. Risk Factors Assessment Male: No : Yes Do You Have Access To A Gun?: No Health Problems: Yes Mental Health Diagnoses: Yes Substance Use Disorders: No Previous Psychiatric Hospitalization: Yes Smoker: No Protective Factors Assessment Anglican Beliefs: Yes : No Responsible for Young Children: No Employed: No Stable Relationships: Yes Supportive Family: Yes Good Rapport with Provider: Yes Interval History Identifying Information PABLO COOPER is a 74-year-old F who currently lives in [place], has a history of bipolar disorder, Parkinson's disease, chronic kidney disease, hypertension, peripheral neuropathy, and restless leg syndrome and was admitted on 10/21/19 16:52 on a 302 involuntary commitment for lori. 303 granted on 10/24/2019. Chief Complaint "Oh, I'm doing real good." Review of Systems Notes Constitutional: denies fatigue/low energy despite slowed motor movements Cardiovascular: denied Respiratory: denied Gastrointestinal: denied Neurological: denied Psychiatric: denies symptoms other than stated above Total of at least 10 systems reviewed, pertinent positives as above and in HPI. Sleep Information Total Hours of Sleep: 1.75 Sleep Comments: pt awake several times during the night requesting to void without results. pt with very slowed gait, and appeared to sleep at times while in the bathroom. pt required staff assistance with gait walking. pt on q-15 minute checks Meal Information Percent Meal Consumed - Breakfast: 100 Percent Meal Consumed - Lunch: 80 Percent Meal Consumed - Dinner: 100 Nutrition Comment: pt asleep Subjective Subjective Patient was seen & assessed and interval progress reviewed with nursing and social work. Staff report the patient continues to appear slowed and subdued. She did only sleep 7-3/4 hours last evening. Patient was seen today to assess progress since admission. She provides verbal consent to allow Stephanie Rod PA-C to observe today's encounter. The patient states that she is feeling "oh, real good." According to the patient, she believes that her mood is "really good, better each day." When asked directly, the patient denies concerns related to reduced energy, cognitive or physical slowing, and fatigue. The patient is denying suicidal and homicidal ideation. She was informed that we are requesting hospitalists weigh in on treatment recommendations for what appears to be an ongoing UTI. She was agreeable with having their ongoing input. Patient denies needs or concerns at this time. Physical Exam Psychiatric Orientation: alert, oriented to person and cooperative Apperance: appropriately dressed, appropriately groomed and appeared stated age Eye Contact: good eye contact Motor Behavior: steady gait and station (slowed considerably, but remains stable with assistance from walker) and + psychomotor retardation Speech: normal rate/rhythm/volume of speech Affect: + flat affect Mood: no depressed mood ("Oh, I'm real good") Thought Process: + circumstantial thought process (repeating several stories ) Thought Content: no delusions and no hopelessness Suicidal Thoughts: denies suicidal thoughts Homicidal Thoughts: denies homicidal thoughts Hallucinations: no auditory hallucinations and no visual hallucinations Cognition: language grossly intact; + attention not intact Insight: + impaired insight Judgement: + impaired judgement Vital Signs (Past 24 Hours) Last Vital Signs Temp 36.7 C 11/06/19 07:01 Pulse 98 H 11/06/19 07:02 Resp 20 11/06/19 07:01 BP 128/72 11/06/19 07:02 Pulse Ox 93 10/30/19 06:44 Results & Data Laboratory Results Laboratory Results - last 24 hr 11/06/19 11/06/19 11/06/19 09:46 09:46 09:46 WBC 5.58 RBC 4.16 L Hgb 11.5 L Hct 36.1 L MCV 86.8 MCH 27.6 MCHC 31.9 L RDW Std Deviation 52.2 H RDW Coeff of Alex 16.4 H Plt Count 309 MPV 8.9 Immature Gran % (Auto) 0.2 Neut % (Auto) 79.2 Lymph % (Auto) 9.0 Bertie % (Auto) 9.1 Eos % (Auto) 2.3 Baso % (Auto) 0.2 Immature Gran # (Auto) 0.01 Neut # (Auto) 4.42 Lymph # (Auto) 0.50 L Bertie # (Auto) 0.51 Eos # (Auto) 0.13 Baso # (Auto) 0.01 Sodium Pending Potassium Pending Chloride Pending Carbon Dioxide Pending Anion Gap Pending BUN Pending Creatinine Pending Est Cr Clr Drug Dosing Pending Est GFR ( Amer) Pending Est GFR (Non-Af Amer) Pending BUN/Creatinine Ratio Pending Glucose Pending Calcium Pending Total Bilirubin Pending AST Pending ALT Pending Alkaline Phosphatase Pending Total Protein Pending Albumin Pending Globulin Pending Albumin/Globulin Ratio Pending Free Valproic Acid Pending Total Valproic Acid Pending Current Inpatient Medications Current Inpatient Medications: Current Inpatient Medications Acetaminophen (Tylenol) 650 mg PO Q4H PRN PRN Reason: Headache or Minor Fever Stop: 11/20/19 16:51 Last Admin: 11/05/19 00:20 Dose: 650 mg Documented by: Al Hydrox/Mg Hydrox/Simethicone (Maalox) 30 ml PO Q4H PRN PRN Reason: GI Upset Stop: 11/20/19 16:51 Allopurinol (Zyloprim) 100 mg PO [facility] Stop: 11/21/19 08:59 Last Admin: 11/06/19 08:42 Dose: 100 mg Documented by: Atorvastatin Calcium (Lipitor) 10 mg PO [facility] Stop: 11/21/19 08:59 Last Admin: 11/06/19 08:42 Dose: 10 mg Documented by: Carbidopa/Levodopa (Sinemet 25/100 Mg) 1 tab PO TID [facility] Stop: 11/20/19 10:29 Last Admin: 11/06/19 08:42 Dose: 1 tab Documented by: Divalproex Sodium (Depakote Extended Release) 1,250 mg PO HS [facility] Stop: 12/02/19 21:59 Last Admin: 11/05/19 20:13 Dose: 1,250 mg Documented by: Docusate Sodium (Colace) 100 mg PO BID [facility] Stop: 11/20/19 20:59 Last Admin: 11/06/19 08:41 Dose: 100 mg Documented by: [facility]uro[facility] ([facility]ix) [facility] Stop: 11/21/19 08:59 Last Admin: 11/06/19 08:42 Dose: 20 mg Documented by: Gabapentin (Neurontin) 300 mg PO TID [facility] Stop: 11/20/19 20:59 Last Admin: 11/06/19 08:42 Dose: 300 mg Documented by: Hydroxyzine HCl (Vistaril) 50 mg PO HSZ PRN PRN Reason: Insomnia Stop: 11/20/19 16:51 Last Admin: 10/27/19 23:28 Dose: 50 mg Documented by: Hydroxyzine HCl (Vistaril) 25 mg PO Q4H PRN PRN Reason: Anxiety Stop: 11/20/19 16:51 Lorazepam (Ativan) 0.5 mg PO HS [facility] Stop: 11/29/19 21:59 Last Admin: 11/05/19 20:15 Dose: 0.5 mg Documented by: Lorazepam (Ativan) 0.5 mg PO HS PRN PRN Reason: Insomnia Stop: 11/29/19 10:43 Last Admin: 10/31/19 01:15 Dose: 0.5 mg Documented by: Magnesium Hydroxide (Milk Of Magnesia) 30 ml PO DAILY PRN PRN Reason: Constipation Stop: 11/20/19 16:51 Olanzapine (Zyprexa Zydis Od) 5 mg PO Q6H PRN PRN Reason: Agitation Stop: 11/20/19 16:59 Last Admin: 10/31/19 07:41 Dose: 5 mg Documented by: Potassium Chloride (Klor-Con M10) 10 meq PO QAM [facility] Stop: 11/21/19 08:59 Last Admin: 11/06/19 08:41 Dose: 10 meq Documented by: Risperidone (Risperdal) 1 mg PO QAM [facility] Stop: 11/30/19 10:59 Last Admin: 11/06/19 08:42 Dose: 1 mg Documented by: Risperidone (Risperdal) 2 mg PO HS [facility] Stop: 11/30/19 21:59 Last Admin: 11/05/19 20:13 Dose: 2 mg Documented by: Sodium Chloride ([place] Nasal) 1 - 2 sprays NA PRN PRN PRN Reason: Nasal Dryness/Congestion Stop: 11/20/19 16:51 Temazepam (Restoril) 30 mg PO DAILY@2100 [facility] Stop: 12/03/19 20:59 Last Admin: 11/05/19 20:15 Dose: 30 mg Documented by: Mental Health & Subst Abuse Tx Psychiatrist Name of Psychiatrist: Dr. Navarrete Psychiatrist's Date of Appointment with Psychiatrist: 11/12/19 Time of Appointment with Psychiatrist: 3:20pm Psychiatric Appointment Comment: [address] [place] [address] [place] [id number] Therapist Name of Therapist: None Senior Game Designer Name of Senior Game Designer: None Post Discharge Appointments Primary Care Physician Name Of Family Doctor: Dr. Whitehead (javier) Primary Care Date of Appointment with PCP: 11/06/19 Time of Appointment with PCP: daughter is calling to schedule & will let us know Provider Appointment Comment: [address], [facility] [address] Neurologist Name of Neurologist: Ragini Hernandez Neurologist's Neurology Appointment Comment: As needed Contact Information Discharge Discharge Address: [address] [place] [address] [place] [address] (daughter's address) (1) Bipolar disorder Active/Remission status: currently active Current bipolar episode type: manic Current episode severity: severe Psychotic features: with psychotic features Qualified Code(s): F31.2 - Bipolar disorder, current episode manic severe with psychotic features
[2019-11-06 10:43] LABS: Glucose 107 mg/dl (70-99)
[2019-11-06 10:44] LABS: Alanine Aminotransferase < 6 U/L (12-78); Albumin Level 3.1 gm/dl (3.4-5.0); Aspartate Aminotransferase 8 U/L (15-37); BUN Creatinine Ratio 19.1 (10-20); Blood Urea Nitrogen 23 mg/dl (7-18); Calcium 9.4 mg/dl (8.5-10.1); Carbon Dioxide 31 mmol/L (21-32); Chloride 103 mmol/L (98-107); Creatinine Clr Calc Pharmacy 48.2 ml/min; Est GFR (African American) 50.5; Est GFR (Non-African American) 43.6; Potassium 3.6 mmol/L (3.5-5.1); Sodium 138 mmol/L (136-145)
[2019-11-06 10:48] LABS: Albumin Globulin Ratio 0.6 (0.9-2); Alkaline Phosphatase 72 U/L (45-117); Bilirubin,Total 0.4 mg/dl (0.2-1); Globulin 5.6 gm/dl (2.5-4.0); Total Protein 8.7 gm/dl (6.4-8.2)
--- NOTE | 2019-11-06 11:49 | Hospitalist Progress Note ---
Date of Service November 06, 2019 Assessment & Plan (1) Acute UTI: 74-year-old female who was admitted to the inpatient psychiatric unit for management of manic episode and bipolar disorder. Hospitalist was consulted on 11/03 for evaluation of lower extremity edema. After review of outpatient records, patient has history of DVT and completed 6 months of Coumadin therapy in 2017. BLLE venous doppler was obtained and negative for DVT. Suspected that patient's lower extremity edema is secondary to venous stasis. Recommended continuing patient's home dose of furosemide, compression stockings, elevate legs, low-salt diet. Edema has been improving. On 10/22 patient was diagnosed with UTI and placed on Keflex. Culture grew a pansensitive E. coli. Patient did complete her course of Keflex. Over the past couple of days, patient has developed urinary frequency and hesitancy. Repeat UA and culture were obtained. Culture continues to grow a pansensitive E. coli. Recommend placing patient on Macrobid 100 mg twice daily for 5 days. Patient will need close outpatient follow-up for resolution. Will sign off. Please call with any questions or concerns. Supervising Physician Co-Signing Physician Notes 74-year-old female who was admitted to the inpatient psychiatric unit for management of manic episode and bipolar disorder who was treated for E.coli UTI from 10/22/2019 with keflex who started having urinary frequency and hesitancy for a few days. Patient was seen and examined by me. Refer to progress note by Jessica MARIE for details On physical exam General: Well nourished, well hydrated elderly woman in no acute distress Eyes: Conjunctivae normal, not pale, anicteric sclerae, EOM intact bilaterally ENMT: External ear and nose normal, oropharynx normal Neck: Normal visual inspection, no tracheal deviation, no swelling noted Respiratory: Normal respiratory effort, no respiratory distress, lungs clear to auscultation, no crackles and no wheezes Cardiovascular: Pulse is RRR. S1 S2. Gastrointestinal (Abdomen): Abdomen is not distended, soft, non-tender to palpation, no guarding, no palpable hepatosplenomegaly, normal bowel sounds Musculoskeletal: No cyanosis or clubbing, +trace leg edema with TEDS Genitourinary: No suprapubic tenderness. No CVA tenderness Skin: No rash noted on gross inspection, No ulcers noted Neurologic: Alert and oriented x 3, No focal weakness, sensation grossly intact. Ambulates with walker Psychiatric: Demonstrates tangentiality, E. coli UTI Pansensitive Recurrent UTI Start nitrofurantoin for 5 days If symptoms persist or recur, will need further evaluation for recurrent UTI Please call for any more questions or concerns Subjective Patient seen and examined. Reports urinary frequency and hesitancy. Offers no other complaints. Review of Systems Constitutional: no fever, no chills and no sweats Eyes: no worsening vision Respiratory: no dyspnea Cardiovascular: + edema; no chest pain Gastrointestinal: no abdominal pain and no nausea Genitourinary: + urinary frequency and + urinary hesitancy denies flank pain Physical Exam Physical Exam: please refer to Dr. gNo's addendum for physical exam Results & Data Vital Signs (Past 12 Hours) Vital Signs Temp Pulse Resp BP 11/06/19 07:02 98 H 128/72 11/06/19 07:01 36.7 C 94 H 20 123/80 Laboratory Results Short CBC 11/06/19 Range/Units 09:46 WBC 5.58 (4.8-10.8) K/uL Hgb 11.5 L (12.0-16.0) g/dL Hct 36.1 L (37-47) % Plt Count 309 (130-400) K/uL BMP 11/06/19 09:46 Sodium 138 Potassium 3.6 Chloride 103 Carbon Dioxide 31 BUN 23 H Creatinine 1.22 H Glucose 107 H Calcium 9.4 Liver Function 11/06/19 Range/Units 09:46 Total Bilirubin 0.4 (0.2-1) mg/dl AST 8 L (15-37) U/L ALT < 6 L (12-78) U/L Alkaline Phosphatase 72 (45-117) U/L Albumin 3.1 L (3.4-5.0) gm/dl Urine Culture Final 11/06/19-1121 Organism 1 Escherichia coli [place] Count >100,000 CFU/ml Sens Sensitivities to Follow +Mix Urine Plus Low Counts of Other Mixed [place] E coli RX M.I.C. --- --------- Amikacin S <=16 Ampicillin S <=8 Amp/Sul S <=8/4 Cefazolin S <=8 Cefepime S <=4 Cefotaxime S <=2 Cefoxitin S <=8 Ceftriaxone S <=1 Cefuroxime S <=4 Ciprofloxacin S <=1 Ertapenem S <=1 Gentamicin S <=4 Imipenem S <=1 Levofloxacin S <=2 Nitrofurantoin S <=32 Tobramycin S <=4 Trimeth/Sulfa S <=2/38 Pip/Tazo S <=16
[2019-11-06] MEDS: NITROFURANTOIN MONOHYDRATE 100 MG CAP PO SCH ×2 (12:58→20:16)
[2019-11-06] MEDS: TEMAZEPAM 15 MG CAPSULE PO SCH (20:16)
[2019-11-06] MEDS: LORazepam 0.5 MG TAB PO SCH (20:17)
[2019-11-06] MEDS: risperiDONE 2 MG TABLET PO SCH (20:18)
[2019-11-06] MEDS: DIVALPROEX EXTENDED RELEASE 250 MG TABCR PO SCH (20:18)
[2019-11-07] MEDS: DOCUSATE SODIUM 100 MG CAP PO SCH ×2 (09:53→19:58)
[2019-11-07] MEDS: risperiDONE 1 MG TABLET PO SCH (09:53)
[2019-11-07] MEDS: GABAPENTIN 300 MG CAP PO SCH ×3 (09:54→19:58)
[2019-11-07] MEDS: CARBIDOPA/LEVODOPA 25/100MG TAB PO SCH ×3 (09:54→19:59)
[2019-11-07] MEDS: FUROSEMIDE 20 MG TAB PO SCH (09:54)
[2019-11-07] MEDS: allopurinoL 100 MG TAB PO SCH (09:54)
[2019-11-07] MEDS: ATORVASTATIN 10 MG TAB PO SCH (09:54)
[2019-11-07] MEDS: POTASSIUM CHLORIDE 10 MEQ TABCR PO SCH (09:54)
[2019-11-07] MEDS: NITROFURANTOIN MONOHYDRATE 100 MG CAP PO SCH ×2 (09:54→19:58)
[2019-11-07 10:19] LABS: Creatinine Clr Calc Pharmacy 47.4 ml/min; Est GFR (African American) 49.6; Est GFR (Non-African American) 42.8
[2019-11-07] MEDS ORDERED: TEMAZEPAM 7.5 MG CAPSULE PO PRN (11:35)
--- NOTE | 2019-11-07 13:33 | Psychiatric Progress Note ---
Date of Service November 07, 2019 Impression / Recommendations Impression 74-year-old female with a history of multiple medical problems and bipolar disorder type I who presented with confusion, hallucinations, and agitation worsening over several days prior to presentation while she was at [facility], where she was receiving rehab after a fall at home with inability to get up for many hours. She was diagnosed with a UTI in the ER as well, and completed a course of Keflex. She was last on our unit 4 years ago, and was on similar medications for her bipolar disorder at that time. Her home medications were initially continued, while treating UTI and continuing PT, but manic and psychotic symptoms worsened, so have increased quetiapine and added low dose Depakote for mood stabilization. Care has been coordinated w/ her outpatient psychiatrist, and daughter has been involved in treatment and visiting regularly. She is on a 303 as of 10/24/19. Sleep is suboptimal, and will schedule lorazepam at HS as has been beneficial. Inpatient treatment remains medically necessary due to the severity of her symptoms and inability to provide for her own basic needs without the care and assistance of others. The patient's diagnosis of Parkinson's disease complicates treatment interventions in this case. The presence of visual hallucinations might best be explained by psychosis related to Parkinson's disease and treatment with levodopa. Rather significant medication changes made over the last week to target increased manic behaviors with increase in delusional thought process. Seroquel was replaced with risperidone, and Depakote was titrated to a dose of 1250mg qHS. The patient's affect has stabilized and she is no longer exhibiting symptoms of lori. She does appear to be somewhat sedated from her medications, but when ask if she was feeling depressed she assured us that she is feeling "fine"" good." She also was able to sleep for 7 hours during the night of 11/06/2019 and 11/07/2019. Because of the patient's improvement, and given the fact that at this point a concern is excess sedation (particularly given her mobility issues) we will begin the process of lowering her dose of daytime risperidone, and bedtime temazepam. The patient continues to require inpatient psychiatric hospitalization is the least intensive level of care consistent with her clinical and safety needs. (1) Bipolar disorder: 10/22 -likely also an element of delirium, with recent fall, inpatient rehab and [facility], and acute on chronic kidney dysfunction. Per review of records, this presentation is consistent with past presentations under similar circumstances. -Continue inpatient treatment on an involuntary commitment, and assess the need for extension of involuntary commitment. -Continue medically necessary private room due to recent agitation/confusion. -Get collateral information from daughter Juana who was present in the ER. -Coordinate care with outpatient psychiatrist, Dr. Navarrete. -Continue quetiapine 100 mg twice daily at 0900 and 1300, and 200 mg at bedtime. It appears likely that her recent symptoms are due to the change in her routine (admitted to [facility] Status post fall) and medical decompensation with UTI and kidney dysfunction. -Monitoring on an atypical antipsychotic: FLP from 06/2019 was within normal limits. Hemoglobin A1c was 5.7%, with estimated average glucose of 117. Fasti ng glucose 95. 10/23 -Reviewed case with outpatient psychiatrist Dr. Navarrete. He agreed with continuing her current medications, and providing consistency and structure on the unit, which typically help. -Continue MNPR as required O2 overnight for desaturation. -Patient still lacks capacity to agree to voluntary treatment, and is not yet stable for discharge, so will schedule a 303 hearing for tomorrow. 10/24 -Our ongoing concern is the fact that the patient has a history of decompensating fairly rapidly when sleep deprived, and she slept only a couple hours last night because she was very anxious about her upcoming hearing. We are also concerned because the patient continues to show certain features consistent with hypomania. For that reason, we are recommending further stabilization on an inpatient basis before transitioning the patient to the community for continued treatment on an outpatient basis. -The patient is continuing to tolerate quetiapine at the current dose of 100 mg twice a day and 200 mg at bedtime. She reports that she is not noticing any side effects and feels "much better." 10/25 -on a 303 involuntary commitment. Continue home medications. -Family meeting held with daughter. The patient will stay with her temporarily at discharge. 10/26 -sleep erratic, only 4 hours last night. Will order quetiapine 100 mg at bedtime as needed for insomnia. -Globally cognitively impaired; 10/13 on the MoCA, missing 3 for visuospatial/executive, 4 for attention, 2 for language, 2 for abstraction, 4 for delayed recall, and 3 for orientation. We will continue to monitor. 10/27 - HS dose of quetiapine increased to 300mg - total of 100mg/100mg/300mg daily - Pt demonstrating increased symptoms of lori, and sleep remains poor - therefore increasing risk of mood instability and overall concern for safety if discharged - Treatment team discussed recommendation that patient not drive - daughters requesting to restrict driving access on their own rather than [facility] - will continue to discuss with family as condition improves. Ideally, patient will have repeat MoCA prior to discharge - Continue MNPR due to concern for mood instability with interrupted sleep and worsening symptoms of lori 10/28 - Pt demonstrating worsening of manic symptoms and only slept 15 minutes last evening despite multiple prn sleep aids being provided - She was ordered 1 dose of lorazepam 1mg which can be utilized this evening to encourage sleep - fall-risk remains a concern and will be continuously evaluated as benzodiazepines are not an ideal long-term medication for this particular patient - Will order low-dose valproic acid 250mg to begin this evening, hopeful the medication may continue to target manic symptoms without as significant intera ctions with Parkinson's disease process - Continue current dosage of quetiapine at this time - Continue MNPR given poor sleep and mood instability 10/29 - Mildly improved sleep last evening - will titrate valproic acid to 500mg this evening - Will initially continue prn order of 0.5mg of lorazepam for this evening - as not ideal to rely on for long-term treatment - Fluid restriction in the late evening to be initiated - as nursing reports patient is often awoken by need to use the restroom and then is unable to return to sleep - Continue MNPR 10/30 - Continue current medication, and order lorazepam 0.5mg HS scheduled, with additional prn if needed for sleep. - Encourage patient to be awake during the day and asleep at night. 10/31 -As above, the patient psychiatric condition and, more specifically, her symptoms of lori are not improving, and there is some indication that, perhaps, she is having an idiosyncratic reaction to quetiapine. The context, of course, is that the patient is taking levodopa and has Parkinson's disease. Accordingly, we will hold quetiapine at this time in favor of risperidone which may be better tolerated at 1 mg in the morning and 2 mg at bedtime, with a plan to titrate as indicated. -In addition to working to allow the patient to have improved, sustained sleep, we are in the process of titrating Depakote. Hopefully, her manic symptoms will be favorably affected as we continue to titrate Depakote to a fully therapeutic level. A valproic acid level will be measured on 11/02/201911/01 --improved today, Restoril effective, will add standing with additional prn 11/02--depakote level 61, add additional 250 mg Depakote. 11/03 -patient slept well last night with temazepam 30 mg, and tolerated it well; will schedule for now, with a plan to use short-term to stabilize sleep and then taper off. -Continue risperidone 1 mg every morning and 2 mg at bedtime. Continue Depakote 1250 mg at bedtime, and recheck a trough on or after 11/07/2019. 11/04 - Continue current medication regimen - sleep was less ideal last evening; however, still improved when compared to several days ago 11/05 - Continue current medication regimen - patient continuing to appear more subdued, but sleep is gradually improving 11/06 - Poor sleep again last evening - patient appearing more subdued, but concern for motor and cognitive slowing - will reduce scheduled HS dose of Restoril to 15mg, and offer repeat 15mg as back-up in attempt to reduce sedating medications - concern remains that patient is not sleeping despite multiple psychotropic medications with sedating properties - Consider need for additional medication adjustments if sleep continues to be poor - Depakote level repeated this morning - results are still pending 11/07 -Serum valproic acid level reordered -The patient's mood appears to have stabilized. She is not currently exhibiting symptoms of lroi, nor she experiencing symptoms of hypomania. She slept well last night, but, as has been previously noted, poor sleep has tended to be a harbinger of the onset of a manic episode, as well as a trigger for a manic episode. Complicating the clinical picture is that the patient is now demonstrating some excess sedation during the day. Accordingly, we are now adjusting the patient's medications, cautiously. We held risperidone this morning, and will restart it tomorrow at 0.5 mg in the morning and will continue 2 mg at bedtime. We also will attempt to reduce her dose of temazepam to 22.5 mg tonight and, depending on the outcome, we will look at possibly tapering further over the course of the weekend. PRN lorazepam remains available should the patient require additional assistance with sleep. (2) Parkinsons disease: 10/22 -continue home dose of Sinemet and monitor abnormal movements. Consider neurology consult if these do not improve. 10/24 -We discussed with the patient the fact that antiparkinsonian medications may possibly contribute to an exacerbation of psychotic symptoms as well as perceptual disturbances in persons who have Parkinson's disease,, and we have also advised the patient that antipsychotic medication such as quetiapine may adversely influence her movement disorder. The patient tells us that she has not noticed any worsening in her ability to ambulate, and also reports that she has not experienced any perceptual disturbances. Her mental status examination reveals that her current thought content appears to be devoid of any delusional material. 10/28 - Pt continues to demonstrate manic behaviors, worsening of symptoms correlated to poor sleep for the past several nights - As we are being cautious about utilization of atypical antipsychotic medications in the setting of Parkinson's disease - will plan to initiate low- dose valproic acid to begin this evening - Pt ordered 250mg of valproic acid to begin this evening, with titration as indicated - Continuing quetiapine at this time 10/31 -Hopefully, titration of valproic acid as a mood stabilizer will address the patient's symptoms of lori without exacerbating her Parkinsonism, and will allow us to limit the use of antipsychotic medications. 11/07 -The patient is ambulating quite slowly, more slowly than she was while manic. This may be a function of improved caution as her mood has stabilized, but it may also be related to sedation or to an exacerbation of her Parkinson's disease. The patient is aware that she is moving slowly, and tells us that she is deliberately moving slowly in order to prevent another fall. (3) History of pulmonary embolism: 11/02--hospitalist consult to clarify anticoagulation needs and examine leg 11/03 -appreciate hospitalist team's recommendations; bilateral lower extremity Doppler negative for DVT. Furosemide was continued, compression stockings and bilateral lower extremity elevation to reduce dependent edema. (4) Acute UTI: 10/22 -continue Keflex as started in the ER, and follow-up on sensitivities when completed. 10/24 -The patient's urine culture grew E. coli, and alpha streptococcus, not enterococcus -Patient reports that she is not continuing to experience pain on urination or urinary frequency. 10/27 - Last dose of Keflex given this morning 11/04 - Repeat UA ordered for today 11/05 - Will request hospitalist input regarding repeat UA - showing ongoing bacterial contamination - Pt is denying UTI symptomatology; not appearing delirious - Given recurrent UTIs and repeated antibiotic treatment, will ask hospitalist team to guide treatment recommendations 11/06 - Appreciate hospitalist recommendations regarding repeat UA also demonstrating E. coli growth; patient continuing to deny UTI symptoms - Nursing did report concern about possible urinary retention/hesitancy - Hospitalists recommended initiation of Macrobid 100mg BID x 5 days; with close outpatient follow-up after discharge to ensure resolution - Hospitalists have signed off on this concern, but are available for additional issues should they arise 11/07 -The patient notes today that she does not feel as if she has a urinary tract infection, and notes that she is usually aware of the symptoms. She specifically reports that she is not experiencing any pain, including flank or abdominal pain, and she also is not experiencing any burning on urination. She does, however, continue to describe urinary hesitation. We are continuing Macrobid as above. (5) HTN (hypertension): 10/22 -continue home dose of furosemide. BP was elevated in the ER, but has now normalized. -Ensure follow-up with PCP. (6) Idiopathic peripheral neuropathy: 10/22 -continue home dose of gabapentin 300 mg 3 times daily. 10/31 -The patient continues to report symptoms of peripheral neuropathy, but also tells us that it is "okay." (7) RLS (restless legs syndrome): 10/22 -continue home dose of lorazepam 0.5 mg at bedtime as needed. 10/31 -Standing dose of lorazepam at bedtime was not helpful. Tonight, we will offer the patient a trial of temazepam 15 mg for sleep. 11/02 --encourage up to 30 mg temazepam for sleep. (8) Gout: Continue home dose of allopurinol. Risk Factors Assessment Male: No : Yes Do You Have Access To A Gun?: No Health Problems: Yes Mental Health Diagnoses: Yes Substance Use Disorders: No Previous Psychiatric Hospitalization: Yes Smoker: No Protective Factors Assessment Baptism Beliefs: Yes : No Responsible for Young Children: No Employed: No Stable Relationships: Yes Supportive Family: Yes Good Rapport with Provider: Yes Interval History Identifying Information PABLO COOPER is a 74-year-old F who currently lives in [place], has a history of bipolar disorder, Parkinson's disease, chronic kidney disease, hypertension, peripheral neuropathy, and restless leg syndrome and was admitted on 10/21/19 16:52 on a 302 involuntary commitment for lori. 303 granted on 10/24/2019. Chief Complaint " I think I am doing better". Review of Systems Sleep Information Total Hours of Sleep: 7 Sleep Comments: The hours of sleep were between evenings and nights. Meal Information Percent Meal Consumed - Breakfast: 40 Percent Meal Consumed - Lunch: 100 Percent Meal Consumed - Dinner: 75 Nutrition Comment: pt asleep Subjective Subjective Patient was seen & assessed and interval progress reviewed with treatment team. I met individually with the patient in order to assess her current mental status, evaluate her response to treatment, coordinate with the patient any necessary change in her treatment regimen, and address questions, issues and concerns that may arise. The patient began by telling me that she feels that she is doing better. She notes that she slept fairly well last night, although she was again distressed by the fact that she had some difficulty reaching her call schuster. (She was reminded to put the schuster with her in bed, rather than leave it on the bedside table, and it was agreed that we would discuss this further in the treatment team and alert to the evening shift.) The patient specifically reports that she is not feeling depressed, nor is she experiencing symptoms of lori. She does, however, acknowledge that she is feeling somewhat sedated, and she was told that this is consistent with our observations as well. We discussed the fact that we are now planning to begin lowering her dosages of risperidone (daytime dose) and temazepam, with the eventual goal of discontinuing temazepam in favor of lorazepam, only. We also explained that we may need to increase these dosages again if she becomes symptomatic or if she is having difficulty sleeping once again. The patient indicated understanding, and said that she is hoping to be discharged in the next 3 to 5 days. She happily showed me a greeting card that she had received from her granddaughter, a college freshman, and she was considering writing her thank you note. She also talked about her past experiences and notes that she has always derive satisfaction from helping other people. "I find it rewarding. 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 I also think I was good at it." She was able to tell us today what her symptoms of lori are. She reports that she is no longer experiencing any auditory or visual hallucinations. Told her that she is being treated for a urinary tract infection, and she reports that she is not experiencing any abdominal or flank pain, is not experiencing any burning on urination, and has not noticed that her urine is discolored. However, she also says that she has been experiencing hesitancy, and we noted that this may or may not be related to her medications. The patient describes her appetite as "pretty good," and indicates that she feels that she is working towards the goal of being able to leave the hospital and return home next week. Physical Exam Psychiatric Orientation: alert, oriented x 3 and cooperative Apperance: appropriately dressed and appropriately groomed Eye Contact: good eye contact Motor Behavior: + tremor There is a fine 12 beat per second tremor in both hands. Speech: normal rate/rhythm/volume of speech Affect: euthymic affect "A whole lot better." Thought Process: + tangential thought process Thought Content: reality based without delusions Suicidal Thoughts: denies suicidal thoughts Homicidal Thoughts: denies homicidal thoughts Hallucinations: no auditory hallucinations and no visual hallucinations Cognition: recent memory grossly intact, remote memory grossly intact, attention grossly intact and language grossly intact Recalls details from our most recent previous contact which was 7 days ago. Estimated Intelligence: + above average estimated intelligence Insight: + fair insight Judgement: + fair judgement Vital Signs (Past 24 Hours) Last Vital Signs Temp 36.7 C 11/07/19 06:45 Pulse 92 H 11/07/19 06:45 Resp 20 11/07/19 06:45 BP 131/80 11/07/19 06:45 Pulse Ox 93 10/30/19 06:44 Results & Data Laboratory Results Laboratory Results - last 24 hr 11/07/19 11/07/19 09:39 09:42 Creatinine 1.24 H Est Cr Clr Drug Dosing 47.4 Est GFR ( Amer) 49.6 Est GFR (Non-Af Amer) 42.8 Valproic Acid 84 Current Inpatient Medications Current Inpatient Medications: Current Inpatient Medications Acetaminophen (Tylenol) 650 mg PO Q4H PRN PRN Reason: Headache or Minor Fever Stop: 11/20/19 16:51 Last Admin: 11/05/19 00:20 Dose: 650 mg Documented by: Al Hydrox/Mg Hydrox/Simethicone (Maalox) 30 ml PO Q4H PRN PRN Reason: GI Upset Stop: 11/20/19 16:51 [facility]) [facility] [place]: 11/21/19 08:59 Last Admin: 11/07/19 09:54 Dose: 100 mg Documented by: Atorvastatin Calcium (Lipitor) 10 [facility] [place] Stop: 11/21/19 08:59 Last Admin: 11/07/19 09:54 Dose: 10 mg Documented by: Carbidopa/Levodopa (Sinemet 25/100 Mg) 1 tab PO TID [facility] Stop: 11/20/19 10:29 Last Admin: 11/07/19 09:54 Dose: 1 tab Documented by: Divalproex Sodium (Depakote Extended Release) 1,250 mg PO HS [facility] Stop: 12/02/19 21:59 Last Admin: 11/06/19 20:18 Dose: 1,250 mg Documented by: Docusate Sodium (Colace) 100 mg PO BID [facility] Stop: 11/20/19 20:59 Last Admin: 11/07/19 09:53 Dose: 100 mg Documented by: Furosemide (Lasix) 20 mg PO QAM [facility] Stop: 11/21/19 08:59 Last Admin: 11/07/19 09:54 Dose: 20 mg Documented by: Gabapentin (Neurontin) 300 mg PO TID [facility] Stop: 11/20/19 20:59 Last Admin: 11/07/19 09:54 Dose: 300 mg Documented by: Hydroxyzine HCl (Vistaril) 50 mg PO HSZ PRN PRN Reason: Insomnia Stop: 11/20/19 16:51 Last Admin: 10/27/19 23:28 Dose: 50 mg Documented by: Hydroxyzine HCl (Vistaril) 25 mg PO Q4H PRN PRN Reason: Anxiety Stop: 11/20/19 16:51 Lorazepam (Ativan) 0.5 mg PO HS PRN PRN Reason: Insomnia Stop: 11/29/19 10:43 Last Admin: 10/31/19 01:15 Dose: 0.5 mg Documented by: Magnesium Hydroxide (Milk Of Magnesia) 30 ml PO DAILY PRN PRN Reason: Constipation Stop: 11/20/19 16:51 Nitrofurantoin Macrocrystals (Macrobid) 100 mg PO BID [facility]; Protocol Stop: 11/11/19 11:44 Last Admin: 11/07/19 09:54 Dose: 100 mg Documented by: Olanzapine (Zyprexa Zydis Od) 5 mg PO Q6H PRN PRN Reason: Agitation Stop: 11/20/19 16:59 Last Admin: 10/31/19 07:41 Dose: 5 mg Documented by: Potassium Chloride (Klor-Con M10) 10 meq PO QAM GALLO Stop: 11/21/19 08:59 Last Admin: 11/07/19 09:54 Dose: 10 meq Documented by: Risperidone (Risperdal) 2 mg PO HS GALLO Stop: 11/30/19 21:59 Last Admin: 11/06/19 20:18 Dose: 2 mg Documented by: Risperidone (Risperdal) 0.5 mg PO QAM [facility] Stop: 12/08/19 08:59 Sodium Chloride (Comal Nasal) 1 - 2 sprays NA PRN PRN PRN Reason: Nasal Dryness/Congestion Stop: 11/20/19 16:51 Temazepam (Restoril) 22.5 mg PO HSZ PRN PRN Reason: Insomnia Stop: 12/07/19 11:34 Mental Health & Subst Abuse Tx Psychiatrist Name of Psychiatrist: Dr. Navarrete Psychiatrist's Date of Appointment with Psychiatrist: 11/12/19 Time of Appointment with Psychiatrist: 3:20pm Psychiatric Appointment Comment: [address] [facility] [id number] Therapist Name of Therapist: None Plant Clerk Name of Plant Clerk: None Post Discharge Appointments Primary Care Physician Name Of Family Doctor: Dr. Whitehead (Ragini) Primary Care Date of Appointment with PCP: 11/06/19 Time of Appointment with PCP: daughter is calling to schedule & will let us know Provider Appointment Comment: [address] [place] [address] Neurologist Name of Neurologist: Ragini Hernandez Neurologist's Neurology Appointment Comment: As needed Contact Information Discharge Discharge Address: [address], [place] [address] (daughter's address) (1) Bipolar disorder Active/Remission status: currently active Current bipolar episode type: manic Current episode severity: severe Psychotic features: with psychotic features Qualified Code(s): F31.2 - Bipolar disorder, current episode manic severe with psychotic features
[2019-11-07] MEDS: risperiDONE 2 MG TABLET PO SCH (19:59)
[2019-11-07] MEDS: DIVALPROEX EXTENDED RELEASE 250 MG TABCR PO SCH (19:59)
--- NOTE | 2019-11-08 08:43 | Psychiatric Progress Note ---
Date of Service November 08, 2019 Impression / Recommendations Impression 74-year-old female with a history of multiple medical problems and bipolar disorder type I who presented with confusion, hallucinations, and agitation worsening over several days prior to presentation while she was at [facility], where she was receiving rehab after a fall at home with inability to get up for many hours. She was diagnosed with a UTI in the ER as well, and completed a course of Keflex. She was last on our unit 4 years ago, and was on similar medications for her bipolar disorder at that time. Her home medications were initially continued, while treating UTI and continuing PT, but manic and psychotic symptoms worsened, so have increased quetiapine and added low dose Depakote for mood stabilization. Care has been coordinated w/ her outpatient psychiatrist, and daughter has been involved in treatment and visiting regularly. She is on a 303 as of 10/24/19. Sleep is suboptimal, and will schedule lorazepam at HS as has been beneficial. Inpatient treatment remains medically necessary due to the severity of her symptoms and inability to provide for her own basic needs without the care and assistance of others. The patient's diagnosis of Parkinson's disease complicates treatment interventions in this case. The presence of visual hallucinations might best be explained by psychosis related to Parkinson's disease and treatment with levodopa. Rather significant medication changes made over the last week to target increased manic behaviors with increase in delusional thought process. Seroquel was replaced with risperidone, and Depakote was titrated to a dose of 1250mg qHS. Valproic acid level - 84. The patient's affect has stabilized and she is no longer exhibiting symptoms of lori. She does appear to be somewhat sedated from her medications, but when ask if she was feeling depressed she assured us that she is feeling "fine"" good." Sleep has slowly improved. Because of the patient's improvement, and given the fact that at this point a concern is excess sedation (particularly given her mobility issues) we will begin the process of lowering her dose of temazepam. The patient continues to require inpatient psychiatric hospitalization is the least restrictive level of care consistent with her clinical and safety needs. (1) Bipolar disorder: 10/22 -likely also an element of delirium, with recent fall, inpatient rehab and [facility], and acute on chronic kidney dysfunction. Per review of records, this presentation is consistent with past presentations under similar circumstances. -Continue inpatient treatment on an involuntary commitment, and assess the need for extension of involuntary commitment. -Continue medically necessary private room due to recent agitation/confusion. -Get collateral information from daughter Juana who was present in the ER. -Coordinate care with outpatient psychiatrist, Dr. Navarrete. -Continue quetiapine 100 mg twice daily at 0900 and 1300, and 200 mg at bedtime. It appears likely that her recent symptoms are due to the change in her routine (admitted to [facility] post fall) and medical decompensation with UTI and kidney dysfunction. -Monitoring on an atypical antipsychotic: FLP from 06/2019 was within normal limits. Hemoglobin A1c was 5.7%, with estimated average glucose of 117. Fasting glucose 95. 10/23 -Reviewed case with outpatient psychiatrist Dr. Navarrete. He agreed with continuing her current medications, and providing consistency and structure on the unit, which typically help. -Continue MNPR as required O2 overnight for desaturation. -Patient still lacks capacity to agree to voluntary treatment, and is not yet stable for discharge, so will schedule a 303 hearing for tomorrow. 10/24 -Our ongoing concern is the fact that the patient has a history of decompensating fairly rapidly when sleep deprived, and she slept only a couple hours last night because she was very anxious about her upcoming hearing. We are also concerned because the patient continues to show certain features consistent with hypomania. For that reason, we are recommending further stabilization on an inpatient basis before transitioning the patient to the community for continued treatment on an outpatient basis. -The patient is continuing to tolerate quetiapine at the current dose of 100 mg twice a day and 200 mg at bedtime. She reports that she is not noticing any side effects and feels "much better." 10/25 -on a 303 involuntary commitment. Continue home medications. -Family meeting held with daughter. The patient will stay with her temporarily at discharge. 10/26 -sleep erratic, only 4 hours last night. Will order quetiapine 100 mg at bedtime as needed for insomnia. -Globally cognitively impaired; 10/13 on the MoCA, missing 3 for visuo spatial/executive, 4 for attention, 2 for language, 2 for abstraction, 4 for delayed recall, and 3 for orientation. We will continue to monitor. 10/27 - HS dose of quetiapine increased to 300mg - total of 100mg/100mg/300mg daily - Pt demonstrating increased symptoms of lori, and sleep remains poor - therefore increasing risk of mood instability and overall concern for safety if discharged - Treatment team discussed recommendation that patient not drive - daughters requesting to restrict driving access on their own rather than have condition reported to [facility] - will continue to discuss with family as condition improves. Ideally, patient will have repeat MoCA prior to discharge - Continue MNPR due to concern for mood instability with interrupted sleep and worsening symptoms of lori 10/28 - Pt demonstrating worsening of manic symptoms and only slept 15 minutes last evening despite multiple prn sleep aids being provided - She was ordered 1 dose of lorazepam 1mg which can be utilized this evening to encourage sleep - fall-risk remains a concern and will be continuously evaluated as benzodiazepines are not an ideal long-term medication for this particular patient - Will order low-dose valproic acid 250mg to begin this evening, hopeful the medication may continue to target manic symptoms without as significant interactions with Parkinson's disease process - Continue current dosage of quetiapine at this time - Continue MNPR given poor sleep and mood instability 10/29 - Mildly improved sleep last evening - will titrate valproic acid to 500mg this evening - Will initially continue prn order of 0.5mg of lorazepam for this evening - as not ideal to rely on for long-term treatment - Fluid restriction in the late evening to be initiated - as nursing reports patient is often awoken by need to use the restroom and then is unable to return to sleep - Continue MNPR 10/30 - Continue current medication, and order lorazepam 0.5mg HS scheduled, with additional prn if needed for sleep. - Encourage patient to be awake during the day and asleep at night. 10/31 -As above, the patient psychiatric condition and, more specifically, her symptoms of lori are not improving, and there is some indication that, perhaps, she is having an idiosyncratic reaction to quetiapine. The context, of course, is that the patient is taking levodopa and has Parkinson's disease. Accord ingly, we will hold quetiapine at this time in favor of risperidone which may be better tolerated at 1 mg in the morning and 2 mg at bedtime, with a plan to titrate as indicated. -In addition to working to allow the patient to have improved, sustained sleep, we are in the process of titrating Depakote. Hopefully, her manic symptoms will be favorably affected as we continue to titrate Depakote to a fully therapeutic level. A valproic acid level will be measured on 11/02/201911/01 --improved today, Restoril effective, will add standing with additional prn 11/02--depakote level 61, add additional 250 mg Depakote. 11/03 -patient slept well last night with temazepam 30 mg, and tolerated it well; will schedule for now, with a plan to use short-term to stabilize sleep and then taper off. -Continue risperidone 1 mg every morning and 2 mg at bedtime. Continue Depakote 1250 mg at bedtime, and recheck a trough on or after 11/07/2019. 11/04 - Continue current medication regimen - sleep was less ideal last evening; however, still improved when compared to several days ago 11/05 - Continue current medication regimen - patient continuing to appear more subdued, but sleep is gradually improving 11/06 - Poor sleep again last evening - patient appearing more subdued, but concern for motor and cognitive slowing - will reduce scheduled HS dose of Restoril to 15mg, and offer repeat 15mg as back-up in attempt to reduce sedating medications - concern remains that patient is not sleeping despite multiple psychotropic medications with sedating properties - Consider need for additional medication adjustments if sleep continues to be poor - Depakote level repeated this morning - results are still pending 11/07 -Serum valproic acid level reordered -The patient's mood appears to have stabilized. She is not currently exhibiting symptoms of lori, nor she experiencing symptoms of hypomania. She slept well last night, but, as has been previously noted, poor sleep has tended to be a harbinger of the onset of a manic episode, as well as a trigger for a manic episode. Complicating the clinical picture is that the patient is now demonstrating some excess sedation during the day. Accordingly, we are now adjusting the patient's medications, cautiously. We held risperidone this morning, and will restart it tomorrow at 0.5 mg in the morning and will continue 2 mg at bedtime. We also will attempt to reduce her dose of temazepam to 22.5 mg tonight and, depending on the outcome, we will look at possibly tapering further over the course of the weekend. PRN lorazepam remains available should the patient require additional assistance with sleep. 11/08 - Valproic acid level - 84 - Continue risperidone 0.5mg qAM and 2mg qHS - Will reduce temazepam to 15mg this evening - Continue to encourage improved sleep routine (2) Parkinsons disease: 10/22 -continue home dose of Sinemet and monitor abnormal movements. Consider neurology consult if these do not improve. 10/24 -We discussed with the patient the fact that antiparkinsonian medications may possibly contribute to an exacerbation of psychotic symptoms as well as perceptual disturbances in persons who have Parkinson's disease,, and we have also advised the patient that antipsychotic medication such as quetiapine may adversely influence her movement disorder. The patient tells us that she has not noticed any worsening in her ability to ambulate, and also reports that she has not experienced any perceptual disturbances. Her mental status examination reveals that her current thought content appears to be devoid of any delusional material. 10/28 - Pt continues to demonstrate manic behaviors, worsening of symptoms correlated to poor sleep for the past several nights - As we are being cautious about utilization of atypical antipsychotic medications in the setting of Parkinson's disease - will plan to initiate low- dose valproic acid to begin this evening - Pt ordered 250mg of valproic acid to begin this evening, with titration as indicated - Continuing quetiapine at this time 10/31 -Hopefully, titration of valproic acid as a mood stabilizer will address the patient's symptoms of lori without exacerbating her Parkinsonism, and will allow us to limit the use of antipsychotic medications. 11/07 -The patient is ambulating quite slowly, more slowly than she was while manic. This may be a function of improved caution as her mood has stabilized, but it may also be related to sedation or to an exacerbation of her Parkinson's disease. The patient is aware that she is moving slowly, and tells us that she is deliberately moving slowly in order to prevent another fall. (3) History of pulmonary embolism: 11/02--hospitalist consult to clarify anticoagulation needs and examine leg 11/03 -appreciate hospitalist team's recommendations; bilateral lower extremity Doppler negative for DVT. Furosemide was continued, compression stockings and bilateral lower extremity elevation to reduce dependent edema. (4) Acute UTI: 10/22 -continue Keflex as started in the ER, and follow-up on sensitivities when completed. 10/24 -The patient's urine culture grew E. coli, and alpha streptococcus, not enterococcus -Patient reports that she is not continuing to experience pain on urination or urinary frequency. 10/27 - Last dose of Keflex given this morning 11/04 - Repeat UA ordered for today 11/05 - Will request hospitalist input regarding repeat UA - showing ongoing bacterial contamination - Pt is denying UTI symptomatology; not appearing delirious - Given recurrent UTIs and repeated antibiotic treatment, will ask hospitalist team to guide treatment recommendations 11/06 - Appreciate hospitalist recommendations regarding repeat UA also demonstrating E. coli growth; patient continuing to deny UTI symptoms - Nursing did report concern about possible urinary retention/hesitancy - Hospitalists recommended initiation of Macrobid 100mg BID x 5 days; with close outpatient follow-up after discharge to ensure resolution - Hospitalists have signed off on this concern, but are available for additional issues should they arise 11/07 -The patient notes today that she does not feel as if she has a urinary tract infection, and notes that she is usually aware of the symptoms. She specifically reports that she is not experiencing any pain, including flank or abdominal pain, and she also is not experiencing any burning on urination. She does, however, continue to describe urinary hesitation. We are continuing Macrobid as above. (5) HTN (hypertension): 10/22 -continue home dose of furosemide. BP was elevated in the ER, but has now normalized. -Ensure follow-up with PCP. (6) Idiopathic peripheral neuropathy: 10/22 -continue home dose of gabapentin 300 mg 3 times daily. 10/31 -The patient continues to report symptoms of peripheral neuropathy, but also tells us that it is "okay." (7) RLS (restless legs syndrome): 10/22 -continue home dose of lorazepam 0.5 mg at bedtime as needed. 10/31 -Standing dose of lorazepam at bedtime was not helpful. Tonight, we will offer the patient a trial of temazepam 15 mg for sleep. 11/02 --encourage up to 30 mg temazepam for sleep. (8) Gout: Continue home dose of allopurinol. Risk Factors Assessment Male: No : Yes Do You Have Access To A Gun?: No Health Problems: Yes Mental Health Diagnoses: Yes Substance Use Disorders: No Previous Psychiatric Hospitalization: Yes Smoker: No Protective Factors Assessment Orthodox Beliefs: Yes : No Responsible for Young Children: No Employed: No Stable Relationships: Yes Supportive Family: Yes Good Rapport with Provider: Yes Interval History Identifying Information PABLO COOPER is a 74-year-old F who currently lives in [place], has a history of bipolar disorder, Parkinson's disease, chronic kidney disease, hypertension, peripheral neuropathy, and restless leg syndrome and was admitted on 10/21/19 16:52 on a 302 involuntary commitment for lori. 303 granted on 10/24/2019. Chief Complaint "I'm going home today." Review of Systems Notes Constitutional: denied Cardiovascular: denied Respiratory: denied Gastrointestinal: denied Neurological: denied Psychiatric: denies symptoms other than stated above Total of at least 10 systems reviewed, pertinent positives as above and in HPI. Sleep Information Total Hours of Sleep: 6 Sleep Comments: The hours of sleep were between evenings and nights. Meal Information Percent Meal Consumed - Breakfast: 40 Percent Meal Consumed - Lunch: 30 Percent Meal Consumed - Dinner: 75 Nutrition Comment: pt asleep Subjective Subjective Patient was seen & assessed and interval progress reviewed with nursing and social work. Pt informs this provider "I'm going home today." She was informed that although she appears to be making slow improvement, this is not the current treatment plan. Pt becomes intermittently frustrated during our conversation, stating repeated that she is planning to go home today. Pt was asked about her mood, and states "it's a 10." She denies other needs or concerns today, but becomes irritable and tearful when being informed she will not be going home until her sleep is consistently improved. Physical Exam Psychiatric Orientation: alert; + uncooperative Apperance: appropriately dressed, appropriately groomed and appeared stated age Eye Contact: good eye contact Motor Behavior: steady gait and station (slow ambulation, but remains steady) and + psychomotor retardation Speech: normal rate/rhythm/volume of speech Affect: + tearful affect and + irritable affect Mood: no depressed mood ("It's a 10") Thought Process: + thought process not linear or logical and + thought process not clear or coherent Thought Content: + preoccupation (with belief she is being discharged today); no hopelessness Suicidal Thoughts: denies suicidal thoughts Homicidal Thoughts: denies homicidal thoughts Cognition: language grossly intact; + attention not intact Insight: + impaired insight Judgement: + impaired judgement Vital Signs (Past 24 Hours) Last Vital Signs Temp 36.6 C 11/08/19 07:01 Pulse 97 H 11/08/19 07:09 Resp 20 11/08/19 07:01 BP 144/85 H 11/08/19 07:09 Pulse Ox 93 10/30/19 06:44 Results & Data Laboratory Results Laboratory Results - last 24 hr 11/07/19 11/07/19 09:39 09:42 Creatinine 1.24 H Est Cr Clr Drug Dosing 47.4 Est GFR ( Amer) 49.6 Est GFR (Non-Af Amer) 42.8 Valproic Acid 84 Current Inpatient Medications Current Inpatient Medications: Current Inpatient Medications Acetaminophen (Tylenol) 650 mg PO Q4H PRN PRN Reason: Headache or Minor Fever Stop: 11/20/19 16:51 Last Admin: 11/05/19 00:20 Dose: 650 mg Documented by: Al Hydrox/Mg Hydrox/Simethicone (Maalox) 30 ml PO Q4H PRN PRN Reason: GI Upset Stop: 11/20/19 16:51 Allopurinol (Zyloprim) 100 mg PO [facility] Stop: 11/21/19 08:59 Last Admin: 11/07/19 09:54 Dose: 100 mg Documented by: Atorvastatin Calcium (Lipitor) [facility] Stop: 11/21/19 08:59 Last Admin: 11/07/19 09:54 Dose: 10 mg Documented by: Carbidopa/Levodopa (Sinemet 25/100 Mg) 1 tab PO TID [facility] Stop: 11/20/19 10:29 Last Admin: 11/07/19 19:59 Dose: 1 tab Documented by: Divalproex Sodium (Depakote Extended Release) 1,250 mg PO HS [facility] Stop: 12/02/19 21:59 Last Admin: 11/07/19 19:59 Dose: 1,250 mg Documented by: Docusate Sodium (Colace) 100 mg PO BID [facility] Stop: 11/20/19 20:59 Last Admin: 11/07/19 19:58 Dose: 100 mg Documented by: Furosemide (Lasix) 20 mg PO QAM [facility] Stop: 11/21/19 08:59 Last Admin: 11/07/19 09:54 Dose: 20 mg Documented by: Gabapentin (Neurontin) 300 mg PO TID [facility] Stop: 11/20/19 20:59 Last Admin: 11/07/19 19:58 Dose: 300 mg Documented by: Hydroxyzine HCl (Vistaril) 50 mg PO HSZ PRN PRN Reason: Insomnia Stop: 11/20/19 16:51 Last Admin: 10/27/19 23:28 Dose: 50 mg Documented by: Hydroxyzine HCl (Vistaril) 25 mg PO Q4H PRN PRN Reason: Anxiety Stop: 11/20/19 16:51 Lorazepam (Ativan) 0.5 mg PO HS PRN PRN Reason: Insomnia Stop: 11/29/19 10:43 Last Admin: 10/31/19 01:15 Dose: 0.5 mg Documented by: Magnesium Hydroxide (Milk Of Magnesia) 30 ml PO DAILY PRN PRN Reason: Constipation Stop: 11/20/19 16:51 Nitrofurantoin Macrocrystals (Macrobid) 100 mg PO BID [facility]; Protocol Stop: 11/11/19 11:44 Last Admin: 11/07/19 19:58 Dose: 100 mg Documented by: Olanzapine (Zyprexa Zydis Od) 5 mg PO Q6H PRN PRN Reason: Agitation Stop: 11/20/19 16:59 Last Admin: 10/31/19 07:41 Dose: 5 mg Documented by: Potassium Chloride (Klor-Con M10) 10 meq PO QAM [facility] Stop: 11/21/19 08:59 Last Admin: 11/07/19 09:54 Dose: 10 meq Documented by: Risperidone (Risperdal) 2 mg PO HS [facility] Stop: 11/30/19 21:59 Last Admin: 11/07/19 19:59 Dose: 2 mg Documented by: Risperidone (Risperdal) 0.5 mg PO QAM [facility] Stop: 12/08/19 08:59 Sodium Chloride (Mcnab Nasal) 1 - 2 sprays NA PRN PRN PRN Reason: Nasal Dryness/Congestion Stop: 11/20/19 16:51 Temazepam (Restoril) 22.5 mg PO HSZ PRN PRN Reason: Insomnia Stop: 12/07/19 11:34 Last Admin: 11/07/19 20:40 Dose: 22.5 mg Documented by: Mental Health & Subst Abuse Tx Psychiatrist Name of Psychiatrist: Dr. Navarrete Psychiatrist's Date of Appointment with Psychiatrist: 11/12/19 Time of Appointment with Psychiatrist: 3:20pm Psychiatric Appointment Comment: [address] [facility] [place] [address] Therapist Name of Therapist: None Otr Tanker Truck Driver Name of Otr Tanker Truck Driver: None Post Discharge Appointments Primary Care Physician Name Of Family Doctor: Dr. Whitehead (Ragini) Primary Care Date of Appointment with PCP: 11/06/19 Time of Appointment with PCP: daughter is calling to schedule & will let us know Provider Appointment Comment: [address] [place] [address] Neurologist Name of Neurologist: Ragini Hernandez Neurologist's Neurology Appointment Comment: As needed Contact Information Discharge Discharge Address: [address] [place] [address], [place] [address] (daughter's address) (1) Bipolar disorder Active/Remission status: currently active Current bipolar episode type: manic Current episode severity: severe Psychotic features: with psychotic features Qualified Code(s): F31.2 - Bipolar disorder, current episode manic severe with psychotic features
[2019-11-08] MEDS: risperiDONE 0.5 MG TABLET PO SCH (09:03)
[2019-11-08] MEDS: DOCUSATE SODIUM 100 MG CAP PO SCH ×2 (09:03→20:07)
[2019-11-08] MEDS: FUROSEMIDE 20 MG TAB PO SCH (09:04)
[2019-11-08] MEDS: ATORVASTATIN 10 MG TAB PO SCH (09:04)
[2019-11-08] MEDS: POTASSIUM CHLORIDE 10 MEQ TABCR PO SCH (09:04)
[2019-11-08] MEDS: NITROFURANTOIN MONOHYDRATE 100 MG CAP PO SCH ×2 (09:05→20:07)
[2019-11-08] MEDS: GABAPENTIN 300 MG CAP PO SCH ×3 (09:05→20:08)
[2019-11-08] MEDS: CARBIDOPA/LEVODOPA 25/100MG TAB PO SCH ×3 (09:06→20:08)
[2019-11-08] MEDS: allopurinoL 100 MG TAB PO SCH (09:06)
[2019-11-08 14:59] LABS: Valproic Acid, Free 16.3 mg/L (4.8-17.3); Valproic Acid, Total 98.3 mg/L (50.0-100.0)
[2019-11-08] MEDS: risperiDONE 2 MG TABLET PO SCH (20:08)
[2019-11-08] MEDS: DIVALPROEX EXTENDED RELEASE 250 MG TABCR PO SCH (20:08)
[2019-11-08] MEDS: TEMAZEPAM 15 MG CAPSULE PO PRN (20:10)
[2019-11-09] MEDS: POTASSIUM CHLORIDE 10 MEQ TABCR PO SCH (08:03)
[2019-11-09] MEDS: DOCUSATE SODIUM 100 MG CAP PO SCH ×2 (08:03→20:01)
[2019-11-09] MEDS: GABAPENTIN 300 MG CAP PO SCH ×3 (08:04→20:02)
[2019-11-09] MEDS: ATORVASTATIN 10 MG TAB PO SCH (08:04)
[2019-11-09] MEDS: NITROFURANTOIN MONOHYDRATE 100 MG CAP PO SCH ×2 (08:04→20:02)
[2019-11-09] MEDS: FUROSEMIDE 20 MG TAB PO SCH (08:04)
[2019-11-09] MEDS: risperiDONE 0.5 MG TABLET PO SCH (08:05)
[2019-11-09] MEDS: CARBIDOPA/LEVODOPA 25/100MG TAB PO SCH ×3 (08:05→20:02)
[2019-11-09] MEDS: allopurinoL 100 MG TAB PO SCH (08:05)
--- NOTE | 2019-11-09 08:58 | Psychiatric Progress Note ---
Date of Service November 09, 2019 Impression / Recommendations Impression 74-year-old female with a history of multiple medical problems and bipolar disorder type I who presented with confusion, hallucinations, and agitation worsening over several days prior to presentation while she was at [facility], where she was receiving rehab after a fall at home with inability to get up for many hours. She was diagnosed with a UTI in the ER as well, and completed a course of Keflex. She was last on our unit 4 years ago, and was on similar medications for her bipolar disorder at that time. Her home medications were initially continued, while treating UTI and continuing PT, but manic and psychotic symptoms worsened, so have increased quetiapine and added low dose Depakote for mood stabilization. Care has been coordinated w/ her outpatient psychiatrist, and daughter has been involved in treatment and visiting regularly. She is on a 303 as of 10/24/19. Sleep is suboptimal, and will schedule lorazepam at HS as has been beneficial. Inpatient treatment remains medically necessary due to the severity of her symptoms and inability to provide for her own basic needs without the care and assistance of others. The patient's diagnosis of Parkinson's disease complicates treatment interventions in this case. The presence of visual hallucinations might best be explained by psychosis related to Parkinson's disease and treatment with levodopa. Rather significant medication changes made over the last week to target increased manic behaviors with increase in delusional thought process. Seroquel was replaced with risperidone, and Depakote was titrated to a dose of 1250mg qHS. Valproic acid level - 84. The patient's affect has stabilized and she is no longer exhibiting symptoms of lori. She does appear to be somewhat sedated from her medications, but when ask if she was feeling depressed she assured us that she is feeling "fine"" good." Sleep has slowly improved. Because of the patient's improvement, and given the fact that at this point a concern is excess sedation (particularly given her mobility issues) we will begin the process of lowering her dose of temazepam. The patient continues to require inpatient psychiatric hospitalization is the least restrictive level of care consistent with her clinical and safety needs. (1) Bipolar disorder: 10/22 -likely also an element of delirium, with recent fall, inpatient rehab and [facility], and acute on chronic kidney dysfunction. Per review of records, this presentation is consistent with past presentations under similar circumstances. -Continue inpatient treatment on an involuntary commitment, and assess the need for extension of involuntary commitment. -Continue medically necessary private room due to recent agitation/confusion. -Get collateral information from daughter Juana who was present in the ER. -Coordinate care with outpatient psychiatrist, Dr. Navarrete. -Continue quetiapine 100 mg twice daily at 0900 and 1300, and 200 mg at bedtime. It appears likely that her recent symptoms are due to the change in her routine (admitted to [facility] post fall) and medical decompensation with UTI and kidney dysfunction. -Monitoring on an atypical antipsychotic: FLP from 06/2019 was within normal limits. Hemoglobin A1c was 5.7%, with estimated average glucose of 117. Fasting glucose 95. 10/23 -Reviewed case with outpatient psychiatrist Dr. Navarrete. He agreed with continuing her current medications, and providing consistency and structure on the unit, which typically help. -Continue MNPR as required O2 overnight for desaturation. -Patient still lacks capacity to agree to voluntary treatment, and is not yet stable for discharge, so will schedule a 303 hearing for tomorrow. 10/24 -Our ongoing concern is the fact that the patient has a history of decompensating fairly rapidly when sleep deprived, and she slept only a couple hours last night because she was very anxious about her upcoming hearing. We are also concerned because the patient continues to show certain features consistent with hypomania. For that reason, we are recommending further stabilization on an inpatient basis before transitioning the patient to the community for continued treatment on an outpatient basis. -The patient is continuing to tolerate quetiapine at the current dose of 100 mg twice a day and 200 mg at bedtime. She reports that she is not noticing any side effects and feels "much better." 10/25 -on a 303 involuntary commitment. Continue home medications. -Family meeting held with daughter. The patient will stay with her temporarily at discharge. 10/26 -sleep erratic, only 4 hours last night. Will order quetiapine 100 mg at bedtime as needed for insomnia. -Globally cognitively impaired; 10/13 on the MoCA, missing 3 for visuo spatial/executive, 4 for attention, 2 for language, 2 for abstraction, 4 for delayed recall, and 3 for orientation. We will continue to monitor. 10/27 - HS dose of quetiapine increased to 300mg - total of 100mg/100mg/300mg daily - Pt demonstrating increased symptoms of lori, and sleep remains poor - therefore increasing risk of mood instability and overall concern for safety if discharged - Treatment team discussed recommendation that patient not drive - daughters requesting to restrict driving access on their own rather than have condition reported to [facility] - will continue to discuss with family as condition improves. Ideally, patient will have repeat MoCA prior to discharge - Continue MNPR due to concern for mood instability with interrupted sleep and worsening symptoms of lori 10/28 - Pt demonstrating worsening of manic symptoms and only slept 15 minutes last evening despite multiple prn sleep aids being provided - She was ordered 1 dose of lorazepam 1mg which can be utilized this evening to encourage sleep - fall-risk remains a concern and will be continuously evaluated as benzodiazepines are not an ideal long-term medication for this particular patient - Will order low-dose valproic acid 250mg to begin this evening, hopeful the medication may continue to target manic symptoms without as significant interactions with Parkinson's disease process - Continue current dosage of quetiapine at this time - Continue MNPR given poor sleep and mood instability 10/29 - Mildly improved sleep last evening - will titrate valproic acid to 500mg this evening - Will initially continue prn order of 0.5mg of lorazepam for this evening - as not ideal to rely on for long-term treatment - Fluid restriction in the late evening to be initiated - as nursing reports patient is often awoken by need to use the restroom and then is unable to return to sleep - Continue MNPR 10/30 - Continue current medication, and order lorazepam 0.5mg HS scheduled, with additional prn if needed for sleep. - Encourage patient to be awake during the day and asleep at night. 10/31 -As above, the patient psychiatric condition and, more specifically, her symptoms of lori are not improving, and there is some indication that, perhaps, she is having an idiosyncratic reaction to quetiapine. The context, of course, is that the patient is taking levodopa and has Parkinson's disease. Accord ingly, we will hold quetiapine at this time in favor of risperidone which may be better tolerated at 1 mg in the morning and 2 mg at bedtime, with a plan to titrate as indicated. -In addition to working to allow the patient to have improved, sustained sleep, we are in the process of titrating Depakote. Hopefully, her manic symptoms will be favorably affected as we continue to titrate Depakote to a fully therapeutic level. A valproic acid level will be measured on 11/02/201911/01 --improved today, Restoril effective, will add standing with additional prn 11/02--depakote level 61, add additional 250 mg Depakote. 11/03 -patient slept well last night with temazepam 30 mg, and tolerated it well; will schedule for now, with a plan to use short-term to stabilize sleep and then taper off. -Continue risperidone 1 mg every morning and 2 mg at bedtime. Continue Depakote 1250 mg at bedtime, and recheck a trough on or after 11/07/2019. 11/04 - Continue current medication regimen - sleep was less ideal last evening; however, still improved when compared to several days ago 11/05 - Continue current medication regimen - patient continuing to appear more subdued, but sleep is gradually improving 11/06 - Poor sleep again last evening - patient appearing more subdued, but concern for motor and cognitive slowing - will reduce scheduled HS dose of Restoril to 15mg, and offer repeat 15mg as back-up in attempt to reduce sedating medications - concern remains that patient is not sleeping despite multiple psychotropic medications with sedating properties - Consider need for additional medication adjustments if sleep continues to be poor - Depakote level repeated this morning - results are still pending 11/07 -Serum valproic acid level reordered -The patient's mood appears to have stabilized. She is not currently exhibiting symptoms of lori, nor she experiencing symptoms of hypomania. She slept well last night, but, as has been previously noted, poor sleep has tended to be a harbinger of the onset of a manic episode, as well as a trigger for a manic episode. Complicating the clinical picture is that the patient is now demonstrating some excess sedation during the day. Accordingly, we are now adjusting the patient's medications, cautiously. We held risperidone this morning, and will restart it tomorrow at 0.5 mg in the morning and will continue 2 mg at bedtime. We also will attempt to reduce her dose of temazepam to 22.5 mg tonight and, depending on the outcome, we will look at possibly tapering further over the course of the weekend. PRN lorazepam remains available should the patient require additional assistance with sleep. 11/08 - Valproic acid level - 84 - Continue risperidone 0.5mg qAM and 2mg qHS - Will reduce temazepam to 15mg this evening - Continue to encourage improved sleep routine 11/09 - Continue current medication regimen - pt had a continuous 5+ hours of sleep last evening - Can continue to adjust medications to reduce daytime sedation over the next several days as indicated - Continue to encourage consistent sleep routine (2) Parkinsons disease: 10/22 -continue home dose of Sinemet and monitor abnormal movements. Consider neurology consult if these do not improve. 10/24 -We discussed with the patient the fact that antiparkinsonian medications may possibly contribute to an exacerbation of psychotic symptoms as well as perceptual disturbances in persons who have Parkinson's disease,, and we have also advised the patient that antipsychotic medication such as quetiapine may adversely influence her movement disorder. The patient tells us that she has not noticed any worsening in her ability to ambulate, and also reports that she has not experienced any perceptual disturbances. Her mental status examination reveals that her current thought content appears to be devoid of any delusional material. 10/28 - Pt continues to demonstrate manic behaviors, worsening of symptoms corre lated to poor sleep for the past several nights - As we are being cautious about utilization of atypical antipsychotic medications in the setting of Parkinson's disease - will plan to initiate low-do se valproic acid to begin this evening - Pt ordered 250mg of valproic acid to begin this evening, with titration as indicated - Continuing quetiapine at this time 10/31 -Hopefully, titration of valproic acid as a mood stabilizer will address the patient's symptoms of lori without exacerbating her Parkinsonism, and will allow us to limit the use of antipsychotic medications. 11/07 -The patient is ambulating quite slowly, more slowly than she was while manic. This may be a function of improved caution as her mood has stabilized, but it may also be related to sedation or to an exacerbation of her Parkinson's disease. The patient is aware that she is moving slowly, and tells us that she is deliberately moving slowly in order to prevent another fall. (3) History of pulmonary embolism: 11/02--hospitalist consult to clarify anticoagulation needs and examine leg 11/03 -appreciate hospitalist team's recommendations; bilateral lower extremity Doppler negative for DVT. Furosemide was continued, compression stockings and bilateral lower extremity elevation to reduce dependent edema. (4) Acute UTI: 10/22 -continue Keflex as started in the ER, and follow-up on sensitivities when completed. 10/24 -The patient's urine culture grew E. coli, and alpha streptococcus, not enterococcus -Patient reports that she is not continuing to experience pain on urination or urinary frequency. 10/27 - Last dose of Keflex given this morning 11/04 - Repeat UA ordered for today 11/05 - Will request hospitalist input regarding repeat UA - showing ongoing bacterial contamination - Pt is denying UTI symptomatology; not appearing delirious - Given recurrent UTIs and repeated antibiotic treatment, will ask hospitalis t team to guide treatment recommendations 11/06 - Appreciate hospitalist recommendations regarding repeat UA also demonstrating E. coli growth; patient continuing to deny UTI symptoms - Nursing did report concern about possible urinary retention/hesitancy - Hospitalists recommended initiation of Macrobid 100mg BID x 5 days; with close outpatient follow-up after discharge to ensure resolution - Hospitalists have signed off on this concern, but are available for additional issues should they arise 11/07 -The patient notes today that she does not feel as if she has a urinary tract infection, and notes that she is usually aware of the symptoms. She specifically reports that she is not experiencing any pain, including flank or abdominal pain, and she also is not experiencing any burning on urination. She does, however, continue to describe urinary hesitation. We are continuing Macrobid as above. (5) HTN (hypertension): 10/22 -continue home dose of furosemide. BP was elevated in the ER, but has now normalized. -Ensure follow-up with PCP. (6) Idiopathic peripheral neuropathy: 10/22 -continue home dose of gabapentin 300 mg 3 times daily. 10/31 -The patient continues to report symptoms of peripheral neuropathy, but also tells us that it is "okay." (7) RLS (restless legs syndrome): 10/22 -continue home dose of lorazepam 0.5 mg at bedtime as needed. 10/31 -Standing dose of lorazepam at bedtime was not helpful. Tonight, we will offer the patient a trial of temazepam 15 mg for sleep. 11/02 --encourage up to 30 mg temazepam for sleep. (8) Gout: Continue home dose of allopurinol. Risk Factors Assessment Male: No : Yes Do You Have Access To A Gun?: No Health Problems: Yes Mental Health Diagnoses: Yes Substance Use Disorders: No Previous Psychiatric Hospitalization: Yes Smoker: No Protective Factors Assessment Alevism Beliefs: Yes : No Responsible for Young Children: No Employed: No Stable Relationships: Yes Supportive Family: Yes Good Rapport with Provider: Yes Interval History Identifying Information PABLO COOPER is a 74-year-old F who currently lives in [place], has a history of bipolar disorder, Parkinson's disease, chronic kidney disease, hypertension, peripheral neuropathy, and restless leg syndrome and was admitted on 10/21/19 16:52 on a 302 involuntary commitment for lori. 303 granted on 10/24/2019. Chief Complaint "I'm feeling pretty good. Just got showered." Review of Systems Notes Constitutional: denies fatigue despite appearing slowed Cardiovascular: denied Respiratory: denied Gastrointestinal: denied Neurological: denied Psychiatric: denies symptoms other than stated above Total of at least 10 systems reviewed, pertinent positives as above and in HPI. Sleep Information Total Hours of Sleep: 5.75 Sleep Comments: The hours of sleep were between evenings and nights. Meal Information Percent Meal Consumed - Breakfast: 100 Percent Meal Consumed - Lunch: 25 Percent Meal Consumed - Dinner: 100 Nutrition Comment: pt asleep Subjective Subjective Patient was seen & assessed and interval progress reviewed with nursing and social work. Staff report the patient slept a consistent 5+ hours last night, though continues to appear slowed during the day. Possibility of home health nursing was discussed in morning report. Pt was seen today to assess progress since admission. She reports continued improvement in mood and denies any concerns at this time. Pt continues to deny sedation and states her energy level is normal. She inquires about Medicare covering the cost of her "fall", and wants to know if this is "just one payment, or if they will cover it each month." Treatment plan was reviewed with her. She is hopeful for only a few more days of admission, stating she needs to get home as her daughter and grandson travel for sports and she needs to be home to take care of her granddaughter. She denies any significant concerns today. Physical Exam Psychiatric Orientation: alert and cooperative Apperance: appropriately dressed, appropriately groomed (recently showered) and appeared stated age Eye Contact: good eye contact Motor Behavior: no abnormal motor movements (observed while laying in bed - getting compression stockings on ) Speech: normal rate/rhythm/volume of speech Affect: + flat affect Mood: no depressed mood and no anxious mood Thought Process: + circumstantial thought process (rambling, mildly disorganzied) Thought Content: not paranoid, no delusions and no hopelessness Suicidal Thoughts: denies suicidal thoughts Homicidal Thoughts: denies homicidal thoughts Hallucinations: no auditory hallucinations and no visual hallucinations Cognition: attention grossly intact and language grossly intact Insight: + impaired insight Judgement: + impaired judgement Vital Signs (Past 24 Hours) Last Vital Signs Temp 36.7 C 11/09/19 06:05 Pulse 101 H 11/09/19 06:05 Resp 19 11/09/19 06:00 BP 170/86 H 11/09/19 06:05 Pulse Ox 93 10/30/19 06:44 Results & Data Laboratory Results Laboratory Results - last 24 hr 11/06/19 09:46 Free Valproic Acid 16.3 Total Valproic Acid 98.3 Current Inpatient Medications Current Inpatient Medications: Current Inpatient Medications Acetaminophen (Tylenol) 650 mg PO Q4H PRN PRN Reason: Headache or Minor Fever Stop: 11/20/19 16:51 Last Admin: 11/05/19 00:20 Dose: 650 mg Documented by: Al Hydrox/Mg Hydrox/Simethicone (Maalox) 30 ml PO Q4H PRN PRN Reason: GI Upset Stop: 11/20/19 16:51 [facility]oprim) [facility] Stop: 11/21/19 08:59 Last Admin: 11/09/19 08:05 Dose: 100 mg Documented by: Atorvastatin Calcium (Lipitor) 10 mg PO QAM [facility] Stop: 11/21/19 08:59 Last Admin: 11/09/19 08:04 Dose: 10 mg Documented by: Carbidopa/Levodopa (Sinemet 25/100 Mg) 1 tab PO TID [facility] Stop: 11/20/19 10:29 Last Admin: 11/09/19 08:05 Dose: 1 tab Documented by: Divalproex Sodium (Depakote Extended Release) 1,250 mg PO [facility] Stop: 12/02/19 21:59 Last Admin: 11/08/19 20:08 Dose: 1,250 mg Documented by: Docusate Sodium (Colace) 100 mg PO BID [facility] Stop: 11/20/19 20:59 Last Admin: 11/09/19 08:03 Dose: 100 mg Documented by: Furosemide (Lasix) 20 mg PO QAM [facility] Stop: 11/21/19 08:59 Last Admin: 11/09/19 08:04 Dose: 20 mg Documented by: Gabapentin (Neurontin) 300 mg PO TID [facility] Stop: 11/20/19 20:59 Last Admin: 11/09/19 08:04 Dose: 300 mg Documented by: Hydroxyzine HCl (Vistaril) 50 mg PO HSZ PRN PRN Reason: Insomnia Stop: 11/20/19 16:51 Last Admin: 10/27/19 23:28 Dose: 50 mg Documented by: Hydroxyzine HCl (Vistaril) 25 mg PO Q4H PRN PRN Reason: Anxiety Stop: 11/20/19 16:51 Lorazepam (Ativan) 0.5 mg PO HS PRN PRN Reason: Insomnia Stop: 11/29/19 10:43 Last Admin: 10/31/19 01:15 Dose: 0.5 mg Documented by: Magnesium Hydroxide (Milk Of Magnesia) 30 ml PO DAILY PRN PRN Reason: Constipation Stop: 11/20/19 16:51 Nitrofurantoin Macrocrystals (Macrobid) 100 mg PO BID [facility]; Protocol Stop: 11/11/19 11:44 Last Admin: 11/09/19 08:04 Dose: 100 mg Documented by: Olanzapine (Zyprexa Zydis Od) 5 mg PO Q6H PRN PRN Reason: Agitation Stop: 11/20/19 16:59 Last Admin: 10/31/19 07:41 Dose: 5 mg Documented by: Potassium Chloride (Klor-Con M10) 10 meq PO QAM [facility] Stop: 11/21/19 08:59 Last Admin: 11/09/19 08:03 Dose: 10 meq Documented by: Risperidone (Risperdal) 2 mg PO HS [facility] Stop: 11/30/19 21:59 Last Admin: 11/08/19 20:08 Dose: 2 mg Documented by: Risperidone (Risperdal) 0.5 [facility] Stop: 12/08/19 08:59 Last Admin: 11/09/19 08:05 Dose: 0.5 mg Documented by: Sodium Chloride ([place] Nasal) 1 - 2 sprays NA PRN PRN PRN Reason: Nasal Dryness/Congestion Stop: 11/20/19 16:51 Temazepam (Restoril) 15 mg PO HSZ PRN PRN Reason: Insomnia Stop: 12/07/19 11:34 Last Admin: 11/08/19 20:10 Dose: 15 mg Documented by: Mental Health & Subst Abuse Tx Psychiatrist Name of Psychiatrist: Dr. Navarrete Psychiatrist's Date of Appointment with Psychiatrist: 11/12/19 Time of Appointment with Psychiatrist: 3:20pm Psychiatric Appointment Comment: [address] [facility] [address] Therapist Name of Therapist: None Dispatch Machine Runner Name of Dispatch Machine Runner: None Post Discharge Appointments Primary Care Physician Name Of Family Doctor: Dr. Whitehead (Ragini) Primary Care Date of Appointment with PCP: 11/06/19 Time of Appointment with PCP: daughter is calling to schedule & will let us know Provider Appointment Comment: [address] [facility] [id number] Neurologist Name of Neurologist: Ragini Hernandez Neurologist's Neurology Appointment Comment: As needed Contact Information Discharge Discharge [facility] [place] [place] [address] (daughter's address) (1) Bipolar disorder Active/Remission status: currently active Current bipolar episode type: manic Current episode severity: severe Psychotic features: with psychotic features Qualified Code(s): F31.2 - Bipolar disorder, current episode manic severe with psychotic features
[2019-11-09] MEDS: TEMAZEPAM 15 MG CAPSULE PO PRN (20:02)
[2019-11-09] MEDS: DIVALPROEX EXTENDED RELEASE 250 MG TABCR PO SCH (20:02)
[2019-11-09] MEDS: risperiDONE 2 MG TABLET PO SCH (20:02)
[2019-11-10 08:03] LABS: Creatinine Clr Calc Pharmacy 54.4 ml/min; Est GFR (African American) 58.6; Est GFR (Non-African American) 50.5
[2019-11-10] MEDS: DOCUSATE SODIUM 100 MG CAP PO SCH ×2 (09:02→20:36)
[2019-11-10] MEDS: NITROFURANTOIN MONOHYDRATE 100 MG CAP PO SCH ×2 (09:03→20:36)
[2019-11-10] MEDS: POTASSIUM CHLORIDE 10 MEQ TABCR PO SCH (09:03)
[2019-11-10] MEDS: FUROSEMIDE 20 MG TAB PO SCH (09:03)
[2019-11-10] MEDS: GABAPENTIN 300 MG CAP PO SCH ×3 (09:03→20:36)
[2019-11-10] MEDS: ATORVASTATIN 10 MG TAB PO SCH (09:03)
[2019-11-10] MEDS: risperiDONE 0.5 MG TABLET PO SCH (09:04)
[2019-11-10] MEDS: CARBIDOPA/LEVODOPA 25/100MG TAB PO SCH ×3 (09:04→20:36)
[2019-11-10] MEDS: allopurinoL 100 MG TAB PO SCH (09:04)
--- NOTE | 2019-11-10 14:37 | Psychiatric Progress Note ---
Date of Service November 10, 2019 Impression / Recommendations Impression 74-year-old female with a history of multiple medical problems and bipolar disorder type I who presented with confusion, hallucinations, and agitation worsening over several days prior to presentation while she was at [facility], where she was receiving rehab after a fall at home with inability to get up for many hours. She was diagnosed with a UTI in the ER as well, and completed a course of Keflex. She was last on our unit 4 years ago, and was on similar medications for her bipolar disorder at that time. Her home medications were initially continued, while treating UTI and continuing PT, but manic and psychotic symptoms worsened, so have increased quetiapine and added low dose Depakote for mood stabilization. Care has been coordinated w/ her outpatient psychiatrist, and daughter has been involved in treatment and visiting regularly. She is on a 303 as of 10/24/19. Sleep is suboptimal, and will schedule lorazepam at HS as has been beneficial. Inpatient treatment remains medically necessary due to the severity of her symptoms and inability to provide for her own basic needs without the care and assistance of others. The patient's diagnosis of Parkinson's disease complicates treatment interventions in this case. The presence of visual hallucinations might best be explained by psychosis related to Parkinson's disease and treatment with levodopa. Rather significant medication changes made over the last week to target increased manic behaviors with increase in delusional thought process. Seroquel was replaced with risperidone, and Depakote was titrated to a dose of 1250mg qHS. Valproic acid level - 84. The patient's affect has stabilized and she is no longer exhibiting symptoms of lori. She does appear to be somewhat sedated from her medications, but when ask if she was feeling depressed she assured us that she is feeling "fine", " good." Sleep has slowly improved. Because of the patient's improvement, and given the fact that at this point a concern is excess sedation (particularly given her mobility issues) her dose of temazepam had been lowered. The patient continues to require inpatient psychiatric hospitalization is the least restrictive level of care consistent with her clinical and safety needs. Will plan to have a phone conversation with daughters tomorrow to discuss more formal discharge planning. (1) Bipolar disorder: 10/22 -likely also an element of delirium, with recent fall, inpatient rehab and [facility], and acute on chronic kidney dysfunction. Per review of records, this presentation is consistent with past presentations under similar circumstances. -Continue inpatient treatment on an involuntary commitment, and assess the need for extension of involuntary commitment. -Continue medically necessary private room due to recent agitation/confusion. -Get collateral information from daughter Juana who was present in the ER. -Coordinate care with outpatient psychiatrist, Dr. Navarrete. -Continue quetiapine 100 mg twice daily at 0900 and 1300, and 200 mg at bedtime. It appears likely that her recent symptoms are due to the change in her routine (admitted to [facility] post fall) and medical decompensation with UTI and kidney dysfunction. -Monitoring on an atypical antipsychotic: FLP from 06/2019 was within normal limits. Hemoglobin A1c was 5.7%, with estimated average glucose of 117. Fasting glucose 95. 10/23 -Reviewed case with outpatient psychiatrist Dr. Navarrete. He agreed with continuing her current medications, and providing consistency and structure on the unit, which typically help. -Continue MNPR as required O2 overnight for desaturation. -Patient still lacks capacity to agree to voluntary treatment, and is not yet stable for discharge, so will schedule a 303 hearing for tomorrow. 10/24 -Our ongoing concern is the fact that the patient has a history of decompensating fairly rapidly when sleep deprived, and she slept only a couple hours last night because she was very anxious about her upcoming hearing. We are also concerned because the patient continues to show certain features consistent with hypomania. For that reason, we are recommending further stabilization on an inpatient basis before transitioning the patient to the community for continued treatment on an outpatient basis. -The patient is continuing to tolerate quetiapine at the current dose of 100 mg twice a day and 200 mg at bedtime. She reports that she is not noticing any side effects and feels "much better." 10/25 -on a 303 involuntary commitment. Continue home medications. -Family meeting held with daughter. The patient will stay with her temporarily at discharge. 10/26 -sleep erratic, only 4 hours last night. Will order quetiapine 100 mg at bedtime as needed for insomnia. -Globally cognitively impaired; 10/13 on the MoCA, missing 3 for visuospatial/executive, 4 for attention, 2 for language, 2 for abstraction, 4 for delayed recall, and 3 for orientation. We will continue to monitor. 10/27 - HS dose of quetiapine increased to 300mg - total of 100mg/100mg/300mg daily - Pt demonstrating increased symptoms of lori, and sleep remains poor - therefore increasing risk of mood instability and overall concern for safety if discharged - Treatment team discussed recommendation that patient not drive - daughters requesting to restrict driving access on their own rather than have condition reported to [facility] - will continue to discuss with family as condition improves. Ideally, patient will have repeat MoCA prior to discharge - Continue MNPR due to concern for mood instability with interrupted sleep and worsening symptoms of lori 10/28 - Pt demonstrating worsening of manic symptoms and only slept 15 minutes last evening despite multiple prn sleep aids being provided - She was ordered 1 dose of lorazepam 1mg which can be utilized this evening to encourage sleep - fall-risk remains a concern and will be continuously evaluated as benzodiazepines are not an ideal long-term medication for this particular patient - Will order low-dose valproic acid 250mg to begin this evening, hopeful the medication may continue to target manic symptoms without as significant interactions with Parkinson's disease process - Continue current dosage of quetiapine at this time - Continue MNPR given poor sleep and mood instability 10/29 - Mildly improved sleep last evening - will titrate valproic acid to 500mg this evening - Will initially continue prn order of 0.5mg of lorazepam for this evening - as not ideal to rely on for long-term treatment - Fluid restriction in the late evening to be initiated - as nursing reports patient is often awoken by need to use the restroom and then is unable to return to sleep - Continue MNPR 10/30 - Continue current medication, and order lorazepam 0.5mg HS scheduled, with additional prn if needed for sleep. - Encourage patient to be awake during the day and asleep at night. 10/31 -As above, the patient psychiatric condition and, more specifically, her symptoms of lori are not improving, and there is some indication that, perhaps, she is having an idiosyncratic reaction to quetiapine. The context, of course, is that the patient is taking levodopa and has Parkinson's disease. Accordingly, we will hold quetiapine at this time in favor of risperidone which may be better tolerated at 1 mg in the morning and 2 mg at bedtime, with a plan to titrate as indicated. -In addition to working to allow the patient to have improved, sustained sleep, we are in the process of titrating Depakote. Hopefully, her manic symptoms will be favorably affected as we continue to titrate Depakote to a fully therapeutic level. A valproic acid level will be measured on 11/02/201911/01 --improved today, Restoril effective, will add standing with additional prn 11/02--depakote level 61, add additional 250 mg Depakote. 11/03 -patient slept well last night with temazepam 30 mg, and tolerated it well; will schedule for now, with a plan to use short-term to stabilize sleep and then taper off. -Continue risperidone 1 mg every morning and 2 mg at bedtime. Continue Depakote 1250 mg at bedtime, and recheck a trough on or after 11/07/2019. 11/04 - Continue current medication regimen - sleep was less ideal last evening; however, still improved when compared to several days ago 11/05 - Continue current medication regimen - patient continuing to appear more subdued, but sleep is gradually improving 11/06 - Poor sleep again last evening - patient appearing more subdued, but concern for motor and cognitive slowing - will reduce scheduled HS dose of Restoril to 15mg, and offer repeat 15mg as back-up in attempt to reduce sedating medications - concern remains that patient is not sleeping despite multiple psychotropic medications with sedating properties - Consider need for additional medication adjustments if sleep continues to be poor - Depakote level repeated this morning - results are still pending 11/07 -Serum valproic acid level reordered -The patient's mood appears to have stabilized. She is not currently exhibiting symptoms of lori, nor she experiencing symptoms of hypomania. She slept well last night, but, as has been previously noted, poor sleep has tended to be a harbinger of the onset of a manic episode, as well as a trigger for a manic episode. Complicating the clinical picture is that the patient is now demonstrating some excess sedation during the day. Accordingly, we are now adjusting the patient's medications, cautiously. We held risperidone this morning, and will restart it tomorrow at 0.5 mg in the morning and will continue 2 mg at bedtime. We also will attempt to reduce her dose of temazepam to 22.5 mg tonight and, depending on the outcome, we will look at possibly tapering further over the course of the weekend. PRN lorazepam remains available should the patient require additional assistance with sleep. 11/08 - Valproic acid level - 84 - Continue risperidone 0.5mg qAM and 2mg qHS - Will reduce temazepam to 15mg this evening - Continue to encourage improved sleep routine 11/09 - Continue current medication regimen - pt had a continuous 5+ hours of sleep last evening - Can continue to adjust medications to reduce daytime sedation over the next several days as indicated - Continue to encourage consistent sleep routine 11/10 - Continue current medication regimen - patient reporting poor sleep last evening - Family meeting with daughters scheduled for tomorrow - will attempt to coordinate discharge plan and address any concerns with patient's family - Continue to encourage sleep routine - Repeat MoCA performed today - patient scoring a 17/30 with ongoing global cognitive impairment: missing 4 for visuospatial/executive functioning, 4 for attention (unable to perform serial 7 task altogether), 1 for fluency, 2 for abstraction, 1 for delayed recall, and 1 for orientation. Score is only mildly improved from 10/26/2019 when she scored a 12/30 - Recommendation remains that patient not be permitted to operate a vehicle until driving capability is further assessed - will submit [employer] reporting for if daughters are unwilling to manage this process at time of discharge - PT/OT evaluation performed again today, in order to gather recommendations for discharge home to daughter's (2) Parkinsons disease: 10/22 -continue home dose of Sinemet and monitor abnormal movements. Consider neurology consult if these do not improve. 10/24 -We discussed with the patient the fact that antiparkinsonian medications may possibly contribute to an exacerbation of psychotic symptoms as well as perceptual disturbances in persons who have Parkinson's disease,, and we have also advised the patient that antipsychotic medication such as quetiapine may adversely influence her movement disorder. The patient tells us that she has not noticed any worsening in her ability to ambulate, and also reports that she has not experienced any perceptual disturbances. Her mental status examination reveals that her current thought content appears to be devoid of any delusional material. 10/28 - Pt continues to demonstrate manic behaviors, worsening of symptoms correlated to poor sleep for the past several nights - As we are being cautious about utilization of atypical antipsychotic medications in the setting of Parkinson's disease - will plan to initiate low- dose valproic acid to begin this evening - Pt ordered 250mg of valproic acid to begin this evening, with titration as indicated - Continuing quetiapine at this time 10/31 -Hopefully, titration of valproic acid as a mood stabilizer will address the patient's symptoms of lori without exacerbating her Parkinsonism, and will allow us to limit the use of antipsychotic medications. 11/07 -The patient is ambulating quite slowly, more slowly than she was while manic. This may be a function of improved caution as her mood has stabilized, but it may also be related to sedation or to an exacerbation of her Parkinson's disease. The patient is aware that she is moving slowly, and tells us that she is deliberately moving slowly in order to prevent another fall. (3) History of pulmonary embolism: 11/02--hospitalist consult to clarify anticoagulation needs and examine leg 11/03 -appreciate hospitalist team's recommendations; bilateral lower extremity Doppler negative for DVT. Furosemide was continued, compression stockings and bilateral lower extremity elevation to reduce dependent edema. (4) Acute UTI: 10/22 -continue Keflex as started in the ER, and follow-up on sensitivities when completed. 10/24 -The patient's urine culture grew E. coli, and alpha streptococcus, not enterococcus -Patient reports that she is not continuing to experience pain on urination or urinary frequency. 10/27 - Last dose of Keflex given this morning 11/04 - Repeat UA ordered for today 11/05 - Will request hospitalist input regarding repeat UA - showing ongoing bacterial contamination - Pt is denying UTI symptomatology; not appearing delirious - Given recurrent UTIs and repeated antibiotic treatment, will ask hospitalist team to guide treatment recommendations 11/06 - Appreciate hospitalist recommendations regarding repeat UA also demonstrating E. coli growth; patient continuing to deny UTI symptoms - Nursing did report concern about possible urinary retention/hesitancy - Hospitalists recommended initiation of Macrobid 100mg BID x 5 days; with cl ose outpatient follow-up after discharge to ensure resolution - Hospitalists have signed off on this concern, but are available for additional issues should they arise 11/07 -The patient notes today that she does not feel as if she has a urinary tract infection, and notes that she is usually aware of the symptoms. She specifically reports that she is not experiencing any pain, including flank or abdominal pain, and she also is not experiencing any burning on urination. She does, however, continue to describe urinary hesitation. We are continuing Macrobid as above. (5) HTN (hypertension): 10/22 -continue home dose of furosemide. BP was elevated in the ER, but has now normalized. -Ensure follow-up with PCP. (6) Idiopathic peripheral neuropathy: 10/22 -continue home dose of gabapentin 300 mg 3 times daily. 10/31 -The patient continues to report symptoms of peripheral neuropathy, but also tells us that it is "okay." (7) RLS (restless legs syndrome): 10/22 -continue home dose of lorazepam 0.5 mg at bedtime as needed. 10/31 -Standing dose of lorazepam at bedtime was not helpful. Tonight, we will offer the patient a trial of temazepam 15 mg for sleep. 11/02 --encourage up to 30 mg temazepam for sleep. 11/08 - Will reduce temazepam to 15mg for sleep (8) Gout: Continue home dose of allopurinol. Risk Factors Assessment Male: No : Yes Do You Have Access To A Gun?: No Health Problems: Yes Mental Health Diagnoses: Yes Substance Use Disorders: No Previous Psychiatric Hospitalization: Yes Smoker: No Protective Factors Assessment Buddhism Beliefs: Yes : No Responsible for Young Children: No Employed: No Stable Relationships: Yes Supportive Family: Yes Good Rapport with Provider: Yes Interval History Identifying Information PABLO COOPER is a 74-year-old F who currently lives in [place], has a history of bipolar disorder, Parkinson's disease, chronic kidney disease, hypertension, peripheral neuropathy, and restless leg syndrome and was admitted on 10/21/19 16:52 on a 302 involuntary commitment for lori. 303 granted on 10/24/2019. Chief Complaint "I'm feeling terrible." Review of Systems Notes Constitutional: admits to feeling more tired today; poor sleep last evening Cardiovascular: denied Respiratory: denied Gastrointestinal: denied Neurological: denied Psychiatric: denies symptoms other than stated above Total of at least 10 systems reviewed, pertinent positives as above and in HPI. Sleep Information Total Hours of Sleep: 3.75 Sleep Comments: The hours of sleep were between evenings and nights. Meal Information Percent Meal Consumed - Breakfast: 100 Percent Meal Consumed - Lunch: 100 Percent Meal Consumed - Dinner: 50 Nutrition Comment: pt asleep Subjective Subjective Patient was seen & assessed and interval progress reviewed with treatment team. Staff reported that the patient had 3-1/2 hours of broken sleep last evening. Daughters continue to verbalize concern about the patient returning home in her current condition, plan is to have a phone meeting with them to further review discharge plans. Patient was seen today to assess progress since admission. She informs this provider that she is feeling "terrible" today, stating "you have to understand, it is not my fault are not getting better." Patient was asked what has been upsetting to her, to which she responds she has learned that her daughters have concerns about her returning home in her current condition. Patient, herself, feels that she is ready for discharge, and remains optimistic about leaving the hospital soon. When asked about her mood, the patient states she is "very depressed." Patient does admit that she slept poorly last evening, and is rather tired today. When asked what she feels contributed to this, the patient states "I could not sleep last night at all because of what happened to Héctor and his daughter. That's just terrible." Patient did participate in a repeat MoCA assessment, score improved from a 1230 to a 17/30. Patient continues to be focused on specific topics, today consistently repeating how she manages to get into bed, and concerns about placement of the bed rails. She has been preoccupied with this situation for several days now. She denies other needs or concerns presently. Physical Exam Psychiatric Orientation: alert, oriented x 3 and cooperative Apperance: appropriately dressed, + disheveled (hair mildly unkempt) and appeared stated age Eye Contact: + fair eye contact Motor Behavior: steady gait and station (with assistance from walker. Slowed ambulation), + psychomotor retardation (movements and ambulation remain slowed, though mildly improved today) and + tremor Speech: normal rate/rhythm/volume of speech Affect: + depressed affect, + tearful affect and mood congruent with affect Mood: + depressed mood ("terrible" and "very depressed") Thought Process: + tangential thought process rambling at times, somewhat disorganized Suicidal Thoughts: denies suicidal thoughts Homicidal Thoughts: denies homicidal thoughts Hallucinations: no auditory hallucinations and no visual hallucinations Cognition: language grossly intact; + attention not intact Insight: + impaired insight Judgement: + impaired judgement Vital Signs (Past 24 Hours) Last Vital Signs Temp 36.8 C 11/10/19 06:41 Pulse 97 H 11/10/19 06:41 Resp 18 11/10/19 06:41 BP 147/88 H 11/10/19 06:41 Pulse Ox 93 10/30/19 06:44 Results & Data Laboratory Results Laboratory Results - last 24 hr 11/10/19 07:09 Creatinine 1.08 Est Cr Clr Drug Dosing 54.4 Est GFR ( Amer) 58.6 Est GFR (Non-Af Amer) 50.5 Current Inpatient Medications Current Inpatient Medications: Current Inpatient Medications Acetaminophen (Tylenol) 650 mg PO Q4H PRN PRN Reason: Headache or Minor Fever Stop: 11/20/19 16:51 Last Admin: 11/05/19 00:20 Dose: 650 mg Documented by: Al Hydrox/Mg Hydrox/Simethicone (Maalox) 30 ml PO Q4H PRN PRN Reason: GI Upset Stop: 11/20/19 16:51 Allopurinol (Zyloprim) 100 mg PO [facility] Stop: 11/21/19 08:59 Last Admin: 11/10/19 09:04 Dose: 100 mg Documented by: Atorvastatin Calcium (Lipitor) 10 mg PO [facility] Stop: 11/21/19 08:59 Last Admin: 11/10/19 09:03 Dose: 10 mg Documented by: Carbidopa/Levodopa (Sinemet 25/100 Mg) 1 tab PO TID [facility] Stop: 11/20/19 10:29 Last Admin: 11/10/19 13:46 Dose: 1 tab Documented by: Divalproex Sodium (Depakote Extended Release) 1,250 mg PO [facility] Stop: 12/02/19 21:59 Last Admin: 11/09/19 20:02 Dose: 1,250 mg Documented by: Docusate Sodium (Colace) 100 mg PO BID [facility] Stop: 11/20/19 20:59 Last Admin: 11/10/19 09:02 Dose: 100 mg Documented by: Furosemide (Lasix) 20 mg PO [facility] Stop: 11/21/19 08:59 Last Admin: 11/10/19 09:03 Dose: 20 mg Documented by: Gabapentin (Neurontin) 300 mg PO TID [facility] Stop: 11/20/19 20:59 Last Admin: 11/10/19 13:46 Dose: 300 mg Documented by: Hydroxyzine HCl (Vistaril) 50 mg PO HSZ PRN PRN Reason: Insomnia Stop: 11/20/19 16:51 Last Admin: 10/27/19 23:28 Dose: 50 mg Documented by: Hydroxyzine HCl (Vistaril) 25 mg PO Q4H PRN PRN Reason: Anxiety Stop: 11/20/19 16:51 Lorazepam (Ativan) 0.5 mg PO HS PRN PRN Reason: Insomnia Stop: 11/29/19 10:43 Last Admin: 10/31/19 01:15 Dose: 0.5 mg Documented by: Magnesium Hydroxide (Milk Of Magnesia) 30 ml PO DAILY PRN PRN Reason: Constipation Stop: 11/20/19 16:51 Nitrofurantoin Macrocrystals (Macrobid) 100 mg PO BID [facility]; Protocol Stop: 11/11/19 11:44 Last Admin: 11/10/19 09:03 Dose: 100 mg Documented by: Olanzapine (Zyprexa Zydis Od) 5 mg PO Q6H PRN PRN Reason: Agitation Stop: 11/20/19 16:59 Last Admin: 10/31/19 07:41 Dose: 5 mg Documented by: Potassium Chloride (Klor-Con M10) 10 meq PO QAM [facility] Stop: 11/21/19 08:59 Last Admin: 11/10/19 09:03 Dose: 10 meq Documented by: Risperidone (Risperdal) 2 mg PO HS [facility] Stop: 11/30/19 21:59 Last Admin: 11/09/19 20:02 Dose: 2 mg Documented by: Risperidone (Risperdal) 0.5 mg PO QAM [facility] Stop: 12/08/19 08:59 Last Admin: 11/10/19 09:04 Dose: 0.5 mg Documented by: Sodium Chloride (Quinn Nasal) 1 - 2 sprays NA PRN PRN PRN Reason: Nasal Dryness/Congestion Stop: 11/20/19 16:51 Temazepam (Restoril) 15 mg PO HSZ PRN PRN Reason: Insomnia Stop: 12/07/19 11:34 Last Admin: 11/09/19 20:02 Dose: 15 mg Documented by: Mental Health & Subst Abuse Tx Psychiatrist Name of Psychiatrist: Dr. Navarrete Psychiatrist's Date of Appointment with Psychiatrist: 11/12/19 Time of Appointment with Psychiatrist: 3:20pm Psychiatric Appointment Comment: [address] [facility] [id number] Therapist Name of Therapist: None [employer] Cook Name of Specialty Foods Cook: None Post Discharge Appointments Primary Care Physician Name Of Family Doctor: Dr. Whitehead ([facility]) Primary Care Date of Appointment with PCP: 11/06/19 Time of Appointment with PCP: daughter is calling to schedule & will let us know Provider Appointment Comment: [address] [facility] [address] Neurologist Name of Neurologist: Ragini Hernandez Neurologist's Neurology Appointment Comment: As needed Contact Information Discharge Discharge Address: [address] [place] [address], [place] [address] (daughter's address) (1) Bipolar disorder Active/Remission status: currently active Current bipolar episode type: manic Current episode severity: severe Psychotic features: with psychotic features Qualified Code(s): F31.2 - Bipolar disorder, current episode manic severe with psychotic features
[2019-11-10] MEDS: DIVALPROEX EXTENDED RELEASE 250 MG TABCR PO SCH (20:37)
[2019-11-10] MEDS: risperiDONE 2 MG TABLET PO SCH (20:37)
[2019-11-11] MEDS: ATORVASTATIN 10 MG TAB PO SCH (08:14)
[2019-11-11] MEDS: DOCUSATE SODIUM 100 MG CAP PO SCH ×2 (08:14→20:34)
[2019-11-11] MEDS: NITROFURANTOIN MONOHYDRATE 100 MG CAP PO SCH (08:14)
[2019-11-11] MEDS: FUROSEMIDE 20 MG TAB PO SCH (08:14)
[2019-11-11] MEDS: POTASSIUM CHLORIDE 10 MEQ TABCR PO SCH (08:14)
[2019-11-11] MEDS: CARBIDOPA/LEVODOPA 25/100MG TAB PO SCH ×3 (08:15→20:34)
[2019-11-11] MEDS: allopurinoL 100 MG TAB PO SCH (08:15)
[2019-11-11] MEDS: GABAPENTIN 300 MG CAP PO SCH ×3 (08:15→20:34)
[2019-11-11] MEDS: risperiDONE 0.5 MG TABLET PO SCH (08:15)
--- NOTE | 2019-11-11 09:08 | Psychiatric Progress Note ---
Date of Service November 11, 2019 Impression / Recommendations Impression 74-year-old female with a history of multiple medical problems and bipolar disorder type I who presented with confusion, hallucinations, and agitation worsening over several days prior to presentation while she was at [facility], where she was receiving rehab after a fall at home with inability to get up for many hours. She has had two UTIs and completed courses of Keflex and Macrobid. She is on a 303 as of 10/24/19, and multiple medication changes have been made. The patient's diagnosis of Parkinson's disease complicates treatment interventions in this case, and her visual hallucinations might best be explained by psychosis related to Parkinson's disease and treatment with levodopa. Seroquel was replaced with risperidone, and Depakote was titrated to a dose of 1250mg qHS. Valproic acid level - 84. The patient's affect has stabilized and she is no longer exhibiting symptoms of lori. Sleep has slowly improved. The patient continues to require inpatient psychiatric hospitalization is the least restrictive level of care consistent with her clinical and safety needs. Discharge planning meeting held today with daughters, referrals being made for home health PT and OT, and anticipate d ischarge tomorrow if she continues to improve. (1) Bipolar disorder: 10/22 -likely also an element of delirium, with recent fall, inpatient rehab and [facility], and acute on chronic kidney dysfunction. Per review of records, this presentation is consistent with past presentations under similar circumstances. -Continue inpatient treatment on an involuntary commitment, and assess the need for extension of involuntary commitment. -Continue medically necessary private room due to recent agitation/confusion. -Get collateral information from daughter Juana who was present in the ER. -Coordinate care with outpatient psychiatrist, Dr. Navarrete. -Continue quetiapine 100 mg twice daily at 0900 and 1300, and 200 mg at bedtime. It appears likely that her recent symptoms are due to the change in her routine (admitted to [facility] Status post fall) and medical decompensation with UTI and kidney dysfunction. -Monitoring on an atypical antipsychotic: FLP from 06/2019 was within normal limits. Hemoglobin A1c was 5.7%, with estimated average glucose of 117. Fasting glucose 95. 10/23 -Reviewed case with outpatient psychiatrist Dr. Navarrete. He agreed with continuing her current medications, and providing consistency and structure on the unit, which typically help. -Continue MNPR as required O2 overnight for desaturation. -Patient still lacks capacity to agree to voluntary treatment, and is not yet stable for discharge, so will schedule a 303 hearing for tomorrow. 10/24 -Our ongoing concern is the fact that the patient has a history of decompensating fairly rapidly when sleep deprived, and she slept only a couple hours last night because she was very anxious about her upcoming hearing. We are also concerned because the patient continues to show certain features consistent with hypomania. For that reason, we are recommending further stabilization on an inpatient basis before transitioning the patient to the community for continued treatment on an outpatient basis. -The patient is continuing to tolerate quetiapine at the current dose of 100 mg twice a day and 200 mg at bedtime. She reports that she is not noticing any berto e effects and feels "much better." 10/25 -on a 303 involuntary commitment. Continue home medications. -Family meeting held with daughter. The patient will stay with her temporarily at discharge. 10/26 -sleep erratic, only 4 hours last night. Will order quetiapine 100 mg at bedtime as needed for insomnia. -Globally cognitively impaired; 10/13 on the MoCA, missing 3 for visuospatial/executive, 4 for attention, 2 for language, 2 for abstraction, 4 for delayed recall, and 3 for orientation. We will continue to monitor. 10/27 - HS dose of quetiapine increased to 300mg - total of 100mg/100mg/300mg daily - Pt demonstrating increased symptoms of lori, and sleep remains poor - therefore increasing risk of mood instability and overall concern for safety if discharged - Treatment team discussed recommendation that patient not drive - daughters requesting to restrict driving access on their own rather than have condition reported to [employer] - will continue to discuss with family as condition improves. Ideally, patient will have repeat MoCA prior to discharge - Continue MNPR due to concern for mood instability with interrupted sleep and worsening symptoms of lori 10/28 - Pt demonstrating worsening of manic symptoms and only slept 15 minutes last evening despite multiple prn sleep aids being provided - She was ordered 1 dose of lorazepam 1mg which can be utilized this evening to encourage sleep - fall-risk remains a concern and will be continuously evaluated as benzodiazepines are not an ideal long-term medication for this particular patient - Will order low-dose valproic acid 250mg to begin this evening, hopeful the medication may continue to target manic symptoms without as significant interactions with Parkinson's disease process - Continue current dosage of quetiapine at this time - Continue MNPR given poor sleep and mood instability 10/29 - Mildly improved sleep last evening - will titrate valproic acid to 500mg this evening - Will initially continue prn order of 0.5mg of lorazepam for this evening - as not ideal to rely on for long-term treatment - Fluid restriction in the late evening to be initiated - as nursing reports patient is often awoken by need to use the restroom and then is unable to return to sleep - Continue MNPR 10/30 - Continue current medication, and order lorazepam 0.5mg HS scheduled, with additional prn if needed for sleep. - Encourage patient to be awake during the day and asleep at night. 10/31 -As above, the patient psychiatric condition and, more specifically, her symptoms of lori are not improving, and there is some indication that, perhaps, she is having an idiosyncratic reaction to quetiapine. The context, of course, is that the patient is taking levodopa and has Parkinson's disease. Accordingly, we will hold quetiapine at this time in favor of risperidone which may be better tolerated at 1 mg in the morning and 2 mg at bedtime, with a plan to titrate as indicated. -In addition to working to allow the patient to have improved, sustained sleep, we are in the process of titrating Depakote. Hopefully, her manic symptoms will be favorably affected as we continue to titrate Depakote to a fully therapeutic level. A valproic acid level will be measured on 11/02/201911/01 --improved today, Restoril effective, will add standing with additional prn 11/02--depakote level 61, add additional 250 mg Depakote. 11/03 -patient slept well last night with temazepam 30 mg, and tolerated it well; will schedule for now, with a plan to use short-term to stabilize sleep and then taper off. -Continue risperidone 1 mg every morning and 2 mg at bedtime. Continue Depakote 1250 mg at bedtime, and recheck a trough on or after 11/07/2019. 11/04 - Continue current medication regimen - sleep was less ideal last evening; h owever, still improved when compared to several days ago 11/05 - Continue current medication regimen - patient continuing to appear more subdued, but sleep is gradually improving 11/06 - Poor sleep again last evening - patient appearing more subdued, but concern for motor and cognitive slowing - will reduce scheduled HS dose of Restoril to 15mg, and offer repeat 15mg as back-up in attempt to reduce sedating medications - concern remains that patient is not sleeping despite multiple psychotropic medications with sedating properties - Consider need for additional medication adjustments if sleep continues to be poor - Depakote level repeated this morning - results are still pending 11/07 -Serum valproic acid level reordered -The patient's mood appears to have stabilized. She is not currently exhibiting symptoms of lori, nor she experiencing symptoms of hypomania. She slept well last night, but, as has been previously noted, poor sleep has tended to be a harbinger of the onset of a manic episode, as well as a trigger for a manic episode. Complicating the clinical picture is that the patient is now demonstrating some excess sedation during the day. Accordingly, we are now adju sting the patient's medications, cautiously. We held risperidone this morning, and will restart it tomorrow at 0.5 mg in the morning and will continue 2 mg at bedtime. We also will attempt to reduce her dose of temazepam to 22.5 mg tonight and, depending on the outcome, we will look at possibly tapering further over the course of the weekend. PRN lorazepam remains available should the patient require additional assistance with sleep. 11/08 - Valproic acid level - 84 - Continue risperidone 0.5mg qAM and 2mg qHS - Will reduce temazepam to 15mg this evening - Continue to encourage improved sleep routine 11/09 - Continue current medication regimen - pt had a continuous 5+ hours of sleep last evening - Can continue to adjust medications to reduce daytime sedation over the next several days as indicated - Continue to encourage consistent sleep routine 11/10 - Continue current medication regimen - patient reporting poor sleep last evening - Family meeting with daughters scheduled for tomorrow - will attempt to coordinate discharge plan and address any concerns with patient's family - Continue to encourage sleep routine - Repeat MoCA performed today - patient scoring a 17/30 with ongoing global cognitive impairment: missing 4 for visuospatial/executive functioning, 4 for attention (unable to perform serial 7 task altogether), 1 for fluency, 2 for abstraction, 1 for delayed recall, and 1 for orientation. Score is only mildly improved from 10/26/2019 when she scored a 10/13 - Recommendation remains that patient not be permitted to operate a vehicle until driving capability is further assessed - will submit [employer] reporting for if daughters are unwilling to manage this process at time of discharge - PT/OT evaluation performed again today, in order to gather recommendations for discharge home to daughter's. 11/11 - Encourage fluid restriction prior to bed to limit sleep disruption overnight. Daughters are aware of this recommendation, as well as avoiding ca ffeine. - Continue Depakote extended release 1250 mg at bedtime, risperidone 0.5 mg every morning and 2 mg at bedtime, lorazepam 0.5 mg at bedtime as needed. She has not received temazepam the past 2 nights, and will discontinue it to limit risk of oversedation/falls at home. - Meeting held with social science instructor and patient's daughters for discharge planning. She will be going to stay with her daughter Juana, is being referred for home health PT/OT per their recommendations, and 24-hour care is recommended for the rest of the week. Reviewed recommendations with patient's and her daughters that the patient not drive until she is fully stable and evaluated/cleared by her outpatient physician. They expressed understanding. - Coordinate with outpatient psychiatrist, Dr. Navarrete; send this note for coordination of care as he will see her for outpatient follow-up tomorrow afternoon. (2) Parkinsons disease: 10/22 -continue home dose of Sinemet and monitor abnormal movements. Consider neurology consult if these do not improve. 10/24 -We discussed with the patient the fact that antiparkinsonian medications may possibly contribute to an exacerbation of psychotic symptoms as well as perceptual disturbances in persons who have Parkinson's disease,, and we have also advised the patient that antipsychotic medication such as quetiapine may adversely influence her movement disorder. The patient tells us that she has not noticed any worsening in her ability to ambulate, and also reports that she has not experienced any perceptual disturbances. Her mental status examination reveals that her current thought content appears to be devoid of any delusional material. 10/28 - Pt continues to demonstrate manic behaviors, worsening of symptoms correlated to poor sleep for the past several nights - As we are being cautious about utilization of atypical antipsychotic medications in the setting of Parkinson's disease - will plan to initiate low- dose valproic acid to begin this evening - Pt ordered 250mg of valproic acid to begin this evening, with titration as indicated - Continuing quetiapine at this time 10/31 -Hopefully, titration of valproic acid as a mood stabilizer will address the patient's symptoms of lori without exacerbating her Parkinsonism, and will allow us to limit the use of antipsychotic medications. 11/07 -The patient is ambulating quite slowly, more slowly than she was while manic. This may be a function of improved caution as her mood has stabilized, but it may also be related to sedation or to an exacerbation of her Parkinson's disease. The patient is aware that she is moving slowly, and tells us that she is deliberately moving slowly in order to prevent another fall. (3) History of pulmonary embolism: 11/02--hospitalist consult to clarify anticoagulation needs and examine leg 11/03 -appreciate hospitalist team's recommendations; bilateral lower extremity Doppler negative for DVT. Furosemide was continued, compression stockings and bilateral lower extremity elevation to reduce dependent edema. (4) Acute UTI: 10/22 -continue Keflex as started in the ER, and follow-up on sensitivities when completed. 10/24 -The patient's urine culture grew E. coli, and alpha streptococcus, not enterococcus -Patient reports that she is not continuing to experience pain on urination or urinary frequency. 10/27 - Last dose of Keflex given this morning 11/04 - Repeat UA ordered for today 11/05 - Will request hospitalist input regarding repeat UA - showing ongoing bacterial contamination - Pt is denying UTI symptomatology; not appearing delirious - Given recurrent UTIs and repeated antibiotic treatment, will ask hospi talist team to guide treatment recommendations 11/06 - Appreciate hospitalist recommendations regarding repeat UA also demonstrating E. coli growth; patient continuing to deny UTI symptoms - Nursing did report concern about possible urinary retention/hesitancy - Hospitalists recommended initiation of Macrobid 100mg BID x 5 days; with close outpatient follow-up after discharge to ensure resolution - Hospitalists have signed off on this concern, but are available for additional issues should they arise 11/07 - The patient notes today that she does not feel as if she has a urinary tract infection, and notes that she is usually aware of the symptoms. She specifically reports that she is not experiencing any pain, including flank or abdominal pain, and she also is not experiencing any burning on urination. She does, however, continue to describe urinary hesitation. We are continuing Macrobid as above. 11/11 - Completed course of Macrobid. Remains asymptomatic. Follow-up with [facility]. - OT saw the patient and assessed her ability to provide appropriate parvin- care and hand hygiene after toileting -she was able to do so. (5) HTN (hypertension): 10/22 -continue home dose of furosemide. BP was elevated in the ER, but has now normalized. -Ensure follow-up with PCP. (6) Idiopathic peripheral neuropathy: 10/22 -continue home dose of gabapentin 300 mg 3 times daily. 10/31 -The patient continues to report symptoms of peripheral neuropathy, but also tells us that it is "okay." (7) RLS (restless legs syndrome): 10/22 -continue home dose of lorazepam 0.5 mg at bedtime as needed. 10/31 -Standing dose of lorazepam at bedtime was not helpful. Tonight, we will offer the patient a trial of temazepam 15 mg for sleep. 11/02 --encourage up to 30 mg temazepam for sleep. 11/08 - Will reduce temazepam to 15mg for sleep 11/11 -has not used temazepam in 2 days, will discontinue due to risks. (8) Gout: Continue home dose of allopurinol. Risk Factors Assessment Male: No : Yes Do You Have Access To A Gun?: No Health Problems: Yes Mental Health Diagnoses: Yes Substance Use Disorders: No Previous Psychiatric Hospitalization: Yes Smoker: No Protective Factors Assessment Denominational Beliefs: Yes : No Responsible for Young Children: No Employed: No Stable Relationships: Yes Supportive Family: Yes Good Rapport with Provider: Yes Interval History Identifying Information PABLO COOPER is a 74-year-old F who currently lives in [place], has a history of bipolar disorder, Parkinson's disease, chronic kidney disease, hypertension, peripheral neuropathy, and restless leg syndrome and was admitted on 10/21/19 16:52 on a 302 involuntary commitment for lori. 303 granted on 10/24/2019. Chief Complaint "I'm doing good". Review of Systems Sleep Information Total Hours of Sleep: 2.25 Sleep Comments: The hours of sleep were between evenings and nights. Meal Information Percent Meal Consumed - Breakfast: 100 Percent Meal Consumed - Lunch: 100 Percent Meal Consumed - Dinner: 100 Nutrition Comment: pt asleep Subjective Subjective Patient was seen & assessed and interval progress reviewed with nursing and social work. Staff report she is eating well, ambulating independently, and attending and participating in groups and therapy. She is reporting stable mood and consistently denying thoughts of harming herself. She has been calm and cooperative with care, taking medications as prescribed. Staff spoke with both of her daughters yesterday, who requested specific recommendations for possible in-home equipment to assist her (such as a raised toilet seat). Her daughter who lives in [place] expressed concerns that the patient would again fall if she were staying at her sister Kim's house, as the bathroom is small and there are stairs. She also expressed concerns the patient will not be able to clean herself adequately after using the bathroom. The patient was tearful when informed of her daughter's concerns, stating that she felt better and was hoping to go home. PT saw her yesterday for a reevaluation, stated she was able to ambulate and transfer independently, with full weightbearing ability. They recommended home health PT at daughter's home and 24-hour care for the rest of the week for safety. OT saw her for an initial evaluation today, stated she was able to complete clothing management, parvin-care, and hand hygiene after voiding. They recommended home health OT and caregivers to assist and assess patient in her home environment. Attended meeting with social science instructor, patient, her daughter Juana and daughter Kim by phone. Reviewed patient's progress/current status as well as PT/OT recs and OP follow up recommended. Reviewed recs that she not drive until cleared by a physician, and that her 303 is up in 2 days and she will not meet criteria for ongoing involuntary hospitalization. Physical Exam Psychiatric Orientation: alert, oriented x 3 and cooperative Apperance: appropriately dressed, appropriately groomed and appeared stated age Eye Contact: good eye contact Motor Behavior: steady gait and station (walks slowly with walker) and no abnormal motor movements Speech spontaneous, slightly slowed, normal volume and tone Affect: + blunted affect calm, stable Mood: no depressed mood and no anxious mood "Good, I feel good." Mostly goal directed, at times answers with unrelated information, but responds to redirection. Thought Content: reality based without delusions Suicidal Thoughts: denies suicidal thoughts Homicidal Thoughts: denies homicidal thoughts Hallucinations: no auditory hallucinations and no visual hallucinations Cognition: language grossly intact; + recent memory not intact and + attention not intact Insight: + fair insight Judgement: + fair judgement Vital Signs (Past 24 Hours) Last Vital Signs Temp 36.8 C 11/11/19 06:43 Pulse 94 H 11/11/19 06:43 Resp 20 11/11/19 06:43 BP 136/88 11/11/19 06:43 Pulse Ox 93 10/30/19 06:44 Results & Data Current Inpatient Medications Current Inpatient Medications: Current Inpatient Medications Acetaminophen (Tylenol) 650 mg PO Q4H PRN PRN Reason: Headache or Minor Fever Stop: 11/20/19 16:51 Last Admin: 11/05/19 00:20 Dose: 650 mg Documented by: Al Hydrox/Mg Hydrox/Simethicone (Maalox) 30 ml PO Q4H PRN PRN Reason: GI Upset Stop: 11/20/19 16:51 Allopurinol (Zyloprim) 100 mg PO [facility] Stop: 11/21/19 08:59 Last Admin: 11/11/19 08:15 Dose: 100 mg Documented by: Atorvastatin Calcium (Lipitor) 10 mg PO [facility] Stop: 11/21/19 08:59 Last Admin: 11/11/19 08:14 Dose: 10 mg Documented by: Carbidopa/Levodopa (Sinemet 25/100 Mg) 1 tab PO TID [facility] Stop: 11/20/19 10:29 Last Admin: 11/11/19 08:15 Dose: 1 tab Documented by: Divalproex Sodium (Depakote Extended Release) 1,250 mg PO [facility] Stop: 12/02/19 21:59 Last Admin: 11/10/19 20:37 Dose: 1,250 mg Documented by: Docusate Sodium (Colace) 100 mg PO BID [facility] Stop: 11/20/19 20:59 Last Admin: 11/11/19 08:14 Dose: 100 mg Documented by: Furosemide (Lasix) 20 mg PO QAM [facility] Stop: 11/21/19 08:59 Last Admin: 11/11/19 08:14 Dose: 20 mg Documented by: Gabapentin (Neurontin) 300 mg PO TID [facility] Stop: 11/20/19 20:59 Last Admin: 11/11/19 08:15 Dose: 300 mg Documented by: Hydroxyzine HCl (Vistaril) 50 mg PO HSZ PRN PRN Reason: Insomnia Stop: 11/20/19 16:51 Last Admin: 10/27/19 23:28 Dose: 50 mg Documented by: Hydroxyzine HCl (Vistaril) 25 mg PO Q4H PRN PRN Reason: Anxiety Stop: 11/20/19 16:51 Lorazepam (Ativan) 0.5 mg PO HS PRN PRN Reason: Insomnia Stop: 11/29/19 10:43 Last Admin: 10/31/19 01:15 Dose: 0.5 mg Documented by: Magnesium Hydroxide (Milk Of Magnesia) 30 ml PO DAILY PRN PRN Reason: Constipation Stop: 11/20/19 16:51 Nitrofurantoin Macrocrystals (Macrobid) 100 mg PO BID [facility]; Protocol Stop: 11/11/19 11:44 Last Admin: 11/11/19 08:14 Dose: 100 mg Documented by: Olanzapine (Zyprexa Zydis Od) 5 mg PO Q6H PRN PRN Reason: Agitation Stop: 11/20/19 16:59 Last Admin: 10/31/19 07:41 Dose: 5 mg Documented by: Potassium Chloride (Klor-Con M10) 10 meq PO QAM [facility] Stop: 11/21/19 08:59 Last Admin: 11/11/19 08:14 Dose: 10 meq Documented by: Risperidone (Risperdal) 2 mg PO HS [facility] Stop: 11/30/19 21:59 Last Admin: 11/10/19 20:37 Dose: 2 mg Documented by: Risperidone (Risperdal) 0.5 mg PO QAM [facility] Stop: 12/08/19 08:59 Last Admin: 11/11/19 08:15 Dose: 0.5 mg Documented by: Sodium Chloride ([place] Nasal) 1 - 2 sprays NA PRN PRN PRN Reason: Nasal Dryness/Congestion Stop: 11/20/19 16:51 Temazepam (Restoril) 15 mg PO HSZ PRN PRN Reason: Insomnia Stop: 12/07/19 11:34 Last Admin: 11/09/19 20:02 Dose: 15 mg Documented by: Mental Health & Subst Abuse Tx Psychiatrist Name of Psychiatrist: Dr. Navarrete Psychiatrist's Date of Appointment with Psychiatrist: 11/12/19 Time of Appointment with Psychiatrist: 3:20pm Psychiatric Appointment Comment: [address] [place] [address] Therapist Name of Therapist: None Locomotive Firer Name of Locomotive Firer: None Post Discharge Appointments Primary Care Physician Name Of Family Doctor: Dr. Whitehead (Ragini) Primary Care Date of Appointment with PCP: 11/06/19 Time of Appointment with PCP: daughter is calling to schedule & will let us know Provider Appointment Comment: [address] [facility] [place] [address] Neurologist Name of Neurologist: Ragini Hernandez Neurologist's Neurology Appointment Comment: As needed Contact Information Discharge Discharge Address: [address] [place] [address], [place] [address] (daughter's address) (1) Bipolar disorder Active/Remission status: currently active Current bipolar episode type: manic Current episode severity: severe Psychotic features: with psychotic features Qualified Code(s): F31.2 - Bipolar disorder, current episode manic severe with psychotic features
[2019-11-11] MEDS: risperiDONE 2 MG TABLET PO SCH (20:34)
[2019-11-11] MEDS: DIVALPROEX EXTENDED RELEASE 250 MG TABCR PO SCH (20:34)
--- NOTE | 2019-11-12 08:41 | Discharge Summary ---
Date of Service November 12, 2019 History of Present Illness Patient presented to the ER yesterday, 10/21/2019, on referral from [facility] where she had been for inpatient PT after a fall 5 days prior. She was seen in the ER 10/16/2019 after falling at home, was unable to get up and was lying on the floor for 13 hours before she could call for help. She reported losing her balance while coming out of her bathroom, and landing on her hip. She had a hip x-ray which was negative for fracture or dislocation, and a head CT which showed no acute intracranial abnormalities but patchy white matter hypodensities suggesting chronic bibasilar vascular disease, cerebral vascular calcifications, and mild encephalomalacia of the periventricular left frontal lobe. Chest x-ray showed cardiomegaly, hiatal hernia, and calcified plaque in the thoracic aortic arch. She reported a history of polio primarily affecting the right side which limited her abilities to compensate. She was referred for inpatient physical therapy/rehabilitation for strengthening prior to returning home. Her daughter and outpatient case management specialist were present in the ER, and reported that for the past 4 days the patient had been unable to sit still, flailing her hands and arms, confused, hallucinating, talking to people and animals that are not present. They also stated she had not been taking her normal medications since her fall, although it was not specified what had been changed or held. EKG was normal sinus rhythm, rate 91, QTc 464. Admission labs notable for RBC 4.18, hemoglobin 11.8, hematocrit 36.5%, and RDW 52.9. PT and INR were normal. CMP notable for BUN 23 and creatinine 1.30 (improved from 1.48 on 10/16/2019). TSH 1.120, toxicology screen negative. UA was cloudy, + nitrite, 1+ leukocyte esterase, 10-20 WBCs, > 30 epithelial cells, and 2+ bacteria. Culture preliminary results: E. coli, sensitivities pending. She was started on cephalexin 500 mg twice daily. She was labile and confused in the ER, unable to give informed consent for inpatient psychiatric treatment. She became agitated and aggressive to the extent that she required lorazepam 1 mg x2 and olanzapine 10 mg and then 5 mg. She was admitted on a 302 involuntary commitment. Per records, she was progressing well physically at [facility] was walking without difficulty, and the night prior to presentation she became restless, anxious, and was hallucinating. Her symptoms worsened and she became agitated, was yelling at staff, and could not be redirected. She was confused and nonsensical. In the ER, she had moments of lucidity, but quickly became confused again, was experiencing visual hallucinations and stating that a cat named Ronnie was in the bed with her. Her daughter stated that she does not typically have the jerking motions of her extremities and that her Parkinson's has been well managed, that she has had these types of movements in the past when manic. She stated that the patient lives independently in an apartment in [place], and manages well on her own. 2 of her daughters live in [place] and see her daily. On my assessment, she was seen in her room, where she is seated by the window, shuffling a stack of newspaper ads. She is a very limited historian, answers most questions with unrelated information. She cannot recount the events that led up to her hospitalization, stating "it was my fault," "you know what a med minder is?" "Trying not to confuse you." She believes she came to the hospital from home, and cannot describe the events of the past week, does not seem to recall that she was at a rehab facility. When asked why she was hospitalized, she says "I don't have enough to get to the bathroom... I still don't have a problem." She is oriented to herself and the season, but not to the year, month, date, date, or place. Although initially alert, as interview progressed, she quickly became somnolent. Physical Exam Psychiatric Orientation: alert, oriented x 3 and cooperative Apperance: appropriately dressed and appeared stated age Obese, seated in NAD. Eye Contact: good eye contact Motor Behavior: steady gait and station (slow, with walker, steady.) and no abnormal motor movements Speech: normal rate/rhythm/volume of speech Affect: + blunted affect "Pretty good." Thought Process: goal directed thought process At times answers with unrelated information, but easily redirected. Thought Content: reality based without delusions Suicidal Thoughts: denies suicidal thoughts Homicidal Thoughts: denies homicidal thoughts Hallucinations: no auditory hallucinations and no visual hallucinations Cognition: language grossly intact; + recent memory not intact and + attention not intact Cognitively impaired - 17/30 on MOCA 11/10/2019 Insight: + fair insight Judgement: + fair judgement Vital Signs (Past 24 Hours) Last Vital Signs Temp 36.8 C 11/12/19 06:49 Pulse 94 H 11/12/19 06:50 Resp 20 11/12/19 06:49 BP 131/75 11/12/19 06:50 Pulse Ox 93 10/30/19 06:44 Principal Diagnosis Bipolar disorder type I, most recent episode manic. Recurrent UTI. Fall at home. Psychiatric Data The patient was hospitalized for 22 days, initially on a 302 involuntary commitment, which was transitioned to a 303 involuntary commitment on 10/24/2019. She was initially continued on quetiapine, which was increased to a total of 500 mg in divided doses to target manic symptoms and inadequate sleep. Manic symptoms did not improve significantly, so she was switched to risperidone on 10/31/2019, which was titrated to a total of 3 mg daily in divided doses, and when she stabilized decreased to 0.5 mg every morning and 2 mg at bedtime to limit sedation. Valproic acid was added 10/28/2019 to target ongoing manic symptoms, and titrated to a total of 1250 mg at bedtime. She tolerated this medication well, and her trough level was 84, with a free valproic acid level of 16.3. Her home dose of lorazepam was continued throughout her stay, and for a portion of her stay, temazepam was added to target ongoing poor sleep. This was tapered off prior to discharge once sleep improved. She was continued on her home medications for her various medical conditions, and the hospitalist service was consulted due to recurrent UTIs and bilateral lower extremity edema. She had repeated urine cultures that grew E. coli, and completed a course of Keflex and then a course of Macrobid, with symptom resolution. She had bilateral lower extremity Doppler ultrasound negative for DVT, and edema responded to compression stockings, low-salt diet, and lower extremity elevation. She initially appeared to have a combination of manic and delirium symptoms, which is consistent with her previous presentations/decompensations. She was sleeping very little on admission, and medications were adjusted to target sleep while also attempting to limit the risk of falls and delirium, both of which have been recent issues. Her manic symptoms gradually improved, and she was able to participate fully in groups and therapy, and interact appropriately with staff and peers. Her sleep slowly improved and she had a pattern of sleeping well for a night or 2 and then poorly for a night or 2. Sleep did appear to be better on nights where she restricted her fluid intake prior to bed, but she was resistant to these suggestions from staff and sometimes drink large amounts of water just before bedtime, which resulted in disrupted sleep overnight to use the bathroom. Daughters were involved throughout her hospitalization; 1 of whom lives locally and the other out of state. Care was coordinated with her outpatient psychiatrist. Cognitive impairment was checked; MoCA on 10/26/2019 was 10/13, and repeat on 11/10/2019 was . Recommendations were reviewed with both the patient and her daughters that she should not drive until she has fully stabilized, both physically and psychiatrically, and has been evaluated by her outpatient physician, with consideration for specific testing such as DriveABLE. PT and OT assessments were performed in the days prior to discharge to determine appropriate level of care at discharge, and they recommended home health PT/OT and 24-hour care and supervision for the rest of the week after discharge. A discharge planning was held with the certified social workers in health care, psychiatrist, patient, and 2 of her daughters the day prior to discharge, and all expressed agreement with the discharge plan. Day of Discharge Assessment Staff report the patient has been in good behavioral control, affect has been stable, she is attending and participating appropriately in groups, and has been performing ADLs with minimal assistance. She is eating well, and slept 7.25 hours overnight. She is taking medications without difficulty. On my assessment, she states her mood is "pretty good," and she is looking forward to discharge. She reports good sleep last night, and good appetite. She denies mood swings/instability, depressive symptoms, anxiety, hallucinations, paranoia, thoughts of harming herself or anyone else. She denies side effects to medications, lower extremity swelling or discomfort, dizziness, lightheadedness, feeling unsteady on her feet, and states she feels her strength is improving. She is in agreement with the discharge recommendations which were reviewed again today (and in detail during her discharge planning meeting yesterday with daughters). She feels she is about 80% back to her baseline, and denies any safety concerns with discharge. Transition of Care Transition Of Care Record: was reviewed with the patient Advance Directives Advance Directives Information Provided: Yes Advance Directives: No Mental Health Advance Directive: No Advance Directives on File: No Living Will: Yes Power of Benefits Specialist Recruiter: Yes Power of Benefits Specialist Recruiter Name: Juana Angel Power of Benefits Specialist Recruiter Advance Directives Reason:: Declines as Mental Health Visit. Risk Factors Assessment Risk factors were mitigated by admission to the inpatient unit, adjustment of medications to target mood symptoms, sleep, and multiple medical problems, involving her in groups and therapy, working on healthy coping skills and a discharge safety plan, involvement of her daughters, addressing comorbid medical issues, PT/OT consults with recommendations for home health PT/OT at discharge, coordination of care with her outpatient psychiatrist, hospitalist consult to address acute medical issues, and recommendations to abstain from driving at discharge due to ongoing cognitive impairment. The patient has improved with respect to mood, cognitive, and sleep issues; she is consistently denied suicidal and homicidal thoughts here, he is taking medications as prescribed, and stating willingness to follow-up with outpatient treatment. She will be going to live with her daughter with home health PT/OT, and has a follow-up appointment with her outpatient psychiatrist today. She is no longer at acute risk of harm to herself and can be managed as an outpatient at this time. She i s not at increased risk of harm to others. Male: No : Yes Do You Have Access To A Gun?: No Health Problems: Yes Mental Health Diagnoses: Yes Substance Use Disorders: No Previous Psychiatric Hospitalization: Yes Hopelessness: No Smoker: No Protective Factors Assessment Jehovah'S Witness Beliefs: Yes : No Responsible for Young Children: No Employed: No Stable Relationships: Yes Supportive Family: Yes Good Rapport with Provider: Yes Tobacco Cessation at Discharge Tobacco Cessation Medication Prescribed at Discharge: Not Applicable/Non-Smoker Total Time Total Time Spent: Greater Than 30 Minutes Total Time Includes: Examination of the patient, Discharge Planning, Medication Reconciliation and Communication with other providers Discharge Data Consultations 11/02/19 09:09 Consult Hospitalist Routine Lab Results 10/21/19 10/21/19 10/21/19 10:25 10:25 10:55 WBC 4.81 RBC 4.18 L Hgb 11.8 L Hct 36.5 L MCV 87.3 MCH 28.2 MCHC 32.3 RDW Std Deviation 52.9 H RDW Coeff of Alex 16.5 H Plt Count 279 MPV 8.6 Immature Gran % (Auto) 0.2 Neut % (Auto) 74.5 Lymph % (Auto) 10.6 [place] % (Auto) 10.8 Eos % (Auto) 3.7 Baso % (Auto) 0.2 Immature Gran # (Auto) 0.01 Neut # (Auto) 3.58 Lymph # (Auto) 0.51 L [place] # (Auto) 0.52 Eos # (Auto) 0.18 Baso # (Auto) 0.01 PT INR Sodium Potassium Chloride Carbon Dioxide Anion Gap BUN Creatinine Est Cr Clr Drug Dosing Est GFR ( Amer) Est GFR (Non-Af Amer) BUN/Creatinine Ratio Glucose Calcium Total Bilirubin AST ALT Alkaline Phosphatase Total Protein Albumin Globulin Albumin/Globulin Ratio TSH Urine Color Yellow Urine Appearance Cloudy A Urine pH 5.0 Ur Specific [place] 1.015 Urine Protein Negative Urine Glucose (UA) Negative Urine Ketones Negative Urine Blood Negative Urine Nitrite Positive A Urine Bilirubin Negative Urine Urobilinogen Negative Ur Leukocyte Esterase 1+ H Urine WBC (Auto) 10-30 H Urine RBC (Auto) 0-4 U Hyaline Cast (Auto) 5-10 H U Epithel Cells (Auto) >30 H Urine Bacteria (Auto) 2+ H Urine Yeast Not Reportable Urine Opiates Screen Neg Ur Methadone, Qual Neg Urine Barbiturates Neg Valproic Acid Free Valproic Acid Total Valproic Acid Ur Phencyclidine (PCP) Neg U Amphetamin/Meth Scrn Neg MDMA (Ecstasy) Screen Neg U Benzodiazepines Scrn Neg Ur Cocaine Metabolite Neg U Marijuana (THC) Screen Neg Ethyl Alcohol mg/dL 10/21/19 10/21/19 10/22/19 10:55 10:55 07:08 WBC RBC Hgb Hct MCV MCH MCHC RDW Std Deviation RDW Coeff of Alex Plt Count MPV Immature Gran % (Auto) Neut % (Auto) Lymph % (Auto) [place] % (Auto) Eos % (Auto) Baso % (Auto) Immature Gran # (Auto) Neut # (Auto) Lymph # (Auto) [place] # (Auto) Eos # (Auto) Baso # (Auto) PT 10.9 INR 1.1 Sodium 136 Potassium 3.5 Chloride 102 Carbon Dioxide 28 Anion Gap 6.0 BUN 23 H Creatinine 1.30 H Est Cr Clr Drug Dosing Not Reportable Est GFR ( Amer) 46.8 Est GFR (Non-Af Amer) 40.4 BUN/Creatinine Ratio 17.7 Glucose 81 Calcium 9.3 Total Bilirubin 0.6 AST 21 ALT 9 L Alkaline Phosphatase 94 Total Protein 8.9 H Albumin 3.4 Globulin 5.5 H Albumin/Globulin Ratio 0.6 L TSH 1.120 Urine Color Urine Appearance Urine pH Ur Specific [place] Urine Protein Urine Glucose (UA) Urine Ketones Urine Blood Urine Nitrite Urine Bilirubin Urine Urobilinogen Ur Leukocyte Esterase Urine WBC (Auto) Urine RBC (Auto) U Hyaline Cast (Auto) U Epithel Cells (Auto) Urine Bacteria (Auto) Urine Yeast Urine Opiates Screen Ur Methadone, Qual Urine Barbiturates Valproic Acid Free Valproic Acid Total Valproic Acid Ur Phencyclidine (PCP) U Amphetamin/Meth Scrn MDMA (Ecstasy) Screen U Benzodiazepines Scrn Ur Cocaine Metabolite U Marijuana (THC) Screen Ethyl Alcohol mg/dL < 3.0 10/23/19 10/26/19 10/29/19 08:41 06:49 07:12 WBC RBC Hgb Hct MCV MCH MCHC RDW Std Deviation RDW Coeff of Alex Plt Count MPV Immature Gran % (Auto) Neut % (Auto) Lymph % (Auto) [place] % (Auto) Eos % (Auto) Baso % (Auto) Immature Gran # (Auto) Neut # (Auto) Lymph # (Auto) [place] # (Auto) Eos # (Auto) Baso # (Auto) PT INR Sodium Potassium Chloride Carbon Dioxide Anion Gap BUN Creatinine 1.41 H 1.12 1.21 H Est Cr Clr Drug Dosing 42.0 52.8 48.9 Est GFR ( Amer) 42.4 56.0 51.0 Est GFR (Non-Af Amer) 36.6 48.4 44.0 BUN/Creatinine Ratio Glucose Calcium Total Bilirubin AST ALT Alkaline Phosphatase Total Protein Albumin Globulin Albumin/Globulin Ratio TSH Urine Color Urine Appearance Urine pH Ur Specific [place] Urine Protein Urine Glucose (UA) Urine Ketones Urine Blood Urine Nitrite Urine Bilirubin Urine Urobilinogen Ur Leukocyte Esterase Urine WBC (Auto) Urine RBC (Auto) U Hyaline Cast (Auto) U Epithel Cells (Auto) Urine Bacteria (Auto) Urine Yeast Urine Opiates Screen Ur Methadone, Qual Urine Barbiturates Valproic Acid Free Valproic Acid Total Valproic Acid Ur Phencyclidine (PCP) U Amphetamin/Meth Scrn MDMA (Ecstasy) Screen U Benzodiazepines Scrn Ur Cocaine Metabolite U Marijuana (THC) Screen Ethyl Alcohol mg/dL 11/01/19 11/02/19 11/04/19 07:20 08:18 07:12 WBC RBC Hgb Hct MCV MCH MCHC RDW Std Deviation RDW Coeff of Alex Plt Count MPV Immature Gran % (Auto) Neut % (Auto) Lymph % (Auto) [place] % (Auto) Eos % (Auto) Baso % (Auto) Immature Gran # (Auto) Neut # (Auto) Lymph # (Auto) [place] # (Auto) Eos # (Auto) Baso # (Auto) PT INR Sodium Potassium Chloride Carbon Dioxide Anion Gap BUN Creatinine 1.19 1.06 Est Cr Clr Drug Dosing 49.7 55.6 Est GFR ( Amer) 52.1 59.9 Est GFR (Non-Af Amer) 44.9 51.7 BUN/Creatinine Ratio Glucose Calcium Total Bilirubin AST ALT Alkaline Phosphatase Total Protein Albumin Globulin Albumin/Globulin Ratio TSH Urine Color Urine Appearance Urine pH Ur Specific [place] Urine Protein Urine Glucose (UA) Urine Ketones Urine Blood Urine Nitrite Urine Bilirubin Urine Urobilinogen Ur Leukocyte Esterase Urine WBC (Auto) Urine RBC (Auto) U Hyaline Cast (Auto) U Epithel Cells (Auto) Urine Bacteria (Auto) Urine Yeast Urine Opiates Screen Ur Methadone, Qual Urine Barbiturates Valproic Acid 61 Free Valproic Acid Total Valproic Acid Ur Phencyclidine (PCP) U Amphetamin/Meth Scrn MDMA (Ecstasy) Screen U Benzodiazepines Scrn Ur Cocaine Metabolite U Marijuana (THC) Screen Ethyl Alcohol mg/dL 11/04/19 11/06/19 11/06/19 13:30 09:46 09:46 WBC 5.58 RBC 4.16 L Hgb 11.5 L Hct 36.1 L MCV 86.8 MCH 27.6 MCHC 31.9 L RDW Std Deviation 52.2 H RDW Coeff of Alex 16.4 H Plt Count 309 MPV 8.9 Immature Gran % (Auto) 0.2 Neut % (Auto) 79.2 Lymph % (Auto) 9.0 [place] % (Auto) 9.1 Eos % (Auto) 2.3 Baso % (Auto) 0.2 Immature Gran # (Auto) 0.01 Neut # (Auto) 4.42 Lymph # (Auto) 0.50 L [place] # (Auto) 0.51 Eos # (Auto) 0.13 Baso # (Auto) 0.01 PT INR Sodium 138 Potassium 3.6 Chloride 103 Carbon Dioxide 31 Anion Gap 4.0 BUN 23 H Creatinine 1.22 H Est Cr Clr Drug Dosing 48.2 Est GFR ( Amer) 50.5 Est GFR (Non-Af Amer) 43.6 BUN/Creatinine Ratio 19.1 Glucose 107 H Calcium 9.4 Total Bilirubin 0.4 AST 8 L ALT < 6 L Alkaline Phosphatase 72 Total Protein 8.7 H Albumin 3.1 L Globulin 5.6 H Albumin/Globulin Ratio 0.6 L TSH Urine Color Yellow Urine Appearance Cloudy A Urine pH 5.5 Ur Specific [place] 1.009 Urine Protein Negative Urine Glucose (UA) Negative Urine Ketones Negative Urine Blood Negative Urine Nitrite Positive A Urine Bilirubin Negative Urine Urobilinogen Negative Ur Leukocyte Esterase 2+ H Urine WBC (Auto) >30 H Urine RBC (Auto) 0-4 U Hyaline Cast (Auto) 1-5 U Epithel Cells (Auto) 5-10 H Urine Bacteria (Auto) 1+ H Urine Yeast Urine Opiates Screen Ur Methadone, Qual Urine Barbiturates Valproic Acid Free Valproic Acid Total Valproic Acid Ur Phencyclidine (PCP) U Amphetamin/Meth Scrn MDMA (Ecstasy) Screen U Benzodiazepines Scrn Ur Cocaine Metabolite U Marijuana (THC) Screen Ethyl Alcohol mg/dL 11/06/19 11/07/19 11/07/19 09:46 09:39 09:42 WBC RBC Hgb Hct MCV MCH MCHC RDW Std Deviation RDW Coeff of Alex Plt Count MPV Immature Gran % (Auto) Neut % (Auto) Lymph % (Auto) [place] % (Auto) Eos % (Auto) Baso % (Auto) Immature Gran # (Auto) Neut # (Auto) Lymph # (Auto) [place] # (Auto) Eos # (Auto) Baso # (Auto) PT INR Sodium Potassium Chloride Carbon Dioxide Anion Gap BUN Creatinine 1.24 H Est Cr Clr Drug Dosing 47.4 Est GFR ( Amer) 49.6 Est GFR (Non-Af Amer) 42.8 BUN/Creatinine Ratio Glucose Calcium Total Bilirubin AST ALT Alkaline Phosphatase Total Protein Albumin Globulin Albumin/Globulin Ratio TSH Urine Color Urine Appearance Urine pH Ur Specific [place] Urine Protein Urine Glucose (UA) Urine Ketones Urine Blood Urine Nitrite Urine Bilirubin Urine Urobilinogen Ur Leukocyte Esterase Urine WBC (Auto) Urine RBC (Auto) U Hyaline Cast (Auto) U Epithel Cells (Auto) Urine Bacteria (Auto) Urine Yeast Urine Opiates Screen Ur Methadone, Qual Urine Barbiturates Valproic Acid 84 Free Valproic Acid 16.3 Total Valproic Acid 98.3 Ur Phencyclidine (PCP) U Amphetamin/Meth Scrn MDMA (Ecstasy) Screen U Benzodiazepines Scrn Ur Cocaine Metabolite U Marijuana (THC) Screen Ethyl Alcohol mg/dL 11/10/19 07:09 WBC RBC Hgb Hct MCV MCH MCHC RDW Std Deviation RDW Coeff of Alex Plt Count MPV Immature Gran % (Auto) Neut % (Auto) Lymph % (Auto) [place] % (Auto) Eos % (Auto) Baso % (Auto) Immature Gran # (Auto) Neut # (Auto) Lymph # (Auto) [place] # (Auto) Eos # (Auto) Baso # (Auto) PT INR Sodium Potassium Chloride Carbon Dioxide Anion Gap BUN Creatinine 1.08 Est Cr Clr Drug Dosing 54.4 Est GFR ( Amer) 58.6 Est GFR (Non-Af Amer) 50.5 BUN/Creatinine Ratio Glucose Calcium Total Bilirubin AST ALT Alkaline Phosphatase Total Protein Albumin Globulin Albumin/Globulin Ratio TSH Urine Color Urine Appearance Urine pH Ur Specific [place] Urine Protein Urine Glucose (UA) Urine Ketones Urine Blood Urine Nitrite Urine Bilirubin Urine Urobilinogen Ur Leukocyte Esterase Urine WBC (Auto) Urine RBC (Auto) U Hyaline Cast (Auto) U Epithel Cells (Auto) Urine Bacteria (Auto) Urine Yeast Urine Opiates Screen Ur Methadone, Qual Urine Barbiturates Valproic Acid Free Valproic Acid Total Valproic Acid Ur Phencyclidine (PCP) U Amphetamin/Meth Scrn MDMA (Ecstasy) Screen U Benzodiazepines Scrn Ur Cocaine Metabolite U Marijuana (THC) Screen Ethyl Alcohol mg/dL Hospital Course (1) Bipolar disorder: 10/22 -likely also an element of delirium, with recent fall, inpatient rehab and [facility], and acute on chronic kidney dysfunction. Per review of records, this presentation is consistent with past presentations under similar circumstances. -Continue inpatient treatment on an involuntary commitment, and assess the need for extension of involuntary commitment. -Continue medically necessary private room due to recent agitation/confusion. -Get collateral information from daughter Juana who was present in the ER. -Coordinate care with outpatient psychiatrist, Dr. Navarrete. -Continue quetiapine 100 mg twice daily at 0900 and 1300, and 200 mg at bedtime. It appears likely that her recent symptoms are due to the change in her routine (admitted to [facility] post fall) and medical decompensation with UTI and kidney dysfunction. -Monitoring on an atypical antipsychotic: FLP from 06/2019 was within normal limits. Hemoglobin A1c was 5.7%, with estimated average glucose of 117. Fasting glucose 95. 10/23 -Reviewed case with outpatient psychiatrist Dr. Navarrete. He agreed with continuing her current medications, and providing consistency and structure on the unit, which typically help. -Continue MNPR as required O2 overnight for desaturation. -Patient still lacks capacity to agree to voluntary treatment, and is not yet stable for discharge, so will schedule a 303 hearing for tomorrow. 10/24 -Our ongoing concern is the fact that the patient has a history of decompensating fairly rapidly when sleep deprived, and she slept only a couple hours last night because she was very anxious about her upcoming hearing. We are also concerned because the patient continues to show certain features consistent with hypomania. For that reason, we are recommending further stabilization on an inpatient basis before transitioning the patient to the community for continued treatment on an outpatient basis. -The patient is continuing to tolerate quetiapine at the current dose of 100 mg twice a day and 200 mg at bedtime. She reports that she is not noticing any side effects and feels "much better." 10/25 -on a 303 involuntary commitment. Continue home medications. -Family meeting held with daughter. The patient will stay with her temporarily at discharge. 10/26 -sleep erratic, only 4 hours last night. Will order quetiapine 100 mg at bedtime as needed for insomnia. -Globally cognitively impaired; 10/13 on the MoCA, missing 3 for visuospatial/executive, 4 for attention, 2 for language, 2 for abstraction, 4 for delayed recall, and 3 for orientation. We will continue to monitor. 10/27 - HS dose of quetiapine increased to 300mg - total of 100mg/100mg/300mg daily - Pt demonstrating increased symptoms of lori, and sleep remains poor - therefore increasing risk of mood instability and overall concern for safety if discharged - Treatment team discussed recommendation that patient not drive - daughters requesting to restrict driving access on their own rather than have condition reported to [facility] - will continue to discuss with family as condition improves. Ideally, patient will have repeat MoCA prior to discharge - Continue MNPR due to concern for mood instability with interrupted sleep and worsening symptoms of lori 10/28 - Pt demonstrating worsening of manic symptoms and only slept 15 minutes last evening despite multiple prn sleep aids being provided - She was ordered 1 dose of lorazepam 1mg which can be utilized this evening to encourage sleep - fall-risk remains a concern and will be continuously evaluated as benzodiazepines are not an ideal long-term medication for this particular patient - Will order low-dose valproic acid 250mg to begin this evening, hopeful the medication may continue to target manic symptoms without as significant interactions with Parkinson's disease process - Continue current dosage of quetiapine at this time - Continue MNPR given poor sleep and mood instability 10/29 - Mildly improved sleep last evening - will titrate valproic acid to 500mg this evening - Will initially continue prn order of 0.5mg of lorazepam for this evening - as not ideal to rely on for long-term treatment - Fluid restriction in the late evening to be initiated - as nursing reports patient is often awoken by need to use the restroom and then is unable to return to sleep - Continue MNPR 10/30 - Continue current medication, and order lorazepam 0.5mg HS scheduled, with additional prn if needed for sleep. - Encourage patient to be awake during the day and asleep at night. 10/31 -As above, the patient psychiatric condition and, more specifically, her symptoms of lori are not improving, and there is some indication that, perhaps, she is having an idiosyncratic reaction to quetiapine. The context, of course, is that the patient is taking levodopa and has Parkinson's disease. Accordingly, we will hold quetiapine at this time in favor of risperidone which may be better tolerated at 1 mg in the morning and 2 mg at bedtime, with a plan to titrate as indicated. -In addition to working to allow the patient to have improved, sustained sleep, we are in the process of titrating Depakote. Hopefully, her manic symptoms will be favorably affected as we continue to titrate Depakote to a fully therapeutic level. A valproic acid level will be measured on 11/02/201911/01 --improved today, Restoril effective, will add standing with additional prn 11/02--depakote level 61, add additional 250 mg Depakote. 11/03 -patient slept well last night with temazepam 30 mg, and tolerated it well; will schedule for now, with a plan to use short-term to stabilize sleep and then taper off. -Continue risperidone 1 mg every morning and 2 mg at bedtime. Continue Depakote 1250 mg at bedtime, and recheck a trough on or after 11/07/2019. 11/04 - Continue current medication regimen - sleep was less ideal last evening; however, still improved when compared to several days ago 11/05 - Continue current medication regimen - patient continuing to appear more subdued, but sleep is gradually improving 11/06 - Poor sleep again last evening - patient appearing more subdued, but concern for motor and cognitive slowing - will reduce scheduled HS dose of Restoril to 15mg, and offer repeat 15mg as back-up in attempt to reduce sedating medications - concern remains that patient is not sleeping despite multiple psychotropic medications with sedating properties - Consider need for additional medication adjustments if sleep continues to be poor - Depakote level repeated this morning - results are still pending 11/07 -Serum valproic acid level reordered -The patient's mood appears to have stabilized. She is not currently exhibiting symptoms of lori, nor she experiencing symptoms of hypomania. She slept well last night, but, as has been previously noted, poor sleep has tended to be a harbinger of the onset of a manic episode, as well as a trigger for a manic episode. Complicating the clinical picture is that the patient is now demonstrating some excess sedation during the day. Accordingly, we are now adjusting the patient's medications, cautiously. We held risperidone this morning, and will restart it tomorrow at 0.5 mg in the morning and will continue 2 mg at bedtime. We also will attempt to reduce her dose of temazepam to 22.5 mg tonight and, depending on the outcome, we will look at possibly tapering further over the course of the weekend. PRN lorazepam remains available should the patient require additional assistance with sleep. 11/08 - Valproic acid level - 84 - Continue risperidone 0.5mg qAM and 2mg qHS - Will reduce temazepam to 15mg this evening - Continue to encourage improved sleep routine 11/09 - Continue current medication regimen - pt had a continuous 5+ hours of sleep last evening - Can continue to adjust medications to reduce daytime sedation over the next several days as indicated - Continue to encourage consistent sleep routine 11/10 - Continue current medication regimen - patient reporting poor sleep last evening - Family meeting with daughters scheduled for tomorrow - will attempt to coordinate discharge plan and address any concerns with patient's family - Continue to encourage sleep routine - Repeat MoCA performed today - patient scoring a 17/30 with ongoing global cognitive impairment: missing 4 for visuospatial/executive functioning, 4 for attention (unable to perform serial 7 task altogether), 1 for fluency, 2 for abstraction, 1 for delayed recall, and 1 for orientation. Score is only mildly improved from 10/26/2019 when she scored a 30 - Recommendation remains that patient not be permitted to operate a vehicle until driving capability is further assessed - will submit [employer] reporting for if daughters are unwilling to manage this process at time of discharge - PT/OT evaluation performed again today, in order to gather recommendations for discharge home to daughter's. 11/11 - Encourage fluid restriction prior to bed to limit sleep disruption overnight. Daughters are aware of this recommendation, as well as avoiding caffeine. - Continue Depakote extended release 1250 mg at bedtime, risperidone 0.5 mg every morning and 2 mg at bedtime, lorazepam 0.5 mg at bedtime as needed. She has not received temazepam the past 2 nights, and will discontinue it to limit risk of oversedation/falls at home. - Meeting held with certified social workers in health care and patient's daughters for discharge pl kay. She will be going to stay with her daughter Juana, is being referred for home health PT/OT per their recommendations, and 24-hour care is recommended for the rest of the week. Reviewed recommendations with patient's and her daughters that the patient not drive until she is fully stable and evaluated/cleared by her outpatient physician. They expressed understanding. - Coordinate with outpatient psychiatrist, Dr. Navarrete; send this note for coordination of care as he will see her for outpatient follow-up tomorrow afternoon. 11/12 - Discharge to daughters home with home health PT/OT and 24 hour supervision/care for the rest of the week per their recommendations. - F/u with Dr. Navarrete today - No driving until stabilized/cleared by physician. Patient and daughters aware. Most recent MoCA was 2 days ago as above, cognition remains impaired. HasNeurology appt w /Dr. Reilly in December (2) Parkinsons disease: 10/22 -continue home dose of Sinemet and monitor abnormal movements. Consider neurology consult if these do not improve. 10/24 -We discussed with the patient the fact that antiparkinsonian medications may possibly contribute to an exacerbation of psychotic symptoms as well as perceptual disturbances in persons who have Parkinson's disease,, and we have also advised the patient that antipsychotic medication such as quetiapine may adversely influence her movement disorder. The patient tells us that she has not noticed any worsening in her ability to ambulate, and also reports that she has not experienced any perceptual disturbances. Her mental status examination reveals that her current thought content appears to be devoid of any delusional material. 10/28 - Pt continues to demonstrate manic behaviors, worsening of symptoms correlated to poor sleep for the past several nights - As we are being cautious about utilization of atypical antipsychotic medications in the setting of Parkinson's disease - will plan to initiate low- dose valproic acid to begin this evening - Pt ordered 250mg of valproic acid to begin this evening, with titration as indicated - Continuing quetiapine at this time 10/31 -Hopefully, titration of valproic acid as a mood stabilizer will address the patient's symptoms of lori without exacerbating her Parkinsonism, and will allow us to limit the use of antipsychotic medications. 11/07 -The patient is ambulating quite slowly, more slowly than she was while manic. This may be a function of improved caution as her mood has stabilized, but it may also be related to sedation or to an exacerbation of her Parkinson's disease. The patient is aware that she is moving slowly, and tells us that she is deliberately moving slowly in order to prevent another fall. (3) History of pulmonary embolism: 11/02--hospitalist consult to clarify anticoagulation needs and examine leg 11/03 -appreciate hospitalist team's recommendations; bilateral lower extremity Doppler negative for DVT. Furosemide was continued, compression stockings and bilateral lower extremity elevation to reduce dependent edema. (4) Acute UTI: 10/22 -continue Keflex as started in the ER, and follow-up on sensitivities when completed. 10/24 -The patient's urine culture grew E. coli, and alpha streptococcus, not enterococcus -Patient reports that she is not continuing to experience pain on urination or urinary frequency. 10/27 - Last dose of Keflex given this morning 11/04 - Repeat UA ordered for today 11/05 - Will request hospitalist input regarding repeat UA - showing ongoing bacterial contamination - Pt is denying UTI symptomatology; not appearing delirious - Given recurrent UTIs and repeated antibiotic treatment, will ask hospitalist team to guide treatment recommendations 11/06 - Appreciate hospitalist recommendations regarding repeat UA also demonstrating E. coli growth; patient continuing to deny UTI symptoms - Nursing did report concern about possible urinary retention/hesitancy - Hospitalists recommended initiation of Macrobid 100mg BID x 5 days; with close outpatient follow-up after discharge to ensure resolution - Hospitalists have signed off on this concern, but are available for additional issues should they arise 11/07 - The patient notes today that she does not feel as if she has a urinary tract infection, and notes that she is usually aware of the symptoms. She specifically reports that she is not experiencing any pain, including flank or abdominal pain, and she also is not experiencing any burning on urination. She does, however, continue to describe urinary hesitation. We are continuing Macrobid as above. 11/11 - Completed course of Macrobid. Remains asymptomatic. Follow-up with outpatient care. - OT saw the patient and assessed her ability to provide appropriate parvin- care and hand hygiene after toileting -she was able to do so. (5) HTN (hypertension): 10/22 -continue home dose of furosemide. BP was elevated in the ER, but has now normalized. -Ensure follow-up with PCP. (6) Idiopathic peripheral neuropathy: 10/22 -continue home dose of gabapentin 300 mg 3 times daily. 10/31 - The patient continues to report symptoms of peripheral neuropathy, but also tells us that it is "okay." (7) RLS (restless legs syndrome): 10/22 -continue home dose of lorazepam 0.5 mg at bedtime as needed. 10/31 -Standing dose of lorazepam at bedtime was not helpful. Tonight, we will offer the patient a trial of temazepam 15 mg for sleep. 11/02 --encourage up to 30 mg temazepam for sleep. 11/08 - Will reduce temazepam to 15mg for sleep 11/11 -has not used temazepam in 2 days, will discontinue due to risks. (8) Gout: Continue home dose of allopurinol. Mental Health & Subst Abuse Tx Psychiatrist Name of Psychiatrist: Dr. Navarrete Psychiatrist's Date of Appointment with Psychiatrist: 11/12/19 Time of Appointment with Psychiatrist: 3:20 pm Psychiatric Appointment Comment: [address] [facility] [id number] Therapist Name of Therapist: None Case Management Specialist Name of Case Management Specialist: None Post Discharge Appointments Primary Care Physician Name Of Family Doctor: [facility] Date of Appointment with PCP: 11/18/19 Time of Appointment with PCP: 1:00 p.m. Provider Appointment Comment: [address] [facility] [id number] Neurologist Name of Neurologist: Ragini Reilly Neurologist's Date of Appointment with Neurologist: 12/18/19 Time of Appointment with Neurologist: 10:40 a.m. Neurology Appointment Comment: [address] [facility] Smoking Cessation Counseling Tobacco Cessation Medication Prescribed at Discharge: Not Applicable/Non-Smoker Contact Information Discharge Discharge Address: [facility] [place] [address] (daughter's address) Discharge Plan Discharge Items Patient Disposition: Home - Home Health Services Reason For Visit: BIPOLAR DISORDER Discharge Diagnosis: Bipolar disorder Activity: Per Instructions section Driving/Machine Use: No driving until you have stabilized and been cleared by your physician. Non-emergency contact: Primary Care Provider, Neurologist and Psychiatrist Call non-emergency contact if: you have any medication questions and your symptoms worsen Diet: Low Sodium (2gm) Addtl Attending Provider Instructions: SPECIAL CARE INSTRUCTIONS: 1. Follow through with your scheduled aftercare appointments. If unable to keep an appointment, please call to reschedule. 2. Take your medication only as prescribed. Medication should not be changed or stopped without the approval of your doctor. In the event of worsening symptoms or concerns about side effects, contact your doctor immediately. 3. Utilize new healthy coping skills, anger management skills, and stress management skills learned during your hospitalization. Journal feelings and process them with a support person. Identify stressors or situations that may result in relapse, deterioration or inappropriate behaviors and develop a plan to deal with those issues. 4. If your coping skills are ineffective and you are in crisis, contact your outpatient providers for direction. If unable to reach your providers, please call the CAN HELP LINE AT or go to the closest Emergency Room. 5. Avoid alcohol and un-prescribed drugs. 6. You have been provided with the Mental Health Advance Directives Pamphlet for your review. AFTERCARE APPOINTMENTS: * Please call your insurance company prior to your scheduled appointment to confirm your aftercare providers are covered. Take your insurance information to your appointments. WHO TO CALL AND WHEN: Medical Emergencies: For questions or emergencies related to your hospital stay, please contact the Inpatient Behavioral Health Unit at [phone]. A mill tender is on-call 07/05 for the Behavioral Health Unit for emergencies At any time you feel your situation is an emergency, you may also call 911 immediately. Your Doctors Instructions noted above were prepared by provider Lindy Conte MD. Addtl Kindergarten Prep Teacher Provider Instructions: Your were seen by the hospitalist service while you were on the behavioral health unit. You had two courses of antibiotics for urinary tract infections. You had edema (swelling) in your legs at one point during your hospital stay. You had an ultrasound to check for DVT which was negative, and the swelling was thought to be due to venous stasis. Your home dose of Lasix was continued, and it was recommended that she use compression stockings, eat a low-salt diet, and elevate your legs when they are swollen. You should follow up with your PCP to ensure resolution of these issues. Pending Studies at Discharge: No Stand-Alone Forms: My [facility], Suicide Prevention Resources Medications and DC Order Prescriptions: New risperidone 2 mg Tablet 2 mg PO HS Qty: 30 RF: 0 risperidone 0.5 mg Tablet 0.5 mg PO QAM Qty: 30 RF: 0 divalproex [Depakote ER] 500 mg tablet extended release 24 hr 1,000 mg PO DAILY Qty: 60 RF: 0 divalproex [Depakote ER] 250 mg tablet extended release 24 hr 250 mg PO DAILY Qty: 30 RF: 0 Continued docusate sodium 100 mg PO BID RF: 0 atorvastatin 10 mg tablet 10 mg PO QAM RF: 0 allopurinol 100 mg tablet 100 mg PO QAM RF: 0 lorazepam 0.5 mg tablet 0.5 mg PO HS PRN (Reason: Agitation) RF: 0 carbidopa-levodopa 25-100 mg tablet 1 tab PO TID RF: 0 gabapentin 300 mg capsule 300 mg PO TID RF: 0 potassium chloride 10 mEq capsule, extended release 10 meq PO QAM RF: 0 furosemide 20 mg tablet 20 mg PO QAM RF: 0 Discontinued quetiapine 200 mg tablet 200 mg PO HS RF: 0 quetiapine 100 mg tablet 100 mg PO BID RF: 0 Discharge Orders: Discharge Order (Routine); Ordered 11/12/19 Ordered By: Lindy Conte Admission Data Admit Date/Time: 10/21/19 16:52 Attending Provider: Lindy Conte Admit Provider: Lindy Conte Primary Care Provider: Bayron Leonard Other Providers: Jessica Nayak Other Interventions: PSY Interdisciplinary Discharge Planning Last Done: 11/11/19 13:57 Coding Level of Care Code 59916 D/C day mgmt > 30 min Diagnoses Bipolar disorder F31.2 Active/Remission status: currently active Current bipolar episode type: manic Current episode severity: severe Psychotic features: with psychotic features Parkinsons disease G20 History of pulmonary embolism Z86.711 Acute UTI N39.0 HTN (hypertension) I10 Idiopathic peripheral neuropathy G60.9 RLS (restless legs syndrome) G25.81 Gout M10.9
[2019-11-12] MEDS: POTASSIUM CHLORIDE 10 MEQ TABCR PO SCH (09:11)
[2019-11-12] MEDS: risperiDONE 0.5 MG TABLET PO SCH (09:12)
[2019-11-12] MEDS: GABAPENTIN 300 MG CAP PO SCH ×2 (09:12→13:40)
[2019-11-12] MEDS: FUROSEMIDE 20 MG TAB PO SCH (09:12)
[2019-11-12] MEDS: ATORVASTATIN 10 MG TAB PO SCH (09:12)
[2019-11-12] MEDS: DOCUSATE SODIUM 100 MG CAP PO SCH (09:13)
[2019-11-12] MEDS: allopurinoL 100 MG TAB PO SCH (09:13)
[2019-11-12] MEDS: CARBIDOPA/LEVODOPA 25/100MG TAB PO SCH ×2 (09:13→13:40)
== END 2019-11-12 14:32 | disposition home health service (06) | DRG 885 ==
LOC: ED 09:28 → 3S 16:52

== ENCOUNTER 2022-01-18 19:35 | Inpatient (IN) ==
[2022-01-18] MEDS ORDERED: SODIUM CHLORIDE 0.9% 1000ML 1,000 ML IV ONE (19:53)
--- NOTE | 2022-01-18 19:59 | Emergency Department Note ---
History of Present Illness General Chief complaint: Head Injury, Minor Time Seen by Provider: 01/18/22 19:36 Source: patient and EMS Mode of arrival: EMS Limitations: no limitations History of Present Illness Provider complaint: Fall, head injury, leg pain Treatments prior to arrival: none This is a 76-year-old female brought EMS after being found by daughter on the floor of the bathroom after an apparent fall. Patient states she called her daughter stating she was going to get in the shower. Upon the daughter's arrival, she found her mother lying on the bathroom floor outside of the bathtub complaining of weakness and leg pain with an apparent head injury. EMS states on arrival patient was tachypneic and hypoxic. They state their initial blood pressures were markedly elevated. Patient was able to be helped to a seated position and initially complained of pain at the left knee, however upon transferring into their cut patient complained of pain at the left hip in addition. Patient states when she got into the shower she began to feel weak and lightheaded and fell back against the shower wall striking her head before sliding down and to the bathtub. She states she then tried to get out of the bathtub and fell out landing on the floor. Patient states she has had ongoing pain at the left knee however does not typically include the entire left leg. EMS also notes that the left lower extremity appears shortened and externally rotated. On arrival here patient was noted to be significantly hypotensive. Patient denies any use of antiplatelet or anticoagulation therapy. She denies any recent illness, medication changes, and admits to mild dehydration. She denies any nausea, current dizziness, blurred vision, chest pain, palpitations, shortness of breath, neck or back pain. Pt seen during a time of high acuity and national emergency pandemic while wearing PPE. Home Medications Medication Instructions Recorded Confirmed Type allopurinol 100 mg tablet 100 mg PO QAM 09/08/18 01/18/22 History atorvastatin 10 mg tablet 10 mg PO QAM 09/08/18 01/18/22 History carbidopa 25 mg-levodopa 100 mg 1 tab PO TID 09/08/18 01/18/22 History tablet lorazepam 0.5 mg tablet 0.5 mg PO HS PRN 09/08/18 01/18/22 History furosemide 20 mg tablet 20 mg PO BID 10/16/19 01/18/22 History potassium chloride 10 mEq 10 meq PO QAM 10/16/19 01/18/22 History capsule,extended release divalproex 500 mg tablet,extended See Rx Instructions .ROUTE .COMPLEX 01/18/22 01/18/22 History release 24 hr (Depakote ER) gabapentin 100 mg capsule 100 mg PO TID 01/18/22 01/18/22 History quetiapine 100 mg tablet See Rx Instructions .ROUTE .COMPLEX 01/18/22 01/18/22 History Allergies Allergy/AdvReac Type Severity Reaction Status Date / Time indomethacin Allergy Intermediate RASH Verified 01/18/22 21:48 erythromycin base Allergy Unknown UNKNOWN Verified 01/18/22 21:48 levofloxacin AdvReac Intermediate Causes Verified 01/18/22 21:48 psychosis. Past Med/Surg History Medical History (Updated 01/19/22 @ 02:05 by Natali Smith DO) Bipolar disorder Chronic diastolic CHF (congestive heart failure) CKD (chronic kidney disease), stage III Gout History of DVT (deep vein thrombosis) History of pulmonary embolism HTN (hypertension) Hyperlipidemia Idiopathic peripheral neuropathy Parkinsons disease RLS (restless legs syndrome) Surgical History History of hernia repair History of partial hysterectomy History of uterine suspension procedure Status post repair of paraesophageal diaphragmatic hernia Family History Father Stomach cancer Social History Smoking Status: Never smoker Hx Alcohol Use: No Preferred Language: Danish Visual Impairment: Limited Hearing Ability: Hard of Hearing Beliefs That Will Affect Care: None Feels Safe at Home: Yes Assistive Devices: Walker Review of Systems A total of 10 systems reviewed and were otherwise negative All systems reviewed & are unremarkable except as noted in HPI & below Physical Exam Vital Signs Vital Signs - 24 hr 01/18/22 19:53 01/18/22 20:21 01/18/22 20:31 Temperature Temperature Source Oral Pulse Rate 95 H 97 H Pulse Rate [Apical] Pulse Rate from SpO2 Sensor 100 H 94 H Pulse Rhythm [Apical] Pulse Strength [Apical] Respiratory Rate 16 23 Respiratory Effort / Characteristics Respiratory Depth Blood Pressure 90/49 L Blood Pressure [Right Arm] Blood Pressure Mean 62 Blood Pressure Mean [Right Arm] Blood Pressure Position Lying Blood Pressure Position [Right Arm] Pulse Oximetry 96 83 L Oxygen Delivery Method Oxygen Flow Rate Sepsis Recent Fever Within 48 Hours No Sepsis New/Unexplained Change in Mental Status No Sepsis Action Taken by Nursing No Action Required 01/18/22 21:00 01/18/22 21:29 01/18/22 21:30 Temperature 36.7 C Temperature Source Oral Pulse Rate 159 H 87 Pulse Rate [Apical] 88 Pulse Rate from SpO2 Sensor 88 88 Pulse Rhythm [Apical] Pulse Strength [Apical] Respiratory Rate 20 18 20 Respiratory Effort / Characteristics Non-Labored Respiratory Depth Normal Blood Pressure Blood Pressure [Right Arm] 149/84 H Blood Pressure Mean Blood Pressure Mean [Right Arm] 105 Blood Pressure Position Blood Pressure Position [Right Arm] Pulse Oximetry 95 94 96 Oxygen Delivery Method Room Air Oxygen Flow Rate Sepsis Recent Fever Within 48 Hours Sepsis New/Unexplained Change in Mental Status Sepsis Action Taken by Nursing 01/18/22 21:31 01/18/22 22:00 01/18/22 22:30 Temperature Temperature Source Pulse Rate 88 87 87 Pulse Rate [Apical] Pulse Rate from SpO2 Sensor 89 87 88 Pulse Rhythm [Apical] Pulse Strength [Apical] Respiratory Rate 18 17 23 Respiratory Effort / Characteristics Respiratory Depth Blood Pressure 131/84 137/92 149/84 H Blood Pressure [Right Arm] Blood Pressure Mean 99 107 105 Blood Pressure Mean [Right Arm] Blood Pressure Position Blood Pressure Position [Right Arm] Pulse Oximetry 96 96 97 Oxygen Delivery Method Oxygen Flow Rate Sepsis Recent Fever Within 48 Hours Sepsis New/Unexplained Change in Mental Status Sepsis Action Taken by Nursing 01/18/22 23:00 01/18/22 23:30 01/19/22 00:16 Temperature Temperature Source Pulse Rate 90 90 86 Pulse Rate [Apical] 88 Pulse Rate from SpO2 Sensor 90 90 84 Pulse Rhythm [Apical] Regular Pulse Strength [Apical] Normal Respiratory Rate 18 20 14 Respiratory Effort / Characteristics Non-Labored Respiratory Depth Normal Blood Pressure 124/72 122/80 146/87 H Blood Pressure [Right Arm] 146/87 H Blood Pressure Mean 89 94 106 Blood Pressure Mean [Right Arm] 106 Blood Pressure Position Blood Pressure Position [Right Arm] Lying Pulse Oximetry 82 L 93 95 Oxygen Delivery Method Nasal Cannula Oxygen Flow Rate 2 Sepsis Recent Fever Within 48 Hours Sepsis New/Unexplained Change in Mental Status Sepsis Action Taken by Nursing GENERAL: alert, well appearing, well nourished, no distress, non-toxic HEAD: nc, contusion with superficial abrasion noted to the posterior scalp, no jj signs, no raccoon eyes EYE EXAM: normal conjunctiva, PERRL and EOM's grossly intact, no nystagmus OROPHARYNX: no exudate, no erythema, lips, buccal mucosa, and tongue normal and mucous membranes are mildly dry NECK: supple, no nuchal rigidity, no adenopathy, non-tender LUNGS: Clear to auscultation. Normal chest wall mechanics, no w/r/r HEART: no murmurs, S1 normal and S2 normal ABDOMEN: abdomen soft, non-tender, normo-active bowel sounds, no masses, no rebound or guarding. BACK: Back is symmetrical on inspection and there is no deformity, no midline tenderness, no CVA tenderness. SKIN: no rashes and no bruising UPPER EXTREMITIES: upper extremities are grossly normal. FROM, nml pulses b/l. LOWER EXTREMITIES: No pitting edema. FROM RLE, nml pulses b/l. Left lower extremity does appear slightly shortened and externally rotated, patient unable to move secondary to pain, no obvious deformity otherwise NEURO EXAM: Normal sensorium, cranial nerves II-XII grossly intact, normal speech, no gross weakness of arms, no gross weakness of legs. Gross sensation intact. Course Administered Medications Lactated Ringer's (Lr) 1,000 mls @ 100 mls/hr IV .Q10H STA Stop: 01/19/22 09:04 Last Admin: 01/19/22 00:20 Dose: 100 mls/hr Documented by: [id number] Discontinued Medications Sodium Chloride (Nss 1000ml) 1,000 mls @ 500 mls/hr IV .Q2H ONE Stop: 01/18/22 21:52 Last Infusion: 01/18/22 20:35 Dose: 0 mls/hr Documented by: [id number] Admin: 01/18/22 20:27 Dose: 500 mls/hr Documented by: [id number] Acetaminophen (Ofirmev) 1,000 mg in 100 mls @ 400 mls/hr IV NOW STA Stop: 01/18/22 21:44 Last Infusion: 01/18/22 22:10 Dose: 0 mls/hr Documented by: [id number] Admin: 01/18/22 21:44 Dose: 400 mls/hr Documented by: [id number] Sodium Chloride (Nss 1000ml) 1,000 mls @ 125 mls/hr IV .Q8H GALLO Stop: 02/17/22 21:59 Last Infusion: 01/19/22 01:44 Dose: 0 mls/hr Documented by: [id number] Admin: 01/18/22 22:10 Dose: 125 mls/hr Documented by: [id number] Medical Decision Making Differential Diagnosis Differential diagnoses include major intracranial, cervical, spinal, thoracic, abdominal, pelvic and neurologic injury. Fracture, contusion, sprain, strain, laceration, abrasions included as well. Medical Records Attestation: I reviewed the patient's medical records. Home Medications Current Medication List: was personally reviewed by me Laboratory Data Attestation: I reviewed the patient's lab results. Result diagrams: 01/18/22 20:06 01/19/22 00:11 Lab Results 01/18/22 01/18/22 01/18/22 Range/Units 20:06 20:06 20:06 WBC 15.38 H (4.8-10.8) K/uL RBC 4.11 L (4.2-5.4) M/uL Hgb 13.1 (12.0-16.0) g/dL Hct 39.9 (37-47) % MCV 97.1 (80-100) fL MCH 31.9 (25-34) pg MCHC 32.8 (32-36) g/dL RDW Std Deviation 66.4 H (36.4-46.3) fL RDW Coeff of Alex 18.4 H (11.5-14.5) % Plt Count 239 (130-400) K/uL MPV 8.8 (7.4-10.4) fL Immature Gran % (Auto) 0.6 % Neut % (Auto) 83.8 % Lymph % (Auto) 10.0 % Garden % (Auto) 5.4 % Eos % (Auto) 0.1 % Baso % (Auto) 0.1 % Neut # (Auto) 12.88 H (1.4-6.5) K/uL Lymph # (Auto) 1.54 (1.2-3.4) K/uL Garden # (Auto) 0.83 H (0.11-0.59) K/uL Eos # (Auto) 0.02 (0-0.5) K/uL Baso # (Auto) 0.02 (0-0.2) K/uL Immature Gran # (Auto) 0.09 H (0.00-0.02) K/uL Sodium 140 (136-145) mmol/L Potassium 4.9 (3.5-5.1) mmol/L Chloride 101 (98-107) mmol/L Carbon Dioxide 23 (21-32) mmol/L Anion Gap 16 H (3-11) BUN 28 H (6-23) mg/dl Creatinine 2.06 H (0.6-1.2) mg/dl Est Cr Clr Drug Dosing 27.4 ml/min Est GFR ( Amer) 26.5 ml/min Est GFR (Non-Af Amer) 22.8 ml/min BUN/Creatinine Ratio 13.6 (10-20) Glucose 152 H (70-99(Fasting)) mg/dl Lactate Calcium 9.4 (8.5-10.1) mg/dl Magnesium (1.7-2.4) mg/dl Total Bilirubin 0.6 (0.2-1.0) mg/dl AST 50 H (13-39) U/L ALT 4 L (7-52) U/L Alkaline Phosphatase 65 (34-104) U/L Total Creatine Kinase (26-192) U/L Troponin I < 0.03 (0-0.04) ng/ml Total Protein 8.9 H (6.0-8.3) gm/dl Albumin 3.4 (3.4-5.0) gm/dl Globulin 5.5 H (2.5-4.0) gm/dl Albumin/Globulin Ratio 0.6 L (0.9-2) TSH 5.618 H (0.300-4.500) uIu/ml Free T4 0.79 (0.61-1.60) ng/dl Urine Color Urine Appearance (Clear) Urine pH (4.5-7.5) Ur Specific [place] (1.000-1.030) Urine Protein (Negative) Urine Glucose (UA) (Negative) Urine Ketones (Negative) Urine Blood (Negative) Urine Nitrite (Negative) Urine Bilirubin (Negative) Urine Urobilinogen (Negative) Ur Leukocyte Esterase (Negative) Urine WBC (Auto) (0-5) /hpf Urine RBC (Auto) (0-4) /hpf U Hyaline Cast (Auto) (0-5) /lpf U Epithel Cells (Auto) (0-5) /lpf Urine Bacteria (Auto) (Negative) Ur Renal Epithelial Cell (0-5) /lpf Valproic Acid SARS-CoV-2, RNA, NAAT (NEGATIVE) 01/18/22 01/18/22 01/18/22 Range/Units 20:06 20:06 22:41 WBC (4.8-10.8) K/uL RBC (4.2-5.4) M/uL Hgb (12.0-16.0) g/dL Hct (37-47) % MCV (80-100) fL MCH (25-34) pg MCHC (32-36) g/dL RDW Std Deviation (36.4-46.3) fL RDW Coeff of Alex (11.5-14.5) % Plt Count (130-400) K/uL MPV (7.4-10.4) fL Immature Gran % (Auto) % Neut % (Auto) % Lymph % (Auto) % Garden % (Auto) % Eos % (Auto) % Baso % (Auto) % Neut # (Auto) (1.4-6.5) K/uL Lymph # (Auto) (1.2-3.4) K/uL [place] # (Auto) (0.11-0.59) K/uL Eos # (Auto) (0-0.5) K/uL Baso # (Auto) (0-0.2) K/uL Immature Gran # (Auto) (0.00-0.02) K/uL Sodium (136-145) mmol/L Potassium (3.5-5.1) mmol/L Chloride (98-107) mmol/L Carbon Dioxide (21-32) mmol/L Anion Gap (3-11) BUN (6-23) mg/dl Creatinine (0.6-1.2) mg/dl Est Cr Clr Drug Dosing ml/min Est GFR ( Amer) ml/min Est GFR (Non-Af Amer) ml/min BUN/Creatinine Ratio (10-20) Glucose (70-99(Fasting)) mg/dl Lactate Calcium (8.5-10.1) mg/dl Magnesium 2.5 H (1.7-2.4) mg/dl Total Bilirubin (0.2-1.0) mg/dl AST (13-39) U/L ALT (7-52) U/L Alkaline Phosphatase (34-104) U/L Total Creatine Kinase 1601 H (26-192) U/L Troponin I (0-0.04) ng/ml Total Protein (6.0-8.3) gm/dl Albumin (3.4-5.0) gm/dl Globulin (2.5-4.0) gm/dl Albumin/Globulin Ratio (0.9-2) TSH (0.300-4.500) uIu/ml Free T4 (0.61-1.60) ng/dl Urine Color Yellow Urine Appearance Clear (Clear) Urine pH 6.5 (4.5-7.5) Ur Specific [place] 1.009 (1.000-1.030) Urine Protein 1+ H (Negative) Urine Glucose (UA) Negative (Negative) Urine Ketones Negative (Negative) Urine Blood 3+ H (Negative) Urine Nitrite Negative (Negative) Urine Bilirubin Negative (Negative) Urine Urobilinogen Negative (Negative) Ur Leukocyte Esterase Negative (Negative) Urine WBC (Auto) 5-10 H (0-5) /hpf Urine RBC (Auto) 0-4 (0-4) /hpf U Hyaline Cast (Auto) 5-10 H (0-5) /lpf U Epithel Cells (Auto) >30 H (0-5) /lpf Urine Bacteria (Auto) Negative (Negative) Ur Renal Epithelial Cell 0-5 (0-5) /lpf Valproic Acid SARS-CoV-2, RNA, NAAT (NEGATIVE) 01/18/22 01/19/22 01/19/22 Range/Units 22:46 00:11 00:11 WBC (4.8-10.8) K/uL RBC (4.2-5.4) M/uL Hgb (12.0-16.0) g/dL Hct (37-47) % MCV (80-100) fL MCH (25-34) pg MCHC (32-36) g/dL RDW Std Deviation (36.4-46.3) fL RDW Coeff of Alex (11.5-14.5) % Plt Count (130-400) K/uL MPV (7.4-10.4) fL Immature Gran % (Auto) % Neut % (Auto) % Lymph % (Auto) % Garden % (Auto) % Eos % (Auto) % Baso % (Auto) % Neut # (Auto) (1.4-6.5) K/uL Lymph # (Auto) (1.2-3.4) K/uL [place] # (Auto) (0.11-0.59) K/uL Eos # (Auto) (0-0.5) K/uL Baso # (Auto) (0-0.2) K/uL Immature Gran # (Auto) (0.00-0.02) K/uL Sodium Cancelled (136-145) mmol/L Potassium Cancelled (3.5-5.1) mmol/L Chloride Cancelled (98-107) mmol/L Carbon Dioxide Cancelled (21-32) mmol/L Anion Gap Cancelled (3-11) BUN Cancelled (6-23) mg/dl Creatinine Cancelled (0.6-1.2) mg/dl Est Cr Clr Drug Dosing Cancelled ml/min Est GFR ( Amer) Cancelled ml/min Est GFR (Non-Af Amer) Cancelled ml/min BUN/Creatinine Ratio Cancelled (10-20) Glucose Cancelled (70-99(Fasting)) mg/dl Lactate Calcium Cancelled (8.5-10.1) mg/dl Magnesium (1.7-2.4) mg/dl Total Bilirubin (0.2-1.0) mg/dl AST (13-39) U/L ALT (7-52) U/L Alkaline Phosphatase (34-104) U/L Total Creatine Kinase (26-192) U/L Troponin I (0-0.04) ng/ml Total Protein (6.0-8.3) gm/dl Albumin (3.4-5.0) gm/dl Globulin (2.5-4.0) gm/dl Albumin/Globulin Ratio (0.9-2) TSH (0.300-4.500) uIu/ml Free T4 (0.61-1.60) ng/dl Urine Color Urine Appearance (Clear) Urine pH (4.5-7.5) Ur Specific [place] (1.000-1.030) Urine Protein (Negative) Urine Glucose (UA) (Negative) Urine Ketones (Negative) Urine Blood (Negative) Urine Nitrite (Negative) Urine Bilirubin (Negative) Urine Urobilinogen (Negative) Ur Leukocyte Esterase (Negative) Urine WBC (Auto) (0-5) /hpf Urine RBC (Auto) (0-4) /hpf U Hyaline Cast (Auto) (0-5) /lpf U Epithel Cells (Auto) (0-5) /lpf Urine Bacteria (Auto) (Negative) Ur Renal Epithelial Cell (0-5) /lpf Valproic Acid Cancelled SARS-CoV-2, RNA, NAAT NEGATIVE (NEGATIVE) 01/19/22 01/19/22 01/19/22 Range/Units 00:11 00:11 00:11 WBC (4.8-10.8) K/uL RBC (4.2-5.4) M/uL Hgb (12.0-16.0) g/dL Hct (37-47) % MCV (80-100) fL MCH (25-34) pg MCHC (32-36) g/dL RDW Std Deviation (36.4-46.3) fL RDW Coeff of Alex (11.5-14.5) % Plt Count (130-400) K/uL MPV (7.4-10.4) fL Immature Gran % (Auto) % Neut % (Auto) % Lymph % (Auto) % Garden % (Auto) % Eos % (Auto) % Baso % (Auto) % Neut # (Auto) (1.4-6.5) K/uL Lymph # (Auto) (1.2-3.4) K/uL [place] # (Auto) (0.11-0.59) K/uL Eos # (Auto) (0-0.5) K/uL Baso # (Auto) (0-0.2) K/uL Immature Gran # (Auto) (0.00-0.02) K/uL Sodium 140 (136-145) mmol/L Potassium 4.3 (3.5-5.1) mmol/L Chloride 103 (98-107) mmol/L Carbon Dioxide 27 (21-32) mmol/L Anion Gap 10 (3-11) BUN 32 H (6-23) mg/dl Creatinine 1.91 H (0.6-1.2) mg/dl Est Cr Clr Drug Dosing 29.5 ml/min Est GFR ( Amer) 29.0 ml/min Est GFR (Non-Af Amer) 25.0 ml/min BUN/Creatinine Ratio 16.8 (10-20) Glucose 112 H (70-99(Fasting)) mg/dl Lactate Cancelled Calcium 8.8 (8.5-10.1) mg/dl Magnesium (1.7-2.4) mg/dl Total Bilirubin (0.2-1.0) mg/dl AST (13-39) U/L ALT (7-52) U/L Alkaline Phosphatase (34-104) U/L Total Creatine Kinase (26-192) U/L Troponin I (0-0.04) ng/ml Total Protein (6.0-8.3) gm/dl Albumin (3.4-5.0) gm/dl Globulin (2.5-4.0) gm/dl Albumin/Globulin Ratio (0.9-2) TSH (0.300-4.500) uIu/ml Free T4 (0.61-1.60) ng/dl Urine Color Urine Appearance (Clear) Urine pH (4.5-7.5) Ur Specific [place] (1.000-1.030) Urine Protein (Negative) Urine Glucose (UA) (Negative) Urine Ketones (Negative) Urine Blood (Negative) Urine Nitrite (Negative) Urine Bilirubin (Negative) Urine Urobilinogen (Negative) Ur Leukocyte Esterase (Negative) Urine WBC (Auto) (0-5) /hpf Urine RBC (Auto) (0-4) /hpf U Hyaline Cast (Auto) (0-5) /lpf U Epithel Cells (Auto) (0-5) /lpf Urine Bacteria (Auto) (Negative) Ur Renal Epithelial Cell (0-5) /lpf Valproic Acid 57 SARS-CoV-2, RNA, NAAT (NEGATIVE) 01/19/22 Range/Units 00:11 WBC (4.8-10.8) K/uL RBC (4.2-5.4) M/uL Hgb (12.0-16.0) g/dL Hct (37-47) % MCV (80-100) fL MCH (25-34) pg MCHC (32-36) g/dL RDW Std Deviation (36.4-46.3) fL RDW Coeff of Alex (11.5-14.5) % Plt Count (130-400) K/uL MPV (7.4-10.4) fL Immature Gran % (Auto) % Neut % (Auto) % Lymph % (Auto) % Garden % (Auto) % Eos % (Auto) % Baso % (Auto) % Neut # (Auto) (1.4-6.5) K/uL Lymph # (Auto) (1.2-3.4) K/uL Garden # (Auto) (0.11-0.59) K/uL Eos # (Auto) (0-0.5) K/uL Baso # (Auto) (0-0.2) K/uL Immature Gran # (Auto) (0.00-0.02) K/uL Sodium (136-145) mmol/L Potassium (3.5-5.1) mmol/L Chloride (98-107) mmol/L Carbon Dioxide (21-32) mmol/L Anion Gap (3-11) BUN (6-23) mg/dl Creatinine (0.6-1.2) mg/dl Est Cr Clr Drug Dosing ml/min Est GFR ( Amer) ml/min Est GFR (Non-Af Amer) ml/min BUN/Creatinine Ratio (10-20) Glucose (70-99(Fasting)) mg/dl Lactate 1.7 Calcium (8.5-10.1) mg/dl Magnesium (1.7-2.4) mg/dl Total Bilirubin (0.2-1.0) mg/dl AST (13-39) U/L ALT (7-52) U/L Alkaline Phosphatase (34-104) U/L Total Creatine Kinase (26-192) U/L Troponin I (0-0.04) ng/ml Total Protein (6.0-8.3) gm/dl Albumin (3.4-5.0) gm/dl Globulin (2.5-4.0) gm/dl Albumin/Globulin Ratio (0.9-2) TSH (0.300-4.500) uIu/ml Free T4 (0.61-1.60) ng/dl Urine Color Urine Appearance (Clear) Urine pH (4.5-7.5) Ur Specific [place] (1.000-1.030) Urine Protein (Negative) Urine Glucose (UA) (Negative) Urine Ketones (Negative) Urine Blood (Negative) Urine Nitrite (Negative) Urine Bilirubin (Negative) Urine Urobilinogen (Negative) Ur Leukocyte Esterase (Negative) Urine WBC (Auto) (0-5) /hpf Urine RBC (Auto) (0-4) /hpf U Hyaline Cast (Auto) (0-5) /lpf U Epithel Cells (Auto) (0-5) /lpf Urine Bacteria (Auto) (Negative) Ur Renal Epithelial Cell (0-5) /lpf Valproic Acid SARS-CoV-2, RNA, NAAT (NEGATIVE) Imaging Data Radiologist's Impression: Cervical Spine CT 01/18/22 19:53 CT OF THE CERVICAL SPINE WITHOUT CONTRAST CLINICAL HISTORY: trauma COMPARISON STUDY: No previous studies for comparison. TECHNIQUE: Helical axial images of the cervical spine were obtained without IV contrast. Sagittal and coronal reconstructions were viewed. Automated exposure control was utilized for the study. A dose lowering technique was utilized adhering to the principles of ALARA. FINDINGS: Alignment of the cervical spine is anatomic. Vertebral body heights ar e maintained. No acute cervical spine fracture or subluxation is present. There is no prevertebral edema. Facet joints are intact. Severe multilevel facet arthrosis is present. There is moderate multilevel degenerative disc disease. A right lobe thyroid nodule is also shown on CT of June 06, 2018. A cyst within the right lung apex is also unchanged since that exam. Incidental note is made of calcifications within the bilateral parotid glands. IMPRESSION: No acute cervical spine fracture or subluxation. ACT 112: Negative or not required by law. Electronically signed by: Kenroy Alejandro M.D. 01/18/2022 9:10 PM Chest X-Ray 01/18/22 19:53 XR chest 1V portable CLINICAL HISTORY: trauma COMPARISON STUDY: Chest radiograph October 16, 2019. FINDINGS: No pneumothorax or pleural effusion is noted. Mild cardiomegaly is u nchanged. There is a hiatal hernia. No evidence for pulmonary edema. No consolidation is identified. IMPRESSION: No acute cardiopulmonary findings. No significant change in appearance of the chest. ACT 112: Negative or not required by law. Electronically signed by: Kenroy Alejandro M.D. 01/18/2022 8:[address] 01/18/22 19:53 CT OF THE HEAD WITHOUT CONTRAST CLINICAL HISTORY: trauma COMPARISON STUDY: Head CT October 16, 2019. CT DOSE: 1270.54 mGy.cm TECHNIQUE: Helical axial images of the head were obtained without IV contrast. Automated exposure control was utilized for the study. A dose lowering tech nique was utilized adhering to the principles of ALARA. FINDINGS: No acute intracranial hemorrhage, midline shift or mass effect is present. White matter hypodensities are unchanged and suggest small vessel disease. The ventricular system is unremarkable. The basal cisterns are patent. No extra-axial collections are present. There are no findings to suggest acute dural sinus thrombosis or acute territorial infarct. No significant calvarial abnormalities are present. Visualized portions of the sinuses and mastoid air cells are clear. Incidental note is made of calcifications within the bilateral parotid glands. IMPRESSION: 1. No acute intracranial findings. 2. No acute calvarial fracture. ACT 112: Negative or not required by law. Electronically signed by: Kenroy Alejandro M.D. 01/18/2022 8:52 PM Hip/Pelvis X-Ray 01/18/22 19:53 XR hip LT 2V w pelvis CLINICAL HISTORY: trauma, pain COMPARISON: Pelvis and left hip radiographs October 16, 2019. FINDINGS: No acute fracture is identified within the pelvis or hips. Severe lef t hip joint space narrowing with extensive osteophytosis is similar to prior exam. Sacroiliac joints and symphysis pubis are intact. IMPRESSION: 1. No acute fracture within the pelvis or hips. 2. Severe left hip osteoarthritis. ACT 112: Negative or not required by law. Electronically signed by: Kenroy Alejandro M.D. 01/18/2022 8:28 PM Knee X-Ray 01/18/22 19:53 XR knee LT 1 or 2V routine CLINICAL HISTORY: trauma COMPARISON: Left knee radiographs April 30, 2016. FINDINGS: Alignment of the left knee is anatomic. No acute fracture. Note joint effusion is present. There is mild to moderate joint space narrowing and osteophytosis within the left knee. IMPRESSION: 1. No acute fracture or joint effusion of the left knee. 2. Mild to moderate left knee osteoarthritis. ACT 112: Negative or not required by law. Electronically signed by: Kenroy Alejandro M.D. 01/18/2022 8:29 PM ECG Data Attestation: I personally reviewed and interpreted this ECG as follows: Indication: + weakness Rate (beats per minute): 97 Rhythm: + normal sinus ECG Intervals/blocks: + Normal QRS and + Normal QT ECG [place]: + Normal ECG ST segments: + Nonspecific ST abnormalities MDM Narrative This is a 76-year-old female brought in by EMS after a fall at home with evidence of head injury and concern for left lower extremity pain. Patient initially found to be hypoxic by EMS and placed on 2 L via nasal cannula with improvement by arrival here. On arrival here patient found to be hypotensive. IV fluids were started and given with improvement of her blood pressure. Labs drawn and sent, patient sent for CT and x-ray imaging. REMBERTO noted. No ectopy or dysrhythmia noted on telemetry. CT of patient's head and C-spine unremarkable, chest x-ray and lower extremity x-rays reassuring however patient complained of persistent left lower extremity pain and was unable to move it or get on a bedpan. We discussed placing the Lynch catheter as a precaution as well as follow-up CT of the left hip to evaluate for occult injury. No evidence of UTI. Case discussed with hospitalist for additional evaluation and management, hip CT pending at the time of this discussion. Mild rhabdomyolysis was noted, likely from patient lying on the floor for approximately 45 minutes prior to arrival of her daughter. Both patient and her daughter report patient likely was dehydrated which could have contributed to her REMBERTO and weakness. Mild leukocytosis was noted, given no obvious evidence of infection at this time I suspect this is more likely stress demargination from traumatic event. An order was placed for continuous cardiac monitoring. The monitor shows a rate of _76_ with _normal sinus_ rhythm. Impression & Plan CHI (closed head injury), Generalized weakness, REMBERTO (acute kidney injury), Acute pain of left lower extremity, Contusion of scalp, Dehydration, Rhabdomyolysis Discharge Plan Visit Data Chief Complaint: Head Injury, Minor ED Provider: Natali Smith Discharge Problem: CHI (closed head injury), Generalized weakness, REMBERTO (acute kidney injury), Acute pain of left lower extremity, Contusion of scalp, Dehydration, Rhabdomyolysis Patient Disposition: Admitted As Inpatient Condition: Fair Discharge Instructions Interventions: ED Discharge Assessment Last Done: 01/19/22 00:57 Discharge Problem: CHI (closed head injury) Qualifiers: Encounter type: initial encounter Qualified Code(s): S09.90XA - Unspecified injury of head, initial encounter Contusion of scalp Qualifiers: Encounter type: initial encounter Qualified Code(s): S00.03XA - Contusion of scalp, initial encounter Rhabdomyolysis Qualifiers: Rhabdomyolysis type: traumatic Encounter type: initial encounter Qualified Code(s): T79.6XXA - Traumatic ischemia of muscle, initial encounter
[2022-01-18 20:18] LABS: Hematocrit (blood only) 39.9 % (37-47); Hemoglobin 13.1 g/dL (12.0-16.0); Mean Corpuscular Hemoglobin 31.9 pg (25-34); Mean Corpuscular Hgb Conc 32.8 g/dL (32-36); Mean Corpuscular Volume 97.1 fL (80-100); Mean Platelet Volume 8.8 fL (7.4-10.4); Platelet Count 239 K/uL (130-400); RDW Coefficient of Variation 18.4 % (11.5-14.5); RDW Standard Deviation 66.4 fL (36.4-46.3); Red Blood Count 4.11 M/uL (4.2-5.4); White Blood Count 15.38 K/uL (4.8-10.8)
--- NOTE | 2022-01-18 20:29 | XRay Report ---
XR hip LT 2V w pelvis CLINICAL HISTORY: trauma, pain COMPARISON: Pelvis and left hip radiographs October 16, 2019. FINDINGS: No acute fracture is identified within the pelvis or hips. Severe left hip joint space karen rowing with extensive osteophytosis is similar to prior exam. Sacroiliac joints and symphysis pubis a re intact. IMPRESSION: 1. No acute fracture within the pelvis or hips. 2. Severe left hip osteoarthritis. ACT 112: Negative or not required by law. Electronically signed by: Kenroy Alejandro M.D. 01/18/2022 8:28 PM
--- NOTE | 2022-01-18 20:30 | XRay Report ---
XR knee LT 1 or 2V routine CLINICAL HISTORY: trauma COMPARISON: Left knee radiographs April 30, 2016. FINDINGS: Alignment of the left knee is anatomic. No acute fracture. Note joint effusion is present. There is mild to moderate joint space narrowing and osteophytosis within the left knee. IMPRESSION: 1. No acute fracture or joint effusion of the left knee. 2. Mild to moderate left knee osteoarthritis. ACT 112: Negative or not required by law. Electronically signed by: Kenroy Alejandro M.D. 01/18/2022 8:29 PM
--- NOTE | 2022-01-18 20:31 | XRay Report ---
XR chest 1V portable CLINICAL HISTORY: trauma COMPARISON STUDY: Chest radiograph October 16, 2019. FINDINGS: No pneumothorax or pleural effusion is noted. Mild cardiomegaly is unchanged. There is a hi atal hernia. No evidence for pulmonary edema. No consolidation is identified. IMPRESSION: No acute cardiopulmonary findings. No significant change in appearance of the chest. ACT 112: Negative or not required by law. Electronically signed by: Kenroy Alejandro M.D. 01/18/2022 8:30 PM
[2022-01-18 20:35] LABS: Basophils # (auto) 0.02 K/uL (0-0.2); Basophils % (auto) 0.1 %; Eosinophils # (auto) 0.02 K/uL (0-0.5); Eosinophils % (auto) 0.1 %; Immature Granulocytes # (auto) 0.09 K/uL (0.00-0.02); Immature Granulocytes % (auto) 0.6 %; Lymphocytes # (auto) 1.54 K/uL (1.2-3.4); Monocytes # (auto) 0.83 K/uL (0.11-0.59); Monocytes % (auto) 5.4 %; Neutrophils # (auto) 12.88 K/uL (1.4-6.5); Neutrophils % (auto) 83.8 %
[2022-01-18 20:43] LABS: Alanine Aminotransferase 4 U/L (7-52); Albumin Globulin Ratio 0.6 (0.9-2); Albumin Level 3.4 gm/dl (3.4-5.0); Alkaline Phosphatase 65 U/L (34-104); Anion Gap 16 (3-11); Aspartate Aminotransferase 50 U/L (13-39); BUN Creatinine Ratio 13.6 (10-20); Bilirubin,Total 0.6 mg/dl (0.2-1.0); Blood Urea Nitrogen 28 mg/dl (6-23); Calcium 9.4 mg/dl (8.5-10.1); Carbon Dioxide 23 mmol/L (21-32); Chloride 101 mmol/L (98-107); Creatinine Clr Calc Pharmacy 27.4 ml/min; Est GFR (African American) 26.5 ml/min; Est GFR (Non-African American) 22.8 ml/min; Globulin 5.5 gm/dl (2.5-4.0); Glucose 152 mg/dl (70-99(Fasting)); Potassium 4.9 mmol/L (3.5-5.1); Sodium 140 mmol/L (136-145); Total Protein 8.9 gm/dl (6.0-8.3)
[2022-01-18 20:45] LABS: Troponin I < 0.03 ng/ml (0-0.04)
--- NOTE | 2022-01-18 20:53 | CT Scan Report ---
CT OF THE HEAD WITHOUT CONTRAST CLINICAL HISTORY: trauma COMPARISON STUDY: Head CT October 16, 2019. CT DOSE: 1270.54 mGy.cm TECHNIQUE: Helical axial images of the head were obtained without IV contrast. Automated exposure con trol was utilized for the study. A dose lowering technique was utilized adhering to the principles o f ALARA. FINDINGS: No acute intracranial hemorrhage, midline shift or mass effect is present. White matter hyp odensities are unchanged and suggest small vessel disease. The ventricular system is unremarkable. Th e basal cisterns are patent. No extra-axial collections are present. There are no findings to suggest acute dural sinus thrombosis or acute territorial infarct. No significant calvarial abnormalities ar e present. Visualized portions of the sinuses and mastoid air cells are clear. Incidental note is mad e of calcifications within the bilateral parotid glands. IMPRESSION: 1. No acute intracranial findings. 2. No acute calvarial fracture. ACT 112: Negative or not required by law. Electronically signed by: Kenroy Alejandro M.D. 01/18/2022 8:52 PM
[2022-01-18 20:57] LABS: Thyroid Stimulating Hormone 5.618 uIu/ml (0.300-4.500)
--- NOTE | 2022-01-18 21:12 | CT Scan Report ---
CT OF THE CERVICAL SPINE WITHOUT CONTRAST CLINICAL HISTORY: trauma COMPARISON STUDY: No previous studies for comparison. TECHNIQUE: Helical axial images of the cervical spine were obtained without IV contrast. Sagittal a nd coronal reconstructions were viewed. Automated exposure control was utilized for the study. A do se lowering technique was utilized adhering to the principles of ALARA. FINDINGS: Alignment of the cervical spine is anatomic. Vertebral body heights are maintained. No acut e cervical spine fracture or subluxation is present. There is no prevertebral edema. Facet joints are intact. Severe multilevel facet arthrosis is present. There is moderate multilevel degenerative dis c disease. A right lobe thyroid nodule is also shown on CT of June 06, 2018. A cyst within the righ t lung apex is also unchanged since that exam. Incidental note is made of calcifications within the b ilateral parotid glands. IMPRESSION: No acute cervical spine fracture or subluxation. ACT 112: Negative or not required by law. Electronically signed by: Kenroy Alejandro M.D. 01/18/2022 9:10 PM
[2022-01-18] MEDS ORDERED: ACETAMINOPHEN 1,000 MG/100 ML VIAL IV STA (21:30)
[2022-01-18] MEDS ORDERED: SODIUM CHLORIDE 0.9% 1000ML 1,000 ML IV SCH (22:00)
[2022-01-18] MEDS ORDERED: fentaNYL citrate 100 MCG/2 ML VIAL IV PRN (22:04)
--- NOTE | 2022-01-18 22:58 | History & Physical Report ---
Date of Service January 18, 2022 Assessment & Plan (1) REMBERTO (acute kidney injury): Plan: ARF on CKD Secondary to rhabdomyolysis secondary to secondary to fall AGMA secondary to above chronic diastolic heart failure, patient on the dry side hypertension, erratic BP noted at the ER Hyperlipidemia on statin Rx hx Parkinson's disease history PE DVT status post Coumadin Rx Mood disorder, at baseline as per daughter Hyperglycemia likely prediabetes, hemoglobin A1c of 5.7 from 2019 Medical telemetry given erratic BP Baseline UA, monitor creatinine and CPK response to IVF Appropriate to hold home statin for now given rhabdomyolysis Nephrology consult if without improvement in kidney function Update hemoglobin A1c PT OT eval DVT prophylaxis. Heparin subcu Full code Patient daughter requesting updates for providers. Ms. Juana Angel, contact #[phone]. Text document was generated using [employer] voice recognition software. It may contain grammatical or spelling errors. Kindly contact undersigned for clarification of any documentation item in question. History of Present Illness Chief Complaint: Slipped, left hip pain Primary Care Provider: Gertrudis Johnson MD History obtained from patient, family, and records. Medical history significant for chronic diastolic heart failure (EF 55%, TTE 2019 ), hypertension, Parkinson's disease, history PE DVT status post Coumadin Rx, CRI (baseline creatinine 1.3 ), mood disorder, RLS, Last confinement 2019 at the [facility] for agitation in the setting of bipolar disorder. Patient got in the shower hours ago. Patient slipped backwards, subsequent trauma without LOC. Patient subsequently felt dizzy and lightheaded. Patient landed on the floor and had trouble getting up due to achy left hip pain. Patient denies chest pain, S OB. Patient found on the ground by her daughter about 45 minutes later after fall. MEDICAL HISTORY: As above. SURGERIES: She has had breast biopsy, partial hysterectomy, uterine suspension, diaphragmatic hernia repair, abdominal hernia repair, cystoscopy. FAMILY HISTORY:Stomach cancer, bipolar disorder, PERSONAL AND SOCIAL HISTORY: Nonsmoker. No chronic intake of alcoholic beverages. 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 Lives alone. Allergies Allergy/AdvReac Type Severity Reaction Status Date / Time indomethacin Allergy Intermediate RASH Verified 01/18/22 21:48 erythromycin base Allergy Unknown UNKNOWN Verified 01/18/22 21:48 levofloxacin AdvReac Intermediate Causes Verified 01/18/22 21:48 psychosis. Home Medications Medication Instructions Recorded Confirmed Type allopurinol 100 mg tablet 100 mg PO QAM 09/08/18 01/18/22 History atorvastatin 10 mg tablet 10 mg PO QAM 09/08/18 01/18/22 History carbidopa 25 mg-levodopa 100 mg 1 tab PO TID 09/08/18 01/18/22 History tablet lorazepam 0.5 mg tablet 0.5 mg PO HS PRN 09/08/18 01/18/22 History furosemide 20 mg tablet 20 mg PO BID 10/16/19 01/18/22 History potassium chloride 10 mEq 10 meq PO QAM 10/16/19 01/18/22 History capsule,extended release divalproex 500 mg tablet,extended See Rx Instructions .ROUTE .COMPLEX 01/18/22 01/18/22 History release 24 hr (Depakote ER) gabapentin 100 mg capsule 100 mg PO TID 01/18/22 01/18/22 History quetiapine 100 mg tablet See Rx Instructions .ROUTE .COMPLEX 01/18/22 01/18/22 History Past Med/Surg History Medical History (Updated 01/19/22 @ 02:05 by Natali Smith DO) Bipolar disorder Chronic diastolic CHF (congestive heart failure) CKD (chronic kidney disease), stage III Gout History of DVT (deep vein thrombosis) History of pulmonary embolism HTN (hypertension) Hyperlipidemia Idiopathic peripheral neuropathy Parkinsons disease RLS (restless legs syndrome) Surgical History History of hernia repair History of partial hysterectomy History of uterine suspension procedure Status post repair of paraesophageal diaphragmatic hernia Family History Father Stomach cancer Social History Smoking Status: Never smoker Hx Alcohol Use: No Hx Substance Use: No Preferred Language: Irish Communication Ability: Effective Visual Impairment: Limited Hearing Ability: Hard of Hearing Solar Designer/Installer Required: No Beliefs That Will Affect Care: Gnosticist Gnosticist Beliefs: Sikhism Current Living Situation: Alone Current Living Situation Comment: Lives alone. Daughter visits and helps. Other Information That Helps Us Care for You: No Feels Safe at Home: Yes Assistive Devices: Glasses and Walker Assistive Devices Comment: Uses walker at home. Review of Systems Review of Systems: As per HPI, all 10 systems reviewed, all other ROS negative Physical Exam Physical Exam: GENERAL: Slightly uncomfortable, no respiratory distress SKIN: Normal color, warm HEENT: [place] palpebral conjunctivae, no ptosis, dry buccal mucosa NECK : Supple, no tenderness CHEST : CTA, no tenderness HEART : RRR, no obvious murmurs ABDOMEN: Some distention, nontender EXTREMITIES : Bilateral LE swelling (R>L, chronic as per patient), left hip tenderness, no other conspicuous deformities noted NEUROLOGIC : Coherent, no facial asymmetry, gait and stance not assessed Results & Data Results & Data ([facility]) Vital Signs (Past 12 Hours) Vital Signs Temp Pulse Pulse Resp BP BP Pulse Ox 01/18/22 21:29 36.7 C 88 18 149/84 H 94 01/18/22 19:53 95 H 16 90/49 L Laboratory Results Laboratory Results WBC 15.38 K/uL (4.8-10.8) H 01/18/22 20:06 RBC 4.11 M/uL (4.2-5.4) L 01/18/22 20:06 Hgb 13.1 g/dL (12.0-16.0) 01/18/22 20:06 Hct 39.9 % (37-47) 01/18/22 20:06 MCV 97.1 fL (80-100) 01/18/22 20:06 MCH 31.9 pg (25-34) 01/18/22 20:06 MCHC 32.8 g/dL (32-36) 01/18/22 20:06 RDW Std Deviation 66.4 fL (36.4-46.3) H 01/18/22 20:06 RDW Coeff of Alex 18.4 % (11.5-14.5) H 01/18/22 20:06 Plt Count 239 K/uL (130-400) 01/18/22 20:06 MPV 8.8 fL (7.4-10.4) 01/18/22 20:06 Immature Gran % (Auto) 0.6 % 01/18/22 20:06 Neut % (Auto) 83.8 % 01/18/22 20:06 Lymph % (Auto) 10.0 % 01/18/22 20:06 [place] % (Auto) 5.4 % 01/18/22 20:06 Eos % (Auto) 0.1 % 01/18/22 20:06 Baso % (Auto) 0.1 % 01/18/22 20:06 Neut # (Auto) 12.88 K/uL (1.4-6.5) H 01/18/22 20:06 Lymph # (Auto) 1.54 K/uL (1.2-3.4) 01/18/22 20:06 [place] # (Auto) 0.83 K/uL (0.11-0.59) H 01/18/22 20:06 Eos # (Auto) 0.02 K/uL (0-0.5) 01/18/22 20:06 Baso # (Auto) 0.02 K/uL (0-0.2) 01/18/22 20:06 Immature Gran # (Auto) 0.09 K/uL (0.00-0.02) H 01/18/22 20:06 Sodium 140 mmol/L (136-145) 01/18/22 20:06 Potassium 4.9 mmol/L (3.5-5.1) 01/18/22 20:06 Chloride 101 mmol/L (98-107) 01/18/22 20:06 Carbon Dioxide 23 mmol/L (21-32) 01/18/22 20:06 Anion Gap 16 (3-11) H 01/18/22 20:06 BUN 28 mg/dl (6-23) H 01/18/22 20:06 Creatinine 2.06 mg/dl (0.6-1.2) H 01/18/22 20:06 Est Cr Clr Drug Dosing 27.4 ml/min 01/18/22 20:06 Est GFR ( Amer) 26.5 ml/min 01/18/22 20:06 Est GFR (Non-Af Amer) 22.8 ml/min 01/18/22 20:06 BUN/Creatinine Ratio 13.6 (10-20) 01/18/22 20:06 Glucose 152 mg/dl (70-99(Fasting)) H 01/18/22 20:06 Calcium 9.4 mg/dl (8.5-10.1) 01/18/22 20:06 Total Bilirubin 0.6 mg/dl (0.2-1.0) 01/18/22 20:06 AST 50 U/L (13-39) H 01/18/22 20:06 ALT 4 U/L (7-52) L 01/18/22 20:06 Alkaline Phosphatase 65 U/L (34-104) 01/18/22 20:06 Total Creatine Kinase 1601 U/L (26-192) H 01/18/22 20:06 Troponin I < 0.03 ng/ml (0-0.04) 01/18/22 20:06 Total Protein 8.9 gm/dl (6.0-8.3) H 01/18/22 20:06 Albumin 3.4 gm/dl (3.4-5.0) 01/18/22 20:06 Globulin 5.5 gm/dl (2.5-4.0) H 01/18/22 20:06 Albumin/Globulin Ratio 0.6 (0.9-2) L 01/18/22 20:06 TSH 5.618 uIu/ml (0.300-4.500) H 01/18/22 20:[address] 01/18/22 19:53 CT OF THE CERVICAL SPINE WITHOUT CONTRAST CLINICAL HISTORY: trauma COMPARISON STUDY: No previous studies for comparison. TECHNIQUE: Helical axial images of the cervical spine were obtained without IV contrast. Sagittal and coronal reconstructions were viewed. Automated exposure control was utilized for the study. A dose lowering technique was utilized adhering to the principles of ALARA. FINDINGS: Alignment of the cervical spine is anatomic. Vertebral body heights are maintained. No acute cervical spine fracture or subluxation is present. There is no prevertebral edema. Facet joints are intact. Severe multilevel facet arthrosis is present. There is moderate multilevel degenerative disc di sease. A right lobe thyroid nodule is also shown on CT of June 06, 2018. A cyst within the right lung apex is also unchanged since that exam. Incidental note is made of calcifications within the bilateral parotid glands. IMPRESSION: No acute cervical spine fracture or subluxation. ACT 112: Negative or not required by law. Electronically signed by: Kenroy Alejandro M.D. 01/18/2022 9:10 PM Chest X-Ray 01/18/22 19:53 XR chest 1V portable CLINICAL HISTORY: trauma COMPARISON STUDY: Chest radiograph October 16, 2019. FINDINGS: No pneumothorax or pleural effusion is noted. Mild cardiomegaly is unchanged. There is a hiatal hernia. No evidence for pulmonary edema. No consolidation is identified. IMPRESSION: No acute cardiopulmonary findings. No significant change in appearance of the chest. ACT 112: Negative or not required by law. Electronically signed by: Kenroy Alejandro M.D. 01/18/2022 8:[address] 01/18/22 19:53 CT OF THE HEAD WITHOUT CONTRAST CLINICAL HISTORY: trauma COMPARISON STUDY: Head CT October 16, 2019. CT DOSE: 1270.54 mGy.cm TECHNIQUE: Helical axial images of the head were obtained without IV contrast. Automated exposure control was utilized for the study. A dose lowering technique was utilized adhering to the principles of ALARA. FINDINGS: No acute intracranial hemorrhage, midline shift or mass effect is present. White matter hypodensities are unchanged and suggest small vessel disease. The ventricular system is unremarkable. The basal cisterns are patent. No extra-axial collections are present. There are no findings to suggest acute dural sinus thrombosis or acute territorial infarct. No significant calvarial abnormalities are present. Visualized portions of the sinuses and mastoid air cells are clear. Incidental note is made of calcifications within the bilateral parotid glands. IMPRESSION: 1. No acute intracranial findings. 2. No acute calvarial fracture. ACT 112: Negative or not required by law. Electronically signed by: Kenroy Alejandro M.D. 01/18/2022 8:52 PM Hip/Pelvis X-Ray 01/18/22 19:53 XR hip LT 2V w pelvis CLINICAL HISTORY: trauma, pain COMPARISON: Pelvis and left hip radiographs October 16, 2019. FINDINGS: No acute fracture is identified within the pelvis or hips. Severe left hip joint space narrowing with extensive osteophytosis is similar to prior exam. Sacroiliac joints and symphysis pubis are intact. IMPRESSION: 1. No acute fracture within the pelvis or hips. 2. Severe left hip osteoarthritis. ACT 112: Negative or not required by law. Electronically signed by: Kenroy Alejandro M.D. 01/18/2022 8:28 PM Knee X-Ray 01/18/22 19:53 XR knee LT 1 or 2V routine CLINICAL HISTORY: trauma COMPARISON: Left knee radiographs April 30, 2016. FINDINGS: Alignment of the left knee is anatomic. No acute fracture. Note joint effusion is present. There is mild to moderate joint space narrowing and osteophytosis within the left knee. IMPRESSION: 1. No acute fracture or joint effusion of the left knee. 2. Mild to moderate left knee osteoarthritis. ACT 112: Negative or not required by law. Electronically signed by: Kenroy Alejandro M.D. 01/18/2022 8:[address] left hip initial read: Diffuse osteoporosis. Severe degenerative disease of the left hip. No distinct fracture. The left superior and inferior pubic rami are intact. Rate 95, NSR, normal axis, inferior infarct, lateral infarct, T wave abnormalities inferior leads, low voltage
[2022-01-18 22:59] LABS: Appearance Urine Clear (Clear); Bacteria Urine Automated Negative (Negative); Bilirubin Urine Negative (Negative); Blood Urine 3+ (Negative); Color Urine Yellow; Epithelial Cell Urine Auto >30 /lpf (0-5); Glucose Urine UA Negative (Negative); Ketones Urine Negative (Negative); Leukocyte Esterase Urine Negative (Negative); Nitrite Urine Negative (Negative); Protein Urine 1+ (Negative); RBC Urine Automated 0-4 /hpf (0-4); Specific Gravity Urine 1.009 (1.000-1.030); Urobilinogen Urine Negative (Negative); pH Urine 6.5 (4.5-7.5)
[2022-01-18] MEDS ORDERED: LACTATED RINGER'S 1,000 ML IV STA (23:05)
[2022-01-18 23:08] LABS: Renal Epithelial Cells Urine 0-5 /lpf (0-5)
[2022-01-18 23:18] LABS: T4 Free Thyroxine 0.79 ng/dl (0.61-1.60)
[2022-01-19] MEDS ORDERED: LORazepam 0.5 MG TAB PO PRN (01:24)
[2022-01-19] MEDS ORDERED: HYDROmorphone INJ 0.5 MG/0.5 ML SYR IV PRN (01:24)
[2022-01-19] MEDS ORDERED: PROMETHAZINE HCL 12.5 MG in SODIUM CHLORIDE 0.9% 50 ML IV PRN (01:24)
[2022-01-19] MEDS ORDERED: oxyCODONE HCL IR 5 MG TAB (IMMEDIATE RELEASE) PO PRN (01:24)
[2022-01-19 01:58] LABS: BUN Creatinine Ratio 16.8 (10-20); Calcium 8.8 mg/dl (8.5-10.1); Creatinine Clr Calc Pharmacy 29.5 ml/min; Potassium 4.3 mmol/L (3.5-5.1)
[2022-01-19] MEDS ORDERED: MICONAZOLE NITRATE POWDER 43 GM EXT PRN (03:00)
[2022-01-19] MEDS: ACETAMINOPHEN 325 MG TAB PO PRN ×2 (04:08→20:35)
[2022-01-19] MEDS: HEPARIN SOD 5,000 UNIT/0.5 ML VIAL SQ SCH ×3 (06:02→20:38)
[2022-01-19 06:49] LABS: Estimated Average Glucose 97 mg/dl
[2022-01-19 07:28] LABS: Hemoglobin 12.4 g/dL (12.0-16.0); Immature Granulocytes # (auto) 0.01 K/uL (0.00-0.02); Immature Granulocytes % (auto) 0.1 %; Lymphocytes # (auto) 0.62 K/uL (1.2-3.4); Mean Corpuscular Hemoglobin 31.4 pg (25-34); Mean Corpuscular Hgb Conc 32.6 g/dL (32-36); Mean Corpuscular Volume 96.2 fL (80-100); Mean Platelet Volume 9.2 fL (7.4-10.4); Monocytes # (auto) 1.36 K/uL (0.11-0.59); Monocytes % (auto) 15.3 %; Neutrophils # (auto) 6.87 K/uL (1.4-6.5); Neutrophils % (auto) 77.6 %; Platelet Count 179 K/uL (130-400); RDW Coefficient of Variation 18.3 % (11.5-14.5); RDW Standard Deviation 64.5 fL (36.4-46.3); Red Blood Count 3.95 M/uL (4.2-5.4); White Blood Count 8.86 K/uL (4.8-10.8)
[2022-01-19 07:43] LABS: BUN Creatinine Ratio 18.8 (10-20); Calcium 8.7 mg/dl (8.5-10.1); Creatinine Clr Calc Pharmacy 22.4 ml/min; Est GFR (African American) 28.8 ml/min; Est GFR (Non-African American) 24.9 ml/min; Potassium 4.2 mmol/L (3.5-5.1)
[2022-01-19] MEDS ORDERED: PNEUMOCOCCAL Polysaccharide Vaccine 25mcg/0.5mL vial/Syr IM ONE (08:00)
--- NOTE | 2022-01-19 08:01 | CT Scan Report ---
CT hip LT wo con CLINICAL HISTORY: persistent pain TECHNIQUE: Multidetector row helical CT of the left hip was performed without intravenous contrast. C oronal and sagittal reformations were obtained. Automated dose lowering techniques and/or adjustment according to patient size were utilized for this examination. Comparison: None available at the time of this dictation. FINDINGS: No evidence of acute fracture. Severe degenerative changes are seen in the femoroacetabular joint wit h joint space narrowing and osteophyte formation. No joint effusion is seen. The soft tissues are un remarkable. IMPRESSION: Severe degenerative changes are seen in the femoral acetabular joint. ACT 112: Negative or not required by law. Electronically signed by: James Carson M.D. 01/19/2022 8:00 AM
[2022-01-19] MEDS: allopurinoL 100 MG TAB PO SCH (09:19)
[2022-01-19] MEDS: DIVALPROEX EXTENDED RELEASE 500 MG TAB PO SCH ×2 (09:19→20:37)
[2022-01-19] MEDS: CARBIDOPA/LEVODOPA 25/100MG TAB PO SCH ×3 (09:19→20:36)
[2022-01-19] MEDS: QUEtiapine FUMARATE 100 MG TABLET PO SCH ×2 (09:19→20:38)
[2022-01-19] MEDS: GABAPENTIN 100 MG CAP PO SCH ×3 (09:20→20:37)
--- NOTE | 2022-01-19 09:45 | Electrocardiogram Report ---
Test Reason : Blood Pressure : / mmHG Vent. Rate : 097 BPM Atrial Rate : 097 BPM P-R Int : 142 ms QRS Dur : 104 ms QT Int : 378 ms P-R-T Axes : 045 194 031 degrees QTc Int : 480 ms Poor data quality, interpretation may be adversely affected Possible limb lead placement error Normal sinus rhythm Left atrial enlargement Cannot rule out Old Lateral infarct Abnormal ECG When compared with ECG of 21-OCT-2019 12:15, QRS axis with marked change (lead placement error?) Borderline Criteria for Lateral infarct is now Present Confirmed by Burt Cole ([id number]) on 01/19/2022 9:45:13 AM Referred By: REFERRED SELF Confirmed By:Burt Cole
[2022-01-19] MEDS: LACTATED RINGER'S 1,000 ML IV SCH ×2 (10:28→23:14)
--- NOTE | 2022-01-19 14:41 | Hospitalist Progress Note ---
Date of Service January 19, 2022 Assessment & Plan (1) Rhabdomyolysis: (2) Bipolar disorder: Plan: 76-year-old lady with PMH of chronic diastolic heart failure [EF 55%, TTE 2019], HTN, Parkinson's disease, PE/DVT status post Coumadin treatment, CKD [baseline creatinine 1.3], mood disorder and RLS presented to our ED 01/18 after getting slipped backwards on her bathroom and subsequent trauma without loss of consciousness. Patient landed on her left side and has been complaining of left hip pain and left knee and ankle pain. Per her daughter, if she does not get appropriate sleep, she gets agitation due to her bipolar disorder. She is being managed for the following: #. Fall #. Rhabdomyolysis #. REMBERTO over CKD stage III Patient slipped in bathroom, was probably lying on the floor for more than 45 minutes per her daughter Juana CK was elevated around 1600 at presentation, creatinine elevated to 2.06 Admitting imagings reviewed, no acute fractures. Patient getting IV fluid, expect improvement in creatinine and expect CK to florencia teau and then come down Monitor BMP daily and CPK daily until it is starts to trend down. Patient does have history of diastolic heart failure, watch out for volume overload. PT/OT, will likely need placement. #. Osteoarthritis Admitting CT hip reveals severe left hip osteoarthritis, orthopedics consulted Left knee with osteoarthritis and patient complaining of left ankle pain, x-ray ankle has been sent out. Follow-up with x-ray, follow-up with orthopedics recommendation For her bipolar disorder, melatonin at bedtime, minimal disturbances overnight requested by Daughter, communicated with RN. #. Other chronic medical conditions: Chronic diastolic heart failure, HTN, HLD, Parkinson's disease, bipolar disorder, history of PE/DVT status post Coumadin treatment, mood disorder Continue with/resume home medications as and when appropriate Statin held due to rhabdomyolysis and furosemide held due to REMBERTO over CKD We will hold potassium supplement temporarily. Continue to monitor potassium level. DVT prophylaxis. Heparin subcu Full code Disposition: PT/OT, CM to assist with DC planning. Patient's daughter [Ms. Juana Angel, contact #[phone]] was updated about the patient's current status at bedside, answered all her questions, she voiced understanding and was agreeable to the plan of care. Admission and Anticipated Discharge Date Admission Date: January 19, 2022 Subjective Patient seen and examined at bedside for follow-up of fall, rhabdomyolysis, REMBERTO over CKD and left hip pain. Patient lying in bed, on 2 L nasal cannula oxygen, NAD, no new acute events over night. Patient reports left hip pain aggravated with movement, also reports left ankle pain, will obtain x-ray of the ankle, patient made aware she has severe left hip osteoarthritis and desired to see orthopedics while inpatient. Patient denies headache/chills/chest pain/belly pain/palpitation/sore throat/cough/dizziness/other review of symptoms. Patient reports eating okay. Patient was asking for bowel regimen since she did not have bowel movements after yesterday, will order as needed laxatives. Physical Exam Physical Exam: GENERAL: Alert and oriented x3. NAD, on 2 L nasal cannula oxygen HEENT: No pallor, no icterus. Pupils equal, round and reactive to light. Oral mucosa moist. NECK: No JVD, no neck masses. HEART: S1 and S2 heard. Regular rate and rhythm. No murmur, no gallop. RESPIRATORY SYSTEM: Normal AP diameter. No accessory muscle use. No wheezing, no crackles. ABDOMEN: Soft, bowel sounds present, nontender, no distention. CENTRAL NERVOUS SYSTEM: No facial droop. Speech is clear. Obeys simple commands. Moves extremities. EXTREMITIES: Trace BLE edema with chronic skin changes,, no erythema seen. Left hip pain upon movement, left ankle pain upon movement. Results & Data Results & Data ([facility]) Vital Signs (Past 12 Hours) Vital Signs Temp Pulse Pulse Pulse Resp BP BP 01/19/22 11:09 36.9 C 84 20 106/61 01/19/22 07:57 36.8 C 75 18 117/69 01/19/22 07:41 82 Pulse Ox 01/19/22 11:09 92 01/19/22 07:57 92 01/19/22 07:41 (1) Rhabdomyolysis Encounter type: initial encounter Rhabdomyolysis type: traumatic Qualified Code(s): T79.6XXA - Traumatic ischemia of muscle, initial encounter (2) Bipolar disorder Active/Remission status: currently active Current bipolar episode type: manic Current episode severity: severe Psychotic features: with psychotic features Qualified Code(s): F31.2 - Bipolar disorder, current episode manic severe with psychotic features
--- NOTE | 2022-01-19 16:56 | XRay Report ---
XR ankle LT 2V CLINICAL HISTORY: left ankle pain, fall COMPARISON: None FINDINGS: Alignment of the left ankle is anatomic. There is no acute fracture. Plantar calcaneal spu rring is noted. There is mild tibiotalar joint space narrowing with osteophytosis. Ankle soft tissue swelling is present. IMPRESSION: No acute fracture or dislocation within the left ankle. ACT 112: Negative or not required by law. Electronically signed by: Kenroy Alejandro M.D. 01/19/2022 4:55 PM
--- NOTE | 2022-01-19 17:02 | Orthopedic Consultation ---
Date of Consultation January 19, 2022 Assessment & Plan (1) Hip pain, left: She has acute onset of left hip pain after ground-level fall in the setting of severe hip osteoarthritis. She surprisingly denies any pain in this left hip prior to this fall. Exam is largely benign, but she does endorse mild to moderate pain in the hip with hip movement. It is difficult to say whether this is just a flareup of her arthritis pain or something more significant. No obvious fractures on x-ray or CT scan. I would recommend a trial of weightbearing on her left leg with physical therapy tomorrow. If she still has severe pain that is limiting her weightbearing and ambulation, I think the next most prudent step would be to get an MRI of the hip to evaluate for occult or incomplete fracture. History of Present Illness Reason for Consultation: Left hip pain Attending Physician: Edi Pride MD History of Present Illness Ms. Graves is a 76-year old female who injured her left hip during a ground- level fall in the shower yesterday. She slipped and fell, but was unable to get up on her own. She was found by her daughter about 45 minutes later. Surprisingly, she denies any pain in this left hip prior to this fall. She normally ambulates with a walker. Allergies Allergy/AdvReac Type Severity Reaction Status Date / Time indomethacin Allergy Intermediate RASH Verified 01/18/22 21:48 erythromycin base Allergy Unknown UNKNOWN Verified 01/18/22 21:48 levofloxacin AdvReac Intermediate Causes Verified 01/18/22 21:48 psychosis. Home Medications Medication Instructions Recorded Confirmed Type allopurinol 100 mg tablet 100 mg PO QAM 09/08/18 01/18/22 History atorvastatin 10 mg tablet 10 mg PO QAM 09/08/18 01/18/22 History carbidopa 25 mg-levodopa 100 mg 1 tab PO TID 09/08/18 01/18/22 History tablet lorazepam 0.5 mg tablet 0.5 mg PO HS PRN 09/08/18 01/18/22 History furosemide 20 mg tablet 20 mg PO BID 10/16/19 01/18/22 History potassium chloride 10 mEq 10 meq PO QAM 10/16/19 01/18/22 History capsule,extended release divalproex 500 mg tablet,extended See Rx Instructions .ROUTE .COMPLEX 01/18/22 01/18/22 History release 24 hr (Depakote ER) gabapentin 100 mg capsule 100 mg PO TID 01/18/22 01/18/22 History quetiapine 100 mg tablet See Rx Instructions .ROUTE .COMPLEX 01/18/22 01/18/22 History Patient History Medical History (Updated 01/19/22 @ 17:08 by Corey Callaway M.D.) Bipolar disorder Chronic diastolic CHF (congestive heart failure) CKD (chronic kidney disease), stage III Gout History of DVT (deep vein thrombosis) History of pulmonary embolism HTN (hypertension) Hyperlipidemia Idiopathic peripheral neuropathy Parkinsons disease RLS (restless legs syndrome) Surgical History History of hernia repair History of partial hysterectomy History of uterine suspension procedure Status post repair of paraesophageal diaphragmatic hernia Family History Father Stomach cancer Social History Smoking Status: Never smoker Hx Alcohol Use: No Hx Substance Use: No Preferred Language: Italian Communication Ability: Effective Visual Impairment: Limited Hearing Ability: Hard of Hearing Marketing Campaign Analyst Required: No Beliefs That Will Affect Care: Congregation Congregation Beliefs: [employer] Current Living Situation: Alone Current Living Situation Comment: Lives alone. Daughter visits and helps. Other Information That Helps Us Care for You: No Feels Safe at Home: Yes Assistive Devices: Glasses and Walker Assistive Devices Comment: Uses walker at home. Physical Exam Physical Exam: Patient is asleep, resting comfortably, and in no obvious distress. She awakens easily. Examination of the left hip shows no open wounds over the hip or thigh area. No obvious significant swelling. Compartments are soft and compressible. No obvious shortening of the left leg compared to the right. She does endorse mild to moderate pain in the left hip with logroll of the femur and flexion at the hip. Motor and sensory function is intact distally. Results & Data ([facility]) Vital Signs (Past 12 Hours) Vital Signs Temp Pulse Pulse Pulse Resp BP BP 01/19/22 15:41 36.9 C 92 H 18 111/64 01/19/22 15:18 92 H 01/19/22 11:09 36.9 C 84 20 106/61 01/19/22 07:57 36.8 C 75 18 117/69 01/19/22 07:41 82 Pulse Ox 01/19/22 15:41 93 01/19/22 15:18 01/19/22 11:09 92 01/19/22 07:57 92 01/19/22 07:41 Diagnostic Findings Left hip x-ray and CT scan were reviewed. They show very severe arthritis at the left hip joint with complete obliteration of the joint space, subchondral cyst formation, and large osteophyte formation. No obvious acute fracture lines anywhere around the hip joint.
[2022-01-19] MEDS: MELATONIN 3 MG TAB PO SCH (20:36)
[2022-01-20] MEDS: HEPARIN SOD 5,000 UNIT/0.5 ML VIAL SQ SCH ×3 (05:55→21:03)
[2022-01-20] MEDS: ACETAMINOPHEN 325 MG TAB PO PRN ×3 (05:58→21:05)
[2022-01-20 06:22] LABS: Hematocrit (blood only) 35.9 % (37-47); Hemoglobin 11.8 g/dL (12.0-16.0); Mean Corpuscular Hemoglobin 31.5 pg (25-34); Mean Corpuscular Hgb Conc 32.9 g/dL (32-36); Mean Corpuscular Volume 95.7 fL (80-100); Mean Platelet Volume 8.9 fL (7.4-10.4); Platelet Count 168 K/uL (130-400); RDW Coefficient of Variation 18.4 % (11.5-14.5); RDW Standard Deviation 64.6 fL (36.4-46.3); Red Blood Count 3.75 M/uL (4.2-5.4); White Blood Count 7.11 K/uL (4.8-10.8)
[2022-01-20 06:48] LABS: BUN Creatinine Ratio 24.2 (10-20); Calcium 8.8 mg/dl (8.5-10.1); Creatinine Clr Calc Pharmacy 31.9 ml/min; Est GFR (African American) 30.7 ml/min; Est GFR (Non-African American) 26.5 ml/min; Potassium 3.9 mmol/L (3.5-5.1)
[2022-01-20 07:01] LABS: Magnesium 2.3 mg/dl (1.7-2.4); Phosphorus 3.3 mg/dl (2.5-4.9)
[2022-01-20] MEDS: GABAPENTIN 100 MG CAP PO SCH ×3 (08:04→21:02)
[2022-01-20] MEDS: CARBIDOPA/LEVODOPA 25/100MG TAB PO SCH ×3 (08:04→21:00)
[2022-01-20] MEDS: DIVALPROEX EXTENDED RELEASE 500 MG TAB PO SCH ×2 (08:04→21:01)
[2022-01-20] MEDS: allopurinoL 100 MG TAB PO SCH (08:05)
[2022-01-20] MEDS: QUEtiapine FUMARATE 100 MG TABLET PO SCH ×2 (08:05→21:02)
--- NOTE | 2022-01-20 13:52 | Hospitalist Progress Note ---
Date of Service January 20, 2022 Assessment & Plan (1) Rhabdomyolysis: (2) Bipolar disorder: Plan: 76-year-old lady with PMH of chronic diastolic heart failure [EF 55%, TTE 2019], HTN, Parkinson's disease, PE/DVT status post Coumadin treatment, CKD [baseline creatinine 1.3], mood disorder and RLS presented to our ED 01/18 after getting slipped backwards on her bathroom and subsequent trauma without loss of consciousness. Patient landed on her left side and has been complaining of left hip pain and left knee and ankle pain. Per her daughter, if she does not get appropriate sleep, she gets agitation due to her bipolar disorder. She is being managed for the following: #. Fall #. Rhabdomyolysis #. REMBERTO over CKD stage III Patient slipped in bathroom, was probably lying on the floor for more than 45 minutes per her daughter Juana CK was elevated around 1600 at presentation, creatinine elevated to 2.06 Admitting imagings reviewed, no acute fractures. Patient getting IV fluid, CPK trending down, f/u CPK in AM Monitor BMP daily, Cr slowly trending down. Patient does have history of diastolic heart failure, watch out for volume overload. Caution with IVF PT/OT, will likely need placement. #. Osteoarthritis Admitting CT hip reveals severe left hip osteoarthritis, orthopedics consulted Left knee with osteoarthritis Ortho evaluated, appreciate recs. For her bipolar disorder, melatonin at bedtime, minimal disturbances overnight requested by Daughter. #. Other chronic medical conditions: Chronic diastolic heart failure, HTN, HLD, Parkinson's disease, bipolar disorder, history of PE/DVT status post Coumadin treatment, mood disorder Continue with/resume home medications as and when appropriate Statin held due to rhabdomyolysis and furosemide held due to REMBERTO over CKD We will hold potassium supplement temporarily. Continue to monitor potassium level. DVT prophylaxis. Heparin subcu Full code Disposition: PT/OT, CM to assist with DC planning. Likely DC tomorrow to inpt rehab if no new issues arises. Patient's daughter [Ms. Juana Angel, contact #[phone]] was updated about the patient's current status at bedside, answered all her questions, she voiced understanding and was agreeable to the plan of care. Admission and Anticipated Discharge Date Admission Date: January 19, 2022 Subjective Patient seen and examined at bedside for follow-up of fall, rhabdomyolysis, REMBERTO over CKD and left hip pain. Patient lying in bed, on 2 L nasal cannula oxygen, NAD, no new acute events overnight. Patient reports left hip pain somewhat improving. Pt reports eating ok and moving bowel ok. Pt reports sleeping very well. Patient denies headache/chills/chest pain/belly pain/palpitation/sore throat/cough/dizziness/other review of symptoms. Physical Exam Physical Exam: GENERAL: Alert and oriented x3. NAD, on 2 L nasal cannula oxygen HEENT: No pallor, no icterus. Pupils equal, round and reactive to light. Oral mucosa moist. NECK: No JVD, no neck masses. HEART: S1 and S2 heard. Regular rate and rhythm. No murmur, no gallop. RESPIRATORY SYSTEM: Normal AP diameter. No accessory muscle use. No wheezing, no crackles. ABDOMEN: Soft, bowel sounds present, nontender, no distention. CENTRAL NERVOUS SYSTEM: No facial droop. Speech is clear. Obeys simple commands. Moves extremities. EXTREMITIES: Trace BLE edema with chronic skin changes, no erythema seen. Left hip pain upon movement. Results & Data Results & Data ([facility]) Vital Signs (Past 12 Hours) Vital Signs Temp Pulse Pulse Resp BP Pulse Ox Pulse Ox 01/20/22 11:22 94 01/20/22 07:00 85 01/20/22 06:29 36.8 C 91 H 20 131/68 93 Pulse Ox Pulse Ox 01/20/22 11:22 94 89 L 01/20/22 07:00 01/20/22 06:29 (1) Rhabdomyolysis Encounter type: initial encounter Rhabdomyolysis type: traumatic Qualified Code(s): T79.6XXA - Traumatic ischemia of muscle, initial encounter (2) Bipolar disorder Active/Remission status: currently active Current bipolar episode type: manic Current episode severity: severe Psychotic features: with psychotic features Qualified Code(s): F31.2 - Bipolar disorder, current episode manic severe with psychotic features
[2022-01-20] MEDS: MELATONIN 3 MG TAB PO SCH (21:02)
[2022-01-21] MEDS: HEPARIN SOD 5,000 UNIT/0.5 ML VIAL SQ SCH ×2 (06:01→14:05)
[2022-01-21] MEDS: ACETAMINOPHEN 325 MG TAB PO PRN (06:03)
[2022-01-21 08:06] LABS: BUN Creatinine Ratio 33.1 (10-20); Calcium 8.7 mg/dl (8.5-10.1); Creatinine Clr Calc Pharmacy 49.2 ml/min; Est GFR (African American) 51.9 ml/min; Est GFR (Non-African American) 44.8 ml/min; Potassium 4.4 mmol/L (3.5-5.1)
[2022-01-21] MEDS: GABAPENTIN 100 MG CAP PO SCH ×2 (09:14→14:05)
[2022-01-21] MEDS: QUEtiapine FUMARATE 100 MG TABLET PO SCH (09:14)
[2022-01-21] MEDS: allopurinoL 100 MG TAB PO SCH (09:14)
[2022-01-21] MEDS: DIVALPROEX EXTENDED RELEASE 500 MG TAB PO SCH (09:15)
[2022-01-21] MEDS: CARBIDOPA/LEVODOPA 25/100MG TAB PO SCH ×2 (09:15→14:25)
[2022-01-21] MEDS ORDERED: POLYETHYLENE (MIRALAX) 17 GM PACK PO SCH (10:45)
--- NOTE | 2022-01-21 11:20 | Discharge Summary ---
Date of Service January 21, 2022 Admission HPI Per Admitting Provider History obtained from patient, family, and records. Medical history significant for chronic diastolic heart failure (EF 55%, TTE 2019 ), hypertension, Parkinson's disease, history PE DVT status post Coumadin R x, CRI (baseline creatinine 1.3 ), mood disorder, RLS, Last confinement 2019 at the [facility] for agitation in the setting of bipolar disorder. Patient got in the shower hours ago. Patient slipped backwards, subsequent trauma without LOC. Patient subsequently felt dizzy and lightheaded. Patient landed on the floor and had trouble getting up due to achy left hip pain. Patient denies chest pain, S OB. Patient found on the ground by her daughter about 45 minutes later after fall. MEDICAL HISTORY: As above. SURGERIES: She has had breast biopsy, partial hysterectomy, uterine suspension, diaphragmatic hernia repair, abdominal hernia repair, cystoscopy. FAMILY HISTORY:Stomach cancer, bipolar disorder, PERSONAL AND SOCIAL HISTORY: Nonsmoker. No chronic intake of alcoholic beverages. 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 Lives alone. Admission Exam Per Admitting Provider GENERAL: Slightly uncomfortable, no respiratory distress SKIN: Normal color, warm HEENT: [place] palpebral conjunctivae, no ptosis, dry buccal mucosa NECK : Supple, no tenderness CHEST : CTA, no tenderness HEART : RRR, no obvious murmurs ABDOMEN: Some distention, nontender EXTREMITIES : Bilateral LE swelling (R>L, chronic as per patient), left hip tenderness, no other conspicuous deformities noted NEUROLOGIC : Coherent, no facial asymmetry, gait and stance not assessed Principal Diagnosis Fall Generalized weakness Rhabdomyolysis REMBERTO over CKD stage III Osteoarthritis, left hip and left knee Discharge Exam GENERAL: Alert and oriented x3. NAD, on 2 L nasal cannula oxygen HEENT: No pallor, no icterus. Pupils equal, round and reactive to light. Oral mucosa moist. NECK: No JVD, no neck masses. HEART: S1 and S2 heard. Regular rate and rhythm. No murmur, no gallop. RESPIRATORY SYSTEM: Normal AP diameter. No accessory muscle use. No wheezing, no crackles. ABDOMEN: Soft, bowel sounds present, nontender, no distention. CENTRAL NERVOUS SYSTEM: No facial droop. Speech is clear. Obeys simple commands. Moves extremities. EXTREMITIES: Trace BLE edema with chronic skin changes, no erythema seen. Left hip pain upon movement --> improving. Discharge Data Allergies Allergy/AdvReac Type Severity Reaction Status Date / Time indomethacin Allergy Intermediate RASH Verified 01/18/22 21:48 erythromycin base Allergy Unknown UNKNOWN Verified 01/18/22 21:48 levofloxacin AdvReac Intermediate Causes Verified 01/18/22 21:48 psychosis. Consultations 01/18/22 22:39 ED Decision to Admit Stat 01/19/22 12:44 Consult Orthopedic Surgery Routine Ordered Studies 01/18/22 19:53 CT cervical spine wo con Stat CT head/brain wo con Stat 01/18/22 21:59 CT hip LT wo con Urgent Hospital Course (1) Rhabdomyolysis: (2) Bipolar disorder: 76-year-old lady with PMH of chronic diastolic heart failure [EF 55%, TTE 2019], HTN, Parkinson's disease, PE/DVT status post Coumadin treatment, CKD [baseline creatinine 1.3], mood disorder and RLS presented to our ED 01/18 after getting slipped backwards on her bathroom and subsequent trauma without loss of consciousness. Patient landed on her left side and has been complaining of left hip pain and left knee and ankle pain. Per her daughter, if she does not get appropriate sleep, she gets agitation due to her bipolar disorder. She was managed for the following: #. Fall #. Rhabdomyolysis #. REMBERTO over CKD stage III Patient slipped in bathroom, was probably lying on the floor for more than 45 minutes per her daughter Juana CK was elevated around 1600 at presentation, creatinine elevated to 2.06 Admitting imagings reviewed, no acute fractures. CPK level trending down, renal function back to baseline. Patient to get blood work CMP and CPK level done in 1 week upon discharge Hold atorvastatin until 1 week upon discharge, resume after that. Patient encouraged to have increased oral intake of fluids for 3-4 more days upon discharge. Continue with PT/OT upon discharge. #. Osteoarthritis Admitting CT hip reveals severe left hip osteoarthritis, orthopedics consulted Left knee with osteoarthritis Ortho evaluated, appreciate recs. Patient to follow-up with orthopedic as an outpatient in 2 to 3 weeks upon discharge. Continue with PT/OT. For her bipolar disorder, melatonin at bedtime, minimal disturbances overnight requested by Daughter. #. Other chronic medical conditions: Chronic diastolic heart failure, HTN, HLD, Parkinson's disease, bipolar disorder, history of PE/DVT status post Coumadin treatment, mood disorder Continue with/resume home medications as and when appropriate Resume Lasix and potassium supplement upon discharge. DVT prophylaxis. Heparin subcu Full code Patient's daughter Juana was given a phone call and we went through discharge instruction. Answered all her questions and she voiced understanding/was agree able to plan of care. Patient being discharged to [facility] with following instruction at the point of discharge: Follow-up with your primary care physician within a week time. You are managed for acute on chronic kidney injury and rhabdomyolysis along with fall/generalized weakness while in the hospital. Your kidney function has gone down to your baseline, continue with your Lasix upon discharge. For your rhabdomyolysis, your muscle injury parameter has been trending down since last 2 days, continue to have increased oral fluid intake for 3-4 more days upon discharge. Your atorvastatin will be held upon discharge, resume your atorvastatin at 1 week upon discharge. Continue physical therapy. Get your bloodwork CMP and CPK done in a week time upon DC. You were also diagnosed with left hip severe osteoarthritis, orthopedics evaluated you, if your pain is not controlled or is worsening despite physical therapy as an outpatient, recommend to follow-up with orthopedics as an outpatient in 2 to 3 weeks for further discussion and management of this problem. You can take Tylenol Extra Strength [id number] for your pain management. Take medications as prescribed. Total Time Total Time Spent Total Time Spent (In Minutes): 35 Discharge Plan Discharge Items Patient Disposition: Transfer Inpatient Rehab Fac Reason For Visit: TRANSIENT HYPOTENSION, ARF, RHABDO Discharge Diagnosis: Fall Generalized weakness Rhabdomyolysis REMBERTO over CKD stage III Osteoarthritis, left hip and left knee Condition on Discharge: Fair Activity: Resume your previous activity Activity Comment: Continue with physical therapy. Non-emergency contact: Primary Care Provider Call non-emergency contact if: you have any medication questions, your symptoms worsen and your temperature is above 101 Follow-up/Referrals: Gertrudis Johnson MD [Primary Care Provider] - Diet: Heart Healthy Addtl Attending Provider Instructions: Follow-up with your primary care physician within a week time. You are managed for acute on chronic kidney injury and rhabdomyolysis along with fall/generalized weakness while in the hospital. Your kidney function has gone down to your baseline, continue with your Lasix upon discharge. For your rhabdomyolysis, your muscle injury parameter has been trending down since last 2 days, continue to have increased oral fluid intake for 3-4 more days upon discharge. Your atorvastatin will be held upon discharge, resume your atorvastatin at 1 week upon discharge. Continue physical therapy. Get your bloodwork CMP and CPK done in a week time upon DC. You were also diagnosed with left hip severe osteoarthritis, orthopedics evaluated you, if your pain is not controlled or is worsening despite physical therapy as an outpatient, recommend to follow-up with orthopedics as an outpatient in 2 to 3 weeks for further discussion and management of this problem. You can take Tylenol Extra Strength [id number] for your pain management. Take medications as prescribed. Pending Studies at Discharge: No Stand-Alone Forms: My [facility] Skilled Items Patient informed of condition?: Yes DNR: No Discharge Level of Care: Acute rehab Communicable Disease: No Discharge Prognosis: Stable Lines: None Urinary Catheter: No Medications and DC Order Prescriptions: New acetaminophen 325 mg Tablet 650 mg PO Q6H PRN (Reason: fever or pain) Qty: 30 RF: 0 oxycodone 5 mg Tablet 5 mg PO Q8H PRN (Reason: severe pain (scale score 7-10)) Qty: 12 RF: 0 polyethylene glycol 3350 [Miralax] 17 gram Powder In Packet 17 g PO DAILY PRN (Reason: laxative effect) Qty: 30 RF: 0 melatonin 3 mg Tablet 3 mg PO HS Qty: 10 RF: 0 Continued allopurinol 100 mg tablet 100 mg PO QAM RF: 0 lorazepam 0.5 mg tablet 0.5 mg PO HS PRN (Reason: Agitation) RF: 0 carbidopa-levodopa 25-100 mg tablet 1 tab PO TID RF: 0 potassium chloride 10 mEq capsule, extended release 10 meq PO QAM RF: 0 furosemide 20 mg tablet 20 mg PO BID RF: 0 quetiapine 100 mg tablet See Rx Instructions .ROUTE .COMPLEX RF: 0 divalproex [Depakote ER] 500 mg tablet extended release 24 hr See Rx Instructions .ROUTE .COMPLEX RF: 0 gabapentin 100 mg capsule 100 mg PO TID RF: 0 Discontinued atorvastatin 10 mg tablet 10 mg PO QAM RF: 0 Discharge Orders: Discharge Order (Routine); Ordered 01/21/22 Ordered By: Edi Pride Admission Data Admit Date/Time: 01/19/22 01:13 Attending Provider: Edi Pride Admit Provider: Vargas Renteria Primary Care Provider: Gertrudis Johnson Other Providers: Vargas Renteria ; Corey Callaway ; [facility]
== END 2022-01-21 15:18 | DRG 683 ==
LOC: ED 19:35 → 2N 01-19 00:57

== ENCOUNTER 2023-09-17 12:44 | Inpatient (IN) ==
--- NOTE | 2023-09-17 12:51 | Emergency Department Note ---
Impression & Plan Acute on chronic heart failure, REMBERTO (acute kidney injury), Cellulitis, Hypoxia ED Provider Note NAME: PABLO COOPER AGE: 77 SEX: F : 1945 ARRIVES VIA: Ambulance INFORMANT: Patient, ED PROVIDER(S): Abner Perdomo MD CHIEF COMPLAINT: MEDICAL DECISION MAKING: Patient presents due to concern for weakness and hypoxia. IV was established blood was obtained along with blood cultures and patient was ordered Rocephin. CT was ordered given the reported slurred speech although the patient does not have any evidence of this on exam. Patient's blood work showed mild leukopenia with a normal hemoglobin and platelet count. CT head negative. Kidney function unremarkable but the patient's BNP was elevated. Chest x-ray does show concern for pulmonary edema and associated pleural effusions likely consistent with volume overload. Subsequently did speak with the inpatient medicine service and the patient was admitted by Dr. Perez. Critical Care: I have personally spent 35 minutes of critical care time in direct management of this patient. This includes bedside care, interpretation of diagnostic studies, and testing, discussion with consultants, patient, and family members, and other require inpatient management activities. This 35 minutes is in excess of all separately billable procedures. Discussion w/ other healthcare providers: Dr. Perez inpatient medicine service Prior /Outside records reviewed: I reviewed a discharge summary from Dr. Pride from January 21, 2022. The patient has a known history of chronic diastolic heart failure hypertension Parkinson's PE DVT on Coumadin therapy mood disorder restless legs. Patient had been seen at that time due to concern for fall without LOC. Differential diagnosis: Infection, dehydration, metabolic abnormality, hypo/hyperglycemia, electrolyte disturbance, anemia, hypoxia, cardiac sources, intracerebral event, toxicologic, neurologic, as well as other pathologies. Diagnostics, as interpreted by me: ECG: Normal sinus rhythm, rate 96, normal intervals, normal axis no ST elevations. Cardiac monitoring: An order was placed for continuous cardiac monitoring. The monitor shows a rate of 92 with sinus rhythm. Patient was placed on pulse oximetry Medical decision rules: None Imaging studies: I informally interpreted the patient's chest x-ray which shows pleural effusions and pulmonary edema with formal report to follow. HPI: Patient presents from [facility] due to concern for increasing weakness. There was report of a possible fall but the patient states that she was feeling as though she could not keep standing so she was lowered to her buttocks. The patient denies any head strike or LOC. The patient has had some increasing lower extremity edema and associated redness. Daughter also present bedside provides additional history noting that they were going to start the patient on antibiotics over the weekend. Patient was also being treated with an antifungal for a yeast infection noted over the abdomen. Patient denies any chest pains or significant shortness of breath. The patient is nonambulatory and primarily is in a wheelchair. The patient sleeps upright. Patient does admit that she does take a diuretic for the fluid in her legs. Additional history per nursing was that the patient was hypoxemic at 85% was placed on 6 L. Additional nursing reported that the patient has had increasing weakness and inability to participate in her ADLs. PAST MEDICAL HISTORY: See Below PAST SURGICAL HISTORY: See Below SOCIAL HISTORY: See Below HOME MEDICATIONS: See Below ALLERGIES: See Below VITALS: See Below PHYSICAL EXAMINATION: GENERAL: NAD, non-toxic. Wearing glasses, oxy mask in place. EYE EXAM: Normal conjunctiva. PERRL, no anisocoria and EOM's grossly intact w/o pain. OROPHARYNX: Moist mucus membranes, grossly normal dentition. NECK: Supple, no nuchal rigidity, no adenopathy, non-tender. No signs of meningismus. FROM of the neck with good chin to chest and neck extension. No stridor. LUNGS: Bibasilar crackles normal chest wall mechanics. HEART: NSR, no MRG. ABDOMEN: Abdomen soft, non-tender, no masses, no rebound or guarding. BACK: No CVA TTP. SKIN: Intertriginous rash noted to the pannus. UPPER EXTREMITIES: Upper extremities are grossly normal. LOWER EXTREMITIES: Lower extremity edema with associated erythema bilaterally that is blanching without crepitus or blistering which runs from the ankle to the mid inner thigh. NEURO EXAM: A&O x3, cranial nerves II-XII grossly intact, normal speech, moves all 4 extremities. Past Med/Surg History Medical History (Updated 09/20/23 @ 01:39 by Abner Perdomo MD) Chronic diastolic CHF (congestive heart failure) History of DVT (deep vein thrombosis) Bipolar disorder Parkinsons disease CKD (chronic kidney disease), stage III Hyperlipidemia Gout RLS (restless legs syndrome) History of pulmonary embolism Idiopathic peripheral neuropathy HTN (hypertension) Surgical History History of hernia repair Status post repair of paraesophageal diaphragmatic hernia History of partial hysterectomy History of uterine suspension procedure Family History Father Stomach cancer Social History Smoking Status: Never smoker Second Hand Exposure: No; Do You Dip or Chew Tobacco: No; Tobacco Cessation Education Requested by Patient: No Hx Alcohol Use: No Hx Substance Use: No Preferred Language: Yoruba Communication Ability: Effective Visual Impairment: Limited Hearing Ability: Hard of Hearing Proposition Player Required: No Beliefs That Will Affect Care: Jain Jain Beliefs: orthodox Current Living Situation: Care Home Current Living Situation Comment: Lives alone. Daughter visits and helps. Other Information That Helps Us Care for You: No Feels Safe at Home: Yes Safety Concerns: Feels Safe At This Time Assistive Devices: Glasses and Wheelchair Allergies Allergies Allergy/AdvReac Type Severity Reaction Status Date / Time indomethacin Allergy Intermediate RASH Verified 09/17/23 18:43 erythromycin base Allergy Unknown UNKNOWN Verified 09/17/23 18:43 levofloxacin AdvReac Intermediate Causes Verified 09/17/23 18:43 psychosis. Home Meds Home Medications Medication Instructions Recorded Confirmed allopurinol 100 mg tablet 100 mg PO QAM 09/08/18 09/17/23 carbidopa 25 mg-levodopa 100 mg 1 tab PO TID 09/08/18 09/17/23 tablet potassium chloride 10 mEq 10 meq PO QAM 10/16/19 09/17/23 capsule,extended release divalproex 500 mg tablet,extended See Rx Instructions .Route .COMPLEX 01/18/22 09/17/23 release 24 hr (Depakote ER) gabapentin 100 mg capsule 100 mg PO TID 01/18/22 09/17/23 quetiapine 100 mg tablet See Rx Instructions .Route .COMPLEX 01/18/22 09/17/23 acetaminophen 500 mg tablet 500 mg PO TID Pain management 09/17/23 09/17/23 atorvastatin 10 mg tablet 0 mg PO HS 09/17/23 09/17/23 bisacodyl 10 mg rectal suppository 10 mg KY DAILY PRN Constipation 09/17/23 09/17/23 (Dulcolax (bisacodyl)) doxycycline hyclate 100 mg tablet 100 mg PO BID 09/17/23 09/17/23 furosemide 40 mg tablet 80 mg PO QAM 09/17/23 09/17/23 magnesium hydroxide 400 mg/5 mL 2,400 mg PO DAILY PRN Constipation 09/17/23 09/17/23 oral suspension (Milk of Magnesia) [id number]-nevtyxre-ajcynt 1 tab PO DAILY 09/17/23 09/17/23 tablet (Multivitamin 50 Plus tablet) nystatin 100,000 unit/gram topical 1 applic topical BID 09/17/23 09/17/23 powder (Nyamyc) pantoprazole 40 mg tablet,delayed 40 mg PO DAILY 09/17/23 09/17/23 release sodium phosphates 19 gram-7 118 ml KY DAILY PRN Constipation 09/17/23 09/17/23 gram/118 mL enema (Fleet Enema) Previous Rx's Medication Instructions Recorded acetaminophen 325 mg tablet 650 mg (2 x 325 mg) PO Q6H PRN 01/21/22 fever or pain #30 tabs Results & Data (ED) Vital Signs Vital Signs - 24 hr 09/17/23 12:41 09/17/23 12:41 09/17/23 12:41 Temperature 36.8 C 36.8 C Temperature Source Oral Oral Pulse Rate 99 H Pulse Rate [Bilateral] 99 H Respiratory Rate 18 20 Blood Pressure 115/67 Blood Pressure [Right Arm] 115/67 Blood Pressure Mean 83 Blood Pressure Mean [Right Arm] 83 Pulse Oximetry 84 L 84 L 90 Oxygen Delivery Method Room Air Room Air Nasal Cannula Oxygen Flow Rate 0 6 Fraction of Inspired Oxygen 0 Sepsis Recent Fever Within 48 Hours No Sepsis New/Unexplained Change in Mental Status No Sepsis Action Taken by Nursing No Action Required Oxygen Flow Rate - Titration 6 Pulse Oximetry Post Tiitration 91 09/17/23 12:54 Temperature Temperature Source Pulse Rate 97 H Pulse Rate [Bilateral] Respiratory Rate Blood Pressure Blood Pressure [Right Arm] Blood Pressure Mean Blood Pressure Mean [Right Arm] Pulse Oximetry Oxygen Delivery Method Oxygen Flow Rate Fraction of Inspired Oxygen Sepsis Recent Fever Within 48 Hours Sepsis New/Unexplained Change in Mental Status Sepsis Action Taken by Nursing Oxygen Flow Rate - Titration Pulse Oximetry Post Tiitration Home Medications Current Medication List: was personally reviewed by me Laboratory Data Attestation: I reviewed the patient's lab results. 09/19/23 05:36 09/19/23 05:36 Lab Results 09/17/23 09/17/23 Range/Units 13:02 15:13 WBC 4.10 L (4.8-10.8) K/ul RBC 3.97 L (4.20-5.40) M/uL Hgb 12.1 (12.0-16.0) g/dl Hct 38.1 (37.0-47.0) % MCV 96.0 (80.0-100.0) fL MCH 30.5 (25.0-34.0) pg MCHC 31.8 L (32.0-36.0) g/dL RDW Std Deviation 63.9 H (36.4-46.3) fL RDW Coeff of Alex 18.0 H (11.5-14.5) % Plt Count 309 (130-400) K/uL MPV 8.8 L (9.4-12.4) fL Immature Gran % (Auto) 0.7 % Neut % (Auto) 53.3 % Lymph % (Auto) 26.3 % Barton % (Auto) 11.2 % Eos % (Auto) 7.8 % Baso % (Auto) 0.7 % Neut # (Auto) 2.18 (1.40-6.50) K/uL Lymph # (Auto) 1.08 L (1.20-3.40) K/uL Barton # (Auto) 0.46 (0.11-0.59) K/uL Eos # (Auto) 0.32 (0.00-0.50) K/uL Baso # (Auto) 0.03 (0.00-0.20) K/uL Immature Gran # (Auto) 0.03 (0.01-0.20) K/uL Sodium 141 (136-145) mmol/L Potassium 4.1 (3.5-5.1) mmol/L Chloride 101 (98-107) mmol/L Carbon Dioxide 33 H (21-32) mmol/L Anion Gap 7 (3-11) BUN 27 H (6-23) mg/dl Creatinine 1.94 H (0.6-1.2) mg/dl Est Cr Clr Drug Dosing 30.3 ml/min Est GFR ( Amer) 28.2 ml/min Est GFR (Non-Af Amer) 24.4 ml/min BUN/Creatinine Ratio 13.9 (10-20) Glucose 81 (70-99(Fasting)) mg/dl Calcium 9.0 (8.6-10.3) mg/dl Magnesium 2.3 (1.7-2.4) mg/dl Total Bilirubin 0.4 (0.2-1.0) mg/dl AST 18 (13-39) U/L ALT < 3 L (7-52) U/L Alkaline Phosphatase 63 (34-104) U/L Troponin I High Sens 6.9 (0-14) pg/ml B-Natriuretic Peptide 168 H (0-100) pg/ml Total Protein 8.0 (6.0-8.3) gm/dl Albumin 3.2 L (3.4-5.0) gm/dl Globulin 4.8 H (2.5-4.0) gm/dl Albumin/Globulin Ratio 0.7 L (0.9-2) Procalcitonin 0.05 (0-0.5) ng/ml TSH 1.944 (0.300-4.500) uIu/ml Urine Color Yellow Urine Appearance Clear (Clear) Urine pH 7.0 (4.5-7.5) Ur Specific Elliott 1.009 (1.000-1.030) Urine Protein Negative (Negative) Urine Glucose (UA) Negative (Negative) Urine Ketones Negative (Negative) Urine Blood Negative (Negative) Urine Nitrite Negative (Negative) Urine Bilirubin Negative (Negative) Urine Urobilinogen Negative (Negative) Ur Leukocyte Esterase Negative (Negative) Administered Medications Albuterol (Albut/Ipratrop 3mg/0.5mg Neb 3 Ml Vial) 3 ml NEB QIDR [facility]; Protocol Stop: 10/19/23 08:34 Last Admin: 09/19/23 19:21 Dose: 3 ml Documented By: Admin: 09/19/23 14:24 Dose: 3 ml Documented By: Admin: 09/19/23 12:04 Dose: 3 ml Documented By: Admin: 09/19/23 09:41 Dose: Not Given Documented By: VINOD Allopurinol (Allopurinol 100 Mg Tab) 100 mg PO [facility] Stop: 10/18/23 08:59 Last Admin: 09/19/23 08:14 Dose: 100 mg Documented By: Admin: 09/18/23 09:08 Dose: 100 mg Documented By: MARIBEL Atorvastatin Calcium (Atorvastatin 10 Mg Tab) 0 mg PO [facility] Stop: 10/17/23 20:59 Last Admin: 09/19/23 20:51 Dose: 10 mg Documented By: Admin: 09/18/23 20:33 Dose: Not Given Documented By: Admin: 09/17/23 21:57 Dose: Not Given Documented By: SU Carbidopa/Levodopa (Carbidopa/Levodopa 25/100mg Tab) 1 tab PO TID@0800,1400,2100 [facility] Stop: 10/17/23 20:59 Last Admin: 09/19/23 20:09 Dose: 1 tab Documented By: Admin: 09/19/23 14:14 Dose: 1 tab Documented By: Admin: 09/19/23 08:14 Dose: 1 tab Documented By: Admin: 09/18/23 20:23 Dose: 1 tab Documented By: Admin: 09/18/23 14:33 Dose: 1 tab Documented By: Admin: 09/18/23 09:09 Dose: 1 tab Documented By: Admin: 09/17/23 21:55 Dose: 1 tab Documented By: SU Divalproex Sodium (Divalproex Extended Release 500 Mg Tab) 1,000 mg PO [facility] Stop: 10/17/23 20:59 Last Admin: 09/19/23 20:09 Dose: 1,000 mg Documented By: Admin: 09/18/23 20:23 Dose: 1,000 mg Documented By: Admin: 09/17/23 21:55 Dose: 1,000 mg Documented By: SU Divalproex Sodium (Divalproex Extended Release 500 Mg Tab) 500 mg PO QAM [facility] Stop: 10/18/23 08:59 Last Admin: 09/19/23 08:14 Dose: 500 mg Documented By: Admin: 09/18/23 09:07 Dose: 500 mg Documented By: MARIBEL Gabapentin (Gabapentin 100 Mg Cap) 100 mg PO TID [facility] Stop: 10/17/23 20:59 Last Admin: 09/19/23 20:09 Dose: 100 mg Documented By: Admin: 09/19/23 15:59 Dose: 100 mg Documented By: Admin: 09/19/23 08:14 Dose: 100 mg Documented By: Admin: 09/18/23 20:25 Dose: 100 mg Documented By: Admin: 09/18/23 14:33 Dose: 100 mg Documented By: Admin: 09/18/23 09:08 Dose: 100 mg Documented By: Admin: 09/17/23 21:56 Dose: 100 mg Documented By: SU Heparin Sodium (Porcine) (Heparin Sod 5,000 Unit/0.5 Ml Vial) 7,500 units SQ Q8 [facility] Stop: 10/17/23 21:59 Last Admin: 09/19/23 20:08 Dose: 7,500 units Documented By: Admin: 09/19/23 14:15 Dose: 7,500 units Documented By: Admin: 09/19/23 05:55 Dose: 7,500 units Documented By: [facility] Admin: 09/18/23 20:26 Dose: 7,500 units Documented By: [facility] Admin: 09/18/23 14:34 Dose: 7,500 units Documented By: [facility] Admin: 09/18/23 05:56 Dose: 7,500 units Documented By: [facility] Admin: 09/17/23 21:57 Dose: 7,500 units Documented By: SU Ceftriaxone Sodium 2,000 mg/ (Dextrose) 50 mls @ 100 mls/hr IV Q24H [facility]; Protocol Stop: 09/22/23 13:59 Last Infusion: 09/19/23 14:56 Dose: Infused Documented By: Admin: 09/19/23 14:13 Dose: 100 mls/hr Documented By: Infusion: 09/18/23 15:05 Dose: Infused Documented By: [facility] Admin: 09/18/23 14:34 Dose: 100 mls/hr Documented By: MARIBEL Doxycycline Hyclate 100 mg/ (Dextrose) 100 mls @ 50 mls/hr IV Q12H [facility] Stop: 09/26/23 08:59 Last Infusion: 09/19/23 22:03 Dose: Infused Documented By: Admin: 09/19/23 20:08 Dose: 50 mls/hr Documented By: Infusion: 09/19/23 11:48 Dose: Infused Documented By: Admin: 09/19/23 09:20 Dose: 50 mls/hr Documented By: SHAYY Miconazole Nitrate (Miconazole Nitrate Powder 85 Gm) 1 appln EXT BID [facility] Stop: 10/17/23 20:59 Last Admin: 09/19/23 20:52 Dose: 1 appln Documented By: Admin: 09/19/23 08:47 Dose: 1 appln Documented By: Admin: 09/18/23 20:26 Dose: 1 appln Documented By: Admin: 09/18/23 09:09 Dose: 1 appln Documented By: Admin: 09/17/23 21:56 Dose: 1 appln Documented By: SU Pantoprazole Sodium (Pantoprazole 40 Mg Tab) 40 mg PO DAILY [facility] Stop: 10/18/23 08:59 Last Admin: 09/19/23 08:14 Dose: 40 mg Documented By: Admin: 09/18/23 09:08 Dose: 40 mg Documented By: MARIBEL Quetiapine Fumarate (Quetiapine Fumarate 100 Mg Tablet) 100 mg PO QAM [facility] Stop: 10/18/23 08:59 Last Admin: 09/19/23 08:14 Dose: 100 mg Documented By: Admin: 09/18/23 09:08 Dose: 100 mg Documented By: MARIBEL Quetiapine Fumarate (Quetiapine Fumarate 300 Mg Tablet) 300 mg PO HS [facility] Stop: 10/17/23 20:59 Last Admin: 09/19/23 20:09 Dose: 300 mg Documented By: Admin: 09/18/23 20:25 Dose: 300 mg Documented By: Admin: 09/17/23 21:56 Dose: 300 mg Documented By: SU Discontinued Medications Furosemide (Furosemide 40 Mg/4 Ml Vial) 40 mg IV ONE ONE Stop: 09/17/23 15:22 Last Admin: 09/17/23 15:30 Dose: 40 mg Documented By: Furosemide (Furosemide 40 Mg/4 Ml Vial) 40 mg IV BID17 [facility] Stop: 10/17/23 18:29 Last Admin: 09/17/23 19:09 Dose: 40 mg Documented By: SU Furosemide (Furosemide 40 Mg/4 Ml Vial) 40 mg IV BID17 [facility] Stop: 10/18/23 08:59 Last Admin: 09/19/23 08:14 Dose: 40 mg Documented By: Admin: 09/18/23 17:42 Dose: 40 mg Documented By: Admin: 09/18/23 09:07 Dose: 40 mg Documented By: MARIBEL Hydromorphone HCl (Hydromorphone Inj 0.5 Mg/0.5 Ml Syr) 0.25 mg IV NOW STA Stop: 09/17/23 16:25 Last Admin: 09/17/23 17:21 Dose: 0.25 mg Documented By: Ceftriaxone Sodium (Rocephin) 2,000 mg in 50 mls @ 100 mls/hr IV NOW STA Stop: 09/17/23 13:50 Last Infusion: 09/17/23 15:11 Dose: Infused Documented By: Admin: 09/17/23 14:31 Dose: 100 mls/hr Documented By: AB Potassium Chloride (Potassium Chloride 10 Meq Tabcr) 10 meq PO QAM [facility] Stop: 10/18/23 08:59 Last Admin: 09/19/23 08:14 Dose: 10 meq Documented By: Admin: 09/18/23 09:08 Dose: 10 meq Documented By: MARIBEL Imaging Data Radiologist's Impression: Head CT 09/17/23 13:21 CT SCAN OF THE BRAIN WITHOUT IV CONTRAST CLINICAL HISTORY: Slurred speech. COMPARISON STUDY: CT of the brain dated 01/18/2022. TECHNIQUE: Unenhanced axial CT scan of the brain is performed from the vertex to the skull base. A dose lowering technique was utilized adhering to the principles of ALARA. CT DOSE: 625.8 mGy.cm FINDINGS: Brain parenchyma: There is age-related involutional change noting moderate subcortical and periventricular microangiopathic disease. There is no hemorrhage, mass effect, or evidence of acute territorial ischemia by CT criteria. Costa-white matter differentiation is preserved. No extra-axial fluid collection is seen. Ventricles, sulci, cisterns: Prominent secondary to involutional change. Intracranial vasculature: There is atherosclerotic calcification of the cavernous carotid and vertebral arteries. Calvarium: Unremarkable. Soft tissues: There are numerous calcified sialoliths within the left parotid gland. Sinuses and mastoids: The paranasal sinuses are clear. The mastoid air cells are well pneumatized. Orbits: The bony orbits are grossly intact. IMPRESSION: There is no hemorrhage, mass effect, or evidence of acute territorial ischemia by CT criteria. ACT 112: Negative or not required by law. Electronically signed by: Lenny Ramirez M.D. 09/17/2023 2:30 PM Chest X-Ray 09/17/23 13:22 SINGLE VIEW CHEST CLINICAL HISTORY: Dyspnea FINDINGS: An AP, portable, upright chest radiograph is compared to study dated 01/18/2022. Correlation is made with chest CT dated 06/06/2018. The heart is enlarged noting atherosclerotic calcification of the thoracic into. There is pulmonary vascular congestion or small pleural effusions with dependent consolidation. No pneumothorax is seen. The skeletal structures are osteopenic. The bony thorax is grossly intact. IMPRESSION: 1. Cardiomegaly with evidence of congestive failure. 2. Small pleural effusions with dependent consolidation. 3. Suspicious groundglass lesions seen by CT on 06/06/2018 are not visualized by x-ray. ACT 112: Negative or not required by law. Electronically signed by: Lenny Ramirez M.D. 09/17/2023 3:11 PM Venous Doppler Study 09/17/23 16:20 ULTRASOUND BILATERAL LOWER EXTREMITY VENOUS CLINICAL HISTORY: Lower extremity edema. COMPARISON STUDY: Bilateral lower extremity venous ultrasound dated 11/02/2019. TECHNIQUE: Real-time, grayscale, and color Doppler sonography of the deep veins of the right and left lower extremity was performed from the inguinal crease to the calf. Compression and augmentation were utilized. FINDINGS: There is no sonographic evidence of deep venous thrombosis identified in the right or left lower extremity. The common femoral, superficial femoral, and popliteal veins are patent and normally compressible bilaterally. The greater saphenous vein and the profunda femoris vein at the junction with the common femoral vein are clear in both legs. The visualized calf veins are patent bilaterally. Soft tissue edema is present in the calves. IMPRESSION: There is no sonographic evidence of deep venous thrombosis identified in the right or left lower extremity. ACT 112: Negative or not required by law. Electronically signed by: Lenny Ramirez M.D. 09/17/2023 6:09 PM Discharge Plan Visit Data Chief Complaint: Weakness Stated Complaint: WEAKNESS, HYPOXIA, ED Provider: Abner Perdomo Discharge Problem: Acute on chronic heart failure, REMBERTO (acute kidney injury), Cellulitis, Hypoxia Patient Disposition: Admitted As Inpatient Discharge Instructions Interventions: ED Discharge Assessment Last Done: 09/17/23 17:37 Discharge Problem: Acute on chronic heart failure Qualifiers: Heart failure type: unspecified Qualified Code(s): I50.9 - Heart failure, unspecified Cellulitis Qualifiers: Site of cellulitis: extremity Site of cellulitis of extremity: lower extremity Laterality: unspecified laterality Qualified Code(s): L03.119 - Cellulitis of unspecified part of limb
[2023-09-17] MEDS ORDERED: cefTRIAXone SODIUM 2,000 MG/50 ML BAG IV STA (13:21)
[2023-09-17 13:41] LABS: Basophils # (auto) 0.03 K/uL (0.00-0.20); Basophils % (auto) 0.7 %; Eosinophils # (auto) 0.32 K/uL (0.00-0.50); Eosinophils % (auto) 7.8 %; Hematocrit (blood only) 38.1 % (37.0-47.0); Hemoglobin 12.1 g/dl (12.0-16.0); Immature Granulocytes # (auto) 0.03 K/uL (0.01-0.20); Immature Granulocytes % (auto) 0.7 %; Lymphocytes # (auto) 1.08 K/uL (1.20-3.40); Lymphocytes % (auto) 26.3 %; Mean Corpuscular Hemoglobin 30.5 pg (25.0-34.0); Mean Corpuscular Hgb Conc 31.8 g/dL (32.0-36.0); Mean Platelet Volume 8.8 fL (9.4-12.4); Monocytes # (auto) 0.46 K/uL (0.11-0.59); Monocytes % (auto) 11.2 %; Neutrophils # (auto) 2.18 K/uL (1.40-6.50); Neutrophils % (auto) 53.3 %; Platelet Count 309 K/uL (130-400); RDW Standard Deviation 63.9 fL (36.4-46.3); Red Blood Count 3.97 M/uL (4.20-5.40)
[2023-09-17 14:01] LABS: Anion Gap 7 (3-11); BUN Creatinine Ratio 13.9 (10-20); Blood Urea Nitrogen 27 mg/dl (6-23); Carbon Dioxide 33 mmol/L (21-32); Chloride 101 mmol/L (98-107); Creatinine Clr Calc Pharmacy 30.3 ml/min; Est GFR (African American) 28.2 ml/min; Est GFR (Non-African American) 24.4 ml/min; Glucose 81 mg/dl (70-99(Fasting)); Potassium 4.1 mmol/L (3.5-5.1); Sodium 141 mmol/L (136-145)
[2023-09-17 14:02] LABS: Troponin I High Sensitivity 6.9 pg/ml (0-14)
[2023-09-17 14:12] LABS: Thyroid Stimulating Hormone 1.944 uIu/ml (0.300-4.500)
[2023-09-17 14:23] LABS: Alanine Aminotransferase < 3 U/L (7-52); Albumin Globulin Ratio 0.7 (0.9-2); Albumin Level 3.2 gm/dl (3.4-5.0); Alkaline Phosphatase 63 U/L (34-104); Aspartate Aminotransferase 18 U/L (13-39); Bilirubin,Total 0.4 mg/dl (0.2-1.0); Globulin 4.8 gm/dl (2.5-4.0); Magnesium 2.3 mg/dl (1.7-2.4)
--- NOTE | 2023-09-17 14:31 | CT Scan Report ---
CT SCAN OF THE BRAIN WITHOUT IV CONTRAST CLINICAL HISTORY: Slurred speech. COMPARISON STUDY: CT of the brain dated 01/18/2022. TECHNIQUE: Unenhanced axial CT scan of the brain is performed from the vertex to the skull base. A do se lowering technique was utilized adhering to the principles of ALARA. CT DOSE: 625.8 mGy.cm FINDINGS: Brain parenchyma: There is age-related involutional change noting moderate subcortical and periventri cular microangiopathic disease. There is no hemorrhage, mass effect, or evidence of acute territorial ischemia by CT criteria. Costa-white matter differentiation is preserved. No extra-axial fluid collec tion is seen. Ventricles, sulci, cisterns: Prominent secondary to involutional change. Intracranial vasculature: There is atherosclerotic calcification of the cavernous carotid and vertebr al arteries. Calvarium: Unremarkable. Soft tissues: There are numerous calcified sialoliths within the left parotid gland. Sinuses and mastoids: The paranasal sinuses are clear. The mastoid air cells are well pneumatized. Orbits: The bony orbits are grossly intact. IMPRESSION: There is no hemorrhage, mass effect, or evidence of acute territorial ischemia by CT dilcia zhao. ACT 112: Negative or not required by law. Electronically signed by: Lenny Ramirez M.D. 09/17/2023 2:30 PM
--- NOTE | 2023-09-17 15:12 | XRay Report ---
SINGLE VIEW CHEST CLINICAL HISTORY: Dyspnea FINDINGS: An AP, portable, upright chest radiograph is compared to study dated 01/18/2022. Correlation is made with chest CT dated 06/06/2018. The heart is enlarged noting atherosclerotic calcification of the thoracic into. There is pulmonary vascular congestion or small pleural effusions with dependent c onsolidation. No pneumothorax is seen. The skeletal structures are osteopenic. The bony thorax is blossom ssly intact. IMPRESSION: 1. Cardiomegaly with evidence of congestive failure. 2. Small pleural effusions with dependent consolidation. 3. Suspicious groundglass lesions seen by CT on 06/06/2018 are not visualized by x-ray. ACT 112: Negative or not required by law. Electronically signed by: Lenny Ramirez M.D. 09/17/2023 3:11 PM
[2023-09-17] MEDS ORDERED: FUROSEMIDE 40 MG/4 ML VIAL IV ONE (15:21)
[2023-09-17 15:28] LABS: Appearance Urine Clear (Clear); Bilirubin Urine Negative (Negative); Blood Urine Negative (Negative); Color Urine Yellow; Glucose Urine UA Negative (Negative); Ketones Urine Negative (Negative); Leukocyte Esterase Urine Negative (Negative); Nitrite Urine Negative (Negative); Protein Urine Negative (Negative); Specific Gravity Urine 1.009 (1.000-1.030); Urobilinogen Urine Negative (Negative)
--- NOTE | 2023-09-17 15:42 | Electrocardiogram Report ---
Test Reason : Blood Pressure : / mmHG Vent. Rate : 096 BPM Atrial Rate : 096 BPM P-R Int : 164 ms QRS Dur : 086 ms QT Int : 354 ms P-R-T Axes : 019 -05 048 degrees QTc Int : 447 ms Normal sinus rhythm Low voltage QRS Inferior infarct (cited on or before 18-JAN-2022) Abnormal ECG When compared with ECG of 18-JAN-2022 20:02, QRS axis Shifted right Criteria for Lateral infarct are no longer Present Questionable change in initial forces of Inferior leads ST now depressed in Lateral leads Confirmed by Catrachito Dominguez ([id number]) on 09/17/2023 3:42:16 PM Referred By: [facility] Confirmed By:Catrachito Dominguez
--- NOTE | 2023-09-17 16:05 | History & Physical Report ---
Date of Service September 17, 2023 Assessment & Plan (1) Acute on chronic heart failure: Plan: Place gallego catheter on admission Lasix 40mg IV BID Strict I&Os Daily weights Low Na diet TTE (2) REMBERTO (acute kidney injury): Plan: Suspect due to poor effective forward flow from heart failure Should improve with diuresis (3) Hypoxia: Plan: Aim O2 sats > 90% Secondary to CHF as above (4) Cellulitis: Plan: Difficult to rule out since she has been on doxycycline possible partially treating and infection WBC and procalcitonin normal Follow up blood cultures High risk given significant tinea -> start miconazole powder BID Recommend short course of ceftriaxone for 5 days to cover for cellulitis (5) Leg edema: Plan: Bilateral venous dopplers to r/o DVT (6) Parkinsons disease: Plan: Continue Sinemet (7) Bipolar disorder: Plan: Continue her usual routine medications Plan VTE Prophylaxis - heparin 7500 units SQ q8h Diet - heart healthy, Low Na, fluids restricted Disposition - admit to med/tele Admission and Anticipated Discharge Date Admission Date: September 17, 2023 History of Present Illness Chief Complaint: Bilateral leg swelling Primary Care Provider: [facility] Katie Graves is a 77 year old female who presents to the ER via EMS from [place] [facility] due to hypoxia and increased weakness. Unable to get much history from the patient due to underlying cognitive issues. Patient using the bathroom and slid off toilet to floor around midnight. Staff notes some slurred speech/lisp this morning that has since cleared. She was found to be hypoxic therefore sent to the ER for evaluation. Patient usual able to help with ADLs but significant weakness today. O2 sats 80's on room air when EMS arrived. Currently on treatment for b/l LE cellulitis with doxycycline - possible improvement per patient. She denies any shortness of breath, chest pain, nasal congestion, cough, sinus pain. Allergies Allergy/AdvReac Type Severity Reaction Status Date / Time indomethacin Allergy Intermediate RASH Verified 09/17/23 18:43 erythromycin base Allergy Unknown UNKNOWN Verified 09/17/23 18:43 levofloxacin AdvReac Intermediate Causes Verified 09/17/23 18:43 psychosis. Home Medications Medication Instructions Recorded Confirmed Type allopurinol 100 mg tablet 100 mg PO QAM 09/08/18 09/17/23 History carbidopa 25 mg-levodopa 100 mg 1 tab PO TID 09/08/18 09/17/23 History tablet potassium chloride 10 mEq 10 meq PO QAM 10/16/19 09/17/23 History capsule,extended release divalproex 500 mg tablet,extended See Rx Instructions .Route .COMPLEX 01/18/22 09/17/23 History release 24 hr (Depakote ER) gabapentin 100 mg capsule 100 mg PO TID 01/18/22 09/17/23 History quetiapine 100 mg tablet See Rx Instructions .Route .COMPLEX 01/18/22 09/17/23 History acetaminophen 325 mg tablet 650 mg (2 x 325 mg) PO Q6H PRN 01/21/22 09/17/23 Rx fever or pain #30 tabs acetaminophen 500 mg tablet 500 mg PO TID Pain management 09/17/23 09/17/23 History atorvastatin 10 mg tablet 0 mg PO HS 09/17/23 09/17/23 History bisacodyl 10 mg rectal suppository 10 mg OR DAILY PRN Constipation 09/17/23 09/17/23 History (Dulcolax (bisacodyl)) doxycycline hyclate 100 mg tablet 100 mg PO BID 09/17/23 09/17/23 History furosemide 40 mg tablet 80 mg PO QAM 09/17/23 09/17/23 History magnesium hydroxide 400 mg/5 mL 2,400 mg PO DAILY PRN Constipation 09/17/23 09/17/23 History oral suspension (Milk of Magnesia) bawbuxrplnom-aforzoyy-tzauov 1 tab PO DAILY 09/17/23 09/17/23 History tablet (Multivitamin 50 Plus tablet) nystatin 100,000 unit/gram topical 1 applic topical BID 09/17/23 09/17/23 History powder (Nyamyc) pantoprazole 40 mg tablet,delayed 40 mg PO DAILY 09/17/23 09/17/23 History release sodium phosphates 19 gram-7 118 ml OR DAILY PRN Constipation 09/17/23 09/17/23 History gram/118 mL enema (Fleet Enema) Past Med/Surg History Medical History (Updated 09/18/23 @ 06:48 by Jong Perez MD) Chronic diastolic CHF (congestive heart failure) History of DVT (deep vein thrombosis) Bipolar disorder Parkinsons disease CKD (chronic kidney disease), stage III Hyperlipidemia Gout RLS (restless legs syndrome) History of pulmonary embolism Idiopathic peripheral neuropathy HTN (hypertension) Surgical History History of hernia repair Status post repair of paraesophageal diaphragmatic hernia History of partial hysterectomy History of uterine suspension procedure Family History Father Stomach cancer Social History Smoking Status: Never smoker Second Hand Exposure: No; Do You Dip or Chew Tobacco: No; Hx Alcohol Use: No Hx Substance Use: No Preferred Language: Chilean Communication Ability: Effective Visual Impairment: Limited Hearing Ability: Hard of Hearing Oil Heaterman Required: No Beliefs That Will Affect Care: Zoroastrianism Zoroastrianism Beliefs: yazdanism Current Living Situation: [facility] Current Living Situation Comment: Lives alone. Daughter visits and helps. Feels Safe at Home: Yes Assistive Devices: Glasses Review of Systems Review of Systems: All systems reviewed & are unremarkable except as noted in HPI & below Physical Exam Constitutional: well developed; + not well nourished and no acute distress Eyes: PERRL, conjunctivae normal, anicteric sclerae ENMT: external ear and nose normal, oropharynx normal Neck: + short neck and + thick neck Respiratory: normal respiratory effort; no respiratory distress Auscultation: + crackles (bibasal posteriorly); breath sounds present, no diminished lung sounds, no rales, no rhonchi and no wheezes Cardiovascular: Rate/Rhythm: regular rate and regular rhythm Heart Sounds: no murmur Extremities: normal capillary refill, + calf tenderness and + pedal edema (3+ b/l equal) Gastrointestinal (Abdomen): normal bowel sounds, soft, nontender, no hepatosplenomegaly Musculoskeletal: no cyanosis or clubbing, extremities motor strength 5/5 Skin: Erythema and swelling in bilateral lower extremities in similar distribution from ankles to medial thighs, brighter on right than left side Neurologic: moves all extremities and awake; not confused Psychiatric: Orientation: alert, oriented to person and oriented to place; + not oriented to time Genitourinary: no CVA tenderness Results & Data Results & Data Vital Signs (Past 12 Hours) Vital Signs Temp Pulse Pulse Pulse Resp BP BP 09/17/23 15:11 95 H 25 H 138/73 09/17/23 12:54 97 H 09/17/23 12:41 36.8 C 99 H 20 115/67 09/17/23 12:41 09/17/23 12:41 36.8 C 99 H 18 115/67 Pulse Ox O2 Del Method O2 Flow Rate FiO2 09/17/23 15:11 98 Oxymask 4 09/17/23 12:54 09/17/23 12:41 90 Nasal Cannula 6 09/17/23 12:41 84 L Room Air 0 0 09/17/23 12:41 84 L Room Air Laboratory Results Abnormal lab results 09/17/23 Range/Units 13:02 WBC 4.10 L (4.8-10.8) K/ul RBC 3.97 L (4.20-5.40) M/uL MCHC 31.8 L (32.0-36.0) g/dL RDW Std Deviation 63.9 H (36.4-46.3) fL RDW Coeff of Alex 18.0 H (11.5-14.5) % MPV 8.8 L (9.4-12.4) fL Lymph # (Auto) 1.08 L (1.20-3.40) K/uL Carbon Dioxide 33 H (21-32) mmol/L BUN 27 H (6-23) mg/dl Creatinine 1.94 H (0.6-1.2) mg/dl ALT < 3 L (7-52) U/L B-Natriuretic Peptide 168 H (0-100) pg/ml Albumin 3.2 L (3.4-5.0) gm/dl Globulin 4.8 H (2.5-4.0) gm/dl Albumin/Globulin Ratio 0.7 L (0.9-2) Diagnostic Findings CT SCAN OF THE BRAIN WITHOUT IV CONTRAST CLINICAL HISTORY: Slurred speech. COMPARISON STUDY: CT of the brain dated 01/18/2022. TECHNIQUE: Unenhanced axial CT scan of the brain is performed from the vertex to the skull base. A dose lowering technique was utilized adhering to the principles of ALARA. CT DOSE: 625.8 mGy.cm FINDINGS: Brain parenchyma: There is age-related involutional change noting moderate subcortical and periventricular microangiopathic disease. There is no hemorrhage, mass effect, or evidence of acute territorial ischemia by CT criteria. Costa-white matter differentiation is preserved. No extra-axial fluid collection is seen. Ventricles, sulci, cisterns: Prominent secondary to involutional change. Intracranial vasculature: There is atherosclerotic calcification of the cavernous carotid and vertebral arteries. Calvarium: Unremarkable. Soft tissues: There are numerous calcified sialoliths within the left parotid gland. Sinuses and mastoids: The paranasal sinuses are clear. The mastoid air cells are well pneumatized. Orbits: The bony orbits are grossly intact. IMPRESSION: There is no hemorrhage, mass effect, or evidence of acute territorial ischemia by CT criteria. SINGLE VIEW CHEST CLINICAL HISTORY: Dyspnea FINDINGS: An AP, portable, upright chest radiograph is compared to study dated 01/18/2022. Correlation is made with chest CT dated 06/06/2018. The heart is enlarged noting atherosclerotic calcification of the thoracic into. There is pul monary vascular congestion or small pleural effusions with dependent consolidation. No pneumothorax is seen. The skeletal structures are osteopenic. The bony thorax is grossly intact. IMPRESSION: 1. Cardiomegaly with evidence of congestive failure. 2. Small pleural effusions with dependent consolidation. 3. Suspicious groundglass lesions seen by CT on 06/06/2018 are not visualized by x-ray. Medications Administered ER Medications Given: Ceftriaxone 2000mg IV Furosemide 40mg IV ECG Rate (beats per minute): 96 Rhythm: normal sinus Findings: + other (QRS axis shifted right); no acute ischemic change Change: the following changes noted (ST depressed in lateral leads) Code Status & VTE Plan Code Status DNR/DNI per patient wishes - notably has form for full resuscitation for [place] [facility] therefore recommend she re-evaluates this VTE Prophylaxis Plan VTE Prophylaxis will be ordered: Yes PG Care Time/CCT Total # of Minutes Spent Total Time Spent with Patient: Total time spent is greater than 50% in coordination of care (as documented) at patient's floor/unit and/or counseling patient: Coding Level of Care Code 51178 INT INP/OBS CARE 3/75MIN Diagnoses Acute on chronic heart failure I50.9 REMBERTO (acute kidney injury) N17.9 Hypoxia R09.02 Cellulitis L03.90 Leg edema R60.0 Parkinsons disease G20 Bipolar affective disorder, currently manic, severe, with psychotic features F31.2 Active/Remission status: currently active Current bipolar episode type: manic Current episode severity: severe Psychotic features: with psychotic features (7) Bipolar disorder Active/Remission status: currently active Current bipolar episode type: manic Current episode severity: severe Psychotic features: with psychotic features Qualified Code(s): F31.2 - Bipolar disorder, current episode manic severe with psychotic features
[2023-09-17] MEDS ORDERED: HYDROmorphone INJ 0.5 MG/0.5 ML SYR IV STA (16:24)
[2023-09-17] MEDS ORDERED: ACETAMINOPHEN 325 MG TAB PO PRN (17:37)
--- NOTE | 2023-09-17 18:11 | Ultrasound Report ---
ULTRASOUND BILATERAL LOWER EXTREMITY VENOUS CLINICAL HISTORY: Lower extremity edema. COMPARISON STUDY: Bilateral lower extremity venous ultrasound dated 11/02/2019. TECHNIQUE: Real-time, grayscale, and color Doppler sonography of the deep veins of the right and left lower extremity was performed from the inguinal crease to the calf. Compression and augmentation wer e utilized. FINDINGS: There is no sonographic evidence of deep venous thrombosis identified in the right or left lower extremity. The common femoral, superficial femoral, and popliteal veins are patent and normally compressible bilaterally. The greater saphenous vein and the profunda femoris vein at the junction w ith the common femoral vein are clear in both legs. The visualized calf veins are patent bilaterally. Soft tissue edema is present in the calves. IMPRESSION: There is no sonographic evidence of deep venous thrombosis identified in the right or lef t lower extremity. ACT 112: Negative or not required by law. Electronically signed by: Lenny Ramirez M.D. 09/17/2023 6:09 PM
[2023-09-17] MEDS ORDERED: FUROSEMIDE 40 MG/4 ML VIAL IV SCH (18:30)
[2023-09-17] MEDS: DIVALPROEX EXTENDED RELEASE 500 MG TAB PO SCH (21:55)
[2023-09-17] MEDS: CARBIDOPA/LEVODOPA 25/100MG TAB PO SCH (21:55)
[2023-09-17] MEDS: MICONAZOLE NITRATE POWDER 85 GM EXT SCH (21:56)
[2023-09-17] MEDS: QUEtiapine FUMARATE 300 MG TABLET PO SCH (21:56)
[2023-09-17] MEDS: GABAPENTIN 100 MG CAP PO SCH (21:56)
[2023-09-17] MEDS: HEPARIN SOD 5,000 UNIT/0.5 ML VIAL SQ SCH (21:57)
[2023-09-17] MEDS: ATORVASTATIN 10 MG TAB PO SCH (21:57)
[2023-09-18] MEDS: HEPARIN SOD 5,000 UNIT/0.5 ML VIAL SQ SCH ×3 (05:56→20:26)
[2023-09-18] MEDS: FUROSEMIDE 40 MG/4 ML VIAL IV SCH ×2 (09:07→17:42)
[2023-09-18] MEDS: DIVALPROEX EXTENDED RELEASE 500 MG TAB PO SCH ×2 (09:07→20:23)
[2023-09-18] MEDS: PANTOprazole 40 MG TAB PO SCH (09:08)
[2023-09-18] MEDS: POTASSIUM CHLORIDE 10 MEQ TABCR PO SCH (09:08)
[2023-09-18] MEDS: GABAPENTIN 100 MG CAP PO SCH ×3 (09:08→20:25)
[2023-09-18] MEDS: allopurinoL 100 MG TAB PO SCH (09:08)
[2023-09-18] MEDS: QUEtiapine FUMARATE 100 MG TABLET PO SCH (09:08)
[2023-09-18] MEDS: CARBIDOPA/LEVODOPA 25/100MG TAB PO SCH ×3 (09:09→20:23)
[2023-09-18] MEDS: MICONAZOLE NITRATE POWDER 85 GM EXT SCH ×2 (09:09→20:26)
--- NOTE | 2023-09-18 12:46 | XCELERA ---
[id number] \\[id number]
[2023-09-18] MEDS: cefTRIAXone SODIUM 2,000 MG in DEXTROSE 5 % MINI-B 50 ML IV SCH (14:34)
--- NOTE | 2023-09-18 18:16 | Hospitalist Progress Note ---
Date of Service September 18, 2023 Assessment & Plan (1) Acute on chronic heart failure: Plan: Acute on chronic diastolic CHF Presents with hypoxia, weakness, REMBERTO, volume overload, cough Improving with diuresis and treatment with ceftriaxone but remains w/ peripheral edema, bad cough ECHO normal except LVH Continue gallego catheter on admission continue Lasix 40mg IV BID Strict I&Os, Daily weights, Low Na diet FOllow BMP (2) Pneumonia: Plan: CXR with bibasilar consolidation and pleural effusions. 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 today down to 1.7 -Avoid nephrotoxins -renally dose meds when appropriate -follow BMP (4) Hypoxia: Plan: Aim O2 sats > 90% Secondary to CHF and PNA as above add on DUonebs (5) Cellulitis: Plan: Difficult to rule out since she has been on doxycycline possible partially treating and infection With bilat erythema, edema, could be venous stasis changes vs cellulitis WBC and procalcitonin normal Follow up blood cultures High risk given significant tinea -> start miconazole powder BID Recommend short course of ceftriaxone for 5 days to cover for cellulitis (6) Leg edema: Plan: Bilateral venous dopplers to r/o DVT are negative continue diuresis (7) Parkinsons disease: Plan: Continue Sinemet (8) Bipolar disorder: Plan: Continue her usual routine medications Plan VTE Prophylaxis - heparin 7500 units SQ q8h Diet - heart healthy, Low Na, fluids restricted Disposition - continued stay on med/tele Admission and Anticipated Discharge Date Admission Date: September 17, 2023 Subjective Pt has a terrible cough but feels it is better than previous.Reports her legs have been red and swollen.No SOB or chest pain Tele with NSR rates 90s Physical Exam Constitutional: WD/WN, vitals as above Respiratory: normal respiratory effort and + cough Auscultation: + rhonchi (upper airway); no crackles and no wheezes Cardiovascular: Rate/Rhythm: regular rate and regular rhythm Heart Sounds: no murmur Extremities: + edema (2+ pitting edema legs to thighs bilat) Gastrointestinal (Abdomen): normal bowel sounds, soft, nontender, no hepatosplenomegaly Skin: + erythema (diffuse of bilat legs,warm) Psychiatric: Orientation: alert, oriented x 3 and cooperative Genitourinary: + abnormal external appearance (Gallego ca th in place) Results & Data Results & Data Vital Signs (Past 12 Hours) Vital Signs Temp Pulse Pulse Resp BP Pulse Ox O2 Del Method 09/18/23 15:17 36.8 C 99 H 18 127/67 92 Nasal Cannula 09/18/23 15:00 101 H 09/18/23 11:13 36.4 C L 93 H 18 92 Nasal Cannula 09/18/23 08:00 Nasal Cannula 09/18/23 07:41 36.5 C 93 H 18 114/59 L 92 Nasal Cannula 09/18/23 07:00 93 H O2 Flow Rate 09/18/23 15:17 2 09/18/23 15:00 09/18/23 11:13 2 09/18/23 08:00 2 09/18/23 07:41 1 09/18/23 07:00 Laboratory Results BMP,trop,reviewed PG Care Time/CCT Total # of Minutes Spent Total Time Spent with Patient: Total time spent is greater than 50% in coordination of care (as documented) at patient's floor/unit and/or counseling patient: Coding Level of Care Code 54268 SUB INP/OBS CARE 3/50MIN Diagnoses Acute on chronic heart failure I50.9 Pneumonia J18.9 REMBERTO (acute kidney injury) N17.9 Hypoxia R09.02 Cellulitis L03.90 Leg edema R60.0 Parkinsons disease G20 Bipolar affective disorder, currently manic, severe, with psychotic features F31.2 Active/Remission status: currently active Current bipolar episode type: manic Current episode severity: severe Psychotic features: with psychotic features (8) Bipolar disorder Active/Remission status: currently active Current bipolar episode type: manic Current episode severity: severe Psychotic features: with psychotic features Qualified Code(s): F31.2 - Bipolar disorder, current episode manic severe with psychotic features
[2023-09-18 19:37] LABS: Influenza A virus by PCR Negative (Neg); Influenza B virus by PCR Negative (Neg); RSV by PCR Negative (Neg); SARS CoV2 RNA(COVID-19) Ceph NEGATIVE (Negative)
[2023-09-18] MEDS: QUEtiapine FUMARATE 300 MG TABLET PO SCH (20:25)
[2023-09-18] MEDS: ATORVASTATIN 10 MG TAB PO SCH (20:33)
[2023-09-19] MEDS: HEPARIN SOD 5,000 UNIT/0.5 ML VIAL SQ SCH ×3 (05:55→20:08)
[2023-09-19 06:54] LABS: Basophils # (auto) 0.05 K/uL (0.00-0.20); Basophils % (auto) 0.9 %; Eosinophils # (auto) 0.26 K/uL (0.00-0.50); Eosinophils % (auto) 4.4 %; Hemoglobin 12.1 g/dl (12.0-16.0); Immature Granulocytes # (auto) 0.02 K/uL (0.01-0.20); Immature Granulocytes % (auto) 0.3 %; Lymphocytes # (auto) 1.07 K/uL (1.20-3.40); Lymphocytes % (auto) 18.2 %; Mean Corpuscular Hemoglobin 30.3 pg (25.0-34.0); Mean Corpuscular Hgb Conc 32.7 g/dL (32.0-36.0); Mean Corpuscular Volume 92.5 fL (80.0-100.0); Mean Platelet Volume 9.1 fL (9.4-12.4); Monocytes # (auto) 0.84 K/uL (0.11-0.59); Monocytes % (auto) 14.3 %; Neutrophils # (auto) 3.64 K/uL (1.40-6.50); Neutrophils % (auto) 61.9 %; Platelet Count 270 K/uL (130-400); RDW Coefficient of Variation 17.6 % (11.5-14.5); RDW Standard Deviation 59.8 fL (36.4-46.3); White Blood Count 5.88 K/ul (4.8-10.8)
[2023-09-19 07:19] LABS: BUN Creatinine Ratio 14.6 (10-20); Calcium 9.3 mg/dl (8.6-10.3); Creatinine Clr Calc Pharmacy 29.5 ml/min; Est GFR (African American) 28.6 ml/min; Est GFR (Non-African American) 24.7 ml/min; Magnesium 2.5 mg/dl (1.7-2.4); Potassium 4.1 mmol/L (3.5-5.1)
[2023-09-19] MEDS: DIVALPROEX EXTENDED RELEASE 500 MG TAB PO SCH ×2 (08:14→20:09)
[2023-09-19] MEDS: POTASSIUM CHLORIDE 10 MEQ TABCR PO SCH (08:14)
[2023-09-19] MEDS: allopurinoL 100 MG TAB PO SCH (08:14)
[2023-09-19] MEDS: PANTOprazole 40 MG TAB PO SCH (08:14)
[2023-09-19] MEDS: QUEtiapine FUMARATE 100 MG TABLET PO SCH (08:14)
[2023-09-19] MEDS: CARBIDOPA/LEVODOPA 25/100MG TAB PO SCH ×3 (08:14→20:09)
[2023-09-19] MEDS: FUROSEMIDE 40 MG/4 ML VIAL IV SCH (08:14)
[2023-09-19] MEDS: GABAPENTIN 100 MG CAP PO SCH ×3 (08:14→20:09)
[2023-09-19] MEDS: MICONAZOLE NITRATE POWDER 85 GM EXT SCH ×2 (08:47→20:52)
[2023-09-19] MEDS: DOXYCYCLINE HYCLATE 100 MG in DEXTROSE 5% MINI-B 100 ML IV SCH ×2 (09:20→20:08)
[2023-09-19] MEDS: ALBUT/IPRATROP 3MG/0.5MG NEB 3 ML VIAL NEB SCH ×4 (09:41→19:21)
[2023-09-19] MEDS: cefTRIAXone SODIUM 2,000 MG in DEXTROSE 5 % MINI-B 50 ML IV SCH (14:13)
--- NOTE | 2023-09-19 19:04 | Hospitalist Progress Note ---
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 Suspect mostly CHF but likely also with PNA given productive cough Cough much improved today with addition also of scheduled nebs Continue ceftriaxone and doxy for CAP follow CXR to resolution in 4-6 weeks BCxs NGTD (3) REMBERTO (acute kidney injury): Plan: Suspect due to poor effective forward flow from heart failure initally Certified Pharmacy Tech was 1.9 on admissiona nd improved to 1.7 with IV lasix Now back up to 1.9 (baseline 1.1) -hold IV lasix as above -Avoid nephrotoxins -renally dose meds when appropriate -follow BMP (4) Hypoxia: Plan: Aim O2 sats > 90% Secondary to CHF and PNA as above continue on DUonebs (5) Cellulitis: Plan: Difficult to rule out since she has been on doxycycline possible partially treating and infection With bilat erythema, edema, could be venous stasis changes vs cellulitis- slightly improved today but seems more consistent with venous stasis WBC and procalcitonin normal Follow up blood cultures-NGTD continue ceftriaxone, doxy (6) Leg edema: Plan: Bilateral venous dopplers to r/o DVT are negative improved with IV lasix (7) Parkinsons disease: Plan: Continue Sinemet PT recommnds rehab (8) Bipolar disorder: Plan: Continue her usual routine medications Plan VTE Prophylaxis - heparin 7500 units SQ q8h Disposition - continued stay but downgrade to med/surg, possible dc to [facility] as bed hold tomorrow Admission and Anticipated Discharge Date Admission Date: September 17, 2023 Anticipated date of discharge: 09/20/23 Subjective Pt feelin gbetter, less cough. Really wants to go home tomorrow on her birthday Tele with NSR, normal rates Physical Exam Constitutional: WD/WN, vitals as above Respiratory: normal respiratory effort; no cough Auscultation: + crackles (bibasilar); no rhonchi (much improved) and no wheezes Cardiovascular: Rate/Rhythm: regular rate and regular rhythm Heart Sounds: no murmur Extremities: + edema (1+ pitting edema legs to thighs bilat,improved) Gastrointestinal (Abdomen): normal bowel sounds, soft, nontender, no hepatosplenomegaly Skin: + erythema (diffuse of bilat legs,warmth but less than yesterday) Psychiatric: Orientation: alert, oriented x 3 and cooperative Genitourinary: + abnormal external appearance (Gallego ca th in place) Results & Data Results & Data Vital Signs (Past 12 Hours) Vital Signs Temp Pulse Pulse Resp BP Pulse Ox O2 Del Method 09/19/23 15:34 106 H 09/19/23 15:20 36.8 C 103 H 18 141/83 H 94 Nasal Cannula 09/19/23 14:25 99 H 18 93 Nasal Cannula 09/19/23 12:04 87 20 89 L Nasal Cannula 09/19/23 11:34 36.5 C 80 18 158/90 H 92 Room Air 09/19/23 08:16 36.7 C 88 14 144/88 H 90 Room Air 09/19/23 07:26 93 H 09/19/23 07:22 Nasal Cannula O2 Flow Rate 09/19/23 15:34 09/19/23 15:20 2 09/19/23 14:25 2 09/19/23 12:04 2 09/19/23 11:34 09/19/23 08:16 09/19/23 07:26 09/19/23 07:22 2 Laboratory Results CBC, BMP, Mag, blood cxs reviewed PG Care Time/CCT Total # of Minutes Spent Total Time Spent with Patient: Total time spent is greater than 50% in coordination of care (as documented) at patient's floor/unit and/or counseling patient: Coding Level of Care Code 64560 SUB INP/OBS CARE 2/35MIN Diagnoses Acute on chronic heart failure I50.9 Pneumonia J18.9 REMBERTO (acute kidney injury) N17.9 Hypoxia R09.02 Cellulitis L03.90 Leg edema R60.0 Parkinsons disease G20 Bipolar affective disorder, currently manic, severe, with psychotic features F31.2 Active/Remission status: currently active Current bipolar episode type: manic Current episode severity: severe Psychotic features: with psychotic features (8) Bipolar disorder Active/Remission status: currently active Current bipolar episode type: manic Current episode severity: severe Psychotic features: with psychotic features Qualified Code(s): F31.2 - Bipolar disorder, current episode manic severe with psychotic features
[2023-09-19] MEDS: QUEtiapine FUMARATE 300 MG TABLET PO SCH (20:09)
[2023-09-19] MEDS: ATORVASTATIN 10 MG TAB PO SCH (20:51)
[2023-09-20 07:00] LABS: BUN Creatinine Ratio 18.4 (10-20); Calcium 9.6 mg/dl (8.6-10.3); Creatinine Clr Calc Pharmacy 31.9 ml/min; Est GFR (Non-African American) 27.6 ml/min; Potassium 4.3 mmol/L (3.5-5.1)
[2023-09-20] MEDS: ALBUT/IPRATROP 3MG/0.5MG NEB 3 ML VIAL NEB SCH ×2 (07:21→11:30)
[2023-09-20] MEDS: HEPARIN SOD 5,000 UNIT/0.5 ML VIAL SQ SCH (07:25)
[2023-09-20] MEDS: MICONAZOLE NITRATE POWDER 85 GM EXT SCH (08:35)
[2023-09-20] MEDS: allopurinoL 100 MG TAB PO SCH (08:35)
[2023-09-20] MEDS: DIVALPROEX EXTENDED RELEASE 500 MG TAB PO SCH (08:35)
[2023-09-20] MEDS: CARBIDOPA/LEVODOPA 25/100MG TAB PO SCH (08:35)
[2023-09-20] MEDS: PANTOprazole 40 MG TAB PO SCH (08:35)
[2023-09-20] MEDS: QUEtiapine FUMARATE 100 MG TABLET PO SCH (08:35)
[2023-09-20] MEDS: GABAPENTIN 100 MG CAP PO SCH (08:35)
[2023-09-20] MEDS ORDERED: FUROSEMIDE 40 MG TAB PO SCH (09:00)
[2023-09-20] MEDS: DOXYCYCLINE HYCLATE 100 MG in DEXTROSE 5% MINI-B 100 ML IV SCH (09:53)
--- NOTE | 2023-09-20 12:13 | Discharge Summary ---
Discharge Summary Date of Service September 20, 2023 Notes For Next Care Provider Check BMP in 3 days Medication Changes From Visit Decrease lasix to 40mg po daily for now, adjust as needed based on renal function and volume status HOLD potassium until after repeat BMP is assessed Doxycycline 100mg po bid x 4 more days Cefdinir 300mg po bid x 4 more days Admission HPI Per Admitting Provider Katie Graves is a 77 year old female who presents to the ER via EMS from [facility] are due to hypoxia and increased weakness. Unable to get much history from the patient due to underlying cognitive issues. Patient using the bathroom and slid off toilet to floor around midnight. Staff notes some slurred speech/lisp this morning that has since cleared. She was found to be hypoxic therefore sent to the ER for evaluation. Patient usual able to help with ADLs but significant weakness today. O2 sats 80's on room air when EMS arrived. Currently on treatment for b/l LE cellulitis with doxycycline - possible improvement per patient. She denies any shortness of breath, chest pain, nasal congestion, cough, sinus pain. Principal Dx & Hospital Course #1 = Principal Diagnosis (1) Acute on chronic heart failure: Acute on chronic diastolic CHF Presents with hypoxia, weakness, REMBERTO, volume overload, cough Improving with diuresis and treatment for PNA Cough much improved, peripheral edema decreased, weight down 8kg and I/O net neg 4.1L ECHO normal except LV[facility] Film Technician nemesio to 1.9 after IV diuresis--> dcd IV lasix and KCl, resumed po lasix 40mg daily on day of discharge as ware carrier improved to 1.7 Daily weights, Low Na diet, fluid restrict to 1800mL on discharge FOllow BMP in 3 days May need to increase dose of lasix to 80mg again or 40mg bid (2) Pneumonia: CXR with bibasilar consolidation and pleural effusions. Suspect mostly CHF but likely also with PNA given productive cough Cough much improved with addition of scheduled nebs-continue on discharge Received ceftriaxone and doxy for CAP and dc on cefdinir po and doxy po for 4 more days follow CXR to resolution in 4-6 weeks BCxs remain NGTD can take guaifenesin DM as needed for cough (3) REMBERTO (acute kidney injury): Suspect due to poor effective forward flow from heart failure initally Film Technician was 1.9 on admission and improved to 1.7 with IV lasix then back up to 1.9 (baseline 1.1) after further IV lasix back to 1.7 as above with holding IV lasix and plan to dc to home on po lasix 40mg daily, close BMP follow up (4) Hypoxia: Aim O2 sats > 90% Secondary to CHF and PNA as above continue on DUonebs remains on 3LNC on discharge-wean as able to at [facility] (5) Cellulitis: Difficult to rule out since she has been on doxycycline possible partially treating and infection With bilat erythema, edema, could be venous stasis changes vs cellulitis-not much improved since admission therefore seems more consistent with venous stasis WBC and procalcitonin normal Follow up blood cultures-NGTD continue cefdinir, doxy regardless as above for PNA (6) Leg edema: Bilateral venous dopplers to r/o DVT are negative improved with IV lasix (7) Parkinsons disease: Continue Sinemet PT recommnds rehab (8) Bipolar disorder: Continue her usual routine medications Plan VTE Prophylaxis - heparin 7500 units SQ q8h Disposition - dc to [facility] as bed hold today Discharge Exam Constitutional WD/WN, vitals as above Respiratory normal respiratory effort; no cough Auscultation: + crackles (bibasilar); no rhonchi (much improved) and no wheezes Cardiovascular Rate/Rhythm: regular rate and regular rhythm Heart Sounds: no murmur Extremities: + edema (1+ pitting edema legs to thighs bilat,improved) Gastrointestinal (Abdomen) normal bowel sounds, soft, nontender, no hepatosplenomegaly Skin + erythema (diffuse of bilat legs,warmth but less than yesterday) Psychiatric Orientation: alert, oriented x 3 and cooperative Updated Medication List Medication Instructions Recorded Confirmed Type allopurinol 100 mg tablet 100 mg PO QAM 09/08/18 09/17/23 History carbidopa 25 mg-levodopa 100 mg 1 tab PO TID 09/08/18 09/17/23 History tablet potassium chloride 10 mEq 10 meq PO QAM 10/16/19 09/17/23 History capsule,extended release divalproex 500 mg tablet,extended See Rx Instructions .Route .COMPLEX 01/18/22 09/17/23 History release 24 hr (Depakote ER) gabapentin 100 mg capsule 100 mg PO TID 01/18/22 09/17/23 History quetiapine 100 mg tablet See Rx Instructions .Route .COMPLEX 01/18/22 09/17/23 History acetaminophen 325 mg tablet 650 mg (2 x 325 mg) PO Q6H PRN 01/21/22 09/17/23 Rx fever or pain #30 tabs acetaminophen 500 mg tablet 500 mg PO TID Pain management 09/17/23 09/17/23 History atorvastatin 10 mg tablet 0 mg PO HS 09/17/23 09/17/23 History bisacodyl 10 mg rectal suppository 10 mg IA DAILY PRN Constipation 09/17/23 09/17/23 History (Dulcolax (bisacodyl)) magnesium hydroxide 400 mg/5 mL 2,400 mg PO DAILY PRN Constipation 09/17/23 09/17/23 History oral suspension (Milk of Magnesia) trubeaotmcne-zccnongk-zzsgsr 1 tab PO DAILY 09/17/23 09/17/23 History tablet (Multivitamin 50 Plus tablet) nystatin 100,000 unit/gram topical 1 applic topical BID 09/17/23 09/17/23 History powder (Nyamyc) pantoprazole 40 mg tablet,delayed 40 mg PO DAILY 09/17/23 09/17/23 History release sodium phosphates 19 gram-7 118 ml IA DAILY PRN Constipation 09/17/23 09/17/23 History gram/118 mL enema (Fleet Enema) cefdinir 300 mg capsule 300 mg PO BID #8 caps 09/20/23 Rx doxycycline hyclate 100 mg tablet 100 mg PO BID #8 tabs 09/20/23 Rx furosemide 40 mg tablet 40 mg PO QAM #30 tabs 09/20/23 Rx ipratropium 0.5 mg-albuterol 3 mg 3 ml NEB QIDR 7 days #90 mL 09/20/23 Rx (2.5 mg base)/3 mL nebulization soln Hospital Stay Data Consultations 09/17/23 15:21 ED Decision to Admit Stat Diagnostic Imagining Performed 09/17/23 13:21 CT head/brain wo con Stat 09/17/23 16:20 US venous doppler LE BI Stat ECHO Pending Results Patient Have Any Pending Studies at Discharge: Yes (Final blood cultures) Discharge Instructions Given to Patient (Per Discharging Provider) Please finish out 4 more days of antibiotics with cefdinir and doxycycline for your pneumonia. You can take guaifenesin DM as needed for cough. Continue on nebulizer treatments three times a day until cough improved.You will need to remain on oxygen and wean off as able to as your pneumonia resolves. Please have a repeat chest xray done in 4 weeks to ensure resolution of your abnormal findings. You were treated with IV lasix to remove fluid and your kidney function is improved but not back to normal. Your oral lasix dose is reduced to 40mg daily from 80mg daily. Please have your kidney function repeated in 3 days and your PCP can adjust the dose of lasix as needed. Happy birthday! -Dr. Renay Marquez Call your Primary Care doctor if any of the following symptoms or problems start or get worse: * Shortness of breath or difficulty breathing * Wake up at night short of breath * Chest pain * Cough * Swelling of your hands, feet, or legs * More fatigued or tired with your normal activity * Palpitations - sudden fast heart beats WEIGHT * Weigh yourself every morning after using the bathroom. * Use the same scale. * Wear the same amount of clothing. * Write your weight down on a chart. * Call your Primary Care doctor if you gain more than 2-3 pounds in 1-2 days. MEDICATIONS * Use this discharge instruction sheet for medication instructions. * Take your medications at the time your doctor ordered. * Do not skip a dose of your medicines. * If you miss a dose of medicine, take it as soon as possible, but DO NOT DOUBLE A DOSE. * Read your medicine information when you get home. * Know all of the side effects of your medicine. If in doubt, ask your pharmacist * Call your Primary Care doctor's office if you have any side effects. * Be sure all of your doctors know what medicine and herbs you take (including cold, flu, and herbal medicine). Take the following with you to your follow-up doctor appointments: * Weight Chart * Medication List * List of questions Do not drink excessive alcohol, beer or wine. Total Time Total Time Spent Total Time Spent (In Minutes): 35 min Coding Level of Care Code 23281 INP/OBS DISCH >30 MIN Diagnoses Acute on chronic heart failure I50.9 Heart failure type: unspecified Pneumonia J18.9 REMBERTO (acute kidney injury) N17.9 Hypoxia R09.02 Cellulitis L03.119 Laterality: unspecified laterality Site of cellulitis: extremity Site of cellulitis of extremity: lower extremity Leg edema R60.0 Parkinsons disease G20 Bipolar affective disorder, currently manic, severe, with psychotic features F31.2 Active/Remission status: currently active Current bipolar episode type: manic Current episode severity: severe Psychotic features: with psychotic features
== END 2023-09-20 12:59 | DRG 291 ==
LOC: ED 12:44 → SUATTDRO 16:33 → EDINP 16:33 → 2N 17:37